=== PATIENT | male | born 1955 | race Caucasian/White ===

== ENCOUNTER → 2019-04-22 14:32 | Outpatient (BNVA) | payer MEDICAID, SELFPAY | PROVIDERS: Family Provider Registered Nurse; PCP Registered Nurse; Visit Provider Nurse Practitioner Family | DX: N40.1 Benign prostatic hyperplasia with lower urinary tract symptoms (principal); R33.9 Retention of urine, unspecified; N48.1 Balanitis; R39.14 Feeling of incomplete bladder emptying | CPT/HCPCS: 81001 ==

== ENCOUNTER → 2019-05-15 13:14 | Outpatient (BNVA) | payer MEDICAID, SELFPAY | PROVIDERS: Family Provider Registered Nurse; PCP Registered Nurse; Visit Provider Urology | DX: R33.9 Retention of urine, unspecified (principal); N48.1 Balanitis; N40.1 Benign prostatic hyperplasia with lower urinary tract symptoms; R39.14 Feeling of incomplete bladder emptying | CPT/HCPCS: 81001 ==

== ENCOUNTER → 2019-06-25 08:12 | Outpatient (BNVA) | payer MEDICAID, SELFPAY | PROVIDERS: Family Provider Registered Nurse; PCP Registered Nurse; Visit Provider Nurse Practitioner Psychiatric/Mental Health | DX: F41.1 Generalized anxiety disorder (principal); F17.210 Nicotine dependence, cigarettes, uncomplicated | CPT/HCPCS: 99213 ==

== ENCOUNTER 2019-07-01 11:21 | Emergency (ER) | payer MEDICAID, SELFPAY ==
[2019-07-01 11:30] VITALS: BP 166/87; PULSE 77; RESP 16; TEMP 36.6; O2SAT 99; BMI 21.7
[2019-07-01 11:40] VITALS: BP 126/86; BP 126/96; BP 154/80; PULSE 73; PULSE 88; PULSE 94
--- NOTE | 2019-07-01 11:41 | ED_ITS ---
HPI - General Adult General: Chief complaint: General Medical Stated complaint: FEELS LIKE HE WILL PASS OUT Time Seen by Provider: 07/01/19 11:31 History of Present Illness: HPI narrative: 63-year-old male comes in complaining of syncopal episodes or near syncopal episodes for the last month is not associated with any full loss of consciousness he denies any fever or respiratory problems he denies any getting any chest pain with these episodes. States they are always associated with change in either posture when he first stands up or begins to stand up sometimes they have occurred while he is walking but when he rests it go away he is never had any that initiated while he was completely at rest. They usually last 30 to 40 seconds of blurry vision and sometimes give him what he calls a brown headache. He denies any GI or symptoms associated with it denies any chest pain does not cause any radiation of discomfort into his neck arm or back. He denies any shortness of breath he states he will get as many as 4 or 5 of these per day he has been evaluated form they have not had any significant findings to this point. Onset (ago): month(s) (1) Location: head Radiation: non-radiation Severity: moderate Pain Consistency: intermittent Relieving factors: rest Exacerbating factors: other (Postural changes particularly when he first stands up) Associated symptoms: Reports headache(s) and weakness; Deny chest pain, confusion, cough, diaphoresis, decreased appetite, dyspnea, fevers/chills, nausea, rash, palpitations, seizures, short of breath, syncope or vomiting Treatments prior to arrival: none Review of Systems Const: Denies: diaphoresis ENMT: Denies: throat pain, ear pain, nasal discharge or nasal congestion Card: Denies: chest pain, palpitations or syncope Resp: Denies: shortness of breath GI: Denies: nausea or vomiting : Denies: flank pain, painful urination, urinary frequency or urinary urgency Skin/Breast: Denies: rash or itching Neuro: Reports: headache; Denies: confusion PFSH ED PFSH: Medical History Balanitis Benign prostatic hyperplasia with incomplete bladder emptying Generalized anxiety disorder Nicotine dependence, cigarettes, uncomplicated Urinary retention Surgical History S/P PTCA (percutaneous transluminal coronary angioplasty) DELETE Family History Mother , AT AGE 64 Renal failure Alzheimer disease Father , AT AGE 48 Lung cancer Social History Smoking and tobacco status: former smoker Alcohol intake: never Marital status: Current occupational status: disabled History of recent travel: No Physical Exam Const: COMMON NORMALS: no apparent distress GENERAL APPEARANCE: cooperative and comfortable ORIENTATION/CONSCIOUSNESS: Yes awake, Yes oriented to person, Yes oriented to place and Yes oriented to time HENMT: COMMON NORMALS: normocephalic, head/scalp atraumatic, hearing grossly normal bilaterally, external ears normal, EAC's normal, TM's normal bilaterally, nasal mucous membranes and turbinates normal, moist oral mucous membranes and oropharynx normal HEAD & SCALP: normocephalic and atraumatic NOSE: nasal mucous membranes and turbinates normal EXTERNAL EAR: Yes external ears normal EXTERNAL AUDITORY CANAL: EAC's normal TYMPANIC MEMBRANE: TM's normal bilaterally Eye: COMMON NORMALS: PERRL, EOMs intact bilaterally, conjunctivae normal and no scleral icterus CONJUNCTIVA: Yes conjunctivae normal PUPIL: Yes PERRL Neck/C-Spine: COMMON NORMALS: full ROM, no lymphadenopathy, supple and no JVD Lymph: LYMPHATIC: no lymphadenopathy noted and no lymphedema noted Resp: COMMON NORMALS: normal respiratory effort, no retractions, no use of accessory muscles and clear to auscultation bilaterally AUSCULTATION: clear to auscultation bilaterally Cardio: COMMON NORMALS: no JVD, regular rate, regular rhythm and no murmurs RATE: regular rate RHYTHM: regular rhythm GI: COMMON NORMALS: soft to palpation and no hepatosplenomegaly AUSCULTATION: Yes normoactive bowel sounds PALPATION: Yes soft, No tender, No guarding and Yes no hepatosplenomegaly Extremity: COMMON NORMALS: normal to inspection, normal capillary refill, no clubbing, cyanosis or edema, no calf tenderness and no pedal edema Neuro: SENSORIUM/ORIENTATION: Yes oriented to person, Yes oriented to place and Yes oriented to time Skin: COMMON NORMALS: no rashes or lesions noted GENERAL SKIN EXAM: no rashes or lesions noted Course Vital Signs: Vital signs: Vital Signs Temperature 97.8 F 07/01/19 11:30 Pulse Rate 68 07/01/19 14:12 Respiratory Rate 16 07/01/19 14:12 Blood Pressure 156/91 07/01/19 14:12 Pulse Oximetry 98 07/01/19 14:12 MDM - General Adult MDM Narrative: Medical decision making narrative: 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 He has had this for quite some time is nothing acute at this point we will go ahead and discharge him home we will get him to follow-up with neurology and get an outpatient MRI of the head as is worsening change symptoms recheck. Lab Data: Labs: Lab Results 07/01/19 07/01/19 07/01/19 Range/Units 12:00 12:00 12:00 WBC 7.6 (4.0-10.0) 10^3/ uL RBC 4.11 (4.1-5.3) 10^6/u L Hgb 13.4 (11.7-16.6) g/dL Hct 40.9 L (42.0-52.0) % MCV 99.5 H (80-94) fL MCH 32.6 (28.0-34.0) pg MCHC 32.8 (30.0-36.0) g/dL RDW 13.0 (12.1-15.1) % Plt Count 181 (130-400) 10^3/c mm MPV 10.6 H (7.4-10.4) fL Neut % (Auto) 64.6 % Lymph % (Auto) 24.2 % Pitkin % (Auto) 6.0 % Eos % (Auto) 3.7 % Baso % (Auto) 1.2 % Neut # (Auto) 4.9 (1.8-7.7) 10^3/u L Lymph # (Auto) 1.9 (0.8-4.8) 10^3/u L Pitkin # (Auto) 0.5 (0.2-0.9) 10^3/u L Eos # (Auto) 0.3 (0.0-0.8) 10^3/u L Baso # (Auto) 0.1 (0.0-0.1) 10^3/u L Nucleated RBC % (a uto) 0 % Nucleated RBCs # 0.0 /100WBC Sodium 140 (136-145) mmol/L Potassium 4.3 (3.5-5.1) mmol/L Chloride 105 (98-107) mmol/L Carbon Dioxide 25 (22-29) mmol/L Anion Gap 14.3 (5-19) BUN 16 (8-23) mg/dL Creatinine 1.7 H (0.7-1.2) mg/dL GFR Calculation 41.2 L (90-130) mL/min Glucose 97 (65-115) mg/dL Calculated Osmolal ity 286 (285-295) mOsm/k g Calcium 9.4 (8.5-10.5) mg/dL Total Bilirubin 0.3 (0.15-1.2) mg/dL AST 15 (0-40) U/L ALT 15 (0-41) U/L Alkaline Phosphata se 115 (40-130) IU/L Total Protein 6.6 (6.6-8.7) g/dL Albumin 4.2 (3.5-5.2) g/dL Globulin 2.4 (1.3-4.6) g/dL Urine Color Yellow (Yellow) Urine Appearance Clear (CLEAR) Urine pH 7 (5-7) Ur Specific Gravit y 1.005 (1.005-1.030) Urine Protein Neg (Negative) Urine Glucose (UA) Norm (Normal) Urine Ketones Negative (Negative) Urine Blood Neg (Negative) Urine Nitrate Negative (Negative) Urine Bilirubin Neg (NEGATIVE) Urine Urobilinogen Norm (Negative) mg/dL Ur Leukocyte Shital ase Negative (Negative) Imaging Data^: CT Head: Radiologist's impression: CT head wo con* [id number] REASON FOR EXAM: Near syncopal episodes, right-sided facial numbness IV CONTRAST ADMINISTERED: None. TOTAL EXAM DLP: 795.[address] scans at [facility] use at least one of these dose optimization techniques: automated exposure control; mA and/or kV adjustment per patient size (includes targeted exams where dose is matched to clinical indication); or iterative reconstruction. FINDINGS: The pineal gland is enlarged measures 9.95 mm from the normal of 5 mm. There appears to be mild dilatation of the third ventricle.. These findings are subtle and we recommend consideration of MRI of the brain be performed with contrast to rule out a Pinealoma. The hahn and white matter interfaces are normal. The 7th and 8th nerve complexes bilaterally appear to be normal. There is no lesions seen in the parotid glands right or left. Posterior fossa was normal terence and cerebellum show no abnormal signal. CT/CT head wo con* [id number] IMPRESSION: The pineal gland appears to be prominent in size suspicious of slight enlarge ment with mild dilatation of the third ventricle. We recommend follow-up with MRI with contrast be made. Dictated By:Lincoln Toribio DO Discharge Plan Discharge Patient Disposition: Home, Self-Care Clinical Impression: Near syncope Condition: Stable Prescriptions: No Action baclofen 10 mg tablet 10 mg PO BID RF: 0 memantine 5 mg tablet 5 mg PO BID RF: 0 finasteride 5 mg tablet 5 mg PO DAILY RF: 0 isosorbide mononitrate 30 mg tablet extended release 24 hr 30 mg PO DAILY RF: 0 simvastatin 40 mg tablet 40 mg PO DAILY RF: 0 levothyroxine 112 mcg capsule 112 mcg PO DAILY RF: 0 tramadol 50 mg tablet 50 mg PO DAILY PRN (Reason: Pain) RF: 0 pantoprazole 40 mg tablet,delayed release (DR/EC) 40 mg PO DAILY RF: 0 nitroglycerin [Nitrostat] 0.4 mg tablet, sublingual 0.4 mg SUBLINGUAL ONCE PRN (Reason: Chest Pain) RF: 0 aspirin 81 mg tablet,delayed release (DR/EC) 81 mg PO DAILY RF: 0 celecoxib 200 mg capsule 200 mg PO BID RF: 0 clopidogrel 75 mg tablet 75 mg PO DAILY RF: 0 trazodone 150 mg tablet 150 mg PO .bedtime Qty: 30 RF: 3 citalopram 20 mg tablet 20 mg PO DAILY RF: 0 gabapentin 300 mg capsule 300 mg PO BEDTIME RF: 0 Discharge Orders: Discharge Order (Routine); Ordered 07/01/19 Ordered By: Jose Vu Referrals: Margarita Elder [Primary Care Provider] - Discharge Diet: Usual diet Discharge Activity: Limit activity as instructed Activity Restrictions/Additional Instructions: Low up with your primary care provider after the MRI of your head. Discharge Date/Time: 07/01/19 14:20 Coding Level of Care Code ED Topline Beading Machine Tender for g Fwd Exam Comprehensive
--- NOTE | 2019-07-01 11:43 | CT_ITS ---
WS: [id number] CT head wo con* [id number] REASON FOR EXAM: Near syncopal episodes, right-sided facial numbness IV CONTRAST ADMINISTERED: None. TOTAL EXAM DLP: 795.[address] scans at [facility] use at least one of these dose optimization techniques: automat ed exposure control; mA and/or kV adjustment per patient size (includes targeted exams where dose is matched to clinical indication); or iterative reconstruction. FINDINGS: The pineal gland is enlarged measures 9.95 mm from the normal of 5 mm. There appears to be mild dilatation of the third ventricle.. These findings are subtle and we recommend consideration of MRI of the brain be performed with contrast to rule out a Pinealoma. The hahn and white matter interfaces are normal. The 7th and 8th nerve complexes bilaterally appear to be normal. There is no lesions seen in the paro tid glands right or left. Posterior fossa was normal terence and cerebellum show no abnormal signal. CT/CT head wo con* [id number] IMPRESSION: The pineal gland appears to be prominent in size suspicious of slight enlargeme nt with mild dilatation of the third ventricle. We recommend follow-up with MRI with contrast be made.
--- NOTE | 2019-07-01 11:43 | ECG_ITS ---
Measurements Intervals [place] Rate: 78 P: 74 MI: 159 QRS: 48 QRSD: 93 T: 77 QT: 356 QTc: 408 SINUS RHYTHM POSSIBLE LEFT ATRIAL ENLARGEMENT [-0.1mV P WAVE IN V1/V2] Compared to ECG 09/22/2018 14:11:31 No significant changes Electronically Signed On 07-01-2019 18:24:20 CDT by Lexi Martin M.D. [id number]
--- NOTE | 2019-07-01 11:44 | XR_ITS ---
WS: [id number] XR chest 1V portable [id number] REASON FOR EXAM: dyspnea/cough FINDINGS: The lung thomas are mildly hyper aerated. Suggest mild emphysema. The heart and mediastinal interfaces are normal. The lung thomas show no pneumonia, pleural effusion, pulmonary edema, or mass effect. The hilum and apices are normal. The chest is similar to September 22, 2018. XR/XR chest 1V portable [id number] IMPRESSION: Mild chronic obstructive pulmonary disease.
[2019-07-01 12:14] LABS: Basophils # 0.1 10^3/uL (0.0-0.1); Basophils % 1.2 %; Eosinophils # 0.3 10^3/uL (0.0-0.8); Eosinophils % 3.7 %; Hematocrit 40.9 % (42.0-52.0); Hemoglobin 13.4 g/dL (11.7-16.6); Lymphocytes # 1.9 10^3/uL (0.8-4.8); Lymphocytes % 24.2 %; Mean Corpuscular HGB Conc 32.8 g/dL (30.0-36.0); Mean Corpuscular Hemoglobin 32.6 pg (28.0-34.0); Mean Corpuscular Volume 99.5 fL (80-94); Mean Platelet Volume 10.6 fL (7.4-10.4); Monocytes # 0.5 10^3/uL (0.2-0.9); Neutrophils # 4.9 10^3/uL (1.8-7.7); Neutrophils % 64.6 %; Nucleated Red Blood Cells % 0 %; Platelet Count 181 10^3/cmm (130-400); Red Blood Count 4.11 10^6/uL (4.1-5.3); White Blood Count 7.6 10^3/uL (4.0-10.0)
[2019-07-01 12:16] LABS: Add Urine Microscopic? NO; Bilirubin Urine Neg (NEGATIVE); Blood Urine Neg (Negative); Glucose Urine UA Norm (Normal); Ketones Urine Negative (Negative); Leukocyte Esterase Urine Negative (Negative); Nitrate Urine Negative (Negative); Protein Urine Neg (Negative); Specific Gravity, Urine 1.005 (1.005-1.030); Urine Appearance Clear (CLEAR); Urine Color Yellow (Yellow); Urobilinogen Urine Norm (Negative); pH Urine 7 (5-7)
[2019-07-01 12:49] LABS: Alanine Aminotransferase 15 U/L (0-41); Albumin Level 4.2 g/dL (3.5-5.2); Alkaline Phosphatase 115 IU/L (40-130); Anion Gap 14.3 (5-19); Aspartate Amino Transferase 15 U/L (0-40); Blood Urea Nitrogen 16 mg/dL (8-23); Calcium 9.4 mg/dL (8.5-10.5); Carbon Dioxide 25 mmol/L (22-29); Chloride 105 mmol/L (98-107); Globulin 2.4 g/dL (1.3-4.6); Glomerular Filtration Rate 41.2 mL/min (90-130); Glucose 97 mg/dL (65-115); Osmolality Calculated 286 mOsm/kg (285-295); Potassium 4.3 mmol/L (3.5-5.1); Sodium 140 mmol/L (136-145); Total Bilirubin 0.3 mg/dL (0.15-1.2); Total Protein 6.6 g/dL (6.6-8.7)
[2019-07-01 14:12] VITALS: BP 156/91; PULSE 68; RESP 16; O2SAT 98
--- NOTE | 2019-07-03 15:26 | DCPLANNER ---
municipal services manager had message to schedule an outpatient MRI for patient. municipal services manager got order signed, faxed order to centralized scheduling. municipal services manager will call for appointment information.
--- NOTE | 2019-07-09 15:07 | DCPLANNER ---
Patient has an MRI scheduled for Wednesday, July 17, 2019 at 8:00. Patient also has a follow up appointment scheduled for Tuesday, September 03, 2019 at 10:[address] Mitchell.
--- NOTE | 2019-07-24 08:10 | DCPLANNER ---
Patients MRI scheduled for 07.17.19 was cancelled.
--- NOTE | 2019-09-06 14:55 | DCPLANNER ---
Patient did attend appointment scheduled for 09.03.19 with .
== END 2019-07-01 14:20 | disposition home or self-care (01) ==
PROVIDERS: Emergency Provider Family Medicine; Family Provider Registered Nurse; PCP Registered Nurse
DX: R55 Syncope and collapse (principal); Z79.82 Long term (current) use of aspirin; Z79.02 Long term (current) use of antithrombotics/antiplatelets; Z87.891 Personal history of nicotine dependence
CPT/HCPCS: 12345; 70450; 71045; 80053; 81003; 85025; 93005; 99283

== ENCOUNTER 2019-08-05 09:01 | Outpatient (CLI) | payer MEDICAID, SELFPAY ==
--- NOTE | 2019-08-05 09:24 | MR_ITS ---
WS: [id number] MRI BRAIN WITH AND WITHOUT CONTRAST HISTORY: NEW DAILY PERSISTENT HEADACHE;DIZZINESS;ABNL CT SCAN OF HEAD COMPARISON: 10/20/[address] head 07/01/2019 TECHNIQUE: Multiplanar imaging performed through the brain with Prohance 17 ml's IV. No acute infarcts are seen. Roche-white matter differentiation is well preserved. Mild chronic microv ascular ischemic changes in the subcortical white matter and around the ventricles. Mild progression since 2015. No susceptibility artifacts or prior lacunar infarcts. Ventricles and extra-axial spaces are normal. Clivus and pituitary gland are normal. Pineal gland is normal. Pineal gland is heavily calcified on p rior CT evaluations with no change. Visualized posterior fossa and brainstem are also normal. Postcontrast images are negative for masses or vascular malformations. Dural venous sinuses are normal. Paranasal sinuses: Mucous retention cyst floor of the LEFT maxillary sinus. Mastoid air cells: Normal. Calvarium and scalp: Normal. MR/MR head wo/w con [id number] IMPRESSION: 1. No acute infarct or mass. 2. Negative pineal gland. 3. Mild chronic microvascular ischemic disease. Slight progression since 2015.
== END 2019-08-05 09:02 | disposition home or self-care (01) ==
LOC: RADSHAW 09:03
PROVIDERS: Family Provider Registered Nurse; PCP Registered Nurse; Visit Provider Registered Nurse
DX: G44.52 New daily persistent headache (NDPH) (principal); R42 Dizziness and giddiness; R93.0 Abnormal findings on diagnostic imaging of skull and head, not elsewhere classified; I51.7 Cardiomegaly
CPT/HCPCS: 70553; A9579

== ENCOUNTER 2019-08-08 14:55 | Emergency (ER) | payer MEDICAID, SELFPAY ==
--- NOTE | 2019-08-08 15:09 | XR_ITS ---
WS: [id number] Portable AP upright chest, 08/08/2019 Clinical Data: chest pain Comparison: Portable chest, 07/01/2019. Findings: No nodules, masses or effusions are seen. The heart is normal. The pulmonary vascularity is not increased. No pneumonia or pneumothorax is seen. Monitor leads are on the chest wall. XR/XR chest 1V portable [id number] Impression: Negative chest.
--- NOTE | 2019-08-08 15:09 | ECG_ITS ---
Measurements Intervals [place] Rate: 96 P: 77 MO: 154 QRS: 49 QRSD: 89 T: 80 QT: 342 QTc: 432 SINUS RHYTHM POSSIBLE LEFT ATRIAL ENLARGEMENT [-0.1mV P WAVE IN V1/V2] NONSPECIFIC T-WAVE ABNORMALITY Compared to ECG 07/01/2019 11:33:50 T-wave abnormality now present Electronically Signed On 08-08-2019 20:56:37 CDT by Jacquelyn Bose M.D. [id number]
[2019-08-08 15:15] VITALS: BP 106/76; PULSE 98; RESP 14; TEMP 36.3; O2SAT 95; BMI 20.9
[2019-08-08 15:48] LABS: Basophils # 0.1 10^3/uL (0.0-0.1); Basophils % 0.8 %; Eosinophils # 0.1 10^3/uL (0.0-0.8); Eosinophils % 1.3 %; Hematocrit 37.6 % (42.0-52.0); Hemoglobin 12.6 g/dL (11.7-16.6); Lymphocytes # 2.1 10^3/uL (0.8-4.8); Mean Corpuscular HGB Conc 33.5 g/dL (30.0-36.0); Mean Corpuscular Hemoglobin 32.7 pg (28.0-34.0); Mean Corpuscular Volume 97.7 fL (80-94); Mean Platelet Volume 10.3 fL (7.4-10.4); Monocytes # 0.5 10^3/uL (0.2-0.9); Neutrophils # 7.5 10^3/uL (1.8-7.7); Neutrophils % 72.6 %; Nucleated Red Blood Cells % 0 %; Platelet Count 172 10^3/cmm (130-400); Red Blood Count 3.85 10^6/uL (4.1-5.3); Red Cell Distribution Width 12.8 % (12.1-15.1); White Blood Count 10.4 10^3/uL (4.0-10.0)
--- NOTE | 2019-08-08 16:12 | ED_ITS ---
Documented by User: aSncho Gonzalez DO 08/08/19 18:00 HPI - Chest Pain General: Chief Complaint: Chest Pain Stated Complaint: cp Time Seen by Provider: 08/08/19 15:49 History of Present Illness: HPI narrative: Patient reports that while at rest earlier today he had a sharp pain started in his left lower abdomen and radiated up into the chest. Pain was present for approximately 1 minute. There were no other associated symptoms. Patient is concerned because he was diagnosed some time ago with a abdominal aortic aneurysm and has not had any follow-up. MD complaint: chest pain Onset (ago): hour(s) Timing of current episode: now resolved Prior episodes: No Onset: during rest Pain location: left chest Quality: sharp and shooting Exacerbating factors: nothing Associated symptoms: Reports diaphoresis, dyspnea and nausea Treatment prior to arrival: none Review of Systems General: Reports: 10 or more systems reviewed and unremarkable except in HPI and below Const: Reports: diaphoresis Resp: Reports: dyspnea GI: Reports: nausea PFSH ED PFSH: Medical History Balanitis Benign prostatic hyperplasia with incomplete bladder emptying Generalized anxiety disorder Nicotine dependence, cigarettes, uncomplicated Urinary retention Surgical History S/P PTCA (percutaneous transluminal coronary angioplasty) DELETE Family History Mother , AT AGE 64 Renal failure Alzheimer disease Father , AT AGE 48 Lung cancer Social History Smoking and tobacco status: current every day smoker Alcohol intake: never Marital status: Current occupational status: disabled History of recent travel: No Physical Exam Const: COMMON NORMALS: patient oriented x3 and alert HENMT: COMMON NORMALS: normocephalic and atraumatic HEAD & SCALP: normocephalic and atraumatic Neck/C-Spine: COMMON NORMALS: no meningeal signs and no JVD Resp: EFFORT & INSPECTION: Yes respiratory distress Cardio: COMMON NORMALS: no JVD, regular rate and regular rhythm RATE: regular rate RHYTHM: regular rhythm GI: COMMON NORMALS: Normal to inspection, nondistended, normoactive bowel sounds present Extremity: COMMON NORMALS: normal to inspection and full ROM Neuro: COMMON NORMALS: patient oriented x3 SENSORIUM/ORIENTATION: Yes alert MENINGEAL SIGNS: Yes no meningeal signs Skin: COMMON NORMALS: no rashes or lesions noted, no jaundice and no mottling GENERAL SKIN EXAM: no rashes or lesions noted Course Vital Signs: Vital signs: Vital Signs Temperature 97.3 F L 08/08/19 15:15 Pulse Rate 98 08/08/19 15:15 Respiratory Rate 14 08/08/19 15:15 Blood Pressure 106/76 08/08/19 15:15 Pulse Oximetry 95 08/08/19 15:15 MDM - Chest Pain Lab Data: Labs: Lab Results 08/08/19 08/08/19 08/08/19 Range/Units 15:39 15:39 15:39 WBC 10.4 H (4.0-10.0) 10^3/ uL RBC 3.85 L (4.1-5.3) 10^6/u L Hgb 12.6 (11.7-16.6) g/dL Hct 37.6 L (42.0-52.0) % MCV 97.7 H (80-94) fL MCH 32.7 (28.0-34.0) pg MCHC 33.5 (30.0-36.0) g/dL RDW 12.8 (12.1-15.1) % Plt Count 172 (130-400) 10^3/c mm MPV 10.3 (7.4-10.4) fL Neut % (Auto) 72.6 % Lymph % (Auto) 20.0 % Tucker % (Auto) 5.0 % Eos % (Auto) 1.3 % Baso % (Auto) 0.8 % Neut # (Auto) 7.5 (1.8-7.7) 10^3/u L Lymph # (Auto) 2.1 (0.8-4.8) 10^3/u L Tucker # (Auto) 0.5 (0.2-0.9) 10^3/u L Eos # (Auto) 0.1 (0.0-0.8) 10^3/u L Baso # (Auto) 0.1 (0.0-0.1) 10^3/u L Nucleated RBC % (a uto) 0 % Nucleated RBCs # 0.0 /100WBC Sodium 138 (136-145) mmol/L Potassium 4.0 (3.5-5.1) mmol/L Chloride 103 (98-107) mmol/L Carbon Dioxide 22 (22-29) mmol/L Anion Gap 17.0 (5-19) BUN 21 (8-23) mg/dL Creatinine 1.4 H (0.7-1.2) mg/dL GFR Calculation 51.5 L (90-130) mL/min Glucose 88 (65-115) mg/dL Calculated Osmolal ity 282 L (285-295) mOsm/k g Calcium 9.6 (8.5-10.5) mg/dL Total Bilirubin 0.6 (0.15-1.2) mg/dL AST 9 (0-40) U/L ALT 10 (0-41) U/L Alkaline Phosphata se 94 (40-130) IU/L Troponin T Baselin e 10 (0-15) ng/L Total Protein 6.5 L (6.6-8.7) g/dL Albumin 4.4 (3.5-5.2) g/dL Globulin 2.1 (1.3-4.6) g/dL Discharge Plan Discharge Patient Disposition: Home, Self-Care Clinical Impression: Atypical chest pain Condition: Stable Prescriptions: No Action baclofen 10 mg tablet 10 mg PO BID RF: 0 memantine 5 mg tablet 5 mg PO BID RF: 0 finasteride 5 mg tablet 5 mg PO DAILY RF: 0 isosorbide mononitrate 30 mg tablet extended release 24 hr 30 mg PO DAILY RF: 0 simvastatin 40 mg tablet 40 mg PO DAILY RF: 0 levothyroxine 112 mcg capsule 112 mcg PO DAILY RF: 0 tramadol 50 mg tablet 50 mg PO DAILY PRN (Reason: Pain) RF: 0 pantoprazole 40 mg tablet,delayed release (DR/EC) 40 mg PO DAILY RF: 0 nitroglycerin [Nitrostat] 0.4 mg tablet, sublingual 0.4 mg SUBLINGUAL ONCE PRN (Reason: Chest Pain) RF: 0 aspirin 81 mg tablet,delayed release (DR/EC) 81 mg PO DAILY RF: 0 celecoxib 200 mg capsule 200 mg PO BID RF: 0 clopidogrel 75 mg tablet 75 mg PO DAILY RF: 0 trazodone 150 mg tablet 150 mg PO .bedtime Qty: 30 RF: 3 citalopram 20 mg tablet 20 mg PO DAILY RF: 0 gabapentin 300 mg capsule 300 mg PO BEDTIME RF: 0 ubegplbgob-ojtpilgxqpblr-qxob 50-325-40 mg tablet 1 tab PO Q4H PRN (Reason: Migraine Headache) RF: 0 Calcium 500 With D 500 mg(1,250mg) -400 unit Tablet 1 tab PO DAILY RF: 0 budesonide-formoterol 160-4.5 mcg/actuation HFA aerosol inhaler See Rx Instructions .ROUTE .COMPLEX RF: 0 Discharge Orders: Discharge Order (Routine); Ordered 08/08/19 Ordered By: Sancho Gonzalez Referrals: Margarita Elder [Primary Care Provider] - Coding Level of Care Code ED Italian Teacher for Chg Fwd Exam Comprehensive Documented by User: Heidi Roca 08/08/19 18:26 HPI - Chest Pain 2 General: Chief Complaint: Chest Pain Stated Complaint: cp Time Seen by Provider: 08/08/19 15:49 PFSH ED PFSH: Medical History Balanitis Benign prostatic hyperplasia with incomplete bladder emptying Generalized anxiety disorder Nicotine dependence, cigarettes, uncomplicated Urinary retention Surgical History S/P PTCA (percutaneous transluminal coronary angioplasty) DELETE Family History Mother , AT AGE 64 Renal failure Alzheimer disease Father , AT AGE 48 Lung cancer Social History Smoking and tobacco status: current every day smoker Alcohol intake: never Marital status: Current occupational status: disabled History of recent travel: No Course Vital Signs: Vital signs: Vital Signs Temperature 97.3 F L 08/08/19 15:15 Pulse Rate 98 08/08/19 15:15 Respiratory Rate 14 08/08/19 15:15 Blood Pressure 106/76 08/08/19 15:15 Pulse Oximetry 95 08/08/19 15:15 MDM - Chest Pain Lab Data: Labs: Lab Results 08/08/19 08/08/19 08/08/19 Range/Units 15:39 15:39 15:39 WBC 10.4 H (4.0-10.0) 10^3/ uL RBC 3.85 L (4.1-5.3) 10^6/u L Hgb 12.6 (11.7-16.6) g/dL Hct 37.6 L (42.0-52.0) % MCV 97.7 H (80-94) fL MCH 32.7 (28.0-34.0) pg MCHC 33.5 (30.0-36.0) g/dL RDW 12.8 (12.1-15.1) % Plt Count 172 (130-400) 10^3/c mm MPV 10.3 (7.4-10.4) fL Neut % (Auto) 72.6 % Lymph % (Auto) 20.0 % Tucker % (Auto) 5.0 % Eos % (Auto) 1.3 % Baso % (Auto) 0.8 % Neut # (Auto) 7.5 (1.8-7.7) 10^3/u L Lymph # (Auto) 2.1 (0.8-4.8) 10^3/u L Tucker # (Auto) 0.5 (0.2-0.9) 10^3/u L Eos # (Auto) 0.1 (0.0-0.8) 10^3/u L Baso # (Auto) 0.1 (0.0-0.1) 10^3/u L Nucleated RBC % (a uto) 0 % Nucleated RBCs # 0.0 /100WBC Sodium 138 (136-145) mmol/L Potassium 4.0 (3.5-5.1) mmol/L Chloride 103 (98-107) mmol/L Carbon Dioxide 22 (22-29) mmol/L Anion Gap 17.0 (5-19) BUN 21 (8-23) mg/dL Creatinine 1.4 H (0.7-1.2) mg/dL GFR Calculation 51.5 L (90-130) mL/min Glucose 88 (65-115) mg/dL Calculated Osmolal ity 282 L (285-295) mOsm/k g Calcium 9.6 (8.5-10.5) mg/dL Total Bilirubin 0.6 (0.15-1.2) mg/dL AST 9 (0-40) U/L ALT 10 (0-41) U/L Alkaline Phosphata se 94 (40-130) IU/L Troponin T Baselin e 10 (0-15) ng/L Total Protein 6.5 L (6.6-8.7) g/dL Albumin 4.4 (3.5-5.2) g/dL Globulin 2.1 (1.3-4.6) g/dL Discharge Plan Discharge Patient Disposition: Home, Self-Care Clinical Impression: Atypical chest pain Condition: Stable Prescriptions: No Action baclofen 10 mg tablet 10 mg PO BID RF: 0 memantine 5 mg tablet 5 mg PO BID RF: 0 finasteride 5 mg tablet 5 mg PO DAILY RF: 0 isosorbide mononitrate 30 mg tablet extended release 24 hr 30 mg PO DAILY RF: 0 simvastatin 40 mg tablet 40 mg PO DAILY RF: 0 levothyroxine 112 mcg capsule 112 mcg PO DAILY RF: 0 tramadol 50 mg tablet 50 mg PO DAILY PRN (Reason: Pain) RF: 0 pantoprazole 40 mg tablet,delayed release (DR/EC) 40 mg PO DAILY RF: 0 nitroglycerin [Nitrostat] 0.4 mg tablet, sublingual 0.4 mg SUBLINGUAL ONCE PRN (Reason: Chest Pain) RF: 0 aspirin 81 mg tablet,delayed release (DR/EC) 81 mg PO DAILY RF: 0 celecoxib 200 mg capsule 200 mg PO BID RF: 0 clopidogrel 75 mg tablet 75 mg PO DAILY RF: 0 trazodone 150 mg tablet 150 mg PO .bedtime Qty: 30 RF: 3 citalopram 20 mg tablet 20 mg PO DAILY RF: 0 gabapentin 300 mg capsule 300 mg PO BEDTIME RF: 0 lfefvxmpce-csbtgiowkccko-ygfh 50-325-40 mg tablet 1 tab PO Q4H PRN (Reason: Migraine Headache) RF: 0 Calcium 500 With D 500 mg(1,250mg) -400 unit Tablet 1 tab PO DAILY RF: 0 budesonide-formoterol 160-4.5 mcg/actuation HFA aerosol inhaler See Rx Instructions .ROUTE .COMPLEX RF: 0 Discharge Orders: Discharge Order (Routine); Ordered 08/08/19 Ordered By: Sancho Gonzalez Referrals: Margarita Elder [Primary Care Provider] - Coding Level of Care Code ED Italian Teacher for Chg Fwd Exam Comprehensive
--- NOTE | 2019-08-08 16:15 | CTR_ITS ---
PROCEDURE INFORMATION: Exam: CT Angiography Chest With Contrast Exam date and time: 08/08/2019 4:32 PM Age: 63 years old Clinical indication: Abdominal pain; Generalized; Patient HX: HX of aaa C/O abd pain radiating to neck/jaw TECHNIQUE: Imaging protocol: Computed tomographic angiography of the chest with intravenous contrast. 3D rendering: MIP and/or 3D reconstructed images were created by the technologist. Radiation optimization: All CT scans at this facility use at least one of these dose optimization techniques: automated exposure control; mA and/or kV adjustment per patient size (includes targeted exams where dose is matched to clinical indication); or iterative reconstruction. Contrast material: VISI 320; Contrast volume: 95 ml; Contrast route: 20G; COMPARISON: No relevant prior studies available. RADIATION DOSE METRICS: Total DLP: 1182.82 mGy-cm FINDINGS: Pulmonary arteries: There is no evidence of filling defects within the pulmonary arterial circulation to suggest pulmonary embolism. Great vessels off aortic arch: There is atherosclerotic disease with severe stenosis of the origin of the left subclavian artery. There is also some atherosclerotic change near the origin of the left vertebral artery and also in the proximal right common carotid artery without stenosis. Aorta: There are mild atherosclerotic changes in the aortic arch and descending thoracic aorta. There is no aneurysm or dissection of the thoracic aorta. Lungs: There is moderate centrilobular and paraseptal emphysema with an apical predominance. There is some dependent atelectasis at the lung bases. There are few scattered peripheral calcified nodules in keeping with old granulomatous disease. No focal infiltrate is identified. Pleural space: Unremarkable. No pneumothorax. No pleural effusion. Heart: There is moderate atherosclerotic calcification of the coronary arteries. Lymph nodes: Unremarkable. No enlarged lymph nodes. Bones/joints: Unremarkable. No acute fracture. Soft tissues: Unremarkable. IMPRESSION: 1. Emphysema and old granulomatous disease. 2. Atherosclerotic disease with severe stenosis of the origin of the left subclavian artery 3. No acute findings in the chest PROCEDURE INFORMATION: Exam: CT Angiography Abdomen and Pelvis With Contrast Exam date and time: 08/08/2019 4:32 PM Age: 63 years old Clinical indication: Abdominal pain; Generalized; Patient HX: HX of aaa C/O abd pain radiating to neck/jaw TECHNIQUE: Imaging protocol: Computed tomographic angiography of the abdomen and pelvis with intravenous contrast material. 3D rendering: MIP and/or 3D reconstructed images were created by the technologist. Radiation optimization: All CT scans at this facility use at least one of these dose optimization techniques: automated exposure control; mA and/or kV adjustment per patient size (includes targeted exams where dose is matched to clinical indication); or iterative reconstruction. Contrast material: VISI 320; Contrast volume: 95 ml; Contrast route: 20G; COMPARISON: No relevant prior studies available. RADIATION DOSE METRICS: Total DLP: 1182.82 mGy-cm FINDINGS: Aorta: There is a 3.8 cm size infrarenal abdominal aortic aneurysm just over 6 cm in length and terminating at the iliac bifurcation. There is mural thrombus within this aneurysm. Aneurysm extends into the right common iliac artery. There is a right common iliac artery stent at the distal end of the aneurysm. Celiac trunk and mesenteric arteries: There is severe stenosis in the origin of the celiac artery which may be as high as 90%. There is 50% stenosis in the proximal portion of the superior mesenteric artery. Renal arteries: There is a single right renal artery. There is severe stenosis in excess of 50% involving the origin and proximal portion of the right renal artery. There is a single left renal artery with severe stenosis in the origin of the left renal artery. Right iliac arteries: The right external iliac artery is patent and supplies a patent right common femoral artery. The right internal iliac artery is occluded from its origin. Left iliac arteries: The left common iliac and external iliac arteries are patent. There is some atherosclerotic plaque in the proximal left common femoral artery but no significant stenosis. Liver: There are 3 small hypodensities in the liver measuring up to 6 mm in size, 2 in the left lobe and 1 in the right most likely representing benign cysts. Gallbladder and bile ducts: The gallbladder is normal. Pancreas: The pancreas is normal. Spleen: The spleen is normal. Adrenals: The adrenal glands are normal. Kidneys and ureters: The kidneys are normal. There is no evidence of hydronephrosis. There is no evidence of renal or ureteral calcifications. Stomach and bowel: Unremarkable. No obstruction. No mucosal thickening. Appendix: Not identified Intraperitoneal space: Unremarkable. No free air. No significant fluid collection. Lymph nodes: Unremarkable. No enlarged lymph nodes. Bladder: Unremarkable. No mass. Reproductive: Unremarkable as visualized. Bones/joints: No acute fracture. No dislocation. Soft tissues: There are changes in the left inguinal region suggesting prior hernia repair. CT/CT angio chest abdomen pelvis IMPRESSION: 1. 3.8 cm sized abdominal aortic aneurysm as described. No evidence for aortic dissection or leakage. 2. 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 3. Bilateral renal artery stenosis Radiation Dose CTDIVOL = (mGy): DLP = 1182.82~1182.82 (mGy-cm)
[2019-08-08 16:34] LABS: Alanine Aminotransferase 10 U/L (0-41); Albumin Level 4.4 g/dL (3.5-5.2); Alkaline Phosphatase 94 IU/L (40-130); Aspartate Amino Transferase 9 U/L (0-40); Blood Urea Nitrogen 21 mg/dL (8-23); Calcium 9.6 mg/dL (8.5-10.5); Carbon Dioxide 22 mmol/L (22-29); Chloride 103 mmol/L (98-107); Globulin 2.1 g/dL (1.3-4.6); Glomerular Filtration Rate 51.5 mL/min (90-130); Glucose 88 mg/dL (65-115); Osmolality Calculated 282 mOsm/kg (285-295); Sodium 138 mmol/L (136-145); Total Bilirubin 0.6 mg/dL (0.15-1.2); Total Protein 6.5 g/dL (6.6-8.7)
[2019-08-08 16:37] LABS: Troponin(5th) Baseline 10 ng/L (0-15)
[2019-08-08] MEDS: iodixanol 320 mg/mL 100mL Btl IV (16:55)
--- NOTE | 2019-08-08 17:09 | ECG_ITS ---
Measurements Intervals [place] Rate: 66 P: 70 [place]: 156 QRS: 42 QRSD: 93 T: 71 QT: 387 QTc: 408 SINUS RHYTHM Compared to ECG 07/01/2019 11:33:50 No significant changes Electronically Signed On 08-08-2019 21:05:10 CDT by Jacquelyn Bose M.D. [id number]
[2019-08-08 18:26] VITALS: BP 141/93; PULSE 95; RESP 16; O2SAT 96
== END 2019-08-08 18:29 | disposition home or self-care (01) ==
PROVIDERS: Physician Assistant; Emergency Provider Family Medicine; PCP Registered Nurse
DX: R07.89 Other chest pain (principal); Z79.82 Long term (current) use of aspirin; Z79.02 Long term (current) use of antithrombotics/antiplatelets; F17.210 Nicotine dependence, cigarettes, uncomplicated
CPT/HCPCS: 12345; 71045; 71275; 74174; 80053; 84484; 85025; 93005; 99283; 99284; Q9967

== ENCOUNTER → 2019-08-20 07:32 | Outpatient (BNVA) | payer MEDICAID, SELFPAY | PROVIDERS: PCP Registered Nurse; Visit Provider Nurse Practitioner Psychiatric/Mental Health | DX: F41.1 Generalized anxiety disorder (principal); F17.210 Nicotine dependence, cigarettes, uncomplicated | CPT/HCPCS: 99213 ==

== ENCOUNTER 2019-08-28 06:00 | Outpatient (RCR) | payer SELFPAY | END 2019-09-27 23:59 | disposition home or self-care (01) | LOC: SPT 06:00 | PROVIDERS: PCP Registered Nurse; Referring Provider Registered Nurse; Visit Provider Registered Nurse | DX: G44.52 New daily persistent headache (NDPH) (principal); R42 Dizziness and giddiness; R93.0 Abnormal findings on diagnostic imaging of skull and head, not elsewhere classified | CPT/HCPCS: 95992; 97112; 97162 ==

== ENCOUNTER → 2019-09-03 10:21 | Outpatient (BNVA) | payer MEDICAID, SELFPAY | PROVIDERS: PCP Registered Nurse; Visit Provider Specialist | DX: G37.9 Demyelinating disease of central nervous system, unspecified (principal); F17.210 Nicotine dependence, cigarettes, uncomplicated; G31.84 Mild cognitive impairment of uncertain or unknown etiology; R56.9 Unspecified convulsions; R41.3 Other amnesia | CPT/HCPCS: 96116; 99204 ==

== ENCOUNTER 2019-09-05 12:57 | Outpatient (CLI) | payer MEDICAID, SELFPAY ==
[2019-09-05 14:48] LABS: Folate Level 5.9 ng/mL (4.5-32.2); Vitamin B12 526 pg/mL (232-1245)
[2019-09-11 14:40] LABS: Methylmalonic Acid 688 nmol/L (87-318)
== END 2019-09-05 12:58 | disposition home or self-care (01) ==
LOC: LAB 12:59
PROVIDERS: PCP Registered Nurse; Visit Provider Specialist
DX: R20.0 Anesthesia of skin (principal)
CPT/HCPCS: 82607; 82746; 83921

== ENCOUNTER 2019-09-19 14:46 | Outpatient (CLI) | payer MEDICAID, SELFPAY ==
--- NOTE | 2019-09-19 15:00 | USCV_ITS ---
Balta Kwan Age: 64 Gender: M : 1955 Exam Date: 09/19/2019 14:53 Ordering Phys: Aster Mitchell MD Technologist: Oriana Menchaca Exam Location: [facility] – [place] Indication: Right Carotid Bruit Risk Factors: Unknown Previous Vascular Surgery: None Right Brachial BP: / Left Brachial BP: / Right Left Velocity (cm/s) Spectral Plaque Velocity (cm/s) Spectral Plaque Syst/Diast Broadening Syst/Diast Broadening 98.10/ 20.90 Prox CCA 95.50 / 21.10 95.90/ 33.10 Mid CCA 91.75 / 27.90 81.60/ 25.40 Distal CCA 73.20 / 21.10 63.60/ 13.40 Prox ICA 40.10 / 14.80 75.00/ 28.20 Mid ICA 50.80 / 17.50 75.00/ 27.40 Distal ICA 60.40 / 25.40 79.80 ECA 71.80 0.78 ICA/CCA 0.62 Antegrade Vertebral Bi- directiona l 42.50/ 16.90 cm/s / cm/s Tri Subclavian Tri 67.40 74.10 FINDINGS Minimal plaques bilaterally at the bifurcations and internal carotid arteries Normal Doppler flow velocities and ratios Antegrade flow in the right vertebral artery with bidirectional flow in the left vertebral artery Delayed peaking Doppler waveforms in the left subclavian artery CONCLUSIONS Minimal plaques bilaterally at the bifurcations and proximal internal carotid arteries, suggestive of less than 15% stenosis. Abnormal Doppler waveform in the left vertebral and subclavian arteries suggestive of high-grade stenosis in the proximal left subclavian artery. Compared to the study from 10/09/2015, the abnormal vertebral artery flow pattern appears to be new. Consider CTA to better evaluate the proximal segments of the aortic arch vessels. Dr Jacquelyn Bose MD [facility] (Electronically Signed) Final Date: 22 September 2019 20:18 S
== END 2019-09-19 14:47 | disposition home or self-care (01) ==
LOC: RAD 14:48
PROVIDERS: PCP Registered Nurse; Visit Provider Specialist
DX: I65.23 Occlusion and stenosis of bilateral carotid arteries (principal)
CPT/HCPCS: 93880

== ENCOUNTER → 2019-10-31 11:19 | Outpatient (BNVA) | payer MEDICAID, SELFPAY | PROVIDERS: PCP Registered Nurse; Visit Provider Specialist | DX: I77.1 Stricture of artery (principal); G31.84 Mild cognitive impairment of uncertain or unknown etiology; G37.9 Demyelinating disease of central nervous system, unspecified; R51 Headache; F17.210 Nicotine dependence, cigarettes, uncomplicated | CPT/HCPCS: 99214 ==

== ENCOUNTER 2019-11-01 08:02 | Outpatient (CLI) | payer MEDICAID, SELFPAY ==
--- NOTE | 2019-11-01 08:30 | CT_ITS ---
WS: [id number] CT ANGIOGRAM CEREBRAL AND CAROTID ARTERIES HISTORY: Subclavian artery stenosis TECHNIQUE: CT angiogram is performed of the carotid and cerebral arteries. During arterial injection imaging is obtained from the skull vertex to the aortic arch in 1.25 mm imaging. Coronal and sagittal reformats are submitted. Additional multi planar reformats of the carotid and cerebral arteries are submitted, MIP imaging also reviewed. NASCET criteria utilized. All CT scans at [facility] use at least one of these dose optimization techniques: automated exposure control; mA and/or kV ad justment per patient size (includes targeted exams where dose is matched to clinical indication); or iterative reconstruction. CONTRAST: Visipaque 320; 95 mL IV. DLP: 2143.16 mGy.cm COMPARISON: 08/08/2019 and carotid ultrasound 09/19/[address] head is first performed. No intracranial hemorrhage. No significant volume loss. There is no sulcal effacement. Mild chronic microvascular ischemic disease. Carotid Angiogram: Right carotid: Common carotid artery: Arises normally from the innominate artery. No significant plaque or stenosis. Internal carotid artery: Small amount of calcified plaque at the bifurcation and intimal thickening. External carotid artery: Patent. Left carotid: Common carotid artery: Small amount of calcified plaque and intimal thickening at the origin of the L EFT common carotid artery with no stenosis. Internal carotid artery: Mild atherosclerosis with no significant stenosis. External carotid artery: Patent. Right vertebral artery: Unremarkable. Left vertebral artery: Small caliber but patent LEFT vertebral artery. Significant collaterals surrou nding the LEFT vertebral artery and also along the posterior cervical spine. Subclavian arteries: Normal caliber of the subclavian artery on the RIGHT. No stenosis. There is a ve ry small amount of intimal thickening and plaque in the mid innominate artery without significant alex nosis. High-grade stenosis at the origin of the LEFT subclavian artery from the arch. Stenosis is javed culated at 87%. Upper thorax: Chronic emphysema. Thyroid gland: Normal. Osseous structures: Unremarkable. CEREBRAL ANGIOGRAM: Intracranial vertebral arteries: Dominant RIGHT vertebral artery. Basilar artery: No significant stenosis or occlusion. No aneurysm. Intracranial Internal carotid arteries: Minimal atherosclerosis bilaterally. No occlusions or aneurys m. Middle cerebral arteries: Normal. Anterior cerebral arteries and ACOM: Normal. Posterior cerebral arteries and PCOM's: Normal. Dural venous sinuses are normally enhancing. Mastoid air cells: Normal. Paranasal sinuses: Normal. Calvarium: Normal. CT/CT angio headneck* [id number] IMPRESSION: 1. Mild atherosclerosis carotid arteries. No stenosis. 2. High-grade stenosis proximal LEFT subclavian artery at 87%. 3. Mild atherosclerosis intracranial carotid arteries with no significant alex noses. 4. Small caliber diffuse LEFT vertebral artery but it is patent. May be congen ital.
[2019-11-01 08:52] LABS: Blood Urea Nitrogen 16 mg/dL (8-23); Glomerular Filtration Rate 47.4 mL/min (90-130)
[2019-11-01] MEDS: iodixanol 320 mg/mL 100mL Btl IV (09:19)
== END 2019-11-01 08:03 | disposition home or self-care (01) ==
LOC: RAD 08:03
PROVIDERS: PCP Registered Nurse; Visit Provider Specialist
DX: I77.1 Stricture of artery (principal); G31.84 Mild cognitive impairment of uncertain or unknown etiology; G37.9 Demyelinating disease of central nervous system, unspecified; I65.23 Occlusion and stenosis of bilateral carotid arteries; I70.8 Atherosclerosis of other arteries
CPT/HCPCS: 70496; 70498; 82565; 84520

== ENCOUNTER 2019-11-07 08:39 | Outpatient (CLI) | payer MEDICAID, SELFPAY ==
--- NOTE | 2019-11-07 09:00 | CT_ITS ---
WS: [id number] CTA THORACIC AORTA WITH CONTRAST. HISTORY: Subclavian and vertebral artery stenosis TECHNIQUE: CT imaging of the thorax is performed with and without contrast. After noncontrast imaging is performed, CT angiogram is performed during injection of Visipaque 320; 95 mL IV.. Sagittal and c oronal reconstructions, sagittal and coronal MIP imaging is submitted. All CT scans at [facility] use at least one of these dose optimization techniques: automated exposure control; mA and/o r kV adjustment per patient size (includes targeted exams where dose is matched to clinical indicatio n); or iterative reconstruction. DLP: 1573.08 mGy-cm. COMPARISON: 08/08/2019 Mild ectasia thoracic aorta. Transverse diameter of 3.5 cm ascending aorta. There is mild atheroscler otic plaque with intimal thickening and calcification through the arch. Mild intimal thickening and c alcification in the descending aorta. No aneurysm or dissection. Small amount of calcified plaque at the origin of the innominate. LEFT subclavian demonstrates high-grade stenosis in the proximal artery . There is adjacent intimal thickening and plaque. Stenosis calculated at 87%. No stenosis LEFT carot id artery. Hyperexpanded lungs with centrilobular emphysema. No pulmonary mass or pneumonia. No nodules. Linear scarring at the lung bases. Pulmonary artery size is normal. Heavy calcification in the coronary jose raul. Significant calcification in the LEFT anterior descending coronary. No cardiomegaly. No pericar dial or pleural effusions or adenopathy. There are small benign-appearing mediastinal and hilar lymph nodes. Mild atrophy and cortical thinning upper pole of each kidney. No adrenal mass. Small cyst in the live r. CT/CT angio chest 09018 IMPRESSION: 1. High-grade stenosis proximal LEFT subclavian artery. Stenosis calculated at 87%. 2. Ectasia but nonaneurysmal dilatation ascending aorta. 3. Chronic centrilobular emphysema. 4. Coronary artery calcifications.
[2019-11-07] MEDS: iodixanol 320 mg/mL 100mL Btl IV (09:35)
== END 2019-11-07 08:40 | disposition home or self-care (01) ==
LOC: RADWPI 08:42
PROVIDERS: PCP Registered Nurse; Visit Provider Specialist
DX: I77.1 Stricture of artery (principal); I77.819 Aortic ectasia, unspecified site; J43.2 Centrilobular emphysema; I25.10 Atherosclerotic heart disease of native coronary artery without angina pectoris
CPT/HCPCS: 71275; Q9967

== ENCOUNTER → 2019-11-12 08:35 | Outpatient (BNVA) | payer MEDICAID, SELFPAY | PROVIDERS: PCP Registered Nurse; Visit Provider Nurse Practitioner Psychiatric/Mental Health | DX: F41.1 Generalized anxiety disorder (principal); F17.210 Nicotine dependence, cigarettes, uncomplicated | CPT/HCPCS: 99213 ==

== ENCOUNTER → 2019-12-02 10:06 | Outpatient (BNVA) | payer MEDICAID, SELFPAY | PROVIDERS: PCP Registered Nurse; Visit Provider Specialist | DX: R51.9 Headache, unspecified (principal); I77.1 Stricture of artery; G31.84 Mild cognitive impairment of uncertain or unknown etiology; F17.210 Nicotine dependence, cigarettes, uncomplicated | CPT/HCPCS: 99214 ==

== ENCOUNTER → 2019-12-24 08:12 | Outpatient (BNVA) | payer MEDICAID, SELFPAY | PROVIDERS: PCP Registered Nurse; Visit Provider Nurse Practitioner Psychiatric/Mental Health | DX: F41.1 Generalized anxiety disorder (principal); F17.210 Nicotine dependence, cigarettes, uncomplicated | CPT/HCPCS: 99213 ==

== ENCOUNTER → 2019-12-27 14:47 | Outpatient (BNVA) | payer MEDICAID, SELFPAY | PROVIDERS: PCP Registered Nurse; Visit Provider Surgery | DX: Z11.59 Encounter for screening for other viral diseases (principal); K40.90 Unilateral inguinal hernia, without obstruction or gangrene, not specified as recurrent | CPT/HCPCS: 87635 ==

== ENCOUNTER 2020-01-01 07:50 | Day surgery (SDC) | payer MEDICAID, SELFPAY ==
[2019-12-31 12:10] VITALS: BMI 20.9
[2020-01-01] VITALS (8 sets, daily range): BP systolic 88–144; BP diastolic 69–95; PULSE 90–120; RESP 16–20; TEMP 36.4–37; O2SAT 92–99
--- NOTE | 2020-01-01 08:18 | ECG_ITS ---
[facility] Test Date: 2020-01-01 Pat Name: Balta Kwan Department: Room: Gender: Male Staff Assistant: : 1955 Requested By: Rosalina Castrejon Order Number: [id number] Hood MD: Yovana Mendenhall M.D. Measurements Intervals [place] Rate: 91 P: 75 CT: 165 QRS: 56 QRSD: 94 T: 80 QT: 350 QTc: 432 Interpretive Statements SINUS RHYTHM POSSIBLE LEFT ATRIAL ENLARGEMENT [-0.1mV P WAVE IN V1/V2] Compared to ECG 08/08/2019 18:04:18 No significant changes Electronically Signed On 01-01-2020 19:31:48 SOFTWARE SYSTEMS ARCHITECT by Yovana Mendenhall M.D. [id number]
[2020-01-01] MEDS: sodium chloride 0.9% 1,000 ML 30 ML IV (08:31)
--- NOTE | 2020-01-01 08:46 | ANES.PREANE2 ---
Pre-Anesthetic Assessment Pre-Anesthetic Assessment: Height/Weight: Height 1.83 m Weight 69.853 kg Temp Pulse Resp BP Pulse Ox 98.5 F 120 H 18 88/69 94 01/01/20 08:20 01/01/20 08:20 01/01/20 08:20 01/01/20 08:20 01/01/20 08:20 Preop Diagnosis: Left inguinal hernia Proposed Procedure: Operation Date: 01/01/20 09:30 Proposed Procedures p Laparoscopic poss Open Inguinal Hernia Repair w/Mesh 46796 K40.90(Left) - Miguel Cheng MD Familial anesthetic complications: None Was Beta Kathryn taken within 24 hours: N/A Last intake: Intake Last Liquid Date 12/31/19 Last Liquid Time 20:00 Last Solid Date 12/31/19 Last Solid Time 20:00 Social: Social History: Tobacco and No alcohol Exam: Pre-Anes Outpt Exam: alert, oriented x 3, clear to auscultation bilaterally and regular rate & rhythm Airway: Cervical ROM: WNL MP: 2 Dentition: Other (edentulous) CV/HEM: CV/HEM: CAD (stent in 2018 - holding plavix), HTN and GA Comments: L subclavian artery stenosis - Will placed BP cuff on R arrm Metabolic: Metabolic: Thyroid Anesthetic Plan: ASA status: 3 Other: BP cuff to be placed on R arm, d/t L Subclavian artery stenosis Risk of > 500 ml blood loss (7ml/kg in children): No Meds/Allergies Current Medications: Current Medications Generic Name Dose Route Start Last Admin Trade Name Freq PRN Reason Stop Dose Admin Sodium Chloride 1,000 mls @ 30 ml s/hr 01/01/20 07:45 01/01/20 08:31 Sodium Chloride 0.9% IV 01/02/20 07:44 30 mls/hr .Q24H KATIE Administration PFSH Anesthesia PFSH: Medical History Balanitis Benign prostatic hyperplasia with incomplete bladder emptying Generalized anxiety disorder GERD (gastroesophageal reflux disease) Hyperlipidemia Hypothyroidism Urinary retention Surgical History H/O heart artery stent History of colonoscopy with polypectomy (~2018) dr. anderson History of esophagogastroduodenoscopy (EGD) (~2018) dr. anderson Family History Mother , AT AGE 64 Renal failure Alzheimer disease Father , AT AGE 48 Lung cancer Social History Smoking and tobacco status: current every day smoker cigarettes Packs smoked per day: 2.5 Alcohol intake: never Marital status: Current occupational status: disabled History of recent travel: No Data Anesthesia CBC & Chem 7: 01/01/20 08:25 01/01/20 08:25 Cardiac Studies: No Data to Display
[2020-01-01 08:57] LABS: Blood Urea Nitrogen 15 mg/dL (8-23); Calcium 9.4 mg/dL (8.5-10.5); Carbon Dioxide 28 mmol/L (22-29); Chloride 102 mmol/L (98-107); Glomerular Filtration Rate 47.4 mL/min (90-130); Glucose 95 mg/dL (65-115); Osmolality Calculated 291 mOsm/kg (285-295); Sodium 140 mmol/L (136-145)
[2020-01-01 08:58] LABS: Anion Gap 13.5 (5-19)
[2020-01-01 08:59] LABS: Potassium 3.5 mmol/L (3.5-5.1)
--- NOTE | 2020-01-01 09:03 | W.PM.OPSUD ---
Surgery/Procedure H&P Update DATE OF PROCEDURE: January 01, 2020 DATE H&P PERFORMED: 12/24/19 H&P UPDATE INFORMATION: I have reviewed H&P completed within last 30 days, I have examined patient prior to procedure and No changes to prior documentation PREOP DIAGNOSIS: Left inguinal hernia PLANNED PROCEDURE: Operation Date: 01/01/20 09:30 Proposed Procedures p Laparoscopic poss Open Inguinal Hernia Repair w/Mesh 07347 K40.90(Left) - Miguel Cheng MD
[2020-01-01 09:16] LABS: Basophils # 0.1 10^3/uL (0.0-0.1); Eosinophils # 0.5 10^3/uL (0.0-0.8); Hematocrit 41.4 % (42.0-52.0); Hemoglobin 13.5 g/dL (11.7-16.6); Lymphocytes # 2.6 10^3/uL (0.8-4.8); Lymphocytes % 23.5 %; Mean Corpuscular HGB Conc 32.6 g/dL (30.0-36.0); Mean Corpuscular Hemoglobin 32.6 pg (28.0-34.0); Mean Platelet Volume 10.6 fL (7.4-10.4); Monocytes # 0.7 10^3/uL (0.2-0.9); Monocytes % 6.2 %; Neutrophils # 6.97 10^3/uL (1.8-7.7); Neutrophils % 63.9 %; Nucleated Red Blood Cells % 0 %; Platelet Count 232 10^3/cmm (130-400); Red Blood Count 4.14 10^6/uL (4.1-5.3); Red Cell Distribution Width 12.6 % (12.1-15.1); Slide Review Slide Review Perform; White Blood Count 10.9 10^3/uL (4.0-10.0)
--- NOTE | 2020-01-01 11:05 | PM.OP ---
Operative Report Date of procedure: January 01, 2020 Pre-op Diagnosis: Left inguinal hernia Post-op Findings: Indirect reducible left inguinal hernia Procedure Done: Laparoscopic total extraperitoneal repair of indirect left inguinal hernia with Surgimax 3D mesh Pathology: none sent Surgeon: Miguel Cheng Anesthesia: General Condition: stable Disposition: PACU Procedure: The patient was taken to the operating room. After IV antibiotic was administered, the abdomen was prepped and draped in a sterile manner. Using a 15 blade, a 1.0 cm transverse incision was made infraumbilically on the left side. Subcutaneous tissue was divided using electrocautery and the anterior rectus sheath divided using an 11 blade. The rectus muscle was retracted laterally and the extraperitoneal space identified. A 11 mm port was placed and 12 mm of pneumoperitoneum was created. A 10 mm 30? scope was introduced and the retrorectus space was opened using the camera up to the pubic symphysis and 5 mm ports were placed in the midline, one 2-fingerbreadths above the pubic symphysis and the other midway between these two ports under direct visualization. Blunt dissection was carried out to open up the tissue in the midline and to the pubic symphysis, which was identified. The dissection was then carried laterally where the iliopubic tract was identified. There was no femoral, obturator or direct hernia noted. The inferior epigastric artery was identified and dissection was carried posterior to it and laterally, the space was opened up to the level of the umbilicus superior to the anterior superior iliac spine. I then proceeded to dissect out the spermatic cord and the indirect hernial sac was reduced . 16 x 11cm Surgimax 3D mesh was rolled and introduced through the 10 mm port and then rolled laterally and apposed well against the abdominal wall to cover the myopectineal orifice completely. 10 Cc of 0.5% Marcaine was infiltrated into the preperitoneal space. The extraperitoneal space was desufflated under direct visualization to ensure no slippage of hernial sac under the mesh. All ports were removed, the anterior rectus fascia at the infraumbilical port closed using figure of eight 0 Vicryl sutures, subcutaneous tissue approximated using 3-0 Vicryl sutures and skin at all three port sites were closed using running subcuticular 4-0 Monocryl sutures and Dermabond. 10 mL of 0.5% Marcaine was infiltrated at the port sites. The patient was stable throughout the procedure.
--- NOTE | 2020-01-01 11:16 | SUR.PHASEI ---
PT SLEEPING ON RT SIDE SNORING RESP PT OPENS EYES TO VERBAL STIMULI, GOOD RESP NOTED DRESSING D/I VSS
[2020-01-01] MEDS: HYDROcodone-acetaminophen 5-325 mg Tablet 1 TAB PO (12:10)
--- NOTE | 2020-01-01 12:20 | ANE.PACU2 ---
Inpatient post-anesthesia follow up: Airway intact: Yes Vital signs: Temperature 97.5 F Pulse Rate 97 Respiratory Rate 18 Blood Pressure 125/77 Pulse Oximetry 95 Oxygen Delivery Me thod Room Air Oxygen Flow Rate 8 Fraction of Inspir ed Oxygen Hydration adequate: Yes Nausea and vomiting: No Pain level: 4 Mental status: Baseline
== END 2020-01-01 12:22 | disposition home or self-care (01) ==
PROVIDERS: Anesthesiology; PCP Registered Nurse; Visit Provider Surgery
PROC: (CPT 49650; principal; 2020-01-01 09:30)
DX: K40.90 Unilateral inguinal hernia, without obstruction or gangrene, not specified as recurrent (principal); I25.10 Atherosclerotic heart disease of native coronary artery without angina pectoris; Z95.5 Presence of coronary angioplasty implant and graft; Z79.02 Long term (current) use of antithrombotics/antiplatelets; I10 Essential (primary) hypertension; I25.2 Old myocardial infarction; N40.1 Benign prostatic hyperplasia with lower urinary tract symptoms; R39.14 Feeling of incomplete bladder emptying; K21.9 Gastro-esophageal reflux disease without esophagitis; E78.5 Hyperlipidemia, unspecified; E03.9 Hypothyroidism, unspecified
CPT/HCPCS: 49505; 12345; 36415; 80048; 85025; 93005; C1781; J0690; J1100; J2405; J2704; J2710; J3010; J3490; J7030

== ENCOUNTER 2020-01-07 14:24 | Outpatient (CLI) | payer MEDICAID, SELFPAY ==
[2020-01-07 15:05] LABS: Basophils # 0.1 10^3/uL (0.0-0.1); Eosinophils # 0.5 10^3/uL (0.0-0.8); Eosinophils % 5.6 %; Hematocrit 41.4 % (42.0-52.0); Hemoglobin 13.5 g/dL (11.7-16.6); Lymphocytes # 2.1 10^3/uL (0.8-4.8); Lymphocytes % 26.6 %; Mean Corpuscular HGB Conc 32.6 g/dL (30.0-36.0); Mean Corpuscular Hemoglobin 32.1 pg (28.0-34.0); Mean Corpuscular Volume 98.3 fL (80-94); Mean Platelet Volume 10.2 fL (7.4-10.4); Monocytes # 0.6 10^3/uL (0.2-0.9); Monocytes % 7.7 %; Neutrophils # 4.67 10^3/uL (1.8-7.7); Neutrophils % 58.6 %; Nucleated Red Blood Cells % 0 %; Platelet Count 210 10^3/cmm (130-400); Red Blood Count 4.21 10^6/uL (4.1-5.3); Red Cell Distribution Width 12.6 % (12.1-15.1)
[2020-01-07 15:17] LABS: Albumin Level 4.1 g/dL (3.5-5.2); Anion Gap 12.9 (5-19); Blood Urea Nitrogen 14 mg/dL (8-23); Calcium 9.3 mg/dL (8.5-10.5); Carbon Dioxide 27 mmol/L (22-29); Chloride 102 mmol/L (98-107); Glomerular Filtration Rate 51.4 mL/min (90-130); Glucose 78 mg/dL (65-115); Phosphorus 3.1 mg/dL (2.5-4.5); Potassium 3.9 mmol/L (3.5-5.1); Sodium 138 mmol/L (136-145)
[2020-01-07 15:22] LABS: Creatinine Urine, Random 50 mg/dL (39-259); Microalbum Creatinine Ratio Ur 20 mg/dL (0-20); Microalbumin Random Urine 1 ug/dL (0-20)
[2020-01-07 18:30] LABS: Calcium 9.4 mg/dL (8.5-10.5); Parathyroid Hormone 52.5 pg/mL (15-65)
== END 2020-01-07 14:25 | disposition home or self-care (01) ==
LOC: LAB 14:29
PROVIDERS: PCP Registered Nurse; Visit Provider Internal Medicine Nephrology
DX: N18.30 Chronic kidney disease, stage 3 unspecified (principal)
CPT/HCPCS: 36415; 80069; 82044; 82310; 83970; 85025

== ENCOUNTER 2020-01-16 12:30 | Outpatient (CLI) | payer MEDICAID, SELFPAY | END 2020-01-16 12:31 | disposition home or self-care (01) | LOC: LAB 11-08 12:37 | PROVIDERS: PCP Registered Nurse; Visit Provider Nurse Practitioner Family | DX: I25.10 Atherosclerotic heart disease of native coronary artery without angina pectoris (principal); Z20.828 Contact with and (suspected) exposure to other viral communicable diseases | CPT/HCPCS: 87635 ==

== ENCOUNTER 2020-01-20 13:39 | Observation (INO) | payer MEDICAID, SELFPAY ==
[2020-01-16 12:16] LABS: Basophils # 0.1 10^3/uL (0.0-0.1); Basophils % 1.2 %; Eosinophils # 0.3 10^3/uL (0.0-0.8); Eosinophils % 4.1 %; Hematocrit 39.2 % (42.0-52.0); Lymphocytes # 1.9 10^3/uL (0.8-4.8); Lymphocytes % 24.2 %; Mean Corpuscular HGB Conc 33.2 g/dL (30.0-36.0); Mean Corpuscular Hemoglobin 32.4 pg (28.0-34.0); Mean Corpuscular Volume 97.8 fL (80-94); Monocytes # 0.4 10^3/uL (0.2-0.9); Monocytes % 5.3 %; Neutrophils # 5.02 10^3/uL (1.8-7.7); Neutrophils % 65.1 %; Nucleated Red Blood Cells % 0 %; Platelet Count 215 10^3/cmm (130-400); Red Blood Count 4.01 10^6/uL (4.1-5.3); Red Cell Distribution Width 12.4 % (12.1-15.1); White Blood Count 7.7 10^3/uL (4.0-10.0)
[2020-01-16 12:37] LABS: Anion Gap 12.4 (5-19); Blood Urea Nitrogen 19 mg/dL (8-23); Calcium 9.2 mg/dL (8.5-10.5); Carbon Dioxide 27 mmol/L (22-29); Chloride 105 mmol/L (98-107); Glomerular Filtration Rate 55.9 mL/min (90-130); Glucose 90 mg/dL (65-115); Osmolality Calculated 292 mOsm/kg (285-295); Potassium 4.4 mmol/L (3.5-5.1); Sodium 140 mmol/L (136-145)
[2020-01-17 13:21] LABS: INR 0.95 (0.9-1.1)
[2020-01-20] VITALS (11 sets, daily range): BP systolic 105–127; BP diastolic 70–90; PULSE 76–98; RESP 13–18; TEMP 36.6; O2SAT 92–97; BMI 20.9
--- NOTE | 2020-01-20 09:38 | XACV_ITS ---
Wt: 70 kg BSA: 1.88 m2 Any Known Allergies: Other Gender: Male : 1955 Exam Type: Invasive Peripheral Vascular Procedure(s): Procedure Description: Peripheral Cath Diagnostic Procedure Procedure Description: Aortic Arch Angiography Exam Priority: Routine Conclusions Indication for aortogram: Claudication of the left arm which is lifestyle limiting and dizziness with possible steal syndromePlease note that image quality is suboptimalAscending aorta is not well visualizedArch of aorta is without significant stenosis or aneurysmRight subclavian innominate vessels appear to have no significant diseaseLeft carotid artery did not show any significant stenosis in the proximal and mid segmentSevere ostial 95 to 99% ostial stenosis of left subclavian vessel followed by poststenotic aneurysmal segment.Abdominal aorta showed right and left renal artery without significant stenosisDistal abdominal aorta before the bifurcation has moderate aneurysm, right common iliac artery is aneurysmal, left common iliac artery has no significant stenosis. Left and right external/internal artery has no significant stenosis. Left and right common iliac artery has no significant stenosisLeft and right SFA has no significant stenosis.. Recommendations Refer to vascular surgery for left subclavian stenosis, patient preferred [facility]. We will refer him to Dr. Godfrey. Hemodynamic Data Phase:Rest AO : 126.0 / 74.0 ( 98.0 ) @ 6:52:00 AM 102.0 / 81.0 ( 91.0 ) @ 6:59:00 AM 125.0 / 80.0 ( 101.0 ) @ 7:11:00 AM Access Site Site: Left Femoral artery Sheath Size: 6 Fr Hemost... Method: Mechanical Compression Hemost... Success: Successful Procedure Details Findings Procedure Consent Obtained. Physician notified. Physician arrived. Lidocaine 1% infiltrated to the right groin. Equipment: 6F - Radial. Tales2Go Manifold Kit Model BT 2000. Cardiac Cath Pack. Heparinized Saline (2 units/mL), 1000 mL bag. Physician scrubbed in. Immediate Pre-Procedure Time Out. Correct Patient: Yes; Correct Procedure: Yes; Correct Site: Yes; Correct Patient Position: Yes; Correct Supplies: Yes; Dried Flammable Prep: Yes; Blood Products Available: No;. Arterial access obtained with micropuncture set. An attempt to gain access to the right femoral artery was unsuccessful. Manual pressure was held as needed to stop the bleeding. Lidocaine 1% infiltrated to the left groin. Arterial access obtained with micropuncture set. Baseline sample Acquired. HR: 72 BPM. 6 cymraes JR 4 guide catheter was inserted over the wire. Guide seated at bifircation. wire out. glidewire inserted. glidewire removed. catheter seated in aortic arch. glidewire inserted. catheter removed over the glidewire. A 5F Angled Pigtail catheter in over wire. Aortic arch arteriogram performed in [place] @ 20 ml/sec for a total of 40 mL. Aortic arch arteriogram performed in [place] @ 10 ml/sec for a total of 30 mL. Aortic arch arteriogram performed in [place] @ 10 ml/sec for a total of 30 mL. Aortic arch arteriogram performed in [place] @ 20 ml/sec for a total of 40 mL. Catheter out. A 6 cymraes Angled Pig catheter in over wire. Aortic arch arteriogram performed in [place] @ 15 ml/sec for a total of 40 mL. Aortic arch arteriogram performed in [place] @ 15 ml/sec for a total of 40 mL. catheter pulled back to bifircation. Abdominal aortogram performed in [place] @ 10 mL/sec for a total of 30 mL. Catheter out. A Mechanical Compression was successful obtaining hemostatsis at the Left Femoral artery insertion site. Sheath(s) removed and manual pressure held until hemostasis was achieved. Sterile 4x4 and Op-site applied to the puncture site. No oozing or hematoma noted. Post sheath removal instructions were given and the patient verbalized understanding. PERRLA. 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 No VTE prophylaxis required. Fluoro: 9:30. Contrast type used: Visipaque 320 mgI/mL, 500 mL bottle. [id number]. Complications: none. Estimated blood loss: 5mL-10mL. Procedure completed. Patient transferred by bed to 1st floor. Medication's Wasted: Heparin = 6000 units. Medication's Wasted: Lidocaine 1% = 5 mL. Medication's Wasted: Other = versed 1 mg. Medication's Wasted: Other = fentanyl 50 mcg. Total IV fluids: 62.1 mL. Post-op diagnosis: severe PAD / severe left subclavian ostial stenosis. Vital chart was stopped. Procedure Medications Start: 12:32 PM Stop: 12:32 PM Medication: Versed Amount: 2 mg Route: I.V. Start: 12:32 PM Stop: 12:32 PM Medication: Fentanyl Amount: 50 mcg Route: I.V. Start: 12:47 PM Stop: 12:47 PM Medication: Versed Amount: 1 mg Route: I.V. I, the attending physician, have reviewed and verified all procedure medications. Yes, all medications given per verbal order History/Risk Factors Dyslipidemia: Yes Tobacco Use: Current/Recent(w/in 1 year) Prior Interventions PCI: Yes Report Signatures Finalized by Lexi Martin MD on 02/02/2020 03:24 PM
[2020-01-20] MEDS: diphenhydrAMINE 50 mg Capsule PO (11:03)
--- NOTE | 2020-01-20 12:28 | W.PM.OPSUD ---
Surgery/Procedure H&P Update DATE OF PROCEDURE: January 20, 2020 DATE H&P PERFORMED: 01/06/20 H&P UPDATE INFORMATION: I have reviewed H&P completed within last 30 days, I have examined patient prior to procedure and No changes to prior documentation PREOP DIAGNOSIS: Lifestyle limiting claudication of the left arm PLANNED PROCEDURE: Operation Date: 01/20/20 10:00 Proposed Procedures p Peripheral Diagnostic Upper Left Extremity Peripheral 98514/23795 for PVD I73.9(Left) - Lexi Martin MD PATIENT REASSESSED PRIOR TO SEDATION, WITH NO CHANGE NOTED: Yes PHYSICAL EXAM: alert, oriented x 3 and clear to auscultation bilaterally AIRWAY EVAL/ANESTHESIA PLAN: ASA II, Risks, benefits & alternatives of sedation and/or procedure discussed and Patient agrees to continue as planned
[2020-01-20] MEDS: docusate sodium 100 mg Capsule PO (17:27)
[2020-01-20] MEDS: gabapentin 300 mg Capsule PO (17:27)
[2020-01-20] MEDS: baclofen 10 mg Tablet PO (17:27)
[2020-01-21 00:24] VITALS: BP 116/82; PULSE 82; RESP 17; TEMP 36.6; O2SAT 95
[2020-01-21 05:00] VITALS: BP 122/82; PULSE 85; RESP 15; TEMP 36.8; O2SAT 94
[2020-01-21 07:42] VITALS: BP 128/78; PULSE 85; RESP 15; TEMP 36.9; O2SAT 96
--- NOTE | 2020-01-21 08:05 | PC.CHAP ---
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 [] Patient/Family/Request visit [] Outpatient visit [] Follow-up visit [] Physician referral [] Code/Alert [x] Routine visit [] Staff referral [] Actively dying [] Patient sleeping [] Family support [] [] Out of room [] Palliative care [] [] Receiving care in room [] Pre-surgical visit [] Trauma [] Long length of stay [] ICU visit [] Other: Relational/Emotional Strength [] Patient feels connected with others/family/visitors/staff [] Distress [] Loneliness/isolation [] Abandonment Spirituality of Patient [] Person of Aracelis [] Attends Hindu of their Aracelis [] Believes in Prayer [] Reads Bible or Adventism materials [] There are Spiritual issues to be addressed Rack Washer Interventions [x] Prayer [x] Active listening [x] Non-anxious presence [x] Spiritual/emotional support [] Crisis/trauma care [] Spiritual counseling [] Bereavement support [] Provided bereavement packet [] Provided Bible/devotional materials [] Provided toy/stuffed animal, coloring book to patient or family member [] Provided Communion [] Anointing/Gaastra [] Salvation [x] Completed spiritual assessment [] Other: Impact on Illness or Injury [] Angry [] Fearful [] Anxious [] Often cries [] Exhaustion [] Unable to work [] Unable to attend yazidi [] Unable to walk/stand [] Unable to read [] Unable to drive [] Unable to eat/drink [] Unable to sleep [] Unable to be with family [] Patient intubated [] Other: Summary patient rested well last evening Time spent with patient 5 min
[2020-01-21] MEDS: pantoprazole DR 40 mg Tablet PO (08:35)
[2020-01-21] MEDS: levothyroxine 112 mcg Tablet PO (08:35)
[2020-01-21] MEDS: docusate sodium 100 mg Capsule PO (08:35)
[2020-01-21] MEDS: atorvastatin 40 mg Tablet 20 MG PO (08:36)
[2020-01-21] MEDS: aspirin 81 mg EC Tablet PO (08:36)
[2020-01-21] MEDS: finasteride 5 mg Tablet PO (08:36)
[2020-01-21] MEDS: gabapentin 300 mg Capsule PO (08:36)
[2020-01-21] MEDS: baclofen 10 mg Tablet PO (08:36)
[2020-01-21] MEDS: clopidogrel 75 mg Tablet PO (08:36)
--- NOTE | 2020-01-21 09:03 | PM.SDS ---
Short Stay Summary Providers Date of Admit/Discharge: 01/21/20 Attending Provider: Lexi Gordillo MD Primary Care Provider: Margarita Elder History of Present Illness Balta Kwan is a 64 year old male past medical history significant for severe peripheral vascular disease hypertension hyperlipidemia coronary artery disease underwent aortogram for left arm claudication and subclavian steal. Severe ostial left subclavian stenosis with aneurysmal segment was noted. It is the reason we are referring the patient to Dr. Bib Godfrey at [facility] for intervention. Post cath patient recovered without any complication. We will send CD films to Dr. Godfrey's office. Further plan will be advised as per progress of the patient. Review of Systems Eyes: Denies: photophobia Home Meds/Allergies Home Medications and Allergies Home Medications Medication Instructions Recorded Confirmed Type aspirin 81 mg tablet,delayed 81 mg PO DAILY 04/22/19 01/20/20 History release celecoxib 200 mg capsule 200 mg PO DAILY 04/22/19 01/20/20 History clopidogrel 75 mg tablet 75 mg PO DAILY 04/22/19 01/20/20 History finasteride 5 mg tablet 5 mg PO DAILY 04/22/19 01/20/20 History levothyroxine 112 mcg capsule 112 mcg PO DAILY 04/22/19 01/20/20 History nitroglycerin 0.4 mg sublingual 0.4 mg SUBLINGUAL ONCE PRN tab 04/22/19 01/20/20 History tablet pantoprazole 40 mg tablet,delayed 40 mg PO DAILY 04/22/19 01/20/20 History release simvastatin 40 mg tablet 40 mg PO DAILY 04/22/19 01/20/20 History tramadol 50 mg tablet 50 mg PO DAILY PRN 04/22/19 01/20/20 History baclofen 10 mg tablet 10 mg PO BID tab 06/03/19 01/20/20 History budesonide-formoterol See Rx Instructions .ROUTE .COMPLEX 08/08/19 01/20/20 History isosorbide mononitrate 30 mg 45 mg PO DIRECTED tab 01/06/20 01/20/20 History tablet,extended release 24 hr Allergies Allergy/AdvReac Type Severity Reaction Status Date / Time tetracycline Allergy Nausea Verified 01/14/20 14:31 PFSH Acute PFSH: Medical History Balanitis Benign prostatic hyperplasia with incomplete bladder emptying CAD (coronary artery disease) Essential hypertension Generalized anxiety disorder GERD (gastroesophageal reflux disease) Hyperlipidemia Hypothyroidism Urinary retention Surgical History H/O heart artery stent History of colonoscopy with polypectomy (~2018) dr. anderson History of esophagogastroduodenoscopy (EGD) (~2018) dr. anderson Status post left inguinal hernia repair (01/01/20) Family History Mother , AT AGE 64 Renal failure Alzheimer disease Father , AT AGE 48 Lung cancer Social History Smoking and tobacco status: current every day smoker cigarettes Packs smoked per day: 2.5 Alcohol intake: never Marital status: Current occupational status: disabled History of recent travel: No Dietary Habits: Current diet type/program: regular Vitals/I&O/Wt Last Vital Signs Temp 98.4 F 01/21/20 07:42 Pulse 85 01/21/20 07:42 Resp 15 01/21/20 07:42 BP 128/78 01/21/20 07:42 Pulse Ox 96 01/21/20 07:42 01/20/20 01/21/20 01/21/20 22:59 06:59 14:59 Intake Total 120 / 120 120 / 120 Output Total 525 / 525 400 / 925 Balance -405 / -405 -400 / -805 120 / 120 Weight last 48 hrs Weight 154 lb Physical Exam Narrative: EXAM NARRATIVE: GENERAL: Patient is alert, awake and oriented x3. NECK: No jugular vein distension. HEENT: No cyanosis. No icterus. No pallor. HEART: Regular S1 and S2. No murmur, rub or gallop. LUNGS: Clear to auscultate bilaterally. ABDOMEN: Soft, nontender and nondistended. Positive bowel sounds. No guarding, rebound or tenderness. CENTRAL NERVOUS SYSTEM: Grossly nonfocal. EXTREMITIES: Lower extremities without edema bilaterally. Const: COMMON NORMALS: alert Resp: COMMON NORMALS: clear to auscultation bilaterally AUSCULTATION: clear to auscultation bilaterally Neuro: SENSORIUM/ORIENTATION: Yes alert Hospital Course Admission Diagnoses Left arm claudication, peripheral vascular disease, coronary artery disease Hospital Course As above Discharge Summary As above SSS Data Data Completed and Pending: Pending at discharge Category Date Time Status [employer] request for service Routin e Exams 01/20/20 09:38 Taken Discharge Plan Discharge Condition: Stable Prescriptions: Continued venlafaxine [Effexor XR] 150 mg capsule,extended release 24hr 150 mg PO DAILY Qty: 30 RF: 5 baclofen 10 mg tablet 10 mg PO BID RF: 0 finasteride 5 mg tablet 5 mg PO DAILY RF: 0 simvastatin 40 mg tablet 40 mg PO DAILY RF: 0 levothyroxine 112 mcg capsule 112 mcg PO DAILY RF: 0 tramadol 50 mg tablet 50 mg PO DAILY PRN (Reason: Pain) RF: 0 pantoprazole 40 mg tablet,delayed release (DR/EC) 40 mg PO DAILY RF: 0 nitroglycerin [Nitrostat] 0.4 mg tablet, sublingual 0.4 mg SUBLINGUAL ONCE PRN (Reason: Chest Pain) RF: 0 aspirin 81 mg tablet,delayed release (DR/EC) 81 mg PO DAILY RF: 0 celecoxib 200 mg capsule 200 mg PO DAILY RF: 0 clopidogrel 75 mg tablet 75 mg PO DAILY RF: 0 Hold Instructions: Resume on 01/03/20. isosorbide mononitrate 30 mg tablet extended release 24 hr 45 mg PO DIRECTED RF: 0 gabapentin 300 mg capsule 300 mg PO BID Qty: 180 RF: 2 trazodone 150 mg tablet 150 mg PO .bedtime Qty: 90 RF: 2 trazodone 50 mg tablet 50 mg PO DIRECTED PRN (Reason: sleep) Qty: 30 RF: 1 budesonide-formoterol 160-4.5 mcg/actuation HFA aerosol inhaler See Rx Instructions .ROUTE .COMPLEX RF: 0 ondansetron HCl [Zofran] 4 mg tablet 4 mg PO Q6H PRN (Reason: nausea and vomiting) Qty: 20 RF: 0 docusate sodium [Colace] 100 mg capsule 100 mg PO BID Qty: 30 RF: 0 Discharge Orders: Discharge Order (Routine); Ordered 01/21/20 Ordered By: Lexi Gordillo Referrals: Lexi Gordillo MD [Physician] - Bib Godfrey MD [Referring] - (Left subclavian ostial high-grade stenosis with steal) Discharge Diet: Cardiac Discharge Activity: Increase activity as tolerated Patient Instructions: Coronary Artery Disease (DC), Hypertension (DC), Peripheral Vascular Angioplasty (DC), Post Angiogram Home Care Instructions Activity Restrictions/Additional Instructions: You will be referred to Dr. Bib Godfrey at [facility] from vascular surgery for left subclavian stenosis. If you do not hear from Dr. Godfrey's office over next couple of weeks please call Dr. Gordillo's office. Follow-up with Dr. Camp in 3 months. Attestations Medical Necessity Statement*: Patient is being discharged. He will follow up with Dr. gordillo in 3-month. He will be referred to vascular surgery in [facility] for left ostial subclavian severe stenosis and lifestyle limiting claudication. 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
[2020-01-21 09:19] VITALS: BP 128/78; PULSE 85; RESP 15; TEMP 36.9; O2SAT 96
--- NOTE | 2020-01-21 14:57 | PC.RESP ---
Smoking Cessation information sent to patient.
== END 2020-01-21 10:15 | disposition home or self-care (01) ==
LOC: CSU 13:41
PROVIDERS: Nurse Practitioner Family; Admitting Provider Internal Medicine Cardiovascular Disease; PCP Registered Nurse; Visit Provider Internal Medicine Cardiovascular Disease
DX: I70.218 Atherosclerosis of native arteries of extremities with intermittent claudication, other extremity (principal); I25.10 Atherosclerotic heart disease of native coronary artery without angina pectoris; Z79.82 Long term (current) use of aspirin; I10 Essential (primary) hypertension; F41.9 Anxiety disorder, unspecified; K21.9 Gastro-esophageal reflux disease without esophagitis; E78.5 Hyperlipidemia, unspecified; E03.9 Hypothyroidism, unspecified; Z95.5 Presence of coronary angioplasty implant and graft; F17.210 Nicotine dependence, cigarettes, uncomplicated
CPT/HCPCS: 12345; 36415; 75605; 75625; 80048; 85025; 85610; 94640; C1769; C1887; C1894; G0378; J1644; J2250; J3010; Q0163; Q9967

== ENCOUNTER → 2020-02-04 07:52 | Outpatient (BNVA) | payer MEDICAID, SELFPAY | PROVIDERS: PCP Registered Nurse; Visit Provider Nurse Practitioner Psychiatric/Mental Health | DX: F41.1 Generalized anxiety disorder (principal); F17.210 Nicotine dependence, cigarettes, uncomplicated | CPT/HCPCS: 99212 ==

== ENCOUNTER → 2020-03-18 11:54 | Outpatient (BNVA) | payer MEDICARE, MEDICAID, SELFPAY | PROVIDERS: PCP Registered Nurse; Visit Provider Thoracic Surgery (Cardiothoracic Vascular Surgery) | DX: Z01.812 Encounter for preprocedural laboratory examination (principal); I77.1 Stricture of artery | CPT/HCPCS: 87635 ==

== ENCOUNTER 2020-03-23 10:58 | Inpatient (IN) | payer MEDICARE, MEDICAID, SELFPAY ==
[2020-03-18 10:14] VITALS: BMI 21.7
--- NOTE | 2020-03-18 10:59 | ANES.PREANE2 ---
Pre-Anesthetic Assessment Pre-Anesthetic Assessment: Height/Weight: Height 1.83 m Weight 72.575 kg Preop Diagnosis: Left subclavian artery stenosis Proposed Procedure: Operation Date: 03/23/20 08:25 Proposed Procedures p Carotid to Subclavian Bypass Endarterectomy(Left) - Sin Richmond MD Familial anesthetic complications: None Social: Social History: Tobacco Exam: Pre-Anes Outpt Exam: alert, oriented x 3, clear to auscultation bilaterally and regular rate & rhythm Airway: MP: 2 Dentition: False Additional comments: patel Pulmonary: Pulmonary: COPD CV/HEM: CV/HEM: CAD (stents a couple of years - still on plavix) and HTN Comments: Coronary artery disease for positive stress test underwent left heart catheterization found to have multivessel coronary artery disease. Patient underwent stent placement due to refusal for CABG. : : Chronic renal Insufficiency Metabolic: Metabolic: Thyroid Neuropsych: Neuropsych: Seizure (patient denies hx of seizure (but its listed in history)) Comments: poor historian Anesthetic Plan: ASA status: 3 Anesthesia: General Risk of > 500 ml blood loss (7ml/kg in children): No PFSH Anesthesia PFSH: Medical History Balanitis Benign prostatic hyperplasia with incomplete bladder emptying CAD (coronary artery disease) Essential hypertension Generalized anxiety disorder GERD (gastroesophageal reflux disease) Hyperlipidemia Hypothyroidism Urinary retention Surgical History H/O heart artery stent History of colonoscopy with polypectomy (~2018) dr. anderson History of esophagogastroduodenoscopy (EGD) (~2018) dr. anderson Status post left inguinal hernia repair (01/01/20) Family History Mother , AT AGE 64 Renal failure Alzheimer disease Father , AT AGE 48 Lung cancer Social History Smoking and tobacco status: current every day smoker cigarettes Packs smoked per day: 2.5 Alcohol intake: never Marital status: Current occupational status: disabled History of recent travel: No Data Anesthesia Cardiac Studies: No Data to Display
[2020-03-18 11:09] LABS: Add Urine Microscopic? NO
[2020-03-18 11:14] LABS: Basophils # 0.1 10^3/uL (0.0-0.1); Basophils % 1.3 %; Eosinophils # 0.3 10^3/uL (0.0-0.8); Eosinophils % 3.8 %; Hematocrit 40.9 % (42.0-52.0); Hemoglobin 13.4 g/dL (11.7-16.6); Lymphocytes % 23.5 %; Mean Corpuscular HGB Conc 32.8 g/dL (30.0-36.0); Mean Corpuscular Hemoglobin 32.2 pg (28.0-34.0); Mean Corpuscular Volume 98.3 fL (80-94); Mean Platelet Volume 10.5 fL (7.4-10.4); Monocytes # 0.5 10^3/uL (0.2-0.9); Neutrophils # 5.44 10^3/uL (1.8-7.7); Nucleated Red Blood Cells % 0 %; Platelet Count 183 10^3/cmm (130-400); Red Blood Count 4.16 10^6/uL (4.1-5.3); Red Cell Distribution Width 12.7 % (12.1-15.1); White Blood Count 8.4 10^3/uL (4.0-10.0)
[2020-03-18 11:22] LABS: Bilirubin Urine Neg (Negative); Blood Urine Neg (Negative); Glucose Urine UA Norm (Normal); Ketones Urine Negative (Negative); Leukocyte Esterase Urine Negative (Negative); Nitrate Urine Negative (Negative); Protein Urine Neg (Negative); Urine Appearance Clear (CLEAR); Urine Color Yellow (Yellow); Urobilinogen Urine Norm (Negative)
[2020-03-18 11:31] LABS: Anion Gap 11.3 (5-19); Blood Urea Nitrogen 16 mg/dL (8-23); Calcium 9.2 mg/dL (8.5-10.5); Carbon Dioxide 29 mmol/L (22-29); Chloride 100 mmol/L (98-107); Glomerular Filtration Rate 51.4 mL/min (90-130); Glucose 93 mg/dL (65-115); Osmolality Calculated 283 mOsm/kg (285-295); Potassium 4.3 mmol/L (3.5-5.1); Sodium 136 mmol/L (136-145)
[2020-03-23] VITALS (46 sets, daily range): BP systolic 113–143; BP diastolic 68–91; PULSE 84–116; RESP 1–26; TEMP 36.6–37.6; O2SAT 93–99
[2020-03-23] MEDS: sodium chloride 0.9% 1,000 ML 30 ML IV (06:17)
--- NOTE | 2020-03-23 06:22 | ECG_ITS ---
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
--- NOTE | 2020-03-23 06:22 | XR_ITS ---
WS: [id number] Exam: XR chest 2V* [id number] Date/Time of Exam: 03/23/2020 6:41 AM Reason For Exam: Preop for carotid to subclavian bypass/heavy tobacco use Comparison 08/08/2019. The lungs are hyperinflated and clear. Normal cardiomediastinal structures and bony elements. No pleu ral effusions. XR/XR chest 2V* [id number] IMPRESSION: 1. No acute cardiopulmonary finding. 2. Pulmonary hyperinflation which may indicate COPD.
--- NOTE | 2020-03-23 07:49 | P.ANESUD_ITS ---
Pre-Anesthetic Update Pre-Anesthetic Assessment: Date of Surgery/Procedure: 03/23/20 Preop Radha gnosis: Left subclavian artery stenosis Proposed Procedure: Operation Date: 03/23/20 08:25 Proposed Procedures p Carotid to Subclavian Bypass Endarterectomy(Left) - Sin Richmond MD Any changes to Pre-Anesthetic Assessment?: No Last Intake: Intake Last Liquid Date 03/22/20 Last Liquid Time 19:30 Last Solid Date 03/22/20 Last Solid Time 19:30 Last Intake: 00:00 Vitals: Temperature 97.8 F 03/23/20 06:57 Temperature Source Temporal Artery S can 03/23/20 06:57 Pulse Rate 116 H 03/23/20 06:57 Pulse Rhythm 03/23/20 07:00 Respiratory Rate 16 03/23/20 06:57 Blood Pressure 120/78 03/23/20 06:57 Blood Pressure Joceline n 92 03/23/20 06:57 Pulse Oximetry 93 03/23/20 06:57 Oxygen Delivery Me thod 03/23/20 07:00 Exam: Pre-Anes Outpt Exam: alert, oriented x 3 and regular rate & rhythm Additional Exam Findings (including area of procedure): rhonchi Cardiac Studies: No Data to Display
--- NOTE | 2020-03-23 08:29 | W.PM.OPSUD ---
Surgery/Procedure H&P Update DATE OF PROCEDURE: March 23, 2020 DATE H&P PERFORMED: 03/06/20 H&P UPDATE INFORMATION: I have reviewed H&P completed within last 30 days, I have examined patient prior to procedure and No changes to prior documentation CHANGES TO PREVIOUS DOCUMENTATION: Unfortunately, Mr. Kwan continues to smoke. I again reviewed the details, conduct, and risk of left carotid artery to left subclavian artery bypass. Specific risk related to acute ischemia to the left arm, major stroke, catastrophic bleeding, persistent pain, early or delayed failure of the graft, or inability to complete the procedure were discussed with him and his . They state understanding wish to proceed. PREOP DIAGNOSIS: Left subclavian artery stenosis/left subclavian artery steal symptoms PRIMARY INDICATION FOR PROCEDURE: Exertional left arm angina and exertional dizziness PLANNED PROCEDURE: Operation Date: 03/23/20 08:25 Proposed Procedures p Carotid to Subclavian Bypass Endarterectomy(Left) - Sin Richmond MD
[2020-03-23] MEDS: heparin, porcine 1,000 unit/mL INJ 10 mL 10000 UNIT IRRIGATION (09:54)
[2020-03-23] MEDS: vancomycin 1,000 MG SDV 1000 MG IRRIGATION (09:54)
--- NOTE | 2020-03-23 10:00 | P.ANES_ITS ---
Anesthesia Procedures Procedure/Date: 03/23/20 Arterial Line: Time Out Performed: Yes Consent: requested by attending/covering physician, risks and benefits reviewed and patient agrees to proceed Size (Gauge): 20 Technique Used: guide wire technique Post- Procedure: dry sterile dressing placed Patient Tolerated Procedure: well C omplications: other (Hematoma right wrist) Site: right and other (dorsalic pedis) Additional Comments: Attempted right radial X3, good pulse unable to thread cath satisfactorily, moved to right DP to avoid left radial site (surgery on left subclavian).
--- NOTE | 2020-03-23 13:51 | PM.OP ---
Operative Report Date of procedure: March 23, 2020 Pre-op Diagnosis: Left subclavian artery stenosis/left subclavian artery steal symptoms Post-op diagnosis: same Procedure Done: Left common carotid artery to left subclavian artery bypass utilizing 8 mm ringed Coinjock-Reji graft Implants: 8 mm Coinjock-Reji graft Pathology: none sent Surgeon: Sin Richmond Anesthesia: General Estimated blood loss (mL): 150 Complications: None Condition: stable Disposition: ICU Brief History: 64-year-old gentleman referred to our service with a very proximal high-grade right subclavian artery stenosis just at the takeoff of the arch. He had originally been referred after developing vertigo type symptoms and left arm weakness and was felt to have subclavian artery steal syndrome as noted by preoperative evaluations including CTA of the chest. Dr. Martin performed angiography the aortic arch confirming this high-grade lesion but felt the patient should not undergo intervention here and he was referred to [place]. Mr. Kwan wished to avoid stenting if possible due to concerns of MRI, though he was reassured this would not be a problem. However, he did not wish to travel and therefore, with the understanding that an open procedure could be offered, wished to proceed with plans for carotid subclavian artery bypass. Details the risk of the procedure were carefully and frankly discussed with Mr. Kwan and his . Proper consents were reviewed and signed. Procedure: Mr. Kwan was taken operating room where he underwent general trach anesthesia. Attempted right radial A-line placement by our anesthesia colleagues was difficult and unsuccessful, therefore a right dorsalis pedis A-line was placed. He was next carefully positioned. Neuro monitoring including bihemispheric oximetry was then placed. Entire neck and chest was sterilely prepped and draped with the head turned to the right. Appropriate timeout was carried out and confirmed. A left supraclavicular incision was made and carried down through the platysma. Dissection was continued medially with subsequent division of the sternocleidomastoid muscle. The common carotid artery was isolated with care to protect the vagus nerve. A tunnel beneath the left internal jugular vein was made and an umbilical tape was placed. Dissection was then carried continued laterally with subsequent division of the left anterior scalene muscle after the scalene fat pad had been dissected free and retracted medially. Phrenic nerve was identified prior to division of the anterior scalene muscle and was protected as the nerve was divided beginning lateral to medial. Once completed, further dissection subclavicular region identified the left subclavian artery. The left subclavian artery was carefully dissected free, lateral to the thyrocervical trunk. It was then elevated after umbilical tape had been passed around it. Vessels were sized and was elected to utilize a millimeter ringed Coinjock-Reji graft. Mr. Kwan was heparinized with 10,000 units. Satinsky clamp was utilized to control the left subclavian artery and provide elevation after appropriate heparinization. Arteriotomy was created and a end-to-side anastomosis with 8 mm ringed Coinjock-Reji graft was created utilizing 5-0 Prolene suture. This graft was then carefully passed beneath the internal jugular vein up to the now elevated common carotid artery. Graft length was determined that the graft was cut. Proximal and distal control of the common carotid artery was obtained utilizing a padded Lona clamp after medically induced elevation of the systolic blood pressure to 160 or greater. Arteriotomy was created and an end-to-side anastomosis was created between the graft and the common carotid artery utilizing running 5-0 Prolene suture. On both the proximal distal anastomoses, areas of extravasation after testing were repaired with interrupted 6-0 Prolene suture. Next, the graft was de-aired. Initially we allowed retrograde flow from the subclavian artery followed by initiation of antegrade flow of the common carotid artery down the graft this separately reopening of the distal left common carotid artery. Medical induced hypertension with a systolic pressure over 160 with allowed to return to normal. Bihemispheric monitoring noted an increase from 63 to 70 after release of the clamp. We next carefully inspected for hemostasis. After 5 minutes, heparin was partially reversed with protamine utilizing 50 mg of protamine. A small SAMI drain was placed and secured. Hemostasis was confirmed. Surgicel was placed at the level of the anastomoses both proximally and distally. Wound was irrigated with antibiotic solution. Hemostasis confirmed. Sponge needle count was correct. Wound was then closed loosely by reapproximating the divided left sternocleidomastoid muscle with 2-0 Vicryl suture. Platysma was then reapproximated with running 2-0 Vicryl suture. Subcuticular closure of the skin was performed utilizing 3-0 Monocryl suture. Sterile dressing was applied. He was awakened from anesthesia moving all extremities spontaneously. An easily palpable left radial pulse was noted. Is been transferred to the ICU in guarded condition. We did student counselor with his at completion of the procedure.
--- NOTE | 2020-03-23 15:19 | ANE.PACU2 ---
Inpatient post-anesthesia follow up: Airway intact: Yes Vital signs: Temperature 98.8 F Pulse Rate 94 Respiratory Rate 10 Blood Pressure 117/75 Pulse Oximetry 97 Oxygen Delivery Me thod [ Nasal Cannula Current Rate & Del jethro] Oxygen Delivery Me thod Aerosol Mask Oxygen Flow Rate [ Current Rate 3 & Delivery] Fraction of Inspir ed Oxygen Hydration adequate: Yes Nausea and vomiting: No Pain level: 2 Additional Comments: Sedated, moves all extremities
[2020-03-23] MEDS: gabapentin 300 mg Capsule PO (18:57)
[2020-03-23] MEDS: isosorbide mononitrate ER 30 mg Tablet 15 MG PO (18:57)
[2020-03-23] MEDS: baclofen 10 mg Tablet PO (18:57)
[2020-03-23] MEDS: ceFAZolin 1,000 MG in sodium chloride 0.9% (plus) 50 ML 100 MG IV (20:27)
[2020-03-23] MEDS: ketorolac 30 mg/mL INJ IVP (22:39)
[2020-03-24] VITALS (22 sets, daily range): BP systolic 102–117; BP diastolic 66–71; PULSE 78–108; RESP 0–26; TEMP 36.9–37.2; O2SAT 93–99
[2020-03-24] MEDS: trazodone 50 mg Tablet PO (00:47)
[2020-03-24] MEDS: ceFAZolin 1,000 MG in sodium chloride 0.9% (plus) 50 ML 100 MG IV (01:11)
[2020-03-24 05:22] LABS: Basophils % 0.2 %; Hematocrit 35.3 % (42.0-52.0); Hemoglobin 11.5 g/dL (11.7-16.6); Lymphocytes # 1.1 10^3/uL (0.8-4.8); Lymphocytes % 8.3 %; Mean Corpuscular HGB Conc 32.6 g/dL (30.0-36.0); Mean Corpuscular Hemoglobin 32.7 pg (28.0-34.0); Mean Corpuscular Volume 100.3 fL (80-94); Mean Platelet Volume 10.5 fL (7.4-10.4); Monocytes # 0.5 10^3/uL (0.2-0.9); Monocytes % 3.6 %; Neutrophils # 11.29 10^3/uL (1.8-7.7); Neutrophils % 87.1 %; Nucleated Red Blood Cells % 0 %; Platelet Count 160 10^3/cmm (130-400); Red Blood Count 3.52 10^6/uL (4.1-5.3); Red Cell Distribution Width 13.2 % (12.1-15.1)
--- NOTE | 2020-03-24 05:52 | PC.NURSE ---
Patient asked to speak with male nurse, Prince RN went to speak to patient and patient hadn't voided all night. Nurse bladder scanned patient and straight cathed with 500mL return of urine. Patient reported having an erection and has had for a few hours that wouldn't go away and was tender. After straight cath erection level did decrease, and male nurse will continue to monitor for any further adverse reactions or complications of patients penis.
--- NOTE | 2020-03-24 05:55 | PC.NURSE ---
Shade RN went and assessed Patient at 0555 and asked if patients erection had decreased and patient reported the pain was gone and erection was decreased. Continue care.
[2020-03-24 06:04] LABS: Anion Gap 12.8 (5-19); Blood Urea Nitrogen 20 mg/dL (8-23); Calcium 8.3 mg/dL (8.5-10.5); Carbon Dioxide 25 mmol/L (22-29); Chloride 107 mmol/L (98-107); Glomerular Filtration Rate 55.9 mL/min (90-130); Glucose 133 mg/dL (65-115); Osmolality Calculated 295 mOsm/kg (285-295); Potassium 4.8 mmol/L (3.5-5.1); Sodium 140 mmol/L (136-145)
--- NOTE | 2020-03-24 06:10 | PC.NURSE ---
Dr. Richmond bedside and removing SAMI drain. Discussing POC to possible discharge today if all safety concerns are met. Continue care.
--- NOTE | 2020-03-24 06:49 | P.PN_ITS ---
Subjective Subjective: Interval history: Postop day #1 status post left common carotid artery to left subclavian artery bypass. No complaints this morning. Modest discomfort. No phonation or swallowing difficulties. SAMI drain output 68 cc since surgery. Nurses report no concerns. Vitals/I&O/Wt Last Vital Signs Temp 988 F H 03/24/20 04:00 Pulse 86 03/24/20 06:00 Resp 15 03/24/20 04:45 BP 105/69 03/24/20 04:45 Pulse Ox 96 03/24/20 04:45 03/23/20 03/23/20 03/24/20 14:59 22:59 06:59 Intake Total 50 185 / 235 Output Total 628 / 628 540 / 1168 Balance 50 -443 / -393 -540 / -933 Physical Exam Neck/C-Spine: OTHER: Neck incision is clean and dry. SAMI drain was removed. Resp: COMMON NORMALS: normal respiratory effort, No retractions, No use of accessory muscles and clear to auscultation bilaterally AUSCULTATION: clear to auscultation bilaterally Cardio: COMMON NORMALS: regular rate, regular rhythm and S1 normal heart sound present RATE: regular rate RHYTHM: regular rhythm HEART SOUNDS: S1 normal heart sound present OTHER: Left radial pulse 2+. Urinary Catheter Management^: Reyes: Cath Placed During This Visit: yes, but has since been removed by the nurse Reason for Continuing Indwelling Catheter: Decision to DC Catheter Urinary Catheter Date of Insertion: 03/23/20 Urinary Catheter Time of Insertion: 10:19 Date Urinary Catheter Removed: 03/23/20 Time Urinary Catheter Discontinued: 18:15 Data : 03/24/20 04:50 03/24/20 04:50 A&P Assessment and plan (1) Subclavian artery stenosis: Postop day #1 status post left common carotid artery to left subclavian artery bypass Recovering well. SAMI drain removed. 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
--- NOTE | 2020-03-24 06:58 | PM.DCS ---
Discharge Providers Date of Admission: 03/23/20 10:58 Date of Discharge: March 24, 2020 Attending Provider at Admission: Sin Richmond MD Attending Provider at Discharge: Sin Richmond MD Primary Care Provider: Margarita Elder Diagnoses at Discharge Discharge Diagnosis (1) Subclavian artery stenosis: Status: Acute Reason for Visit Reason for Visit: Brief History: 64-year-old gentleman with subclavian steal syndrome and documented high-grade very proximal left subclavian artery stenosis. Patient did not wish to be referred to consider endovascular stenting. Open bypass was offered. Hospital Course Hospital Course Mr. Kwan was electively admitted on March 23 underwent left common carotid artery to left subclavian artery bypass utilizing an 8 mm ringed Haddock-Reji graft. Postoperatively he has convalesced in the ICU where he remained neurologically intact. Low SAMI drain output of 68 cc since surgery. Incision clean and dry. 2+ left radial pulse. SAMI drain was removed. Tolerating diet well. Vital signs are stable. Pain under good control. He is eager for discharge to home. He will be discharged in stable condition. He will follow-up in my clinic in 1 week. Physical Exam Neck/C-Spine: OTHER: Left neck incision is healing well. No swelling. No evidence for infection. Resp: COMMON NORMALS: normal respiratory effort, No retractions, No use of accessory muscles and clear to auscultation bilaterally EFFORT & INSPECTION: Yes able to speak in complete sentences and Yes symmetric chest movement AUSCULTATION: clear to auscultation bilaterally Cardio: COMMON NORMALS: regular rate, regular rhythm and S1 normal heart sound present RATE: regular rate RHYTHM: regular rhythm HEART SOUNDS: S1 normal heart sound present OTHER: 2+ left radial pulse Urinary Catheter Management^: Reyes: Cath Placed During This Visit: yes, but has since been removed by the nurse Reason for Continuing Indwelling Catheter: Decision to DC Catheter Urinary Catheter Date of Insertion: 03/23/20 Urinary Catheter Time of Insertion: 10:19 Date Urinary Catheter Removed: 03/23/20 Time Urinary Catheter Discontinued: 18:15 Discharge Data Data Completed and Pending: Completed Studies During Hospitalization Category Date Time Status XR chest 2V* 7104 6 Routine Exams 03/23/20 06:22 Completed Pending at discharge Category Date Time Status CTS [Type and Scr een - Cardiac] Rou jennifer Lab 03/18/20 10:45 Results Leukocyte Reduced RBC Routine Lab 03/18/20 10:45 Results Labs from last 24 hours 03/24/20 03/24/20 03/18/20 04:50 04:50 10:45 WBC 13.0 H RBC 3.52 L Hgb 11.5 L Hct 35.3 L MCV 100.3 H MCH 32.7 MCHC 32.6 RDW 13.2 Plt Count 160 MPV 10.5 H Neut % (Auto) 87.1 Lymph % (Auto) 8.3 Pike % (Auto) 3.6 Eos % (Auto) 0.0 Baso % (Auto) 0.2 Neut # (Auto) 11.29 H Lymph # (Auto) 1.1 Pike # (Auto) 0.5 Eos # (Auto) 0.0 Baso # (Auto) 0.0 Nucleated RBC % (a uto) 0 Nucleated RBCs # 0.0 Sodium 140 Potassium 4.8 Chloride 107 Carbon Dioxide 25 Anion Gap 12.8 BUN 20 Creatinine 1.3 H GFR Calculation 55.9 L Glucose 133 H Calculated Osmolal ity 295 Calcium 8.3 L Blood Type A Positive Rho(D) Type Positive Antibody Screen Negative Crossmatch See Detail Vitals: Last Vital Signs Temp 988 F H 03/24/20 04:00 Pulse 86 03/24/20 06:00 Resp 15 03/24/20 04:45 BP 105/69 03/24/20 04:45 Pulse Ox 96 03/24/20 04:45 Discharge Plan Discharge Patient Disposition: Home Condition: Stable Prescriptions: New hydrocodone-acetaminophen 5-325 mg tablet 1 tab PO Q6H PRN (Reason: pain) Qty: 24 RF: 0 Continued baclofen 10 mg tablet 10 mg PO BID RF: 0 finasteride 5 mg tablet 5 mg PO DAILY RF: 0 simvastatin 40 mg tablet 40 mg PO DAILY RF: 0 levothyroxine 112 mcg capsule 112 mcg PO DAILY RF: 0 tramadol 50 mg tablet 50 mg PO DAILY PRN (Reason: Pain) RF: 0 pantoprazole 40 mg tablet,delayed release (DR/EC) 40 mg PO DAILY RF: 0 nitroglycerin [Nitrostat] 0.4 mg tablet, sublingual 0.4 mg SUBLINGUAL ONCE PRN (Reason: Chest Pain) RF: 0 aspirin 81 mg tablet,delayed release (DR/EC) 81 mg PO DAILY RF: 0 celecoxib 200 mg capsule 200 mg PO DAILY RF: 0 clopidogrel 75 mg tablet 75 mg PO DAILY RF: 0 Hold Instructions: Resume on 01/03/20. isosorbide mononitrate 30 mg tablet extended release 24 hr 15 mg PO BID RF: 0 gabapentin 300 mg capsule 300 mg PO BID Qty: 180 RF: 2 trazodone 150 mg tablet 150 mg PO .bedtime Qty: 90 RF: 2 trazodone 50 mg tablet 50 mg PO DIRECTED PRN (Reason: sleep) Qty: 30 RF: 1 venlafaxine [Effexor XR] 150 mg capsule,extended release 24hr 150 mg PO DAILY Qty: 30 RF: 2 budesonide-formoterol 160-4.5 mcg/actuation HFA aerosol inhaler See Rx Instructions .ROUTE .COMPLEX RF: 0 ondansetron HCl [Zofran] 4 mg tablet 4 mg PO Q6H PRN (Reason: nausea and vomiting) Qty: 20 RF: 0 Discharge Orders: Discharge Order (Routine); Ordered 03/24/20 Ordered By: Sin Richmond Referrals: Sin Richmond MD [Physician] - 1 week Discharge Diet: Usual diet Discharge Activity: Limit activity as instructed Activity Restrictions/Additional Instructions: No heavy lifting or pulling x2 weeks May remove surgical bandage tomorrow or and begin daily showers No swimming or tub baths x2 weeks Report any redness, increasing pain, swelling, or drainage. Discharge Attestations Time Spent in Discharge Care*: less than 30 min Specific Discharge Activities: educating patient, discussing with case management associate/social workers/dc planners, documenting/other paperwork and evaluating patient/reviewing data Time Spent in Smoking Cessation: 3 to 10 minutes Status at Discharge: Cognitive status at discharge: cognitively intact, Behavioral status at discharge: cooperative, Functional status at discharge: uses cane/walker Overall status at discharge: patient is back to baseline Quality Metrics Clinical Quality Measures During this hospital stay, did patient experience: None Coding Level of Care Code Acute 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
[2020-03-24] MEDS: levothyroxine 112 mcg Tablet PO (08:23)
[2020-03-24] MEDS: venlafaxine ER (24HR) 150 mg Capsule PO (08:23)
[2020-03-24] MEDS: clopidogrel 75 mg Tablet PO (08:24)
[2020-03-24] MEDS: gabapentin 300 mg Capsule PO (08:24)
[2020-03-24] MEDS: finasteride 5 mg Tablet PO (08:24)
[2020-03-24] MEDS: isosorbide mononitrate ER 30 mg Tablet 15 MG PO (08:24)
[2020-03-24] MEDS: aspirin 81 mg EC Tablet PO (08:25)
[2020-03-24] MEDS: atorvastatin 40 mg Tablet 20 MG PO (08:25)
[2020-03-24] MEDS: baclofen 10 mg Tablet PO (08:25)
[2020-03-24] MEDS: pantoprazole DR 40 mg Tablet PO (08:25)
--- NOTE | 2020-03-24 09:16 | PC.CHAP ---
Pastoral Care Encounter/Spiritual Assessment Type of Contact [] Declined machining and assembly supervisor visit [] Patient/Family/Request visit [] Outpatient visit [] Follow-up visit [] Physician referral [] Code/Alert [x] Routine visit [] Staff referral [] Actively dying [] Patient sleeping [] Family support [] [] Out of room [] Palliative care [] [] Receiving care in room [] Pre-surgical visit [] Trauma [] Long length of stay [x] ICU visit [] Other: Relational/Emotional Strength [] Patient feels connected with others/family/visitors/staff [] Distress [] Loneliness/isolation [] Abandonment Spirituality of Patient [] Person of Aracelis [] Attends Orthodox of their Aracelis [] Believes in Prayer [] Reads Bible or Mosque materials [] There are Spiritual issues to be addressed Mechanic [employer] Interventions [x] Prayer [] Active listening [] Non-anxious presence [] Spiritual/emotional support [] Crisis/trauma care [] Spiritual counseling [] Bereavement support [] Provided bereavement packet [] Provided Bible/devotional materials [] Provided toy/stuffed animal, coloring book to patient or family member [] Provided Communion [] Anointing/Nemo [] Salvation [x] Completed spiritual assessment [] Other: Impact on Illness or Injury [] Angry [] Fearful [] Anxious [] Often cries [] Exhaustion [] Unable to work [] Unable to attend jew [] Unable to walk/stand [] Unable to read [] Unable to drive [] Unable to eat/drink [] Unable to sleep [] Unable to be with family [] Patient intubated [] Other: Summary patient awake, and received prayer from doorway... 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
--- NOTE | 2020-03-25 16:09 | PC.RESP ---
Smoking Cessation information sent to patient.
== END 2020-03-24 09:32 | disposition home or self-care (01) | DRG 254 ==
LOC: ICU 10:59
PROVIDERS: Admitting Provider Thoracic Surgery (Cardiothoracic Vascular Surgery); PCP Registered Nurse; Visit Provider Thoracic Surgery (Cardiothoracic Vascular Surgery)
PROC: 031 Upper Arteries, Bypass (ICD-10-PCS; CPT 35301; principal; 2020-03-23 07:55)
DX: I77.1 Stricture of artery (principal); F17.210 Nicotine dependence, cigarettes, uncomplicated; J44.9 Chronic obstructive pulmonary disease, unspecified; I25.10 Atherosclerotic heart disease of native coronary artery without angina pectoris; I12.9 Hypertensive chronic kidney disease with stage 1 through stage 4 chronic kidney disease, or unspecified chronic kidney disease; N18.9 Chronic kidney disease, unspecified; N40.1 Benign prostatic hyperplasia with lower urinary tract symptoms; Z79.82 Long term (current) use of aspirin; Z79.02 Long term (current) use of antithrombotics/antiplatelets; Z95.5 Presence of coronary angioplasty implant and graft; R39.14 Feeling of incomplete bladder emptying; F41.1 Generalized anxiety disorder; K21.9 Gastro-esophageal reflux disease without esophagitis; E78.5 Hyperlipidemia, unspecified; E03.9 Hypothyroidism, unspecified
CPT/HCPCS: 12345; 36415; 51702; 71046; 80048; 81003; 85025; 86850; 86900; 86920; 93005; J0690; J1644; J1885; J2704; J3010; J3370; J3490; J7030; P9047

== ENCOUNTER → 2020-04-28 08:03 | Outpatient (BNVA) | payer MEDICARE, MEDICAID, SELFPAY | PROVIDERS: PCP Registered Nurse; Visit Provider Nurse Practitioner Psychiatric/Mental Health | DX: F41.1 Generalized anxiety disorder (principal); F17.210 Nicotine dependence, cigarettes, uncomplicated | CPT/HCPCS: 99213 ==

== ENCOUNTER → 2020-06-17 09:59 | Outpatient (BNVA) | payer MEDICARE, MEDICAID, SELFPAY | PROVIDERS: PCP Registered Nurse; Visit Provider Specialist | DX: G31.84 Mild cognitive impairment of uncertain or unknown etiology (principal); G37.9 Demyelinating disease of central nervous system, unspecified; I73.9 Peripheral vascular disease, unspecified; G43.711 Chronic migraine without aura, intractable, with status migrainosus; Z98.890 Other specified postprocedural states; F17.210 Nicotine dependence, cigarettes, uncomplicated | CPT/HCPCS: 99214 ==

== ENCOUNTER → 2020-08-25 07:41 | Outpatient (BNVA) | payer MEDICARE, MEDICAID, SELFPAY | PROVIDERS: PCP Registered Nurse; Visit Provider Nurse Practitioner Psychiatric/Mental Health | DX: F41.1 Generalized anxiety disorder (principal); F17.210 Nicotine dependence, cigarettes, uncomplicated | CPT/HCPCS: 99214 ==

== ENCOUNTER → 2020-09-21 08:00 | Outpatient (BNVA) | payer MEDICARE, MEDICAID, SELFPAY | PROVIDERS: PCP Registered Nurse; Visit Provider Specialist | DX: G43.711 Chronic migraine without aura, intractable, with status migrainosus (principal); G31.84 Mild cognitive impairment of uncertain or unknown etiology; I25.10 Atherosclerotic heart disease of native coronary artery without angina pectoris; I73.9 Peripheral vascular disease, unspecified; Z98.890 Other specified postprocedural states; G37.9 Demyelinating disease of central nervous system, unspecified; F17.210 Nicotine dependence, cigarettes, uncomplicated | CPT/HCPCS: 96116; 99214 ==

== ENCOUNTER 2020-10-01 06:00 | Outpatient (RCR) | payer MEDICARE, MEDICAID, SELFPAY | END 2020-10-27 23:59 | disposition home or self-care (01) | LOC: SPT 06:00 | PROVIDERS: PCP Registered Nurse; Referring Provider Registered Nurse; Visit Provider Registered Nurse | DX: R42 Dizziness and giddiness (principal) | CPT/HCPCS: 95992; 97161 ==

== ENCOUNTER → 2020-10-06 10:03 | Outpatient (BNVA) | payer MEDICARE, MEDICAID, SELFPAY | PROVIDERS: PCP Registered Nurse; Visit Provider Specialist | DX: R56.9 Unspecified convulsions (principal); G31.84 Mild cognitive impairment of uncertain or unknown etiology; F17.210 Nicotine dependence, cigarettes, uncomplicated | CPT/HCPCS: 95816 ==

== ENCOUNTER 2020-10-19 08:10 | Outpatient (CLI) | payer MEDICARE, MEDICAID, SELFPAY ==
--- NOTE | 2020-10-19 08:30 | CT_ITS ---
WS: [id number] CTA THORACIC AORTA WITH CONTRAST. HISTORY: J44.1 - Chronic obstructive pulmonary disease TECHNIQUE: CT imaging of the thorax is performed with and without contrast. After noncontrast imaging is performed, CT angiogram is performed during injection of Omnipaque 350; 95 mL IV.. Sagittal and c oronal reconstructions, sagittal and coronal MIP imaging is submitted. All CT scans at [facility] use at least one of these dose optimization techniques: automated exposure control; mA and/o r kV adjustment per patient size (includes targeted exams where dose is matched to clinical indicatio n); or iterative reconstruction. DLP: 850.48 mGycm COMPARISON: 08/29/2018 and 11/06/2009 Good opacification of the pulmonary artery. Normal size pulmonary artery. No filling defects or pulmo nary embolism. Partial opacification of the aorta. Mild ectasia ascending aorta 3.6 cm is stable. Ath erosclerotic plaque and intimal thickening throughout the thoracic aorta. Patient has a known proxima l LEFT subclavian artery stenosis. Interval placement of a stent in the LEFT neck. This is nonopacifi ed due to early phase of contrast injection. This study is inadequate to evaluate the great vessels a nd subclavian arteries due to imaging during incorrect phase of injection. Mediastinal and hilar lymph nodes are prominent but stable. Largest lymph node at the RIGHT hilum wit h measurement of 12 mm. Additional prominent lymphoid tissue extends along the lower lobe pulmonary a rteries. Heart size is normal. No pericardial pleural effusions. Hyperinflated lungs from emphysema. No adrenal mass. No change in appearance of the liver. CT/CT angio chest [id number] IMPRESSION: 1. Mild ectasia and atherosclerosis aorta with no aneurysm. 2. No pulmonary embolism. 3. Moderate emphysema. 4. Stable mediastinal and hilar lymph nodes.
[2020-10-19 09:18] LABS: Blood Urea Nitrogen 12 mg/dL (8-23); Glomerular Filtration Rate 47.3 mL/min (90-130)
[2020-10-19] MEDS: iodixanol 320 mg/mL 100mL Btl IV (09:29)
== END 2020-10-19 08:11 | disposition home or self-care (01) ==
PROVIDERS: Radiology Diagnostic Radiology; PCP Registered Nurse; Visit Provider Specialist
DX: J44.1 Chronic obstructive pulmonary disease with (acute) exacerbation (principal); I77.819 Aortic ectasia, unspecified site; I70.0 Atherosclerosis of aorta
CPT/HCPCS: 71275; 82565; 84520; Q9967

== ENCOUNTER → 2020-11-20 07:27 | Outpatient (BNVA) | payer MEDICARE, MEDICAID, SELFPAY | PROVIDERS: PCP Registered Nurse; Visit Provider Nurse Practitioner Psychiatric/Mental Health | DX: F41.1 Generalized anxiety disorder (principal); F17.210 Nicotine dependence, cigarettes, uncomplicated | CPT/HCPCS: 99214 ==

== ENCOUNTER → 2020-12-01 08:07 | Outpatient (BNVA) | payer MEDICARE, MEDICAID, SELFPAY | PROVIDERS: PCP Registered Nurse; Visit Provider Specialist | DX: R56.9 Unspecified convulsions (principal); G43.711 Chronic migraine without aura, intractable, with status migrainosus; R22.2 Localized swelling, mass and lump, trunk; F17.210 Nicotine dependence, cigarettes, uncomplicated | CPT/HCPCS: 99214 ==

== ENCOUNTER 2020-12-14 20:18 | Emergency (ER) | payer MEDICARE, MEDICAID, SELFPAY ==
--- NOTE | 2020-12-14 20:21 | XRR_ITS ---
PROCEDURE INFORMATION: Exam: XR Chest Exam date and time: 12/14/2020 8:21 PM Age: 65 years old Clinical indication: Shortness of breath; Additional info: SOB TECHNIQUE: Imaging protocol: XR of the chest. Views: 1 view. COMPARISON: CT angio chest [id number] 10/19/2020 9:22 AM FINDINGS: Lungs: Mild emphysema. Hazy left basilar opacity which could be secondary to atelectasis or pneumonia. Pleural spaces: Unremarkable. No pleural effusion. No pneumothorax. Heart/Mediastinum: Unremarkable. No cardiomegaly. Bones/joints: Unremarkable. XR/XR chest 1V portable [id number] IMPRESSION: 1. Hazy left basilar opacity which could be secondary to atelectasis or pneumonia. 2. Mild emphysema. Radiation Dose CTDIVOL = (mGy): DLP = (mGy-cm)
--- NOTE | 2020-12-14 20:21 | ECG_ITS ---
[facility] Test Date: 2021-01-04 Pat Name: Balta Kwan Department: Room: Gender: Male Rn Documentation: : 1955 Requested By: Catherine Garcia Order Number: [id number] Sana MD: Satya Myrick M.D. Measurements Intervals [place] Rate: 82 P: 25 NC: 222 QRS: 41 QRSD: 113 T: 58 QT: 395 QTc: 462 Interpretive Statements SINUS RHYTHM WITH FIRST DEGREE AV BLOCK MODERATE INTRAVENTRICULAR CONDUCTION DELAY [110+ ms QRS DURATION] Compared to ECG 12/15/2020 05:40:47 First degree AV block now present Intraventricular conduction delay now present Electronically Signed On 01-04-2021 16:43:57 FEE CLERK by Satya Myrick M.D. [id number]
[2020-12-14 20:45] VITALS: BP 126/80; PULSE 94; RESP 22; TEMP 36.9; O2SAT 98; BMI 21.7
[2020-12-14 21:40] VITALS: BP 137/78; PULSE 86; RESP 24; O2SAT 97
--- NOTE | 2020-12-14 22:21 | ECG_ITS ---
[facility] Test Date: 2020-12-15 Pat Name: Balta Kwan Department: Room: Gender: Male Director Of Employer Services: : 1955 Requested By: Catherine Garcia Order Number: [id number] Reading MD: JESSIE SEALS Measurements Intervals [place] Rate: 78 P: 69 NE: 160 QRS: 75 QRSD: 91 T: 48 QT: 366 QTc: 417 Interpretive Statements SINUS RHYTHM POSSIBLE RIGHT VENTRICULAR CONDUCTION DELAY [RSR (QR) IN V1/V2] Compared to ECG 03/23/2020 07:49:24 No significant changes Electronically Signed On 12-15-2020 22:58:16 CDT by JESSIE SEALS [id number] f
[2020-12-14 22:56] LABS: Basophils # 0.1 10^3/uL (0.0-0.1); Basophils % 0.9 %; Eosinophils # 0.3 10^3/uL (0.0-0.8); Eosinophils % 2.9 %; Hematocrit 43.1 % (42.0-52.0); Hemoglobin 13.8 g/dL (11.7-16.6); Lymphocytes # 1.8 10^3/uL (0.8-4.8); Lymphocytes % 18.4 %; Mean Corpuscular Hemoglobin 32.1 pg (28.0-34.0); Mean Corpuscular Volume 100.2 fl (80-94); Mean Platelet Volume 9.9 fL (7.4-10.4); Monocytes # 0.6 10^3/uL (0.2-0.9); Monocytes % 6.3 %; Neutrophils # 7.01 10^3/uL (1.8-7.7); Neutrophils % 71.1 %; Nucleated Red Blood Cells % 0 %; Platelet Count 197 10^3/cmm (130-400); Red Cell Distribution Width 13.3 % (12.1-15.1); White Blood Count 9.9 10^3/uL (4.0-10.0)
[2020-12-14 23:23] LABS: Troponin(5th) Baseline 11 ng/L (0-15)
[2020-12-14 23:41] LABS: Alanine Aminotransferase 11 U/L (0-41); Albumin Level 4.1 g/dL (3.5-5.2); Alkaline Phosphatase 144 IU/L (40-130); Anion Gap 15.1 (5-19); Aspartate Amino Transferase 9 U/L (0-40); Blood Urea Nitrogen 13 mg/dL (8-23); Calcium 9.2 mg/dL (8.5-10.5); Carbon Dioxide 28 mmol/L (22-29); Chloride 102 mmol/L (98-107); Globulin 2.6 g/dL (1.3-4.6); Glomerular Filtration Rate 55.8 mL/min (90-130); Glucose 85 mg/dL (65-115); NT Pro B Type Natriuretic Pept 111 pg/mL (0-125); Osmolality Calculated 291 mOsm/kg (285-295); Potassium 4.1 mmol/L (3.5-5.1); Sodium 141 mmol/L (136-145); Total Bilirubin 0.2 mg/dL (0.15-1.2); Total Protein 6.7 g/dL (6.6-8.7)
== END 2020-12-15 00:05 | disposition left against medical advice (07) ==
PROVIDERS: Emergency Medicine
DX: Z53.21 Procedure and treatment not carried out due to patient leaving prior to being seen by health care provider (principal)
CPT/HCPCS: 36415; 71045; 80053; 83880; 84484; 85025; 93005

== ENCOUNTER 2020-12-17 07:08 | Outpatient (CLI) | payer MEDICARE, MEDICAID, SELFPAY ==
--- NOTE | 2020-12-17 07:15 | USCV_ITS ---
Balta Kwan Age: 65 Gender: M : 1955 Exam Date: 12/17/2020 07:16 Ordering Phys: Sin Richmond MD (Andy) ([email or web address]) Technologist: Exam Location: [facility] Indication: AAA HISTORY: AAA RT IL STEN OUT OF AORTA Diameter (cm) AP x Transverse x Length Velocity (cm/s) Waveform Prox Aorta: 3.00 x 2.68 x 47.30 Biphasic Mid Aorta: 2.64 x 2.63 x 51.30 Biphasic Distal Aorta: 3.53 x 3.81 x 36.00 Biphasic Right Iliac Prox: 1.02 x 0.74 x 233.20 Biphasic Left Iliac Prox: 0.96 x 0.80 x 118.90 Biphasic Stent Prox Landing x x Aneurysmal Sac Max x x Lt Lat Sac Dim Rt Lat Sac Dim Stent Dist Landing x x Right Iliac Stent x x Left Iliac Stent x x Right Renal Art Left Renal Art FINDINGS: RT IL STENT COMING OUT OF DISTAL AO CONCLUSIONS AAA with mural thrombus. AAA measuring 4.1 x 3.7cm in maximum dimension. Recommend CTA Abdomen Pelvis in further evaluation. This is progressed since 2019 Right Iliac Stent is patent Hay Manley MD (Electronically Signed) Final Date: 18 December 2020 14:45 S
== END 2020-12-17 07:09 | disposition home or self-care (01) ==
PROVIDERS: PCP Family Medicine; Visit Provider Thoracic Surgery (Cardiothoracic Vascular Surgery)
DX: I71.4 Abdominal aortic aneurysm, without rupture (principal)
CPT/HCPCS: 93978

== ENCOUNTER → 2021-02-12 07:44 | Outpatient (BNVA) | payer MEDICARE, MEDICAID, SELFPAY | PROVIDERS: PCP Family Medicine; Visit Provider Nurse Practitioner Psychiatric/Mental Health | DX: F41.1 Generalized anxiety disorder (principal); F17.210 Nicotine dependence, cigarettes, uncomplicated | CPT/HCPCS: 99214 ==

== ENCOUNTER 2021-03-12 13:18 | Outpatient (CLI) | payer MEDICARE, MEDICAID, SELFPAY ==
--- NOTE | 2021-03-12 13:30 | CT_ITS ---
WS: [id number] CT ANGIOGRAPHY abdomen and pelvis HISTORY: I71.4 - Abdominal aortic aneurysm, without rupture TECHNIQUE: CT angiogram is performed during IV injection. Reformation images reviewed. All CT scans a [employer] use at least one of these dose optimization techniques: automated exposure contro l; mA and/or kV adjustment per patient size (includes targeted exams where dose is matched to clinica l indication); or iterative reconstruction. CONTRAST: Visipaque 320; 95 mL IV. DLP: 546.18 mGy.cm COMPARISON: 08/08/2019 CT 8, ultrasound 12/17/2020 Centrilobular emphysema at the lung bases. Visualized heart size is normal. No hiatal hernia. Abdominal aorta: Lower thoracic and abdominal aorta has circumferential plaque and intermittently vis ualized calcification within the wall. Infrarenal aortic aneurysm extends over a length of 7.2 cm. Ma ximum transverse diameter is 4.1 cm. The aneurysm extends into the RIGHT common iliac artery. Maximum diameter of the proximal RIGHT common iliac artery is 3.3 cm. As compared to the prior study no inte rval change. Very short arterial stent bridging between the RIGHT external iliac artery aneurysm and the [place] vessel. The lumen through the stent does appear patent but the diameter is poorly visualiz ed. There is extensive thrombus surrounding the distal aorta and the aneurysm extending into the shahzad c artery. Occluded RIGHT internal iliac artery similar to the prior study. Very high-grade stenosis involving the proximal celiac axis. Stenosis greater than 80%. This was desc ribed on prior examinations. Mild atherosclerotic plaque at the SMA origin. No high-grade stenosis. G reater than 60% stenosis involving the proximal RIGHT renal artery. There is mild cortical thinning a nd atrophy of the kidney which is similar to the prior study. Additional greater than 60% stenosis in volving the origin LEFT renal artery. Cortical atrophy LEFT kidney with no ischemic changes evident. Atherosclerotic changes without aneurysm extending into the proximal LEFT common iliac artery. There is calcified plaque continuing into the internal and external iliac arteries bilaterally. Early arterial enhancement of the liver, spleen, pancreas, adrenals and gallbladder is negative for a cute process. No adenopathy or ascites. Visualized GI tract demonstrates moderate fecal retention and constipation. The appendix is not definitely identified. Urinary bladder is well distended. No prost ate enlargement. Facet joint arthritis and disc space narrowing at L5-S1. CT/CT angio abdomen pelvis 23857 IMPRESSION: 1. Mild progression of the previously described infrarenal abdominal aortic an eurysm that extends into the RIGHT common iliac artery. Maximum transverse diam eter has increased from 3.8 to 4.1 cm involving the infrarenal aorta. This slig ht increase in size has happened since 08/08/2019. 2. Essentially stable proximal RIGHT common iliac artery aneurysm with a maxim um diameter of 3.3 cm. 3. High-grade stenosis involving the origin of the celiac axis and bilateral p roximal renal arteries. Mild stenosis origin of the SMA. 4. Occluded RIGHT internal iliac artery.
[2021-03-12 14:15] LABS: Blood Urea Nitrogen 9 mg/dL (8-23); Glomerular Filtration Rate 55.8 mL/min (90-130)
[2021-03-12] MEDS: iodixanol 320 mg/mL 100mL Btl IV (14:41)
== END 2021-03-12 13:19 | disposition home or self-care (01) ==
LOC: RAD 13:20
PROVIDERS: PCP Family Medicine; Visit Provider Thoracic Surgery (Cardiothoracic Vascular Surgery)
DX: I71.4 Abdominal aortic aneurysm, without rupture (principal); I74.5 Embolism and thrombosis of iliac artery; I70.1 Atherosclerosis of renal artery
CPT/HCPCS: 36415; 74174; 82565; 84520

== ENCOUNTER 2021-04-16 08:45 | Emergency (ER) | payer MEDICARE, MEDICAID, SELFPAY ==
[2021-04-16 09:04] VITALS: BP 104/70; PULSE 110; RESP 18; TEMP 36.6; O2SAT 96; BMI 23.0
--- NOTE | 2021-04-16 09:18 | CT_ITS ---
WS: [id number] CTA ABDOMEN AND PELVIS TECHNIQUE: Contrast enhanced CTA of the chest, abdomen, and pelvis with coronal and sagittal reformat forrest images and additional MIP Images. CLINICAL INFORMATION: rlq pain radiating from back, hx of AAA, r/o stone COMPARISON: March 12, 2021 DLP: 532.[address] scans at [facility] use at least one of these dose optimization techniques: automated e xposure control; mA and/or kV adjustment per patient size (includes targeted exams where dose is matc hed to clinical indication); or iterative reconstruction. FINDINGS: Emphysematous changes in the lung bases. Slight bibasilar atelectasis has progressed. Stable infraren al abdominal aortic aneurysm measuring 3.9 x 4.1 cm AP by transverse with peripheral mural thrombus. Stable RIGHT common iliac artery aneurysm measuring 3.3 cm in maximum dimension. Moderate to severe s tenosis involving the celiac origin some of which is likely due to the median arcuate ligament. This is unchanged. Moderate stenosis bilateral renal artery ostia. Mild stenosis involving the SMA origin. 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 Bibasilar atelectasis. Normal liver. A few incidental hepatic cysts. Normal gallbladder. Normal splee n. Small esophageal hiatal hernia. Adrenal glands are normal. Bilateral renal cortical atrophy. No hy dronephrosis. Normal renal parenchymal enhancement. No obstructing renal or ureteral calculi. Urine d istended bladder. Fat-containing umbilical hernia. Disc space narrowing L5-S1.. CT/CT angio abdomen pelvis [id number] IMPRESSION: 1. Stable infrarenal abdominal aortic aneurysm extending into the RIGHT common iliac artery with peripheral mural thrombus. This measures approximately 3.9 x 4.1 cm AP by transverse. 2. Stable RIGHT common iliac artery aneurysm measuring 3.3 cm. 3. Moderate to severe stenosis at the celiac origin some of which is likely du e to median arcuate ligament impingement unchanged. 4. Moderate stenosis bilateral renal artery origins. SMA origin is patent. 5. Slight atelectasis in the lung bases has progressed slightly compared to [facility] 2019. 6. No obstructing renal or ureteral calculi.
--- NOTE | 2021-04-16 09:19 | ED_ITS ---
HPI - Abdominal Pain General: Chief Complaint: Abdominal Pain Stated Complaint: Right back and flank pain Time Seen by Provider: 04/16/21 08:57 History of Present Illness: Patient presents with 1 month history of right lower back pain radiating to the right abdomen. Seen a month ago and CTA was done showed slight increase in abdominal aortic aneurysm size does have some stenosis also renal arteries. Patient has fever chills nausea or vomiting. Denies any blood in his urine. Has no other complaints problems. Patient decided that after a month of hurting he to get this checked out. Patient also history of chronic back pain and this pain is not aggravated by movements. Onset (ago): week(s) Pain Consistency: intermittent Location: RUQ and R flank Severity: mild Exacerbating factors: nothing Associated Symptoms: Denies chills, fever(s), nausea and vomiting Review of Systems Const: Denies: fever(s), chills or body aches Eyes: Denies: eye discomfort ENMT: Denies: throat pain Card: Denies: chest pain Resp: Denies: dyspnea GI: Denies: abdominal pain, nausea or vomiting : Reports: flank pain Skin/Breast: Denies: rash Neuro: Denies: headache(s) Psych: Denies: depression or suicidal ideation PFSH ED PFSH: Medical History Balanitis Benign prostatic hyperplasia with incomplete bladder emptying CAD (coronary artery disease) COPD with acute exacerbation Essential hypertension Generalized anxiety disorder GERD (gastroesophageal reflux disease) Hyperlipidemia Hypothyroidism Peripheral arterial disease with history of revascularization Psychiatric care Renal artery stenosis Urinary retention Surgical History H/O heart artery stent History of colonoscopy with polypectomy (~2018) dr. anderson History of esophagogastroduodenoscopy (EGD) (~2019) dr. anderson Status post left inguinal hernia repair (01/01/20) Family History Mother , AT AGE 64 Renal failure Alzheimer disease Father , AT AGE 48 Lung cancer Social History Smoking and tobacco status: current every day smoker cigarettes Packs smoked per day: 2.5 Years cigarettes smoked: 45 Alcohol intake: never Marital status: Current occupational status: disabled History of recent travel: No Physical Exam Const: COMMON NORMALS: no acute distress, patient oriented x3 and alert HENMT: COMMON NORMALS: normocephalic HEAD & SCALP: normocephalic Eye: COMMON NORMALS: EOMs intact bilaterally Neck/C-Spine: COMMON NORMALS: no JVD Resp: COMMON NORMALS: normal respiratory effort and No use of accessory muscles AUSCULTATION: diminished lung sounds Cardio: COMMON NORMALS: no JVD GI: INSPECTION: Yes normal to inspection : OTHER: Right flank pain on percussion Extremity: COMMON NORMALS: normal to inspection and full ROM Neuro: COMMON NORMALS: patient oriented x3 SENSORIUM/ORIENTATION: Yes alert Psych: COMMON NORMALS: mental status grossly normal Skin: COMMON NORMALS: no rashes or lesions noted GENERAL SKIN EXAM: no rashes or lesions noted Course Vital Signs: Vital signs: Vital Signs Temperature 97.8 F 04/16/21 09:04 Pulse Rate 93 04/16/21 10:00 Respiratory Rate 13 04/16/21 10:00 Blood Pressure 119/78 04/16/21 10:00 Pulse Oximetry 94 04/16/21 10:00 MDM - Abdominal Pain Medical Decision Making Patient presents with chronic right flank pain that radiates into his abdomen. Laboratory studies which include CBC chemistry and and UA were done which were noncontributory. Repeat CT a was done which showed no change in size of the aneurysm does have peripheral mural thrombus does have severe stenosis at the celiac origin which is consistent with prior exam a month ago. Patient also has a history of chronic back pain. Patient was encouraged to follow-up primary care provider take medication as prescribed and follow-up here if any worsening in those symptoms. Lab Data : 04/16/21 09:33 04/16/21 09:33 Labs/Radiology: Radiology Impressions Abdomen/Pelvis CTA 04/16/21 09:18 IMPRESSION: 1. Stable infrarenal abdominal aortic aneurysm extending into the RIGHT common iliac artery with peripheral mural thrombus. This measures approximately 3.9 x 4.1 cm AP by transverse. 2. Stable RIGHT common iliac artery aneurysm measuring 3.3 cm. 3. Moderate to severe stenosis at the celiac origin some of which is likely due to median arcuate ligament impingement unchanged. 4. Moderate stenosis bilateral renal artery origins. SMA origin is patent. 5. Slight atelectasis in the lung bases has progressed slightly compared to March 12, 2019. 6. No obstructing renal or ureteral calculi. Laboratory Results WBC 9.4 10^3/uL (4.0-10.0) 04/16/21 09: RBC 4.30 10^6/uL (4.1-5.3) 04/16/21: Hgb 13.8 g/dL (11.7-16.6) 04/16/21: Hct 41.7 % (42.0-52.0) L 04/16/21: MCV 97.0 fl (80-94) H 04/16/21: MCH 32.1 pg (28.0-34.0) 04/16/21: MCHC 33.1 g/dL (30.0-36.0) 04/16/21: RDW 12.4 % (12.1-15.1) 04/16/21: Plt Count 221 10^3/cmm (130-400) 04/16/21: MPV 10.1 fL (7.4-10.4) 04/16/21: Neut % (Auto) 72.2 % 04/16/21: Lymph % (Auto) 16.3 % 04/16/21 09: Carlton % (Auto) 5.6 % 04/16/21: Eos % (Auto) 4.3 % 04/16/21: Baso % (Auto) 1.0 % 04/16/21: Neut # (Auto) 6.76 10^3/uL (1.8-7.7) 04/16/21: Lymph # (Auto) 1.5 10^3/uL (0.8-4.8) 04/16/21: Carlton # (Auto) 0.5 10^3/uL (0.2-0.9) 04/16/21 09: Eos # (Auto) 0.4 10^3/uL (0.0-0.8) 04/16/21 09: Baso # (Auto) 0.1 10^3/uL (0.0-0.1) 04/16/21 09:33 Nucleated RBC % (auto) 0 % 04/16/21 09: Nucleated RBCs # 0.0 /100WBC 04/16/21 09:33 PT 12.40 SECONDS (12.1-14.9) 04/16/21 09:33 INR 0.90 (0.8-1.2) 04/16/21 09:33 Sodium 138 mmol/L (136-145) 04/16/21 09:33 Potassium 3.7 mmol/L (3.5-5.1) 04/16/21 09:33 Chloride 103 mmol/L (98-107) 04/16/21 09:33 Carbon Dioxide 25 mmol/L (22-29) 04/16/21 09:33 Anion Gap 13.7 (5-19) 04/16/21 09:33 BUN 10 mg/dL (8-23) 04/16/21 09:33 Creatinine 1.3 mg/dL (0.7-1.2) H 04/16/21 09:33 GFR Calculation 55.8 mL/min (90-130) L 04/16/21 09:33 Glucose 85 mg/dL (65-115) 04/16/21 09:33 Calculated Osmolality 284 mOsm/kg (285-295) L 04/16/21 09:33 Calcium 9.4 mg/dL (8.5-10.5) 04/16/21 09:33 Total Bilirubin 0.2 mg/dL (0.15-1.2) 04/16/21 09:33 AST 9 U/L (0-40) 04/16/21:33 ALT 7 U/L (0-41) 04/16/21 09:33 Alkaline Phosphatase 146 IU/L (40-130) H 04/16/21 09:33 Total Protein 6.9 g/dL (6.6-8.7) 04/16/21 09:33 Albumin 4.2 g/dL (3.5-5.2) 04/16/21 09:33 Globulin 2.7 g/dL (1.3-4.6) 04/16/21 09:33 Urine Color Yellow (Yellow) 04/16/21 09:48 Urine Appearance Clear (CLEAR) 04/16/21 09:48 Urine pH 6 (5-7) 04/16/21 09:48 Ur Specific [place] 1.010 (1.005-1.030) 04/16/21 09:48 Urine Protein Neg (Negative) 04/16/21 09:48 Urine Glucose (UA) Norm (Normal) 04/16/21 09:48 Urine Ketones Negative (Negative) 04/16/21 09:48 Urine Blood Neg (Negative) 04/16/21 09:48 Urine Nitrate Negative (Negative) 04/16/21 09:48 Urine Bilirubin Neg (Negative) 04/16/21 09:48 Urine Urobilinogen Norm mg/dL (Negative) 04/16/21 09:48 Ur Leukocyte Esterase Negative (Negative) 04/16/21 09:48 Discharge Plan Discharge Patient Disposition: Home Clinical Impression: Chronic flank pain, Renal artery stenosis Condition: Stable Prescriptions: New Celebrex 100 mg capsule 100 mg PO BID Qty: 20 0RF No Action finasteride 5 mg tablet 5 mg PO QAM 0RF simvastatin 40 mg tablet 40 mg PO BEDTIME 0RF tramadol 50 mg tablet 50 mg PO Q6H PRN (Reason: Pain) 0RF pantoprazole 40 mg tablet,delayed release (DR/EC) 40 mg PO QAM 0RF aspirin 81 mg tablet,delayed release (DR/EC) 81 mg PO QAM 0RF clopidogrel 75 mg tablet 75 mg PO QAM 0RF Hold Instructions: Resume on 01/03/20. isosorbide mononitrate 30 mg tablet extended release 24 hr 15 mg PO BEDTIME 0RF trazodone 50 mg tablet 50 mg PO DIRECTED PRN (Reason: sleep) Qty: 30 6RF Rx Instructions: May take one tablet as needed for sleep prior to 2 am gabapentin 300 mg capsule 300 mg PO BID Qty: 180 2RF budesonide-formoterol 160-4.5 mcg/actuation HFA aerosol inhaler 2 puff inhalation BID 0RF baclofen 20 mg tablet See Rx Instructions .ROUTE .COMPLEX 0RF Rx Instructions: 10mg po qam and 20mg at bedtime levothyroxine 150 mcg tablet 150 mcg PO QAM 0RF Nitrostat 0.4 mg Tablet, Sublingual 0.4 mg SUBLINGUAL Q5M PRN (Reason: Chest Pain) 0RF Rx Instructions: do not exceed 3 doses per episode meclizine 12.5 mg tablet 12.5 mg PO QAM 0RF diltiazem HCl 90 mg capsule,extended release 12 hr 90 mg PO Q12H 0RF venlafaxine 150 mg capsule,extended release 24hr 150 mg PO QAM 0RF trazodone 150 mg tablet 150 mg PO BEDTIME 0RF Discharge Orders: Discharge ED (Routine); Ordered 04/16/21 Ordered By: Sonido Kim Referrals: Siim Vital DO [Primary Care Provider] - Discharge Diet: Usual diet Discharge Activity: Resume usual activity Activity Restrictions/Additional Instructions: Follow-up with medical provider as directed. Take medications as prescribed. Return to the ER or your medical provider if condition worsens. Please read and understand discharge instructions. If any questions ask please. Keep your appointment with your primary care doctor to have reevaluation of your aneurysm done as scheduled per your primary care provider. Coding Level of Care Code ED Senior Power Plant Operator for Sukhwinder Fwd Exam Comprehensive
[2021-04-16 09:41] LABS: Basophils # 0.1 10^3/uL (0.0-0.1); Eosinophils # 0.4 10^3/uL (0.0-0.8); Eosinophils % 4.3 %; Hematocrit 41.7 % (42.0-52.0); Hemoglobin 13.8 g/dL (11.7-16.6); Lymphocytes # 1.5 10^3/uL (0.8-4.8); Lymphocytes % 16.3 %; Mean Corpuscular HGB Conc 33.1 g/dL (30.0-36.0); Mean Corpuscular Hemoglobin 32.1 pg (28.0-34.0); Mean Platelet Volume 10.1 fL (7.4-10.4); Monocytes # 0.5 10^3/uL (0.2-0.9); Monocytes % 5.6 %; Neutrophils # 6.76 10^3/uL (1.8-7.7); Neutrophils % 72.2 %; Nucleated Red Blood Cells % 0 %; Platelet Count 221 10^3/cmm (130-400); Red Cell Distribution Width 12.4 % (12.1-15.1); White Blood Count 9.4 10^3/uL (4.0-10.0)
[2021-04-16 10:00] VITALS: BP 119/78; PULSE 93; RESP 13; O2SAT 94
[2021-04-16 10:01] LABS: Add Urine Microscopic? NO; Charge for UA Resulting for Rev
[2021-04-16 10:04] LABS: Bilirubin Urine Neg (Negative); Blood Urine Neg (Negative); Glucose Urine UA Norm (Normal); Ketones Urine Negative (Negative); Leukocyte Esterase Urine Negative (Negative); Nitrate Urine Negative (Negative); Protein Urine Neg (Negative); Urine Appearance Clear (CLEAR); Urine Color Yellow (Yellow); Urobilinogen Urine Norm (Negative); pH Urine 6 (5-7)
--- NOTE | 2021-04-16 10:27 | PC.PHAR ---
pt states he takes care of his own medications-pt states he is not taking the metoprolol er 25mg daily filled on 02/06/21 90d/s-notes are made in the pharmacy comments
[2021-04-16 10:35] LABS: Alanine Aminotransferase 7 U/L (0-41); Albumin Level 4.2 g/dL (3.5-5.2); Alkaline Phosphatase 146 IU/L (40-130); Anion Gap 13.7 (5-19); Aspartate Amino Transferase 9 U/L (0-40); Blood Urea Nitrogen 10 mg/dL (8-23); Calcium 9.4 mg/dL (8.5-10.5); Carbon Dioxide 25 mmol/L (22-29); Chloride 103 mmol/L (98-107); Globulin 2.7 g/dL (1.3-4.6); Glomerular Filtration Rate 55.8 mL/min (90-130); Glucose 85 mg/dL (65-115); Osmolality Calculated 284 mOsm/kg (285-295); Potassium 3.7 mmol/L (3.5-5.1); Sodium 138 mmol/L (136-145); Total Bilirubin 0.2 mg/dL (0.15-1.2); Total Protein 6.9 g/dL (6.6-8.7)
[2021-04-16] MEDS: iodixanol 320 mg/mL 100mL Btl IV (11:00)
[2021-04-16 12:43] VITALS: BP 129/72; PULSE 83; RESP 14; O2SAT 95
== END 2021-04-16 12:45 | disposition home or self-care (01) ==
PROVIDERS: Emergency Provider Nurse Practitioner Family; PCP Family Medicine
DX: G89.29 Other chronic pain (principal); R10.9 Unspecified abdominal pain; I70.1 Atherosclerosis of renal artery; Z79.02 Long term (current) use of antithrombotics/antiplatelets; Z79.82 Long term (current) use of aspirin; I25.10 Atherosclerotic heart disease of native coronary artery without angina pectoris; J44.9 Chronic obstructive pulmonary disease, unspecified; I10 Essential (primary) hypertension; E78.5 Hyperlipidemia, unspecified; F17.210 Nicotine dependence, cigarettes, uncomplicated
CPT/HCPCS: 74174; 80053; 81003; 85025; 85610; 99283; Q9967

== ENCOUNTER → 2021-05-13 13:10 | Outpatient (BNVA) | payer MEDICARE, MEDICAID, SELFPAY | PROVIDERS: PCP Family Medicine; Visit Provider Nurse Practitioner Psychiatric/Mental Health | DX: F41.1 Generalized anxiety disorder (principal); F17.210 Nicotine dependence, cigarettes, uncomplicated | CPT/HCPCS: 99213 ==

== ENCOUNTER → 2021-05-18 14:06 | Outpatient (BNVA) | payer MEDICARE, MEDICAID, SELFPAY | PROVIDERS: PCP Family Medicine; Visit Provider Internal Medicine Cardiovascular Disease | DX: R06.02 Shortness of breath (principal); I25.10 Atherosclerotic heart disease of native coronary artery without angina pectoris; I65.23 Occlusion and stenosis of bilateral carotid arteries | CPT/HCPCS: 99214 ==

== ENCOUNTER → 2021-06-01 09:25 | Outpatient (BNVA) | payer MEDICARE, MEDICAID, SELFPAY | PROVIDERS: PCP Family Medicine; Visit Provider Specialist | DX: G43.711 Chronic migraine without aura, intractable, with status migrainosus (principal); R56.9 Unspecified convulsions; G31.84 Mild cognitive impairment of uncertain or unknown etiology; R22.2 Localized swelling, mass and lump, trunk; F17.210 Nicotine dependence, cigarettes, uncomplicated | CPT/HCPCS: 99213; 99214 ==

== ENCOUNTER → 2021-10-11 13:12 | Outpatient (BNVA) | payer MEDICARE, MEDICAID, SELFPAY | PROVIDERS: PCP Family Medicine; Visit Provider Specialist | DX: S62.608A Fracture of unspecified phalanx of other finger, initial encounter for closed fracture (principal); X58.XXXA Exposure to other specified factors, initial encounter; S62.625A Displaced fracture of middle phalanx of left ring finger, initial encounter for closed fracture; W19.XXXA Unspecified fall, initial encounter | CPT/HCPCS: 73130; 99203; 99205 ==

== ENCOUNTER 2021-10-18 11:22 | Outpatient (RCR) | payer MEDICARE, MEDICAID, SELFPAY | END 2021-10-27 23:59 | disposition home or self-care (01) | LOC: SOT 11:22 | PROVIDERS: PCP Family Medicine; Referring Provider Specialist; Visit Provider Specialist | DX: S62.605 Fracture of unspecified phalanx of left ring finger (principal) | CPT/HCPCS: 97110; 97140; 97166 ==

== ENCOUNTER → 2021-10-21 15:09 | Outpatient (BNVA) | payer MEDICARE, MEDICAID, SELFPAY | PROVIDERS: PCP Family Medicine; Visit Provider Physician Assistant | DX: M51.37 Other intervertebral disc degeneration, lumbosacral region (principal); M48.061 Spinal stenosis, lumbar region without neurogenic claudication; M25.78 Osteophyte, vertebrae | CPT/HCPCS: 72110; 99203 ==

== ENCOUNTER → 2021-11-22 14:32 | Outpatient (BNVA) | payer MEDICARE, MEDICAID, SELFPAY | PROVIDERS: PCP Family Medicine; Visit Provider Internal Medicine Cardiovascular Disease | DX: I25.10 Atherosclerotic heart disease of native coronary artery without angina pectoris (principal); E78.5 Hyperlipidemia, unspecified; I10 Essential (primary) hypertension; I77.1 Stricture of artery; F17.210 Nicotine dependence, cigarettes, uncomplicated | CPT/HCPCS: 99214 ==

== ENCOUNTER → 2021-12-01 10:48 | Outpatient (BNVA) | payer MEDICARE, MEDICAID, SELFPAY | PROVIDERS: PCP Family Medicine; Visit Provider Specialist | DX: G43.811 Other migraine, intractable, with status migrainosus (principal); F17.210 Nicotine dependence, cigarettes, uncomplicated; I99.8 Other disorder of circulatory system | CPT/HCPCS: 99213; 99406 ==

== ENCOUNTER 2021-12-20 14:33 | Outpatient (CLI) | payer MEDICARE, MEDICAID, SELFPAY ==
--- NOTE | 2021-12-20 14:30 | USCV_ITS ---
Balta Kwan Age: 66 Gender: M : 1955 Exam Date: 12/20/2021 14:47 Ordering Phys: Sin Richmond MD (Andy) ([email or web address]) Technologist: SAAD Exam Location: [facility] [place] Indication: AAA HISTORY: Diameter (cm) AP x Transverse x Length Velocity (cm/s) Waveform Prox Aorta: 2.47 x 2.54 x 41.30 Triphasic Mid Aorta: 2.71 x 2.46 x 46.30 Triphasic Distal Aorta: 4.73 x 3.94 x 11.22 28.60 Triphasic Right Iliac Prox: 3.45 x 3.90 x 51.90 Triphasic Left Iliac Prox: 1.15 x 1.54 x 204.90 Triphasic Stent Prox Landing x x Aneurysmal Sac Max x x Lt Lat Sac Dim Rt Lat Sac Dim Stent Dist Landing x x Right Iliac Stent x x Left Iliac Stent x x Right Renal Art Left Renal Art FINDINGS: Mild to moderate diffuse plaques on the abdominal aorta. Organized thrombus in the distal abdominal aortic aneurysm The left common iliac artery appears to be tortuous. Doppler flow velocity was found to be increased in the left iliac artery with flow turbulence CONCLUSIONS 1. Distal abdominal aortic aneurysm measuring 4.73 x 3.94 cm in diameter.Mural thrombus was noted in the aneurysmal sac . 2. Diffuse ectasia of the proximal and mid abdominal aorta with a mild to moderate plaques. 3. Large aneurysm in the right proximal common iliac artery measuring 3.45 x 3.90 cm, possibly an extension from the distal aortic aneurysm. 4. Elevated velocity in the left common iliac artery may suggest hemodynamically significant stenosis. Because of the tortuosity, difficult to evaluate the degree of stenosis. Compared to the study from 12/17/2020 the distal abdominal aortic aneurysm has increased from 4.1 x 3.7 to 4.73 x 3.94. Consider CTA, to better evaluate the proximal iliac arteries Dr Jacquelyn Bose MD [facility] (Electronically Signed) Final Date: 21 December 2021 08:01 S
== END 2021-12-20 14:34 | disposition home or self-care (01) ==
LOC: RAD 14:34
PROVIDERS: PCP Family Medicine; Visit Provider Thoracic Surgery (Cardiothoracic Vascular Surgery)
DX: I71.40 Abdominal aortic aneurysm, without rupture, unspecified (principal); I74.09 Other arterial embolism and thrombosis of abdominal aorta
CPT/HCPCS: 93978

== ENCOUNTER → 2021-12-28 14:22 | Outpatient (BNVA) | payer MEDICARE, MEDICAID, SELFPAY | PROVIDERS: PCP Family Medicine; Visit Provider Thoracic Surgery (Cardiothoracic Vascular Surgery) | DX: I71.40 Abdominal aortic aneurysm, without rupture, unspecified (principal) | CPT/HCPCS: 99203 ==

== ENCOUNTER 2022-01-06 08:01 | Outpatient (CLI) | payer MEDICARE, MEDICAID, SELFPAY ==
--- NOTE | 2022-01-06 08:00 | MR_ITS ---
WS: [id number] MRI LUMBAR SPINE NONCONTRAST TECHNIQUE: Sagittal T1, T2 and STIR imaging. Axial T1 and T2 imaging. CLINICAL INFORMATION: pain COMPARISON: None. FINDINGS: Mild lumbar curve. No acute compression. Disc bulging worse L5-S1 with slight retrolisthesi s. No acute compression fractures. Mild central canal stenosis in the cervical spinal telephonic case manager imaging. Aortic endograft with biiliac extension. RIGHT iliac aneurysm measuring 3.7 CM. Aneurysm sac measures approximately 4.3 x 4.5 x 7.1 cm AP by transverse by craniocaudal. Slight retrolisthesis L5 on S1. A drenal glands are normal. L1-L2: Normal. L2-L3: Mild facet arthropathy. Spinal canal and foramen are patent. L3-L4: Mild annular bulging. Moderate facet arthropathy. Spinal canal and foramen are patent. L4-L5: Mild annular bulging with slight impingement RIGHT subarticular recess and traversing RIGHT L5 nerve root. Mild central canal stenosis. RIGHT foraminal protrusion impinges the exiting RIGHT L4 ne rve root. Mild to moderate RIGHT foraminal narrowing. LEFT foramen is patent. Moderate facet arthropa thy with ligament flavum hypertrophy. L5-S1: Mild annular bulging with a small RIGHT pericentral protrusion. Impingement RIGHT S1 nerve nat t. Moderate RIGHT and mild LEFT foraminal narrowing. Moderate facet arthropathy. Visualized pelvic bony structures: Normal. Paravertebral soft tissues: Normal. MR/MR lumbar spine wo con* [id number] IMPRESSION: 1. Mild lumbar curve. No acute compression. No high-grade central canal stenos is. 2. Annular bulging L4-L5 with impingement on the traversing RIGHT L5 nerve nat t in the subarticular recess. Recommend correlation for RIGHT L5 nerve root sym ptoms. 3. RIGHT foraminal protrusion L4-L5 impinges the exiting RIGHT L4 nerve root w ith mild to moderate RIGHT foraminal narrowing. Recommend correlation for RIGHT L4 nerve root symptoms. 4. RIGHT pericentral protrusion L5-S1 impinges the traversing RIGHT S1 nerve r oot in the subarticular recess. Moderate RIGHT L5-S1 foraminal narrowing.\ 5. Moderate facet arthropathy L3-L5. 6. Aortic endograft with biiliac extension. Excluded aneurysm sac appears stab le. RIGHT common iliac artery aneurysm appears stable.
== END 2022-01-06 08:02 | disposition home or self-care (01) ==
LOC: RAD 08:01
PROVIDERS: PCP Family Medicine; Visit Provider Physician Assistant
DX: M51.26 Other intervertebral disc displacement, lumbar region (principal); M51.27 Other intervertebral disc displacement, lumbosacral region; M47.816 Spondylosis without myelopathy or radiculopathy, lumbar region; Z95.828 Presence of other vascular implants and grafts; I72.3 Aneurysm of iliac artery
CPT/HCPCS: 72148

== ENCOUNTER 2022-01-19 07:52 | Outpatient (CLI) | payer MEDICARE, MEDICAID, SELFPAY ==
--- NOTE | 2022-01-19 07:45 | USCV_ITS ---
Balta Kwan Age: 66 Gender: M : 1955 Exam Date: 01/19/2022 08:01 Ordering Phys: Yovana Mendenhall MD ([email or web address]) Technologist: CT Exam Location: [facility] [place] Indication: pvd Risk Factors: Previous Vascular Surgery: RIGHT LEFT BP: 150.0 / 87.00 BP: 145.0/ 84.00 0 0 Waveform Velocity (cm/s) Velocity (cm/s) Waveform Triphasic 83.9 Iliac Prox 91.7 Triphasic Triphasic 92.8 Iliac Mid 92.7 Triphasic Triphasic 117.5 Iliac Distal 108.7 Triphasic Triphasic 85.4 FRETTED INSTRUMENT MAKER HAND 122.0 Triphasic Triphasic 62.3 SFA Prox 82.6 Triphasic Triphasic 77.7 SFA Mid 81.3 Triphasic Triphasic SFA Dist Triphasic 62.8 115.1 Triphasic 46.9 POP 61.1 Triphasic Triphasic 43.6 PULPWOOD CUTTER 48.4 Triphasic Triphasic 64.8 DPA 85.9 Triphasic 1.0 CHIN 1.1 FINDINGS normal us, no stenosis identified Mild diffuse plaque in the iliac and femoral arteries bilaterally. Near normal arterial Doppler waveforms and Doppler flow velocities Resting CHIN of 1.0 on the right side and 1.1 on the left side CONCLUSIONS 1. Normal resting ABIs bilaterally 2. Normal Doppler waveforms and velocities suggesting no significant arterial obstruction. 3. Mild diffuse plaques in the femoral and iliac arteries bilaterally Dr Jacquelyn Bose MD [facility] (Electronically Signed) Final Date: 19 January 2022 19:11 S
== END 2022-01-19 07:53 | disposition home or self-care (01) ==
LOC: RAD 07:54
PROVIDERS: PCP Family Medicine; Visit Provider Internal Medicine Cardiovascular Disease
DX: I73.9 Peripheral vascular disease, unspecified (principal); Z98.890 Other specified postprocedural states
CPT/HCPCS: 93925

== ENCOUNTER 2022-01-28 15:33 | Outpatient (CLI) | payer MEDICARE, MEDICAID, SELFPAY ==
[2022-01-28] MEDS: iohexol 350 mg/mL 500 mL Btl (per mL) IV (15:38)
--- NOTE | 2022-01-28 16:00 | CT_ITS ---
WS: [id number] CT ANGIOGRAPHY abdomen and pelvis. HISTORY: AAA TECHNIQUE: CT angiogram is performed during IV injection. Reformation images reviewed. All CT scans a [employer] use at least one of these dose optimization techniques: automated exposure contro l; mA and/or kV adjustment per patient size (includes targeted exams where dose is matched to clinica l indication); or iterative reconstruction. CONTRAST: Omnipaque 350; 95 mL IV. DLP: 1067.87 mGy.cm COMPARISON: 04/16/2021 Chronic emphysematous changes and mosaic attenuation at the lung bases. No pulmonary mass or nodule. Mild peribronchial thickening at the RIGHT hilum is similar to the study from 08/08/2019. Normal size heart with no RIGHT heart strain. Small hiatal hernia. Abdominal aorta: Infrarenal abdominal aortic aneurysm extends over a length of 8.2 cm and begins belo w the renal arteries. The aneurysm extends to the bifurcation into the proximal to mid common iliac a rtery. Circumferential thrombus within the aneurysm sac measures up to 1.3 cm. Maximum diameter of th e aneurysm is 4.5 cm. The aneurysm has slightly increased in size since the prior study when the maxi mum diameter was 4.1 cm. RIGHT common iliac artery aneurysm with a maximum diameter of 3.6 cm which i s also increased in size from 3.3 cm. RIGHT internal iliac artery is occluded. External iliac arterie s bilaterally are patent. 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 There is at mercedes st moderate SMA stenosis. No ischemic changes in the GI tract. Moderate stenosis involving the renal arteries bilaterally. Several small hepatic cysts. No enlargement of the liver or spleen. Normal early enhancement of the p ortal vein. SMV is not enhancing due to the early arterial phase. No adenopathy or ascites. No GI tra ct obstruction. Advanced degenerative changes at L5-S1. CT/CT angio abdomen pelvis [id number] IMPRESSION: 1. Mild increase in size of the infrarenal abdominal aortic aneurysm which ext ends into the RIGHT common iliac artery. Maximum transverse diameter aorta has increased from 4.1 to 4.5 cm. RIGHT common iliac artery aneurysm has increased from 3.3 to 3.6 cm. 2. Moderate to severe stenosis at the celiac axis from median arcuate ligament syndrome and also moderate stenosis involving the origin of the renal arteries and SMA. 3. Completely occluded RIGHT internal iliac artery. 4. No adenopathy or ascites. 5. No GI tract ischemia.
[2022-01-31 07:06] LABS: Blood Urea Nitrogen 11 mg/dL (8-23)
== END 2022-01-28 15:34 | disposition home or self-care (01) ==
LOC: RAD 15:34
PROVIDERS: PCP Family Medicine; Visit Provider Thoracic Surgery (Cardiothoracic Vascular Surgery)
DX: I71.43 Infrarenal abdominal aortic aneurysm, without rupture (principal); I74.5 Embolism and thrombosis of iliac artery
CPT/HCPCS: 74174; 82565; 84520; Q9967

== ENCOUNTER → 2022-02-03 13:54 | Outpatient (BNVA) | payer MEDICARE, MEDICAID, SELFPAY | PROVIDERS: PCP Family Medicine; Visit Provider Thoracic Surgery (Cardiothoracic Vascular Surgery) | DX: I71.40 Abdominal aortic aneurysm, without rupture, unspecified (principal); F17.210 Nicotine dependence, cigarettes, uncomplicated | CPT/HCPCS: 99213 ==

== ENCOUNTER → 2022-02-10 10:37 | Outpatient (BNVA) | payer MEDICARE, MEDICAID, SELFPAY | PROVIDERS: PCP Family Medicine; Visit Provider Orthopaedic Surgery | DX: M48.061 Spinal stenosis, lumbar region without neurogenic claudication (principal); M48.07 Spinal stenosis, lumbosacral region | CPT/HCPCS: 99214 ==

== ENCOUNTER 2022-03-11 12:20 | Outpatient (CLI) | payer MEDICARE, MEDICAID, SELFPAY | END 2022-03-11 12:21 | disposition home or self-care (01) | LOC: RT 03-14 12:22 | PROVIDERS: PCP Family Medicine; Visit Provider Orthopaedic Surgery | DX: Z13.6 Encounter for screening for cardiovascular disorders (principal) | CPT/HCPCS: 93005 ==

== ENCOUNTER 2022-03-18 09:34 | Day surgery (SDC) | payer MEDICARE, MEDICAID, SELFPAY ==
[2022-03-11 08:05] VITALS: BMI 25.0
--- NOTE | 2022-03-11 08:20 | ECG_ITS ---
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 Measurements Intervals [place] Rate: 95 P: 55 OH: 164 QRS: 16 QRSD: 96 T: 71 QT: 332 QTc: 418 Interpretive Statements SINUS RHYTHM POSSIBLE LEFT ATRIAL ENLARGEMENT [-0.1mV P-WAVE IN V1/V2] Compared to ECG 01/04/2021 15:19:05 First degree AV block no longer present Intraventricular conduction delay no longer present Electronically Signed On 03-11-2022 16:53:33 STEAM SHOVEL OILER by Yovana Mendenhall M.D. [id number]
--- NOTE | 2022-03-11 08:35 | P.ANESASSM_ITS ---
Pre-Anesthetic Assessment Height/Weight: Height 1.83 m Weight 83.915 kg Preop Diagnosis: Left subclavian artery stenosis/left subclavian artery steal symptoms Operation Date: 03/18/22 08:45 Proposed Procedures p Lumbar Spine Decompression L4/5 L5/S1 39518/08398/M54.50/M79.604(Not Applicable) - Ankit Tucker, Familial anesthetic complications: NOne Social Tobacco and No alcohol Exam alert, oriented x 3, clear to auscultation bilaterally and regular rate & rhythm Airway Mallampati: Class III Dentition: false Pulmonary Chronic Obstructive Pulmonary Disease CV/HEM Arrythmia, Coronary Artery Disease, Hypertension and Peripheral Vascular Disease aortic aneurysm renal artery stenosis Hepatic None reported GI None reported Metabolic Thyroid Disease Musc/skel Lower Back Pain Neuropsych None reported Anesthetic Plan ASA status: 4 Anesthesia: General Risk of > 500 ml blood loss (7ml/kg in children): No Medications/Allergies Home Medications Medication Instructions Recorded Confirmed Last Taken Type aspirin 81 mg tablet,delayed 81 mg PO QAM 04/22/19 03/11/22 03/10/22 History release clopidogrel 75 mg tablet 75 mg PO QAM 04/22/19 03/11/22 03/10/22 History finasteride 5 mg tablet 5 mg PO QAM 04/22/19 03/11/22 03/11/22 History pantoprazole 40 mg tablet,delayed 40 mg PO QAM 04/22/19 03/11/22 03/11/22 History release simvastatin 40 mg tablet 40 mg PO BEDTIME 04/22/19 03/11/22 03/11/22 History budesonide-formoterol HFA 160 2 puff inhalation BID 08/08/19 03/11/22 03/11/22 History mcg-4.5 mcg/actuation aerosol inhaler isosorbide mononitrate 30 mg 15 mg PO BEDTIME 10/06/20 03/11/22 03/11/22 History tablet,extended release 24 hr baclofen 20 mg tablet See Rx Instructions .Route .COMPLEX 04/16/21 03/11/22 03/11/22 History celecoxib 100 mg capsule (Celebrex) 100 mg PO BID #20 caps 04/16/21 03/11/22 03/11/22 Rx diltiazem HCl 90 mg 90 mg PO Q12H 04/16/21 03/11/22 03/11/22 History capsule,extended release 12 hr levothyroxine 150 mcg tablet 150 mcg PO QAM 04/16/21 03/11/22 03/11/22 History meclizine 12.5 mg tablet 12.5 mg PO QAM 04/16/21 03/11/22 03/11/22 History nitroglycerin 0.4 mg sublingual 0.4 mg sublingual Q5M PRN Chest 04/16/21 03/11/22 Unknown History tablet (Nitrostat) Pain mirtazapine 30 mg tablet (Remeron) 30 mg PO BEDTIME 05/13/21 03/11/22 03/11/22 History gabapentin 300 mg capsule 300 mg PO BID #180 caps 10/05/21 03/11/22 03/11/22 Rx venlafaxine 150 mg 150 mg PO ONCE 90 days #90 caps 12/01/21 03/11/22 03/11/22 Rx capsule,extended release 24 hr (Effexor XR) Allergies Allergy/AdvReac Type Severity Reaction Status Date / Time tetracycline Allergy Nausea Verified 03/11/22 07:59 [facility] Anesthesia Medical History Aortic aneurysm Balanitis BPH loc w urin obs/LUTS CAD (coronary artery disease) COPD with acute exacerbation Essential hypertension Generalized anxiety disorder GERD (gastroesophageal reflux disease) Hyperlipidemia Hypothyroidism Peripheral arterial disease with history of revascularization Psychiatric care Renal artery stenosis Urinary retention Surgical History H/O heart artery stent History of colonoscopy with polypectomy (~2018) dr. anderson History of esophagogastroduodenoscopy (EGD) (~2018) dr. anderson Status post left inguinal hernia repair (01/01/20) Family History Mother , AT AGE 64 Renal failure Alzheimer disease Father , AT AGE 48 Lung cancer Social History Smoking and tobacco status: current every day smoker cigarettes Packs smoked per day: 2.5 Years cigarettes smoked: 45 Alcohol intake: never Marital status: Current occupational status: disabled History of recent travel: No Data Anesthesia 03/11/22 08:20 03/11/22 08:20 Cardiac Studies: No Data to Display
[2022-03-11 08:37] LABS: Basophils # 0.1 10^3/uL (0.0-0.1); Basophils % 0.9 %; Eosinophils # 0.2 10^3/uL (0.0-0.8); Eosinophils % 2.4 %; Hematocrit 41.5 % (42.0-52.0); Hemoglobin 13.7 g/dL (11.7-16.6); Lymphocytes # 1.6 10^3/uL (0.8-4.8); Lymphocytes % 16.3 %; Mean Corpuscular Hemoglobin 32.1 pg (28.0-34.0); Mean Corpuscular Volume 97.2 fl (80-94); Mean Platelet Volume 9.6 fL (7.4-10.4); Monocytes # 0.6 10^3/uL (0.2-0.9); Monocytes % 6.1 %; Neutrophils # 7.45 10^3/uL (1.8-7.7); Neutrophils % 73.8 %; Nucleated Red Blood Cells % 0 %; Platelet Count 252 10^3/cmm (130-400); Red Blood Count 4.27 10^6/uL (4.1-5.3); Red Cell Distribution Width 13.2 % (12.1-15.1); White Blood Count 10.1 10^3/uL (4.0-10.0)
[2022-03-11 09:01] LABS: Anion Gap 13.8 (5-19); Blood Urea Nitrogen 12 mg/dL (8-23); Carbon Dioxide 25 mmol/L (22-29); Chloride 103 mmol/L (98-107); Glomerular Filtration Rate 67.4 mL/min (90-130); Glucose 88 mg/dL (65-115); Osmolality Calculated 285 mOsm/kg (285-295); Potassium 3.8 mmol/L (3.5-5.1); Sodium 138 mmol/L (136-145)
[2022-03-18] VITALS (8 sets, daily range): BP systolic 122–184; BP diastolic 86–109; PULSE 88–109; RESP 14–20; TEMP 36.7–37.1; O2SAT 92–98
--- NOTE | 2022-03-18 | XR_ITS ---
WS: [id number] XR lumbar spine 1V 07049 REASON FOR EXAM: OR PIC, L4-5, L5-S1 decompression FINDINGS: Surgical instrument overlying the right side of the L4-L5 disc space. Surgical instrument overlying the right side of the L5-S1 disc space. XR/XR lumbar spine 1V 03515 IMPRESSION: Lumbar spine localizations as as above.
[2022-03-18] MEDS: sodium chloride 0.9% 1,000 ML 30 ML IV (10:37)
[2022-03-18] MEDS: HYDROmorphone 1 mg/mL INJ 1 mL 0.5 MG IVP (10:37)
--- NOTE | 2022-03-18 10:37 | P.HP_ITS ---
Providers/Chief Complaint Primary Care Provider: Simi Vital DO Chief Complaint: LUMBAR DECOMPRESSION L4/5 L5/S1 31407/[id number] History of Present Illness Balta Kwan is a 66 year old male Established 66 year old male patient here t daryl for a follow up of back pain. He reports low back pain that radiates into his right lower extremity. He denies any numbness or tingling. He has tried Celebrex and IM injections by his PCP, with no relief. He rates his pain a 7/10 at todays visit. Patient is utilizing a cane in clinic today. Patient is here today to go over recent MRI results and further treatment plan. Review of Systems General: Reports: 10 or more systems reviewed and unremarkable except in HPI and below Const: Denies: fever(s), chills or body aches Card: Denies: chest pain or orthopnea Resp: Denies: dyspnea, productive cough or wheezing GI: Denies: abdominal pain, nausea or vomiting Musc: Reports: back pain and extremity pain Skin/Breast: Denies: changes in skin color or dry skin Neuro: Denies: numbness in extremities or weakness in extremities Psych: Denies: anxiety Felipe/Lymph: Denies: easy bruising or easy bleeding Medications/Allergies Home Medications Medication Instructions Recorded Confirmed Last Taken Type aspirin 81 mg tablet,delayed 81 mg PO QAM 04/22/19 03/11/22 03/10/22 History release clopidogrel 75 mg tablet 75 mg PO QAM 04/22/19 03/11/22 03/10/22 History finasteride 5 mg tablet 5 mg PO QAM 04/22/19 03/11/22 03/17/22 07:00 History pantoprazole 40 mg tablet,delayed 40 mg PO QAM 04/22/19 03/11/22 03/17/22 20:00 History release simvastatin 40 mg tablet 40 mg PO BEDTIME 04/22/19 03/11/22 03/17/22 20:00 History budesonide-formoterol HFA 160 2 puff inhalation BID 08/08/19 03/11/22 03/18/22 07:00 History mcg-4.5 mcg/actuation aerosol inhaler isosorbide mononitrate 30 mg 15 mg PO BEDTIME 10/06/20 03/11/22 03/17/22 20:00 History tablet,extended release 24 hr baclofen 20 mg tablet See Rx Instructions .Route .COMPLEX 04/16/21 03/11/22 03/17/22 20:00 History celecoxib 100 mg capsule (Celebrex) 100 mg PO BID #20 caps 04/16/21 03/11/22 03/17/22 07:00 Rx diltiazem HCl 90 mg 90 mg PO Q12H 04/16/21 03/11/22 03/17/22 07:00 History capsule,extended release 12 hr levothyroxine 150 mcg tablet 150 mcg PO QAM 04/16/21 03/11/22 03/17/22 07:00 History meclizine 12.5 mg tablet 12.5 mg PO QAM 04/16/21 03/11/22 03/17/22 07:00 History nitroglycerin 0.4 mg sublingual 0.4 mg sublingual Q5M PRN Chest 04/16/21 03/11/22 Unknown History tablet (Nitrostat) Pain mirtazapine 30 mg tablet (Remeron) 30 mg PO BEDTIME 05/13/21 03/11/22 03/17/22 20:00 History gabapentin 300 mg capsule 300 mg PO BID #180 caps 10/05/21 03/11/22 03/17/22 07:00 Rx venlafaxine 150 mg 150 mg PO ONCE 90 days #90 caps 12/01/21 03/11/22 03/17/22 0 7:00 Rx capsule,extended release 24 hr (Effexor XR) Allergies Allergy/AdvReac Type Severity Reaction Status Date / Time tetracycline Allergy Nausea Verified 03/11/22 07:59 PFSH Acute PFSH: Medical History Aortic aneurysm Balanitis BPH loc w urin obs/LUTS CAD (coronary artery disease) COPD with acute exacerbation Essential hypertension Generalized anxiety disorder GERD (gastroesophageal reflux disease) Hyperlipidemia Hypothyroidism Peripheral arterial disease with history of revascularization Psychiatric care Renal artery stenosis Urinary retention Surgical History H/O heart artery stent History of colonoscopy with polypectomy (~2018) dr. anderson History of esophagogastroduodenoscopy (EGD) (~2018) dr. anderson Status post left inguinal hernia repair (01/01/20) Family History Mother , AT AGE 64 Renal failure Alzheimer disease Father , AT AGE 48 Lung cancer Social History Smoking and tobacco status: current every day smoker cigarettes Packs smoked per day: 2.5 Years cigarettes smoked: 45 Alcohol intake: never Marital status: Current occupational status: disabled History of recent travel: No Vitals/I&O/Wt Last Vital Signs Temp 98.8 F 03/18/22 10:15 Pulse 94 03/18/22 10:15 Resp 16 03/18/22 10:15 BP 140/101 03/18/22 10:15 Pulse Ox 94 03/18/22 10:15 O2 Del Method 03/18/22 10:15 Physical Exam Narrative: GENERAL: Patient is alert, awake and oriented x3. NECK: No jugular vein distension. HEENT: No cyanosis. No icterus. No pallor. HEART: Regular S1 and S2. No murmur, rub or gallop. LUNGS: Clear to auscultate bilaterally. ABDOMEN: Soft, nontender and nondistended. Positive bowel sounds. No guarding, rebound or tenderness. CENTRAL NERVOUS SYSTEM: Grossly nonfocal. EXTREMITIES: Lower extremities without edema bilaterally. Const: COMMON NORMALS: alert Resp: COMMON NORMALS: normal respiratory effort, No retractions, No use of accessory muscles and clear to auscultation bilaterally EFFORT & INSPECTION: Yes able to speak in complete sentences and Yes symmetric chest movement AUSCULTATION: clear to auscultation bilaterally Cardio: COMMON NORMALS: regular rate, regular rhythm and S1 normal heart sound present RATE: regular rate RHYTHM: regular rhythm HEART SOUNDS: S1 normal heart sound present OTHER: 2+ left radial pulse Neuro: SENSORIUM/ORIENTATION: Yes alert Urinary Catheter Management: Reyes: Cath Placed During This Visit: yes, but has since been removed by the nurse Reason for Continuing Indwelling Catheter: Decision to DC Catheter Urinary Catheter Date of Insertion: 03/23/20 Urinary Catheter Time of Insertion: 10:19 Date Urinary Catheter Removed: 03/23/20 Time Urinary Catheter Discontinued: 18:15 Data 03/11/22 08:20 03/11/22 08:20 A&P Assessment and plan (1) Lumbar stenosis with neurogenic claudication: Lumbar decompression Attestations Medical Necessity Statement*: failed conservative tx Coding Level of Care Code Acute Code for Chg Fwd Diagnoses Lumbar stenosis with neurogenic claudication M48.062
[2022-03-18] MEDS: ceFAZolin 2,000 MG in sodium chloride 0.9% (plus) 50 ML 100 MG IV (11:20)
--- NOTE | 2022-03-18 12:48 | P.OP_ITS ---
Operative Report Date of procedure: March 18, 2022 Pre-op diagnosis: Preop Diagnosis Low back pain with right lower extremity radicular pain Post-op diagnosis: same Procedure done: 1. L4/5 laminectomy with partial facetctomy 2. L5/S1 laminectomy with partial facetectomy Surgeon: Ankit Tucker Medical Equipment Repair Technician: none Estimated blood loss (mL): 5 Procedure: 1. L4/5 laminectomy with partial facetctomy 2. L5/S1 laminectomy with partial facetectomy Patient is brought to the operative suite. After undergoing anesthesia they are placed in the prone position. All areas of impingement are well padded. Patient is then prepped and draped in the normal sterile fashion. A skin incision is made over the L4/5 level. This is confirmed under c-arm guidance. A series of dilators are passed and the tubular retractor is docked on the L4 lamina. A bovie is used to clear the soft tissue off the lamina and the L 4/5 facet joint. A high speed stacey is then used to perform the laminectomy and take down the medial aspect of the L 4/5 facet joint. A kerrison rongeure was then used to take down the remaining lamina and smooth the edge of the laminectomy up to the point where the ligamentum flavum attaches. Attention was then brought to the medial aspect of the facet joint. The remaining medial aspect of the superior and inferior aspect of the facet joint were taken down with the kerrison from the pedicle of L4 to L 5. The facet joint had significant hypertrophy. Attention was then brought to the Ligamentum Flavum. The ligament was taken down from the lamina of L4 to L5 and out medially to the remaining facet joint. The ligament was thick. The dura was then exposed. The dura was in good repair. The L4 nerve was then traced with a curette out the L4/5 foramen and found to be adequately decompressed. The L5 nerve was traced with a curette around the L5 pedicle. The lateral recess was opened with a kerrison helping to further decompress the L5 nerve. Wound is then irrigated copiously with saline and surgiflo is used to stop any bleeding. The tubular retractor is removed and A skin incision is made over the L5/S1 level. This is confirmed under c-arm guidance. A series of dilators are passed and the tubular retractor is docked on the L5 lamina. A bovie is used to clear the soft tissue off the lamina and the L 5/s1 facet joint. A high speed stacey is then used to perform the laminectomy and take down the medial aspect of the L 5/S1 facet joint. A kerrison rongeure was then used to take down the remaining lamina and smooth the edge of the laminectomy up to the point where the ligamentum flavum attaches. Attention was then brought to the medial aspect of the facet joint. The remaining medial aspect of the superior and inferior aspect of the facet joint were taken down with the kerrison from the pedicle of L5 to S1. The facet joint had significant hypertrophy. Attention was then brought to the Ligamentum Flavum. The ligament was taken down from the lamina of L5 to S1 and out medially to the remaining facet joint. The ligament was thickness. The dura was then exposed. The dura was in good repair. The L5 nerve was then traced with a curette out the L5/S1 foramen and found to b e adequately decompressed. The s1 nerve was traced with a curette around the S1 pedicle. The lateral recess was opened with a kerrison helping to further decompress the S1 nerve. Wound is then irrigated copiously with saline and surgiflo is used to stop any bleeding. The tubular retractor is removed and the wound is closed with vicryl and monocryl suture. Glue is then used to protect the wound. A sterile dressing is then placed. Patient was then placed in the supine position and transferred to the PACU in stable condition.
--- NOTE | 2022-03-18 12:50 | P.ANESUD_ITS ---
Pre-Anesthetic Update Pre-Anesthetic Assessment: Date of Surgery/Procedure: 03/18/22 Preop Radha gnosis: Low back pain with right lower extremity radicular pain Proposed Procedure: Operation Date: 03/18/22 11:10 Proposed Procedures p Lumbar Spine Decompression L4/5 L5/S1 86056/37142/M54.50/M79.604(Not Applicable) - Ankit Tucker, DO Any changes to Pre-Anesthetic Assessment?: No Last Intake: Intake Last Liquid Date 03/17/22 Last Liquid Time 22:30 Last Solid Date 03/17/22 Last Solid Time 18:00 Vitals: Temperature 98.0 F 03/18/22 12:30 Temperature Source Temporal Artery S can 03/18/22 12:30 Pulse Rate 98 03/18/22 12:45 Pulse Rhythm 03/18/22 10:02 Pulse Strength 3+ Normal 03/18/22 10:02 Respiratory Rate 18 03/18/22 12:45 Blood Pressure 151/90 03/18/22 12:45 Blood Pressure Joceline n 110 03/18/22 12:45 Pulse Oximetry 94 03/18/22 12:45 Oxygen Delivery Me thod 03/18/22 12:45 Oxygen Flow Rate 6 03/18/22 12:35 Exam: Pre-Anes Outpt Exam: alert, oriented x 3, clear to auscultation bilaterally and regular rate & rhythm Cardiac Studies: No Data to Display
[2022-03-18] MEDS: HYDROcodone-acetaminophen 5-325 mg Tablet 1 TAB PO (13:35)
--- NOTE | 2022-03-18 14:20 | ANE.PACU2 ---
Inpatient post-anesthesia follow up: Airway intact: Yes Vital signs: Temperature 98.1 F Pulse Rate 88 Respiratory Rate 16 Blood Pressure 122/92 Pulse Oximetry 93 Oxygen Delivery Me thod Room Air Oxygen Flow Rate 6 Fraction of Inspir ed Oxygen Hydration adequate: Yes Nausea and vomiting: No Pain level: 3 Mental status: Baseline
== END 2022-03-18 13:50 | disposition home or self-care (01) ==
PROVIDERS: Anesthesiology; PCP Family Medicine; Visit Provider Orthopaedic Surgery
PROC: (CPT 63005; principal; 2022-03-18 11:00)
DX: M48.062 Spinal stenosis, lumbar region with neurogenic claudication (principal); N40.1 Benign prostatic hyperplasia with lower urinary tract symptoms; N13.8 Other obstructive and reflux uropathy; I25.10 Atherosclerotic heart disease of native coronary artery without angina pectoris; J44.9 Chronic obstructive pulmonary disease, unspecified; I10 Essential (primary) hypertension; E78.5 Hyperlipidemia, unspecified; E03.9 Hypothyroidism, unspecified; Z95.5 Presence of coronary angioplasty implant and graft; F17.210 Nicotine dependence, cigarettes, uncomplicated
CPT/HCPCS: 63047; 63048; 36415; 72020; 76000; 80048; 85025; J0690; J1100; J1170; J2405; J2704; J3010; J3490; J7030

== ENCOUNTER → 2022-04-07 13:52 | Outpatient (BNVA) | payer MEDICARE, MEDICAID, SELFPAY | PROVIDERS: PCP Family Medicine; Visit Provider Physician Assistant | DX: Z98.890 Other specified postprocedural states (principal) | CPT/HCPCS: 99024 ==

== ENCOUNTER → 2022-05-19 13:38 | Outpatient (BNVA) | payer MEDICARE, MEDICAID, SELFPAY | PROVIDERS: PCP Family Medicine; Visit Provider Physician Assistant | DX: Z98.890 Other specified postprocedural states (principal); M47.816 Spondylosis without myelopathy or radiculopathy, lumbar region | CPT/HCPCS: 99024 ==

== ENCOUNTER 2022-06-13 06:10 | Emergency (ER) | payer MEDICARE, MEDICAID, SELFPAY ==
[2022-06-13] VITALS (12 sets, daily range): BP systolic 134–186; BP diastolic 11–117; PULSE 86–105; RESP 14–20; TEMP 36.3; O2SAT 92–96; BMI 24.1
--- NOTE | 2022-06-13 06:30 | XRR_ITS ---
PROCEDURE INFORMATION: Exam: XR Chest Exam date and time: 06/13/2022 6:53 AM Age: 66 years old Clinical indication: Cough; Prior surgery; Surgery type: Stents; Additional info: Dyspnea/cough TECHNIQUE: Imaging protocol: Radiologic exam of the chest. Views: 1 view. Total images: 525 COMPARISON: CR (CHEST, ) 12/14/2020 8:52 PM FINDINGS: Lungs: Trace atelectasis or scar noted in the left lung base. Benign granulomatous disease of the lung is noted. Pleural spaces: Unremarkable. No pleural effusion. No pneumothorax. Heart/Mediastinum: Unremarkable. No cardiomegaly. Bones/joints: Unremarkable. XR/XR chest 1V portable [id number] IMPRESSION: Trace atelectasis or scar noted in the left lung base.
--- NOTE | 2022-06-13 06:30 | ECG_ITS ---
[facility] Test Date: 2022-06-13 Pat Name: Balta Kwan Department: Room: Gender: Male Control Supervisor: : [id number] Requested By: Jose Garcia Order Number: [id number] Sana MD: Satya Myrick M.D. Measurements Intervals Harvest Rate: 85 P: 64 UT: 172 QRS: 42 QRSD: 94 T: 75 QT: 393 QTc: 470 Interpretive Statements SINUS RHYTHM Compared to ECG 03/11/2022 08:20:15 No significant changes Electronically Signed On 06-13-2022 17:08:26 CDT by Satya Myrick M.D. [id number]
--- NOTE | 2022-06-13 06:31 | W.ED.URI ---
HPI - URI/Sore Throat General: Chief Complaint: Upper Respiratory Infection Stated Complaint: cough Time Seen by Provider: 06/13/22 06:16 Source: patient Mode of arrival: wheelchair History of Present Illness: 66-year-old male presents emergency room via EMS complaining of vague sense of not feeling well. He has chills feels like he cannot get warm. He was recently seen for an upper respiratory infection started on Augmentin he has had approximately day 5 of 10. He was thought to have a sinus infection at that time. He is 62 feels extremely weak. He denies any dysuria urgency or frequency abdominal or chest pain. Does have a known history of coronary artery disease. Subjective low-grade fever. Patient is a smoker continues to smoke he has a history of COPD interestingly he has not had a change in his baseline cough and is not particularly more short of breath than usual despite the upper respiratory infections. Those symptoms seem to be mostly centered on his maxillary sinuses. Overall he is very vague about his general malaise. MD elicited complaint: nasal congestion Onset (ago): hour(s) Consistency: constant and progressively worsening Severity: severe Description of mucous: watery Able to tolerate fluids by mouth: Yes Exacerbating factors: nothing Relieving factors: nothing Associated symptoms: Reports congestion, cough and nasal congestion; Deny abdominal pain, change in voice, chills, chest pain, diarrhea, epistaxis, ear or mastoid pain, fever(s), headache(s), myalgias, nausea, rash, rhinorrhea, short of breath, sinus pain, stiffness, sore throat or vomiting Review of Systems Const: Denies: fever(s) or chills ENMT: Reports: nasal congestion; Denies: ear or mastoid pain, epistaxis or sinus pain Card: Denies: chest pain, palpitations, edema or swelling of feet/ankles Resp: Denies: dyspnea, productive cough or non-productive cough GI: Denies: abdominal pain, nausea, vomiting or diarrhea : Denies: flank pain, dysuria, urinary frequency or urinary urgency Skin/Breast: Denies: rash or pruritus Neuro: Denies: headache(s) PFSH ED PFSH: Medical History Aortic aneurysm Balanitis BPH loc w urin obs/LUTS CAD (coronary artery disease) COPD with acute exacerbation Essential hypertension Generalized anxiety disorder GERD (gastroesophageal reflux disease) Hyperlipidemia Hypothyroidism Peripheral arterial disease with history of revascularization Psychiatric care Renal artery stenosis Urinary retention Surgical History H/O heart artery stent History of colonoscopy with polypectomy (~2018) dr. anderson History of esophagogastroduodenoscopy (EGD) (~2018) dr. anderson Status post left inguinal hernia repair (01/01/20) Family History Mother , AT AGE 64 Renal failure Alzheimer disease Father , AT AGE 48 Lung cancer Social History Smoking and tobacco status: current every day smoker cigarettes Packs smoked per day: 2.5 Years cigarettes smoked: 45 Alcohol intake: never Marital status: Current occupational status: disabled Physical Exam Const: GENERAL APPEARANCE: cooperative and comfortable ORIENTATION/CONSCIOUSNESS: Yes awake, Yes oriented to person, Yes oriented to place and Yes oriented to time HENMT: COMMON NORMALS: normocephalic, atraumatic and hearing grossly normal bilaterally HEAD & SCALP: normocephalic and atraumatic Resp: COMMON NORMALS: normal respiratory effort, No retractions, No use of accessory muscles and clear to auscultation bilaterally AUSCULTATION: clear to auscultation bilaterally Cardio: COMMON NORMALS: regular rate, regular rhythm and No murmurs present (Cardio) RATE: regular rate RHYTHM: regular rhythm GI: COMMON NORMALS: Soft to palpation and No hepatosplenomegaly present AUSCULTATION: Yes normoactive bowel sounds PALPATION: Yes Soft to palpation, No Tenderness to palpation present (GI), No Guarding due to palpation present (GI) and Yes No hepatosplenomegaly present Extremity: COMMON NORMALS: normal to inspection, capillary refill normal, no clubbing, cyanosis or edema, no calf tenderness and no pedal edema Neuro: SENSORIUM/ORIENTATION: Yes oriented to person, Yes oriented to place and Yes oriented to time Skin: COMMON NORMALS: no rashes or lesions noted GENERAL SKIN EXAM: no rashes or lesions noted Course Vital Signs: Vital signs: Vital Signs Temperature 97.4 F L 06/13/22 06:11 Pulse Rate 98 06/13/22 10:34 Respiratory Rate 14 06/13/22 06:19 Blood Pressure 171/11 06/13/22 10:34 Pulse Oximetry 96 06/13/22 06:19 Oxygen Delivery Me thod Room Air 06/13/22 06:19 MDM - URI/Sore Throat Medical Decision Making Shoulder after arrival patient set up with a bedside urinal and felt very weak and lowered himself to the floor. He did not use his call button his came to the desk the nurses and myself went to the room he was kneeling on the floor throwing up in a trash can. He had no real vomitus mostly dry heaving. Is assisted back to bed. After fluids patient is feeling better up and ambulatory without difficulty no further orthostatic episodes. His blood pressure does decrease from 170 systolic to 130 systolic when standing after fluids but he is asymptomatic. Patient be discharged home continue course of antibiotics increase fluids Medical Records I reviewed the patient's medical records. Lab Data I reviewed the patient's lab results. 06/13/22 06:00 06/13/22 06:00 Radiology Impressions Chest X-Ray 06/13/22 06:30 IMPRESSION: Trace atelectasis or scar noted in the left lung base. Laboratory Results WBC 9.2 10^3/uL (4.0-10.0) 06/13/22 06:00 RBC 4.98 10^6/uL (4.1-5.3) 06/13/22 06:00 Hgb 15.4 g/dL (11.7-16.6) 06/13/22 06:00 Hct 47.3 % (42.0-52.0) 06/13/22 06:00 MCV 95.0 fl (80-94) H 06/13/22 06:00 MCH 30.9 pg (28.0-34.0) 06/13/22 06:00 MCHC 32.6 g/dL (30.0-36.0) 06/13/22 06:00 RDW 13.1 % (12.1-15.1) 06/13/22 06:00 Plt Count 296 10^3/cmm (130-400) 06/13/22 06:00 MPV 10.0 fL (7.4-10.4) 06/13/22 06:00 Neut % (Auto) 71.2 % 06/13/22 06:00 Lymph % (Auto) 19.0 % 06/13/22 06:00 [place] % (Auto) 6.0 % 06/13/22 06:00 Eos % (Auto) 2.2 % 06/13/22 06:00 Baso % (Auto) 1.1 % 06/13/22 06:00 Neut # (Auto) 6.57 10^3/uL (1.8-7.7) 06/13/22 06:00 Lymph # (Auto) 1.8 10^3/uL (0.8-4.8) 06/13/22 06:00 [place] # (Auto) 0.6 10^3/uL (0.2-0.9) 06/13/22 06:00 Eos # (Auto) 0.2 10^3/uL (0.0-0.8) 06/13/22 06:00 Baso # (Auto) 0.1 10^3/uL (0.0-0.1) 06/13/22 06:00 Nucleated RBC % (auto) 0 % 06/13/22 06:00 Nucleated RBCs # 0.0 /100WBC 06/13/22 06:00 Sodium 135 mmol/L (136-145) L 06/13/22 06:00 Potassium 4.1 mmol/L (3.5-5.1) 06/13/22 06:00 Chloride 98 mmol/L (98-107) 06/13/22 06:00 Carbon Dioxide 24 mmol/L (22-29) 06/13/22 06:00 Anion Gap 17.1 (5-19) 06/13/22 06:00 BUN 11 mg/dL (8-23) 06/13/22 06:00 Creatinine 1.2 mg/dL (0.7-1.2) 06/13/22 06:00 GFR Calculation 61.0 mL/min (90-130) L 06/13/22 06:00 Glucose 115 mg/dL (65-115) 06/13/22 06:00 Calculated Osmolality 280 mOsm/kg (285-295) L 06/13/22 06:00 Calcium 9.7 mg/dL (8.5-10.5) 06/13/22 06:00 Total Bilirubin 0.5 mg/dL (0.15-1.2) 06/13/22 06:00 AST 14 U/L (0-40) 06/13/22 06:00 ALT 10 U/L (0-41) 06/13/22 06:00 Alkaline Phosphatase 169 U/L (40-130) H 06/13/22 06:00 Troponin T Baseline 19 ng/L (0-15) H 06/13/22 06:00 Troponin T 120 Minute 16.91 ng/L (0-15) H 06/13/22 08:10 Delta Troponin T -2.09 ABS# (0-10) L 06/13/22 08:10 Total Protein 7.9 g/dL (6.6-8.7) 06/13/22 06:00 Albumin 4.2 g/dL (3.5-5.2) 06/13/22 06:00 Globulin 3.7 g/dL (1.3-4.6) 06/13/22 06:00 Urine Color Yellow (Yellow) 06/13/22 07:37 Urine Appearance Clear (CLEAR) 06/13/22 07:37 Urine pH 8 (5-7) H 06/13/22 07:37 Ur Specific [place] 1.015 (1.005-1.030) 06/13/22 07:37 Urine Protein Neg (Negative) 06/13/22 07:37 Urine Glucose (UA) Norm (Normal) 06/13/22 07:37 Urine Ketones Negative (Negative) 06/13/22 07:37 Urine Blood Neg (Negative) 06/13/22 07:37 Urine Nitrate Negative (Negative) 06/13/22 07:37 Urine Bilirubin Neg (Negative) 06/13/22 07:37 Prot Sulfosalicylic Acd Negative (Negative) 06/13/22 07:37 Urine Urobilinogen Norm mg/dL (Negative) 06/13/22 07:37 Ur Leukocyte Esterase Negative (Negative) 06/13/22 07:37 Coronavirus 229E (PCR) Not detected (NOT DETECT) 06/13/22 07:42 SARS-CoV-2 (PCR) Not detected (NOT DETECT) 06/13/22 07:42 Discharge Plan Discharge Patient Disposition: Home Clinical Impression: Sinusitis, Weakness Condition: Stable Prescriptions: No Action finasteride 5 mg tablet 5 mg PO QAM simvastatin 40 mg tablet 40 mg PO BEDTIME pantoprazole 40 mg tablet,delayed release (DR/EC) 40 mg PO QAM aspirin 81 mg tablet,delayed release (DR/EC) 81 mg PO QAM clopidogrel 75 mg tablet 75 mg PO QAM Hold Instructions: Resume on 01/03/20. isosorbide mononitrate 30 mg tablet extended release 24 hr 15 mg PO BEDTIME mirtazapine [Remeron] 30 mg tablet 30 mg PO BEDTIME gabapentin 300 mg capsule 300 mg PO BID Qty: 180 2RF venlafaxine 150 mg capsule,extended release 24hr See Rx Instructions .ROUTE .COMPLEX Qty: 30 0RF Dose Instruction: Take 1 capsule by mouth in the morning Rx Instructions: Take 1 capsule by mouth in the morning budesonide-formoterol 160-4.5 mcg/actuation HFA aerosol inhaler 2 puff inhalation BID baclofen 20 mg tablet See Rx Instructions .ROUTE .COMPLEX Rx Instructions: 10mg po qam and 20mg at bedtime levothyroxine 150 mcg tablet 150 mcg PO QAM nitroglycerin [Nitrostat] 0.4 mg Tablet, Sublingual 0.4 mg SUBLINGUAL Q5M PRN (Reason: Chest Pain) Rx Instructions: do not exceed 3 doses per episode meclizine 12.5 mg tablet 12.5 mg PO QAM diltiazem HCl 90 mg capsule,extended release 12 hr 90 mg PO Q12H celecoxib [Celebrex] 100 mg capsule 100 mg PO BID Qty: 20 0RF hydrocodone-acetaminophen 5-325 mg tablet 1 - 2 tab PO .Q4-6H Qty: 40 0RF Discharge Orders: Discharge ED (Routine); Ordered 06/13/22 Ordered By: Jose Vu Referrals: Simi Vital DO [Primary Care Provider] - Discharge Diet: Usual diet Discharge Activity: Limit activity as instructed Patient Instructions: Opioid Safety, Pain Management Activity Restrictions/Additional Instructions: You were seen for weakness today. Recommend that you limit exertional activities drink large amounts of fluids recheck with your doctor in the next 1 to 2 days. Continue to on the current antibiotic regimen you were previously prescribed until completed Coding Level of Care Code ED Director Of Architecture for Sukhwinder Sanches
[2022-06-13 06:44] LABS: Basophils # 0.1 10^3/uL (0.0-0.1); Basophils % 1.1 %; Eosinophils # 0.2 10^3/uL (0.0-0.8); Eosinophils % 2.2 %; Hematocrit 47.3 % (42.0-52.0); Hemoglobin 15.4 g/dL (11.7-16.6); Lymphocytes # 1.8 10^3/uL (0.8-4.8); Mean Corpuscular HGB Conc 32.6 g/dL (30.0-36.0); Mean Corpuscular Hemoglobin 30.9 pg (28.0-34.0); Monocytes # 0.6 10^3/uL (0.2-0.9); Neutrophils # 6.57 10^3/uL (1.8-7.7); Neutrophils % 71.2 %; Nucleated Red Blood Cells % 0 %; Platelet Count 296 10^3/cmm (130-400); Red Blood Count 4.98 10^6/uL (4.1-5.3); Red Cell Distribution Width 13.1 % (12.1-15.1); White Blood Count 9.2 10^3/uL (4.0-10.0)
[2022-06-13] MEDS: sodium chloride 0.9% 1,000 ML 999 ML IV (06:44)
[2022-06-13 06:53] LABS: Alanine Aminotransferase 10 U/L (0-41); Albumin Level 4.2 g/dL (3.5-5.2); Alkaline Phosphatase 169 U/L (40-130); Anion Gap 17.1 (5-19); Aspartate Amino Transferase 14 U/L (0-40); Blood Urea Nitrogen 11 mg/dL (8-23); Calcium 9.7 mg/dL (8.5-10.5); Carbon Dioxide 24 mmol/L (22-29); Chloride 98 mmol/L (98-107); Globulin 3.7 g/dL (1.3-4.6); Glucose 115 mg/dL (65-115); Osmolality Calculated 280 mOsm/kg (285-295); Potassium 4.1 mmol/L (3.5-5.1); Sodium 135 mmol/L (136-145); Total Bilirubin 0.5 mg/dL (0.15-1.2); Total Protein 7.9 g/dL (6.6-8.7)
[2022-06-13 06:55] LABS: Troponin(5th) Baseline 19 ng/L (0-15)
[2022-06-13] MEDS: ondansetron 2 mg/ML SDV 2 mL 4 MG IVP (07:02)
[2022-06-13 07:40] LABS: Add Urine Microscopic? NO; Charge for UA Resulting for Rev
[2022-06-13 07:46] LABS: Bilirubin Urine Neg (Negative); Blood Urine Neg (Negative); Glucose Urine UA Norm (Normal); Ketones Urine Negative (Negative); Leukocyte Esterase Urine Negative (Negative); Nitrate Urine Negative (Negative); Protein Urine Neg (Negative); Specific Gravity, Urine 1.015 (1.005-1.030); Sulfosalicylic Acid Urine Negative (Negative); Urine Appearance Clear (CLEAR); Urine Color Yellow (Yellow); Urobilinogen Urine Norm (Negative); pH Urine 8 (5-7)
--- NOTE | 2022-06-13 08:30 | ECG_ITS ---
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 Measurements Intervals [place] Rate: 90 P: 64 MS: 172 QRS: 50 QRSD: 91 T: 77 QT: 364 QTc: 448 Interpretive Statements SINUS RHYTHM POSSIBLE LEFT ATRIAL ENLARGEMENT [-0.1mV P-WAVE IN V1/V2] Compared to ECG 06/13/2022 07:07:52 No significant changes Electronically Signed On 06-13-2022 17:12:18 CDT by Satya Myrick M.D. [email or web address]/store/[id number]
[2022-06-13 08:39] LABS: Troponin 5 2HR 16.91 ng/L (0-15)
[2022-06-13 08:44] LABS: Troponin 5 2HR Delta -2.09 ABS# (0-10)
[2022-06-13 09:36] LABS: Adenovirus Not Detected (NOT DETECT); Chlamydia Pneumoniae Not Detected (NOT DETECT); Coronavirus 229E,HKU1,NL63,OC4 Not Detected (NOT DETECT); Human Metapneumovirus Not Detected (NOT DETECT); Human Rhinovirus/Enterovirus Not Detected (NOT DETECT); Influenza A Not Detected (NOT DETECT); Influenza A H1 Not Detected (NOT DETECT); Influenza A H1-2009 Not Detected (NOT DETECT); Influenza A H3 Not Detected (NOT DETECT); Influenza B Not Detected (NOT DETECT); Mycoplasma Pneumoniae Not Detected (NOT DETECT); Parainfluenza Virus Type 1 Not Detected (NOT DETECT); Parainfluenza Virus Type 2 Not Detected (NOT DETECT); Parainfluenza Virus Type 3 Not Detected (NOT DETECT); Parainfluenza Virus Type 4 Not Detected (NOT DETECT); Respiratory Syncytial Virus A Not Detected (NOT DETECT); Respiratory Syncytial Virus B Not Detected (NOT DETECT); SARS-COV-2 Not Detected (NOT DETECT)
== END 2022-06-13 11:13 | disposition home or self-care (01) ==
PROVIDERS: Emergency Provider Family Medicine; PCP Family Medicine
DX: J32.9 Chronic sinusitis, unspecified (principal); R53.1 Weakness; Z79.82 Long term (current) use of aspirin; Z79.02 Long term (current) use of antithrombotics/antiplatelets; Z20.822 Contact with and (suspected) exposure to COVID-19; I25.10 Atherosclerotic heart disease of native coronary artery without angina pectoris; J44.9 Chronic obstructive pulmonary disease, unspecified; I10 Essential (primary) hypertension; E78.5 Hyperlipidemia, unspecified; F17.210 Nicotine dependence, cigarettes, uncomplicated
CPT/HCPCS: 36415; 71045; 80053; 81003; 84484; 85025; 87635; 93005; 96361; 96374; 99285; J2405; J7030

== ENCOUNTER → 2022-06-23 10:38 | Outpatient (BNVA) | payer MEDICARE, MEDICAID, SELFPAY | PROVIDERS: PCP Family Medicine; Visit Provider Anesthesiology Pain Medicine | DX: M48.062 Spinal stenosis, lumbar region with neurogenic claudication (principal); M47.816 Spondylosis without myelopathy or radiculopathy, lumbar region; Z98.890 Other specified postprocedural states | CPT/HCPCS: 99204 ==

== ENCOUNTER 2022-06-27 06:00 | Outpatient (RCR) | payer MEDICARE, MEDICAID, SELFPAY | END 2022-07-27 23:59 | disposition home or self-care (01) | LOC: SPT 06:00 | PROVIDERS: PCP Family Medicine; Visit Provider Family Medicine | DX: H81.13 Benign paroxysmal vertigo, bilateral (principal) | CPT/HCPCS: 97161 ==

== ENCOUNTER 2022-07-13 08:51 | Outpatient (CLI) | payer MEDICARE, MEDICAID, SELFPAY ==
[2022-07-13 09:27] VITALS: BMI 23.7
--- NOTE | 2022-07-13 09:27 | ECG_ITS ---
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 Interpretive Statements NAME OF STUDY: LEXISCAN SESTAMIBI STRESS TEST INDICATION: [Chest Pain, ] Procedure: At the baseline, the blood pressure was 164/87 mmHg with a heart rate of 89 bpm. The electrocardiogram showed normal sinus rhythm, normal axis with normal ST and T's. The Lexiscan was infused over a period of 20 seconds. A total of 0.4 mg of Lexiscan was infused. The stress phase was continued for a total of 5 minutes. Heart rate was at the end of stress phase was 126 bpm and a blood pressure of 163/107 mmHg. The EKG at the peak infusion revealed normal sinus rhythm with no significant ST-T wave changes. Sestamibi was injected 20 seconds after the Lexiscan infusion. Blood pressure at the end of recovery phase was 152/92 mmHg with a heart rate of 107 bpm. Conclusion: 1. Normal EKG response to Lexiscan infusion 2. No Lexiscan induced chest pain or cardiac arrhythmia. 3. Normal blood pressure and heart rate response. 4. Sestamibi/sestamibi perfusion scan pending; see separate report. Electronically Signed On 07-16-2022 21:25:32 CDT by Satya Myrick M.D. [id number]
--- NOTE | 2022-07-13 09:27 | NMCV_ITS ---
NM amber perf SPECT r/s* [id number] Balta Kwan Age: 66 Gender: M : 1955 Exam Date: 07/13/2022 10:04 Ordering Phys: Beau Morfin MD Technologist: JUAN Marino Exam Location: [facility] Indications: ABDOMINAL AORTIC ANEURYSM STRESS TEST Please see separate stress test report in [facility] for full findings IMAGE PROTOCOL Rest/Stress 1 Lexiscan Day Radiopharmaceutical Dose (mCi) Administration Site Administered by Rest: Tc-99m 10.8 IV JUAN Velez Sestamibi Stress:Tc-99m 32.5 IV JUAN Velez Sestamibi Rest: 13-Jul-2022 60 Discovery 630 Stress: 13-Jul-2022 30 Discovery 630 0.4mg Lexiscan. Supine position only as patient was unable to lay prone. SPECT RESULTS Technical Quality: Excellent Raw Data Analysis: Normal Image Corrections: No attenuation or motion correction applied Summed Stress Score: 1 Summed Rest Score: 7 Summed Difference Score: 0 PERFUSION FINDINGS There is reduced radiotracer uptake in inferior wall that improves on stress imaging. This is consistent with likely attenuation artifact. No evidence of ischemia seen FUNCTIONAL RESULTS (calculated via Gated SPECT) Stress Image LV EF (%): 75 Stress EDV (mL):83 TID: 0.95 Stress ESV (mL):21 FUNCTIONAL FINDINGS: There is normal left ventricular systolic function. IMPRESSIONS 1. Normal myocardial perfusion imaging with no evidence of ischemia. Attenuation artifact in inferior wall is seen. 2. LV systolic function is normal. Satya Myrick MD (Electronically Signed) Final Date: 14 Jul 2022 13:09 S
[2022-07-13] MEDS: ondansetron 2 mg/ML SDV 2 mL 4 MG IVP (10:41)
[2022-07-13] MEDS: regadenoson 0.4 Mg/5 ml Syringe IVP (10:41)
[2022-07-13 10:49] VITALS: BP 155/90; PULSE 103
== END 2022-07-13 08:52 | disposition home or self-care (01) ==
PROVIDERS: PCP Family Medicine; Referring Provider Thoracic Surgery (Cardiothoracic Vascular Surgery); Visit Provider Surgery Vascular Surgery
DX: I71.40 Abdominal aortic aneurysm, without rupture, unspecified (principal); R07.9 Chest pain, unspecified
CPT/HCPCS: 36415; 78452; 93017; 96374; 96375; A9500; J2405; J2785

== ENCOUNTER → 2022-08-08 13:50 | Outpatient (BNVA) | payer MEDICARE, MEDICAID, SELFPAY | PROVIDERS: PCP Family Medicine; Visit Provider Anesthesiology Pain Medicine | DX: M47.816 Spondylosis without myelopathy or radiculopathy, lumbar region (principal); M48.062 Spinal stenosis, lumbar region with neurogenic claudication | CPT/HCPCS: 64493; 64494; 64495; J3490 ==

== ENCOUNTER → 2022-09-06 09:34 | Outpatient (BNVA) | payer MEDICARE, MEDICAID, SELFPAY | PROVIDERS: PCP Family Medicine; Visit Provider Anesthesiology Pain Medicine | DX: M48.062 Spinal stenosis, lumbar region with neurogenic claudication (principal); M47.816 Spondylosis without myelopathy or radiculopathy, lumbar region; Z98.890 Other specified postprocedural states | CPT/HCPCS: 99214 ==

== ENCOUNTER → 2022-09-29 13:50 | Outpatient (BNVA) | payer MEDICARE, MEDICAID, SELFPAY | PROVIDERS: PCP Family Medicine; Visit Provider Anesthesiology Pain Medicine | DX: M47.816 Spondylosis without myelopathy or radiculopathy, lumbar region (principal); M48.062 Spinal stenosis, lumbar region with neurogenic claudication; Z98.890 Other specified postprocedural states | CPT/HCPCS: 64493; 64494; 64495; J3490 ==

== ENCOUNTER → 2022-10-13 12:41 | Outpatient (BNVA) | payer MEDICARE, MEDICAID, SELFPAY | PROVIDERS: PCP Family Medicine; Visit Provider Anesthesiology Pain Medicine | DX: M47.816 Spondylosis without myelopathy or radiculopathy, lumbar region (principal) | CPT/HCPCS: 64493; 64494; 64495; J3490 ==

== ENCOUNTER → 2022-10-26 09:46 | Outpatient (BNVA) | payer MEDICARE, MEDICAID, SELFPAY | PROVIDERS: PCP Family Medicine; Visit Provider Anesthesiology Pain Medicine | DX: M48.062 Spinal stenosis, lumbar region with neurogenic claudication (principal); M47.816 Spondylosis without myelopathy or radiculopathy, lumbar region; Z98.890 Other specified postprocedural states | CPT/HCPCS: 99214 ==

== ENCOUNTER → 2022-11-30 12:50 | Outpatient (BNVA) | payer MEDICARE, MEDICAID, SELFPAY | PROVIDERS: PCP Family Medicine; Visit Provider Specialist | DX: F17.210 Nicotine dependence, cigarettes, uncomplicated (principal); G43.711 Chronic migraine without aura, intractable, with status migrainosus | CPT/HCPCS: 99213 ==

== ENCOUNTER → 2022-12-19 13:27 | Outpatient (BNVA) | payer MEDICARE, MEDICAID, SELFPAY | PROVIDERS: PCP Family Medicine; Visit Provider Anesthesiology Pain Medicine | DX: M47.816 Spondylosis without myelopathy or radiculopathy, lumbar region (principal); M48.062 Spinal stenosis, lumbar region with neurogenic claudication; M54.16 Radiculopathy, lumbar region | CPT/HCPCS: 64635; 64636; J1030 ==

== ENCOUNTER → 2023-01-02 13:36 | Outpatient (BNVA) | payer MEDICARE, MEDICAID, SELFPAY | PROVIDERS: PCP Family Medicine; Visit Provider Anesthesiology Pain Medicine | DX: M47.816 Spondylosis without myelopathy or radiculopathy, lumbar region (principal); M48.062 Spinal stenosis, lumbar region with neurogenic claudication | CPT/HCPCS: 64635; 64636; J1030 ==

== ENCOUNTER 2023-06-04 02:54 | Inpatient (IN) | payer MEDICARE, MEDICAID, SELFPAY ==
[2023-06-04] VITALS (76 sets, daily range): BP systolic 83–150; BP diastolic 55–92; PULSE 67–112; RESP 8–23; TEMP 36.1–36.6; O2SAT 87–100
[2023-06-04 03:22] LABS: Glucose Point of Care 140 mg/dL (70-110)
--- NOTE | 2023-06-04 03:25 | ECG_ITS ---
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 Measurements Intervals [place] Rate: 79 P: 68 WV: 171 QRS: 61 QRSD: 100 T: 73 QT: 372 QTc: 426 Interpretive Statements SINUS RHYTHM Compared to ECG 06/13/2022 08:51:16 No significant changes Electronically Signed On 06-04-2023 11:16:20 CDT by Satya Myrick M.D. [id number]
--- NOTE | 2023-06-04 03:48 | XRR_ITS ---
PROCEDURE INFORMATION: Exam: XR Chest Exam date and time: 06/04/2023 3:53 AM Age: 67 years old Clinical indication: Other: Ams/fall; Prior surgery; Surgery date: 6+ months; Surgery type: Coronary stent; Patient HX: Patient sustained a fall with headstrike on hardwood floor yesterday evening. Patient now acutely lethargic and non verbal. Anticoagulated. TECHNIQUE: Imaging protocol: Radiologic exam of the chest. Views: 1 view. COMPARISON: CR XR chest 1V portable [id number] 06/13/2022 6:53 AM FINDINGS: Lungs: Unremarkable. No consolidation. Pleural spaces: Unremarkable. No pleural effusion. No pneumothorax. Heart/Mediastinum: Unremarkable. No cardiomegaly. Bones/joints: Unremarkable. XR/XR chest 1V portable [id number] IMPRESSION: No acute findings.
--- NOTE | 2023-06-04 03:48 | CTR_ITS ---
PROCEDURE INFORMATION: Exam: CT Head Without Contrast Exam date and time: 06/04/2023 4:06 AM Age: 67 years old Clinical indication: Injury or trauma; Blunt trauma (contusions or hematomas); Altered mental status/memory loss; Patient HX: Patient sustained a fall with headstrike on hardwood floor yesterday evening. Patient now acutely lethargic and non verbal. Anticoagulated. ; Additional info: AMS TECHNIQUE: Imaging protocol: Computed tomography of the head without contrast. Radiation optimization: All CT scans at this facility use at least one of these dose optimization techniques: automated exposure control; mA and/or kV adjustment per patient size (includes targeted exams where dose is matched to clinical indication); or iterative reconstruction. COMPARISON: CT angio headneck* [id number] 11/01/2019 9:09 AM RADIATION DOSE METRICS: Total DLP (mGy-cm): 1071.48 FINDINGS: Brain: There is mild cerebral atrophy. There is mild diffuse heterogeneity of the white matter attenuation, consistent with chronic white matter ischemic changes. Negative for acute intracranial hemorrhage. Negative for mass effect on the brain. Negative for midline shift of brain. Roche matter and white matter interfaces are unremarkable. Negative for intracranial mass. Cerebral ventricles: No ventriculomegaly. Paranasal sinuses: Visualized sinuses are unremarkable. No fluid levels. Mastoid air cells: Right mastoid air cell effusions. Bones/joints: Unremarkable. No acute fracture. Soft tissues: Unremarkable. CT/CT head wo con* [id number] IMPRESSION: Negative for acute intracranial pathology.
--- NOTE | 2023-06-04 03:55 | ED_ITS ---
HPI - Weakness 2 General: Chief complaint: Weakness Stated complaint: confused, weakness in legs and arm Time Seen by Provider: 06/04/23 03:11 History of Present Illness: 67-year-old male coming from home. He w as evidently discharged from [facility] on after having peripheral arterial stents placed. His notes that he has been somewhat lethargic and confused since that time. He is fallen a couple of times tonight, once around 1230 and once right before coming here around 3. The believes he hit his head during one of the falls. He has been lethargic. He has been somewhat confused. She notes that he has been this way since coming home from the hospital. He continues to smoke. Earlier, he woke her from sleep, asking her to call his boss because he is sick. She says that he has not worked in 5 years. She also says that earlier he tried to light and ashtray instead of a cigarette to smoke. On exam he is quite lethargic. Review of Systems 2 General: Reports: ROS unobtainable due to mental status (Patient is a poor historian) PFSH ED 2 PFSH: Medical History BPH loc w urin obs/LUTS Aortic aneurysm COPD with acute exacerbation Renal artery stenosis Peripheral arterial disease with history of revascularization Essential hypertension CAD (coronary artery disease) Hyperlipidemia Hypothyroidism GERD (gastroesophageal reflux disease) Generalized anxiety disorder Urinary retention Balanitis Surgical History Status post left inguinal hernia repair (01/01/20) History of esophagogastroduodenoscopy (EGD) (~2019) dr. anderson History of colonoscopy with polypectomy (~2019) dr. anderson H/O heart artery stent Family History Mother , AT AGE 64 Renal failure Alzheimer disease Father , AT AGE 48 Lung cancer Social History Smoking and tobacco/nicotine status: current every day tobacco/nicotine user cigarettes Packs smoked per day: 2.5 Years cigarettes smoked: 45 Alcohol intake: never Substance/Drug Use: never Marital status: Current occupational status: disabled Physical Exam 2 Const: GENERAL APPEARANCE: lethargic and ill appearing NUTRITIONAL APPEARANCE: thin ORIENTATION/CONSCIOUSNESS: Yes lethargic HENMT: COMMON NORMALS: normocephalic, atraumatic and Normal external nose present HEAD & SCALP: normocephalic and atraumatic FACE & SINUS: normal facial exam and face symmetric NOSE: Normal external nose present Eye: COMMON NORMALS: Equal, round and reactive pupils present and EOMs intact bilaterally PUPIL: Yes Equal, round and reactive pupils present Neck/C-Spine: GENERAL: Yes trachea midline Chest: CHEST: Yes Symmetrical chest wall rise Resp: COMMON NORMALS: normal respiratory effort, No retractions, No use of accessory muscles and clear to auscultation bilaterally AUSCULTATION: clear to auscultation bilaterally Cardio: COMMON NORMALS: regular rate and regular rhythm RATE: regular rate RHYTHM: regular rhythm HEART SOUNDS: Murmur heart sound present GI: COMMON NORMALS: Normal to inspection, nondistended, normoactive bowel sounds present Extremity: COMMON NORMALS: no pedal edema Neuro: JOSE COMA SCALE: document GCS findings Jose coma scale eye opening: To sound [place] coma scale verbal response: Confused [place] coma scale motor response: Obey commands Jose coma scale total score: 13 S ENSORIUM/ORIENTATION: Yes lethargic SENSORY EXAM: Yes extremities (intact) Psych: COMMON NORMALS: speech normal SPEECH: Yes normal speech Skin: COMMON NORMALS: no rashes or lesions noted GENERAL SKIN EXAM: no rashes or lesions noted Course 2 Vital Signs: Vital signs: Vital Signs Temperature 97.8 F 06/04/23 16:00 Pulse Rate 99 06/04/23 16:00 Respiratory Rate 18 06/04/23 16:00 Blood Pressure 148/92 06/04/23 16:00 Pulse Oximetry 95 06/04/23 16:00 Oxygen Delivery Me thod Room Air 06/04/23 16:00 Oxygen Flow Rate 2 06/04/23 15:00 MDM - Weakness Medical Decision Making 67-year-old gentleman who was quite lethargic on presentation. Blood gas did not show CO2 retention. It did show mild hypoxia. He is on an increased amount of oxygen from prior. There was a history of falls with possible head injury. Head CT is negative. Chest x-ray is negative. EKG is normal. Bicarb is 20. Creatinine is bumped to 1.8. Further interview, the patient's has been given him scheduled tramadol. He was given 1 mg of Narcan with improvement in his mental status and oxygenation. He will require admission given his acute kidney injury in the setting of accidental narcotic overdose. Lab Data 06/04/23 03:19 06/04/23 03:19 Radiology Impressions Chest X-Ray 06/04/23 03:48 IMPRESSION: No acute findings. Head CT 06/04/23 03:48 IMPRESSION: Negative for acute intracranial pathology. Carotid Doppler Study 06/04/23 06:30 IMPRESSION: No carotid arterial stenosis. REFERENCES: SRU CRITERIA. The degree of internal carotid artery stenosis is based on criteria defined by the Society of Radiologists in Ultrasound (SRU). Normal is no stenosis. Mild is less than 50% stenosis. Moderate is 50-69% stenosis. Severe is greater than 69% stenosis to near occlusion. Near occlusion is a markedly narrowed lumen. Total occlusion is no detectable patent lumen. Chest/Abdomen/Pelvis CT 06/04/23 07:09 IMPRESSION: There is mild chronic air trapping emphysematous appearance present. No lobar consolidation or cardiac decompensation is appreciated. IMPRESSION: 1. There appears to be some mild hepatic steatosis along with gallbladder sludge. Consider hepatobiliary profile studies. 2. There is interval aortic bifurcation stent graft material present. There appears to be some subtle perivascular stranding at this level as well as some extension to the femoral, iliac margins. Consider if there is history of recent intervention as this could present in this fashion. Some additional processes including vasculitis could also present in this fashion. As it abuts the venous vessels, consider lower extremity venous ultrasound. CTA abdomen could also be performed for further evaluation. THIS REPORT CONTAINS FINDINGS THAT MAY BE CRITICAL TO PATIENT CARE. The case was discussed via telephone conference at 9:31 AM CDT on 06/04/[address] Bacon. The findings were acknowledged and understood. Laboratory Results WBC 14.04 10^3/uL (3.29-11.43) H 06/04/23 03:19 RBC 3.19 10^6/uL (3.85-5.65) L 06/04/23 03:19 Hgb 10.00 g/dL (11.27-16.99) L 06/04/23 03:19 Hct 30.3 % (37-53) L 06/04/23 03:19 MCV 95.0 fl (82-101) 06/04/23 03:19 MCH 31.3 pg (27-33) 06/04/23 03:19 MCHC 33.0 g/dL (30-55) 06/04/23 03:19 RDW 13.4 % (12.1-15.1) 06/04/23 03:19 Plt Count 229 10^3/cmm (157-399) 06/04/23 03:19 MPV 10.3 fL (7.4-10.4) 06/04/23 03:19 Neut % (Auto) 75.6 % 06/04/23 03:19 Lymph % (Auto) 12.7 % 06/04/23 03:19 Weston % (Auto) 7.3 % 06/04/23 03:19 Eos % (Auto) 3.1 % 06/04/23 03:19 Baso % (Auto) 0.4 % 06/04/23 03:19 Neut # (Auto) 10.63 10^3/uL (1.8-7.7) H 06/04/23 03:19 Lymph # (Auto) 1.8 10^3/uL (0.8-4.8) 06/04/23 03:19 Weston # (Auto) 1.0 10^3/uL (0.2-0.9) H 06/04/23 03:19 Eos # (Auto) 0.4 10^3/uL (0.0-0.8) 06/04/23 03:19 Baso # (Auto) 0.1 10^3/uL (0.0-0.1) 06/04/23 03:19 Nucleated RBC % (auto) 0 % 06/04/23 03:19 Nucleated RBCs # 0.0 /100WBC 06/04/23 03:19 ESR 47 mm/hr (0-10) H 06/04/23 03:19 PT 13.50 SECONDS (12.1-14.9) 06/04/23 03:19 INR 1.00 (0.8-1.2) 06/04/23 03:19 APTT 33.4 SECONDS (23.9-36.7) 06/04/23 03:19 Specimen Type Arterial 06/04/23 04:00 Sample Site Brachial, right 06/04/23 04:00 ABG pH 7.35 (7.35-7.45) 06/04/23 04:00 ABG pCO2 44.0 mmHg (35-45) 06/04/23 04:00 ABG pO2 54.0 mmHg (80.0-100.0) L 06/04/23 04:00 ABG PO2/FiO2 Ratio 0 06/04/23 04:00 ABG HCO3 24.3 mmol/L (22-26) 06/04/23 04:00 ABG Base Excess -1.4 mmol/L (-2.0-2.0) 06/04/23 04:00 Jarret Test Pos 06/04/23 04:00 Hematocrit 30.2 % (42-52) L 06/04/23 04:00 O2 Delivery Device None 06/04/23 04:00 FiO2 21.0 % 06/04/23 04:00 Analyzer Sales ID [email or web address] 06/04/23 04:00 Sodium 136 mmol/L (136-145) 06/04/23 03:19 Potassium 3.7 mmol/L (3.5-5.1) 06/04/23 03:19 Chloride 101 mmol/L (98-107) 06/04/23 03:19 Carbon Dioxide 20 mmol/L (22-29) L 06/04/23 03:19 Anion Gap 18.7 (5-19) 06/04/23 03:19 BUN 23 mg/dL (8-23) 06/04/23 03:19 Creatinine 1.8 mg/dL (0.7-1.2) H 06/04/23 03:19 GFR Calculation 38.1 mL/min (90-130) L 06/04/23 03:19 Glucose 133 mg/dL (65-115) H 06/04/23 03:19 POC Glucose 140 mg/dL (70-110) H 06/04/23 03:17 Estimat Average Glucose 111 06/04/23 03:19 Hemoglobin A1c 5.5 % (4.0-6.0) 06/04/23 03:19 Calculated Osmolality 288 mOsm/kg (285-295) 06/04/23 03:19 Lactic Acid 1.3 mmol/L (0.5-2.2) 06/04/23 03:19 Calcium 8.2 mg/dL (8.5-10.5) L 06/04/23 03:19 Total Bilirubin 0.3 mg/dL (0.15-1.2) 06/04/23 03:19 AST 35 U/L (0-40) 06/04/23 03:19 ALT 17 U/L (0-41) 06/04/23 03:19 Alkaline Phosphatase 148 U/L (40-130) H 06/04/23 03:19 Creatine Kinase 224 U/L (39-308) 06/04/23 03:19 Troponin T Baseline 21 ng/L (0-15) H 06/04/23 03:19 Troponin T 120 Minute 20.06 ng/L (0-15) H 06/04/23 05:26 Delta Troponin T -0.94 ABS# (0-10) L 06/04/23 05:26 C-Reactive Protein 112.0 mg/L (0.0-4.9) H 06/04/23 03:19 Total Protein 6.3 g/dL (6.6-8.7) L 06/04/23 03:19 Albumin 3.4 g/dL (3.5-5.2) L 06/04/23 03:19 Globulin 2.9 g/dL (1.3-4.6) 06/04/23 03:19 Triglycerides 79 mg/dL (0-150) 06/04/23 05:26 Cholesterol 98 mg/dL (0-200) 06/04/23 05:26 LDL Cholesterol, Calc 45 mg/dL (50-129) L 06/04/23 05:26 HDL Cholesterol 37 mg/dL (60-100) L 06/04/23 05:26 LDL/HDL Ratio 1.22 RATIO (0.00-3.22) 06/04/23 05:26 Cholesterol/HDL Ratio 2.65 mg/dL (1.0-5.00) 06/04/23 05:26 TSH 1.49 uIU/mL (0.27-4.20) 06/04/23 05:26 Urine Color Dark yellow (Yellow) 06/04/23 04:34 Urine Appearance Clear (CLEAR) 06/04/23 04:34 Urine pH 5 (5-7) 06/04/23 04:34 Ur Specific [place] 1.015 (1.005-1.030) 06/04/23 04:34 Urine Protein Neg (Negative) 06/04/23 04:34 Urine Glucose (UA) Norm (Normal) 06/04/23 04:34 Urine Ketones Negative (Negative) 06/04/23 04:34 Urine Blood 2+ (Negative) H 06/04/23 04:34 Urine Nitrate Negative (Negative) 06/04/23 04:34 Urine Bilirubin Neg (Negative) 06/04/23 04:34 Urine Urobilinogen 1 mg/dL (Negative) H 06/04/23 04:34 Ur Leukocyte Esterase Negative (Negative) 06/04/23 04:34 Urine RBC 5-10 /hpf (0-2) H 06/04/23 04:34 Urine WBC 5-10 /hpf (0-5) H 06/04/23 04:34 Ur Squamous Epith Cells 0-4 /hpf (0-5) H 06/04/23 04:34 Amorphous Sediment Not Reportable 06/04/23 04:34 Urine Bacteria Trace /hpf (NONE) 06/04/23 04:34 Hyaline Casts 5-10 /lpf H 06/04/23 04:34 Coarse Granular Casts 5-10 /lpf H 06/04/23 04:34 Urine Opiates Screen Negative ng/mL (Negative) 06/04/23 04:34 Ur Barbiturates Screen Negative ng/mL (Negative) 06/04/23 04:34 Ur Phencyclidine Scrn Negative ng/mL (Negative) 06/04/23 04:34 Ur Amphetamines Screen Negative ng/mL (Negative) 06/04/23 04:34 U Benzodiazepines Scrn Negative ng/mL (Negative) 06/04/23 04:34 Urine Cocaine Screen Negative ng/mL (Negative) 06/04/23 04:34 U Marijuana (THC) Screen Negative ng/mL (Negative) 06/04/23 04:34 Ethyl Alcohol < 10 mg/dL (0-10) 06/04/23 03:19 All radiology interpretation(s) finalized by discharge Discharge Plan Discharge Patient Disposition: Admitted As Inpatient Admit Provider: Sudhir Borden Clinical Impression: Accidental overdose, Acute hypoxic respiratory failure, NII (acute kidney injury) Condition: Fair Coding Level of Care Code ED 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
[2023-06-04 03:57] LABS: Basophils # 0.1 10^3/uL (0.0-0.1); Basophils % 0.4 %; Eosinophils # 0.4 10^3/uL (0.0-0.8); Eosinophils % 3.1 %; Hematocrit 30.3 % (37-53); Lymphocytes # 1.8 10^3/uL (0.8-4.8); Lymphocytes % 12.7 %; Mean Corpuscular Hemoglobin 31.3 pg (27-33); Mean Platelet Volume 10.3 fL (7.4-10.4); Monocytes % 7.3 %; Neutrophils # 10.63 10^3/uL (1.8-7.7); Neutrophils % 75.6 %; Nucleated Red Blood Cells % 0 %; Platelet Count 229 10^3/cmm (157-399); Red Blood Count 3.19 10^6/uL (3.85-5.65); Red Cell Distribution Width 13.4 % (12.1-15.1); White Blood Count 14.04 10^3/uL (3.29-11.43)
[2023-06-04 04:02] LABS: Partial Thromboplastin Time 33.4 SECONDS (23.9-36.7)
[2023-06-04 04:06] LABS: ABG PH Result 7.35 (7.35-7.45); Arterial Blood Gas Hematocrit 30.2 % (42-52); Base Excess ABG -1.4 mmol/L (-2.0-2.0); Blood Gas Allen Test Pos; Blood Gas Sample Site Brachial, right; Blood Gas Sample Type Arterial; HCO3 ABG 24.3 mmol/L (22-26); PO2 FiO2 Ratio Arterial Blood 0
[2023-06-04 04:10] LABS: Troponin(5th) Baseline 21 ng/L (0-15)
[2023-06-04 04:12] LABS: Lactic Sepsis W/Reflex 1.3 mmol/L (0.5-2.2)
[2023-06-04 04:13] LABS: Alanine Aminotransferase 17 U/L (0-41); Albumin Level 3.4 g/dL (3.5-5.2); Alkaline Phosphatase 148 U/L (40-130); Blood Urea Nitrogen 23 mg/dL (8-23); Calcium 8.2 mg/dL (8.5-10.5); Carbon Dioxide 20 mmol/L (22-29); Chloride 101 mmol/L (98-107); Creatine Phosphokinase 224 U/L (39-308); Creatinine Clr Calc Pharmacy 44.7942; Globulin 2.9 g/dL (1.3-4.6); Glomerular Filtration Rate 38.1 mL/min (90-130); Glucose 133 mg/dL (65-115); Osmolality Calculated 288 mOsm/kg (285-295); Sodium 136 mmol/L (136-145); Total Bilirubin 0.3 mg/dL (0.15-1.2); Total Protein 6.3 g/dL (6.6-8.7)
[2023-06-04 04:14] LABS: Alcohol Level < 10 mg/dL (0-10); Anion Gap 18.7 (5-19); Aspartate Amino Transferase 35 U/L (0-40); Potassium 3.7 mmol/L (3.5-5.1)
--- NOTE | 2023-06-04 04:35 | PC.NURSE ---
Patient desat on room air to 80% for over a min. Pt placed on 2.5L nc and sats improved to 97% Dr Cates notified.
[2023-06-04 04:56] LABS: Add Urine Microscopic? YES; Bacteria Urine TRACE /hpf; Bilirubin Urine Neg (Negative); Blood Urine 2+ (Negative); Glucose Urine UA Norm (Normal); Ketones Urine Negative (Negative); Leukocyte Esterase Urine Negative (Negative); Nitrate Urine Negative (Negative); Protein Urine Neg (Negative); Specific Gravity, Urine 1.015 (1.005-1.030); Squamous Epithelial Cell Urine 0-4 /hpf (0-5); Urine Appearance Clear (CLEAR); Urine Color Dark Yellow (Yellow); Urobilinogen Urine 1 mg/dL (Negative); pH Urine 5 (5-7)
[2023-06-04 05:47] LABS: Troponin 5 2HR 20.06 ng/L (0-15); Troponin 5 2HR Delta -0.94 ABS# (0-10)
--- NOTE | 2023-06-04 05:52 | PC.NURSE ---
@ 0505- went into room with bladder scanner and patients breathing changed. Pt had still on nasal cannula with sats in the upper 90s but pt had noticeable retractions. states that it just started. Dr Parker notified and pt evaluated. Pt still lethargic and hard to arouse. Orders for Narcan placed by Dr PARKER. Change in alertness several minutes post Narcan admin. states that he does not take pain medication but has Tramadol on his med list. states that she did not even know that this medication was for pain. states that she does not believe he was sent with post op pain meds. Pt checked for pain patches with the assistance of Vicky DYER.
[2023-06-04 06:06] LABS: Amphetamines Screen Urine Negative (Negative); Barbiturates Screen Urine Negative (Negative); Benzodiazepines Screen Urine Negative (Negative); Cocaine Screen Urine Negative (Negative); Opiate Screen Urine Negative (Negative); PCP Screen Urine Negative (Negative); THC Screen Urine Negative (Negative)
--- NOTE | 2023-06-04 06:30 | USR_ITS ---
PROCEDURE INFORMATION: Exam: US Duplex Bilateral Extracranial Arteries; Complete; Carotid Arteries Exam date and time: 06/04/2023 10:54 AM Age: 67 years old Clinical indication: Other: Stroke TECHNIQUE: Imaging protocol: Real-time duplex ultrasound scan of the bilateral extracranial arteries combining hahn scale, color Doppler and spectral waveform analysis with image documentation. Complete exam. Exam focused on the carotid arteries. COMPARISON: CT angio headneck* [id number] 11/01/2019 9:09 AM FINDINGS: Right common carotid artery: Unremarkable. No occlusion or stenosis. Waveforms are normal. Right internal carotid artery: Unremarkable. No occlusion or stenosis. Waveforms are normal. Right ICA/CCA ratio: Within normal limits. Right external carotid artery: No stenosis in the origin. Right vertebral artery: Unremarkable. Antegrade flow. Left common carotid artery: Unremarkable. No occlusion or stenosis. Waveforms are normal. Left internal carotid artery: Unremarkable. No occlusion or stenosis. Waveforms are normal. Left ICA/CCA ratio: Within normal limits. Left external carotid artery: No stenosis in the origin. Left vertebral artery: Unremarkable. Antegrade flow. US/CV carotid duplex BI* [id number] IMPRESSION: No carotid arterial stenosis. REFERENCES: SRU CRITERIA. The degree of internal carotid artery stenosis is based on criteria defined by the Society of Radiologists in Ultrasound (SRU). Normal is no stenosis. Mild is less than 50% stenosis. Moderate is 50-69% stenosis. Severe is greater than 69% stenosis to near occlusion. Near occlusion is a markedly narrowed lumen. Total occlusion is no detectable patent lumen.
--- NOTE | 2023-06-04 06:37 | P.HP_ITS ---
Providers/Chief Complaint 2 Admitting Physician: Sudhir Borden MD Primary Care Provider: Simi Vital DO Chief Complaint: confused, weakness in legs and arm History of Present Illness Balta Kwan is a 67 year old male with a past medical history of vasculopathy, history of left subclavian artery stenosis status post bypass, history of CAD status post stenting, history of peripheral arterial disease status post stenting, he was recently at [facility] on and had stent placed in peripheral extremities, and higher up tells me, it was a elective outpatient procedure, aortic aneurysm, BPH, COPD, GERD, hyperlipidemia hypothyroidism, history of renal artery stenosis, who presents [facility] due to increased weakness, unsteadiness on his feet, recurrent falls, slurring of his words, word finding difficulty, episodes of confusion.. Currently patient is alert oriented x 0, he does not awaken to sternal rub, he is already received Narcan, currently in normal sinus rhythm, blood pressure 105/72, pulse 94 respiratory 20, he is 100% on room air, is at bedside, pupils equal round reactive to light no facial droop, certainly he is globally encephalopathic, bilateral arms raised up against gravity fall to the gurney bilateral legs raised up fall against gravity to the gurney, it is difficult to assess his NIH stroke scale, given his global encephalopathy, he does not withdraw from pain, does not awaken to sternal rub, Babinski's upward bilaterally his last known well normal I would say is roughly . Patient's tells me that since he got home from [facility] he has not been normal, he has been stumbling on his feet, he has been falling, he has been more confused he has been talking out of his head, he has been seeing things that are not there, he has had word finding difficulty he tells me that at [facility] he was having word finding difficulty, he did not know the word for blanket, she has not noticed any slurring of his words, at times she tells me he can carry out conversations, they do sound slurred to her, his symptoms have waxed and waned she tells me since he has come home from the hospital, he has not appropriately ambulated since he got home, I asked her patient's currently globally encephalopathic, almost, like he is in a comatose state, how long he has been like this for she is exactly unsure, as he has had episodes of being like this since he got home from [facility] she tells me, they went to bed very early yesterday at about 530, she tells me he is up out of bed usually throughout the night to urinate, this night he did not get out of bed as much but he did fall sometime during the night. Last known well normal is not exactly clear, potentially since he got home from [facility] on . He is out of the window for tPA. Out of the window for any endovascular procedure his creatinine is 1.8. I also confronted her about his narcotics, I went over his medications here we have him listed on the hydrocodone, but she tells me that he has not received it in some time, and is not on his medication list, he has been taking tramadol 50 mg twice daily scheduled, he has been using it more than prescribed all his medications are laid out in the pill pack, he is on Celebrex which she takes regularly, he is on aspirin, Plavix, he is on baclofen and gabapentin, gabapentin 300 mg twice daily, baclofen 10 mg, the concern in the ER for possible polypharmacy certainly this could be playing a role but she is adamant that he does not take more than prescribed, and she tells me the only medication that is new is a tramadol Review of Systems 2 Const: Denies: fever(s) Card: Denies: chest pain Resp: Denies: dyspnea Neuro: Reports: weakness in extremities, frequent falls, dizziness, confusion, Slurred speech present and difficulty communicating thoughts; Denies: headache(s) Medications/Allergies Home Medications Medication Instructions Recorded Confirmed Last Taken Type aspirin 81 mg tablet,delayed 81 mg PO QAM 04/22/19 01/02/23 03/10/22 History release clopidogrel 75 mg tablet 75 mg PO QAM 04/22/19 01/02/23 03/10/22 History finasteride 5 mg tablet 5 mg PO QAM 04/22/19 01/02/23 03/17/22 07:00 History pantoprazole 40 mg tablet,delayed 40 mg PO QAM 04/22/19 01/02/23 03/17/22 20:00 History release simvastatin 40 mg tablet 40 mg PO BEDTIME 04/22/19 01/02/23 03/17/22 20:00 History budesonide-formoterol HFA 160 2 puff inhalation BID 08/08/19 01/02/23 03/18/22 07:00 History mcg-4.5 mcg/actuation aerosol inhaler isosorbide mononitrate 30 mg 15 mg PO BEDTIME 10/06/20 01/02/23 03/17/22 20:00 History tablet,extended release 24 hr baclofen 20 mg tablet See Rx Instructions .Route .COMPLEX 04/16/21 01/02/23 03/17/22 20:00 History celecoxib 100 mg capsule (Celebrex) 100 mg PO BID #20 caps 04/16/21 01/02/23 03/17/22 07:00 Rx diltiazem HCl 90 mg 90 mg PO Q12H 04/16/21 01/02/23 03/17/22 07:00 History capsule,extended release 12 hr levothyroxine 150 mcg tablet 150 mcg PO QAM 04/16/21 01/02/23 03/17/22 07:00 History meclizine 12.5 mg tablet 12.5 mg PO QAM 04/16/21 01/02/23 03/17/22 07:00 History nitroglycerin 0.4 mg sublingual 0.4 mg sublingual Q5M PRN Chest 04/16/21 01/02/23 Unknown History tablet (Nitrostat) Pain mirtazapine 30 mg tablet (Remeron) 30 mg PO BEDTIME 05/13/21 01/02/23 03/17/22 20:00 History gabapentin 300 mg capsule 300 mg PO BID #180 caps 10/05/21 01/02/23 03/17/22 07:00 Rx hydrocodone 5 mg-acetaminophen 325 1 - 2 tab PO .Q4-6H #40 tabs 03/18/22 01/02/23 Unknown Rx mg tablet tizanidine 4 mg tablet 4 mg PO BID PRN muscle spasticity 06/23/22 01/02/23 Unknown Rx #60 tabs tramadol 50 mg tablet 50 mg PO DAILY 06/23/22 01/02/23 Unknown History varenicline 1 mg tablet 1 mg PO BID #60 tabs 11/30/22 01/02/23 Unknown Rx venlafaxine 150 mg See Rx Instructions .Route 04/01/24 Unknown Rx capsule,extended release 24 hr .COMPLEX #30 caps Allergies Allergy/AdvReac Type Severity Reaction Status Date / Time tetracycline Allergy Nausea Verified 06/04/23 03:08 PFSH Acute 2 PFSH: Medical History BPH loc w urin obs/LUTS Aortic aneurysm COPD with acute exacerbation Renal artery stenosis Peripheral arterial disease with history of revascularization Essential hypertension CAD (coronary artery disease) Hyperlipidemia Hypothyroidism GERD (gastroesophageal reflux disease) Generalized anxiety disorder Urinary retention Balanitis Surgical History Status post left inguinal hernia repair (01/01/20) History of esophagogastroduodenoscopy (EGD) (~2018) dr. anderson History of colonoscopy with polypectomy (~2018) dr. anderson H/O heart artery stent Family History Mother , AT AGE 64 Renal failure Alzheimer disease Father , AT AGE 48 Lung cancer Social History Smoking and tobacco/nicotine status: current every day tobacco/nicotine user cigarettes Packs smoked per day: 2.5 Years cigarettes smoked: 45 Alcohol intake: never Substance/Drug Use: never Marital status: Current occupational status: disabled Vitals/I&O/Wt Last Vital Signs Temp 97.7 F 06/04/23 03:00 Pulse 94 06/04/23 05:30 Resp 20 H 06/04/23 05:30 BP 105/72 06/04/23 05:30 Pulse Ox 100 06/04/23 05:30 O2 Del Method Room Air 06/04/23 03:00 Weight last 48 hrs Weight 77.111 kg Physical Exam 2 Const: COMMON NORMALS: no acute distress EXAM LIMITATIONS: altered mental status ORIENTATION/CONSCIOUSNESS: Yes patient obtunded; not awake, not oriented to person, not oriented to place and not oriented to time HENMT: COMMON NORMALS: normocephalic HEAD & SCALP: normocephalic Eye: COMMON NORMALS: Equal, round and reactive pupils present Neck/C-Spine: COMMON NORMALS: no JVD Resp: COMMON NORMALS: normal respiratory effort, No retractions, No use of accessory muscles and clear to auscultation bilaterally AUSCULTATION: c rackles and wheezes Cardio: COMMON NORMALS: regular rate, regular rhythm, S1 normal heart sound present and S2 normal heart sound present RATE: regular rate RHYTHM: r egular rhythm HEART SOUNDS: S1 normal heart sound present and S2 normal heart sound present GI: COMMON NORMALS: Normal to inspection, nondistended, normoactive bowel sounds present, Soft to palpation and non-tender Extremity: COMMON NORMALS: no pedal edema Neuro: OTHER: Pupils equal round reactive to light, does not track, bilateral upper arms, are not held up against gravity, fall to gurney, bilateral legs, are not held up against gravity full to gurney, does not localize pain,, NIH stroke scale difficult to assess, given patient's global encephalopathy, but I calculated his NIH stroke scale based upon 's reported symptomatology 26, although patient is globally encephalopathic Data 06/04/23 03:19 06/04/23 03:19 A&P Assessment and plan (1) Posterior circulation stroke: (2) Acute encephalopathy: (3) Abdominal aortic aneurysm (AAA) greater than 39 mm in diameter: (4) CAD (coronary artery disease): Qualifiers: Coronary Disease-Associated Artery/Lesion type: [place] artery [place] vs. transplanted heart: [place] heart Associated angina: without angina Qualified Code(s): I25.10 - Atherosclerotic heart disease of [place] coronary artery without angina pectoris (5) S/P PTCA (percutaneous transluminal coronary angioplasty): (6) Renal artery stenosis: (7) Essential hypertension: (8) Nicotine dependence, cigarettes, uncomplicated: (9) Hyperlipidemia: (10) Subclavian artery stenosis, left: Plan Acute encephalopathy -Concerning for possible posterior circulation stroke -Patient currently very globally encephalopathic, NIH stroke scale over 20, out of tPA window, out of window for any endovascular procedure, last known well normal possibly -But based upon patient's symptomatology of word finding difficulty, slurring of his words, stumbling, falling, I am very concerned that he had a posterior circulation stroke -Patient is a vasculopath, has a history of multiple cardiac stents peripheral artery stents, he has had some sort of stent recently somewhere in his chest tells me at [facility] will get records, is a smoker has COPD -He does have a history of seizures, but I do not see any seizure-like symptoms, and she has not noticed any seizure-like symptoms -Certainly polypharmacy with tramadol, Effexor, baclofen, gabapentin could be playing a role he is already received 1 dose of Narcan, according to ER physician after receiving Narcan he did wake up a little bit could talk, but I did not see this -CT head within normal limits -UA with no evidence of UTI -Chest x-ray no focal pneumonia ? Urine toxicology screen negative ? His CRP is 112, WBC 14,000, crackles on exam possible aspiration event ? Lactic acid within normal limits Plan -I want patient to be monitored very closely in the ICU, given his global encephalopathy, his current GCS score is 3, however ABG does not show any significant evidence of hypoxia, he is stable on room air, normotensive, will watch closely in ICU, low threshold for intubation -I have ordered a stat MRI, MRA head and neck unfortunately we do not have anybody on-call here at [facility] to perform this today, but it scheduled for tomorrow morning at 7 AM -I can do a CT angiogram of head and neck given his creatinine of 1.8, certainly with IV hydration, we can reassess his creatinine and potentially do a CTA head and neck -Will keep head of bed at 0 degrees, avoid elevation to improve cerebral blood flow, keep legs elevated -IV fluids -Neurochecks, NIH stroke scale, aspiration precautions -Keep n.p.o. -allow for permissive hypertension -Cardiac echo, carotid artery ultrasound ? For possible aspiration event aspiration pneumonia placed him on Rocephin -TSH, ammonia levels ordered ? Continue to hold Effexor, gabapentin, tramadol ? Seizure precautions ? Will await have to request records from [facility] ? Based upon clinical progress will reach out to neurology ? Full code ? Lovenox for DVT prophylaxis Attestations 2 Medical Necessity Statement*: Patient requires hospitalization, inpatient, greater than 2 midnights, for acute encephalopathy, concern for posterior circulation stroke, requires ICU level monitoring, due to low GCS Diagnoses Posterior circulation stroke I63.50 Acute encephalopathy G93.40 Abdominal aortic aneurysm (AAA) greater than 39 mm in diameter I71.40 Coronary artery disease involving [place] coronary artery of [place] heart without angina pectoris I25.10 Coronary Disease-Associated Artery/Lesion type: [place] artery [place] vs. transplanted heart: [place] heart Associated angina: without angina S/P PTCA (percutaneous transluminal coronary angioplasty) Z98.61 Renal artery stenosis I70.1 Essential hypertension I10 Nicotine dependence, cigarettes, uncomplicated F17.210 Hyperlipidemia E78.5 Subclavian artery stenosis, left I77.1
--- NOTE | 2023-06-04 07:09 | CTR_ITS ---
PROCEDURE INFORMATION: Exam: CT Chest Without Contrast; Diagnostic Exam date and time: 06/04/2023 7:31 AM Age: 67 years old Clinical indication: Other: AMS, crackle HX of chest stent peripheral stent; Shortness of breath; Prior surgery; Surgery date: 1-6 months; Patient HX: PT fell yesterday hitting head TECHNIQUE: Imaging protocol: Diagnostic computed tomography of the chest without contrast. Radiation optimization: All CT scans at this facility use at least one of these dose optimization techniques: automated exposure control; mA and/or kV adjustment per patient size (includes targeted exams where dose is matched to clinical indication); or iterative reconstruction. Other technique: Axial images are available with sagittal and coronal reconstruction views. Automated dose exposure control is utilized. The DLP is 678.28. COMPARISON: [place] [id number] 06/04/2023 6:59 AM 2. CR (CHEST, ) 06/04/2023 3:53 AM 3. CR XR chest 1V portable [id number] 06/13/2022 6:[address] angio chest [id number] 10/19/2020 9:22 AM RADIATION DOSE METRICS: Total DLP (mGy-cm): 678.28 FINDINGS: Trachea: The central airways are grossly patent. There is some minimal mucosal stranding. Lungs: No lobar consolidation is appreciated.There is minimal subsegmental atelectasis versus post inflammatory scarring demonstrated. There is chronic air trapping emphysematous and bleb related change present. There is some granulomatous calcific related change similar right upper lobe. There is some slight lung fissure thickening similar. Pleural spaces: No significant pneumothorax or pleural effusion is appreciated. There is some edge artifact similar overall. Heart: No significant effusion or cardiac decompensation is appreciated. No significant pericardial fluid collection is appreciated. Coronary arteries: There is some coronary dense calcific and possible stent related change. Lymph nodes: There are subcentimeter predominant mediastinal and hilar lymph nodes overall present. Vasculature: No interval thoracic aortic saccular aneurysmal dilatation is appreciated with chronic atherosclerotic and branch vessel related change. There is some dense aortic root calcifications present. The ascending aorta measures 3.7 cm along with descending thoracic aorta 3.3 cm on these non contrasted views. No definite wall calcium displacement or thoracic aortic fluid collections are currently appreciated. Intraperitoneal space: The intraperitoneal space abdominal findings correlates with the dedicated CT abdomen description same day. Bones/joints: Osseous alignment is maintained. No interval displaced fracture or dislocation is appreciated.There is slightly decreased bone mineralization overall. Soft tissues: No radiopaque foreign body or subcutaneous emphysema is appreciated. There is some interventional graft type appearance about the left neck, supraclavicular level similar in orientation. Other findings: There is some motion artifact present. COMMENTS: The presence of pulmonary emphysema on CT is an independent risk factor for lung cancer. In the absence of a history or active diagnosis of lung cancer, it is recommended that this patient with emphysema be evaluated for enrollment in a low dose CT lung cancer screening program. PROCEDURE INFORMATION: Exam: CT Abdomen And Pelvis Without Contrast Exam date and time: 06/04/2023 7:31 AM Age: 67 years old Clinical indication: Other: AMS, crackle HX of chest stent peripheral stent; Shortness of breath; Prior surgery; Surgery date: 1-6 months; Patient HX: PT fell yesterday hitting head TECHNIQUE: Imaging protocol: Computed tomography of the abdomen and pelvis without contrast. 570image(s) are provided. Radiation optimization: All CT scans at this facility use at least one of these dose optimization techniques: automated exposure control; mA and/or kV adjustment per patient size (includes targeted exams where dose is matched to clinical indication); or iterative reconstruction. Other technique: Axial images are available with sagittal and coronal reconstruction views. Automated dose exposure control is utilized. The DLP is 678.28. COMPARISON: [place] [id number] 06/04/2023 6:59 AM RADIATION DOSE METRICS: Total DLP (mGy-cm): 678.28 FINDINGS: Liver: There appears to be some mild hepatic steatosis. There is some cystic appearance although too small to characterize otherwise similar. Gallbladder and bile ducts: There appears to be some gallbladder sludge. Pancreas: No pancreatic ductal dilatation or calculus is currently appreciated. Spleen: Unremarkable. Adrenal glands: Unremarkable. Kidneys and ureters: No radiopaque obstructive calculus or hydronephrosis appreciated. Stomach and bowel: Some aspects of the colon are undistended. This may also be peristaltic related.There is abundant stool present limiting mucosal detail evaluation.The bowel gas pattern appears nonobstructive. There is a small sliding-type hiatal hernia demonstrated with slight gastroesophageal fold thickening. Appendix: No evidence of appendicitis. Intraperitoneal space: No free air or large free fluid collections are appreciated. Vasculature: There are extensive atherosclerotic calcified and noncalcified changes present with similar overall orientation distribution on these non contrasted views. There is a history provided aneurysmal dilatation appearing most pronounced of the bifurcation, right iliac origin. Greatest transverse diameter of the bifurcation is around 4.7 cm similar as well as the right nikolski iliac around 4 cm. This correlates with interval distal aortic, bifurcation stent graft material now present. In the interval there is some subtle stranding visualized about the prebifurcation aorta as well as some extension of the bifurcation right slightly more so than left extending to the inguinal, femoral vascular margins. Consider if there is history of recent intervention. Some of the stranding also abuts the adjacent venous structures. There appears to be some corresponding narrowing of the common, bifurcation iliac venous levels. Lymph nodes: There are subcentimeter predominant para-aortic and mesenteric lymph nodes overall present.This can be seen with previous inflammation or adenitis sequela. Urinary bladder: Bladder contours appear unremarkable overall. Reproductive: Unremarkable as visualized. Bones/joints: Osseous alignment is maintained. No interval displaced fracture or dislocation is appreciated.There is slightly decreased bone mineralization overall. There are degenerative changes of the spine demonstrated. There are degenerative appearing changes of the hips demonstrated. Soft tissues: No radiopaque foreign body or subcutaneous emphysema is appreciated. Other findings: There is some motion artifact present. CT/[place] [id number] IMPRESSION: There is mild chronic air trapping emphysematous appearance present. No lobar consolidation or cardiac decompensation is appreciated. IMPRESSION: 1. There appears to be some mild hepatic steatosis along with gallbladder sludge. Consider hepatobiliary profile studies. 2. There is interval aortic bifurcation stent graft material present. There appears to be some subtle perivascular stranding at this level as well as some extension to the femoral, iliac margins. Consider if there is history of recent intervention as this could present in this fashion. Some additional processes including vasculitis could also present in this fashion. As it abuts the venous vessels, consider lower extremity venous ultrasound. CTA abdomen could also be performed for further evaluation. THIS REPORT CONTAINS FINDINGS THAT MAY BE CRITICAL TO PATIENT CARE. The case was discussed via telephone conference at 9:31 AM CDT on 06/04/[address] Bacon. The findings were acknowledged and understood.
--- NOTE | 2023-06-04 07:52 | USCV_ITS ---
Aquiles Balta Age: 67 Gender: M : 1955 Exam Date: 06/04/2023 12:47 Ordering Phys: Sudhir Borden MD Technologist: Nitesh Torres Exam Location: [facility] – [place] Indication: stroke BP: 132 / 83 HR: 88 Rhythm: Sinus Technical Quality: Adequate MEASUREMENTS (Male / Female) Normal Values 2D ECHO LVOT Diameter 2.0 cm LV Ejection Fraction MOD 2C 64.9 % LV Ejection Fraction 2C AL 65.7 % LA Diameter 3.0 cm RA Systolic Volume 4C AL 18.6 ml RA Systolic Volume 4C MOD 18.4 ml Aorta at Sinotubular Diameter 3.0 cm M-MODE LA Ao Ratio MM 0.9 AV Cusp Separation MM 1.2 cm DOPPLER AV Peak Velocity 97.7 cm/s LVOT Peak Velocity 91.0 cm/s AV Area Cont Eq vti 3.7 cm squared AV Area Cont Eq pk 3.0 cm squared MV Peak Velocity 100.0 cm/s MV Area PHT 5.5 cm squared Mitral E to A Ratio 0.8 TR Peak Velocity 104.0 cm/s TR Peak Gradient 4.3 mmHg TR Mean Velocity 74.0 cm/s TR Mean Gradient 2.5 mmHg TR Velocity Time Integral 20.2 cm PV Peak Velocity 132.0 cm/s RV Ejection Time 0.3 s FINDINGS Left Ventricle Left ventricle is normal size. LV systolic function is normal with EF 55 to 60%. No regional wall motion abnormalities are seen Right Ventricle Normal in size and fucntion Right Atrium Normal in size Left Atrium Normal in size Mitral Valve Structurally normal mitral valve. Mild mitral regurgitation. Aortic Valve Aortic valve is thickened. There is a possible structure/mass attached to aortic valve. It can be calcification. However visualization is limited. Tricuspid Valve Insufficient TR jet to calculate RVSP Pulmonic Valve Not well visualized Pericardium Normal Aorta Normal in size IVC Not visualized CONCLUSIONS LV systolic function is normal with EF 55 to 60%. Mild mitral regurgitation Aortic valve is thickened. There is a possible structure/mass attached to aortic valve. However visualization is limited. Recommend further imaging to better assess it with TRENT vs cardiac MR. Satya Myrick MD (Electronically Signed) Final Date: 05 June 2023 14:49 S
[2023-06-04 08:08] LABS: Erythrocyte Sedimentation Rate 47 mm/hr (0-10)
[2023-06-04 08:14] LABS: Estmated Average Glucose 111; Hemoglobin A1C 5.5 % (4.0-6.0)
[2023-06-04 08:22] LABS: Chol HDL Ratio 2.65 mg/dL (1.0-5.00); Cholesterol 98 mg/dL (0-200); HDL Cholesterol 37 mg/dL (60-100); LDL Cholesterol Calculated 45 mg/dL (50-129); LDL HDL Ratio 1.22 RATIO (0.00-3.22); Thyroid Stimulating Hormone 1.49 uIU/mL (0.27-4.20); Triglycerides 79 mg/dL (0-150)
[2023-06-04] MEDS: aspirin 300 mg Supp PR (08:48)
[2023-06-04] MEDS: pantoprazole 40 mg SDV IVP (08:48)
[2023-06-04] MEDS: cefTRIAXone 1,000 MG in sodium chloride 0.9% (plus) 50 ML 100 MG IV (08:48)
[2023-06-04] MEDS: enoxaparin 40 mg/0.4 mL Syringe SUBCUT (08:48)
[2023-06-04] MEDS: sodium chloride 0.9% 1,000 ML 125 ML IV ×2 (08:48→17:42)
[2023-06-04 09:20] LABS: Troponin 5 6HR 21.04 ng/L (0-15); Troponin 5 6HR Delta 0.04 ng/L (0-12)
[2023-06-04 09:22] LABS: Ammonia 21 umol/L (16-60)
--- NOTE | 2023-06-04 09:26 | ECG_ITS ---
[facility] Test Date: 2023-06-04 Pat Name: Balta Kwan Department: Room: [facility] Gender: Male Chief Legal Officer: : 1955 Requested By: Pato Richards Order Number: [id number] Sana MD: Satya Myrick M.D. Measurements Intervals [place] Rate: 83 P: 66 WI: 172 QRS: 56 QRSD: 99 T: 69 QT: 381 QTc: 449 Interpretive Statements SINUS RHYTHM Compared to ECG 06/04/2023 03:25:15 No significant changes Electronically Signed On 06-04-2023 11:12:53 CDT by Satya Myrick M.D. [id number]
--- NOTE | 2023-06-04 14:10 | P.MISC_ITS ---
Miscellaneous Note Purpose of Documentation: Overnight labs and H&P reviewed. At the time of my assessment at 12:30 PM, patient is awake alert and oriented x4. He is able to correctly tell me his name, age, date of . Recognizes the fact that he is in the hospital. Remembers that he recently had surgical intervention at [facility] in [place]. Currently tells me the name of his . He is able to follow all extremities. Strength is 5 out of 5. Patient was ambulating in the room. Using a urinal independently. Given quick improvement in mental status, favor polypharmacy to be the most likely cause of his symptoms. Will obtain MRI on Monday (today is Monday, MRI services not available over the weekend) to evaluate for possibility of stroke versus TIA. This documentation was created by [employer] research contracts supervisor software. Every effort was made to ensure accuracy of research contracts supervisor. Any obvious errors or omissions should be clarified with the author of the document.
[2023-06-04] MEDS: DILTIAZEM HCL 90 MG 90 EACH PO (17:40)
[2023-06-04] MEDS: budesonide 0.5 mg/2 mL Neb INHALATION (20:32)
[2023-06-04] MEDS: albuterol 2.5 mg/3 mL Neb INHALATION (20:32)
[2023-06-04] MEDS: atorvastatin 40 mg Tablet 20 MG PO (21:03)
[2023-06-04] MEDS: mirtazapine 30 mg Tablet PO (23:33)
[2023-06-04] MEDS: nicotine 14 mg Patch 1 PATCH TRANSDERMA (23:33)
[2023-06-05] VITALS (12 sets, daily range): BP systolic 112–136; BP diastolic 72–86; PULSE 77–92; RESP 16–18; TEMP 36.3–36.7; O2SAT 93–97
[2023-06-05] MEDS: DILTIAZEM HCL 90 MG 90 EACH PO ×2 (01:33→14:39)
[2023-06-05] MEDS: acetaminophen 325 mg Tablet 650 MG PO ×4 (01:38→21:40)
[2023-06-05] MEDS: sodium chloride 0.9% 1,000 ML 125 ML IV ×3 (02:28→18:12)
[2023-06-05] MEDS: clopidogrel 75 mg Tablet PO (06:52)
[2023-06-05] MEDS: cefTRIAXone 1,000 MG in sodium chloride 0.9% (plus) 50 ML 100 MG IV (06:52)
[2023-06-05] MEDS: finasteride 5 mg Tablet PO (06:52)
[2023-06-05] MEDS: pantoprazole 40 mg SDV IVP (06:52)
[2023-06-05] MEDS: levothyroxine 150 mcg Tablet PO (06:53)
[2023-06-05] MEDS: aspirin 81 mg EC Tablet PO (06:53)
[2023-06-05] MEDS: enoxaparin 40 mg/0.4 mL Syringe SUBCUT (06:53)
[2023-06-05] MEDS: pantoprazole DR 40 mg Tablet PO (06:53)
[2023-06-05] MEDS: budesonide 0.5 mg/2 mL Neb INHALATION ×2 (08:04→20:35)
[2023-06-05] MEDS: albuterol 2.5 mg/3 mL Neb INHALATION ×4 (08:04→20:35)
[2023-06-05] MEDS: nicotine 14 mg Patch 1 PATCH TRANSDERMA (08:48)
--- NOTE | 2023-06-05 09:30 | MR_ITS ---
WS: [id number] MRA HEAD TECHNIQUE: Axial 3-D TOF images obtained with axial images and axial, sagittal, and coronal 2-D refor matted images. CLINICAL INFORMATION: posterior circulation stroke COMPARISON: None. FINDINGS: RIGHT dominant distal vertebral artery. Basilar artery is patent. 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 Both ICAs are patent at the skull base. Normal vascularity to the [place] and MCA territories bilaterally . No evidence of proximal flow-limiting stenosis or aneurysm. RIGHT mastoid effusion and opacification RIGHT middle ear. IMPRESSION: Unremarkable MRA head
--- NOTE | 2023-06-05 09:30 | MR_ITS ---
WS: [id number] MRI HEAD WITHOUT CONTRAST TECHNIQUE: Sagittal T1, T2 axial, T2 axial FLAIR, axial and coronal T1 images, axial susceptibility w eighted imaging, axial diffusion weighted images, and coronal T2 images were obtained. CLINICAL INFORMATION: posterior circulation stroke COMPARISON: CT 06/04/2023 FINDINGS: No evidence of restricted diffusion to suggest acute ischemia. Ventricular system and basal cisterns are patent. Mild small vessel changes. Minimal parenchymal volume loss. Normal posterior fossa. Gypsy l vascular flow voids at the skull base. No extra-axial fluid collections. No evidence of mass or mas s effect. Paranasal sinuses are well aerated. Opacification RIGHT mastoid air cells and RIGHT middle ear. LEFT mastoid air cells are well aerated. Normal posterior nasopharynx. No hemosiderin on the dane ceptibility weighted images. Normal optic chiasm and pituitary infundibulum. Mild symmetric atrophy temporal lobes and hippocampal formations. No other suspicious findings. IMPRESSION: 1. No evidence of restricted diffusion to suggest acute ischemia. 2. Mild small vessel changes. Minimal parenchymal volume loss. 3. Fluid with opacification of the RIGHT mastoid air cells and RIGHT middle ear. 4. No other acute findings.
--- NOTE | 2023-06-05 13:30 | PM.PN ---
Subjective Subjective: seen at bedside this AM mentation improved. stats he is almost back at baseline. pt has muliple medications that cross react: baclofen, effexor, tramadol, gabapentin, chantix. states he has never had a reaction like this before. this AM denies PERDOMO, CP, palpitaitons, loss of strength/sensation, loss of speech. Vitals/I&O/Wt Last Vital Signs Temp 97.8 F 06/05/23 12:00 Pulse 82 06/05/23 12:00 Resp 18 06/05/23 12:00 BP 136/86 06/05/23 12:00 Pulse Ox 96 06/05/23 12:00 O2 Del Method Room Air 06/05/23 12:00 O2 Flow Rate 2 06/04/23 15:00 06/04/23 06/05/23 06/05/23 22:59 06:59 14:59 Intake Total 2210 / 2210 1220 / 3430 1890 / 1890 Output Total 800 / 800 400 / 1200 350 / 350 Balance 1410 / 1410 820 / 2230 1540 / 1540 Weight last 48 hrs Weight 170 lb 6.4 oz Weight 170 lb Physical Exam Narrative: General: AOx3, no acute distress. thin, cachectic. Head: atraumatic, normocephalic, no mass/lesions Ears: clear external auditory canals, bilat TM w/o bulging/fluid/discharge. TM with visible landmarks, good light reflex. Hearing intact Eyes: conjunctiva clear w/o exudate or hemorrhage. non-icteric, EOM intact, PERRLA. no signs of nystagmus Nose: nasal mucosa pink, septum midline Oropharynx: poor dentition, pink moist mucosa, non-deviated tongue, no buccal nodules/lesions. no pharyngeal exudate Neck: FROM, no lymphadenopathy, no tracheal deviation, non tender, thyroid gland normal w/o mass. supple Chest: atraumatic, symmetrical CVD: RRR, normal S1 and S2, no M/R/G. 2+ pulse x 4 extremities, no JVD, no carotid bruit. Lungs: clear lung sounds in all thomas, no rhonchi, wheezing, rales. Abdomen: NT, ND, soft, NABS. No hepatosplenomegaly, no mass. umbilicus midline w/o herniation Spine: no visible deformities, FROM, 5/5 strength, no lordosis or kyphosis. Extremities: FROM and 5/5 strength in BUE and BLE. no visible joint abnormalities on active and passive ROM. Neuro: CNII-XII grossly intact. No atrophy, weakness, tremors or clonus.? 2+ DTR, no sensory abnormalities. Skin:? no rash, vesicles, lesions. Data 06/04/23 03:19 06/04/23 03:19 A&P Assessment and plan (1) Posterior circulation stroke: (2) Acute encephalopathy: (3) Abdominal aortic aneurysm (AAA) greater than 39 mm in diameter: (4) CAD (coronary artery disease): Qualifiers: Coronary Disease-Associated Artery/Lesion type: [place] artery [place] vs. transplanted heart: comanche heart Associated angina: without angina Qualified Code(s): I25.10 - Atherosclerotic heart disease of [place] coronary artery without angina pectoris (5) S/P PTCA (percutaneous transluminal coronary angioplasty): (6) Renal artery stenosis: (7) Essential hypertension: (8) Nicotine dependence, cigarettes, uncomplicated: (9) Hyperlipidemia: (10) Subclavian artery stenosis, left: Plan Acute encephalopathy -MRI and MRA negative for CVA -on admit [facility], out of tpa window in ED -concern for polypharmacy with tramadol,e ffexor, baclofen, gabapentin. MRI: 1. No evidence of restricted diffusion to suggest acute ischemia. 2. Mild small vessel changes. Minimal parenchymal volume loss. 3. Fluid with opacification of the RIGHT mastoid air cells and RIGHT middle ear. 4. No other acute findings. MRA -unremarkable NII -Cr 1.8 Anemia -h/h 12/26.3 Plan -MRI and MRA negative -moved form ICU yesterday due to improvement in mental status -neurochecks -pending ECHO, carotid US -discontinue rocephin as no concern for rocephin. -holding effexor, gabapentin and tramadol ? Seizure precautions -clinically improving -pending records -push fluids -will likely stop chantix, decrease baclofen dosage ? Full code ? Lovenox for DVT prophylaxis Attestations Medical Necessity Statement*: will require 2 overnight stays for encephalopathy Coding Level of Care Code 35757 Diagnoses Posterior circulation stroke I63.50 Acute encephalopathy G93.40 Abdominal aortic aneurysm (AAA) greater than 39 mm in diameter I71.40 Coronary artery disease involving comanche coronary artery of comanche heart without angina pectoris I25.10 Coronary Disease-Associated Artery/Lesion type: [place] artery [place] vs. transplanted heart: comanche heart Associated angina: without angina S/P PTCA (percutaneous transluminal coronary angioplasty) Z98.61 Renal artery stenosis I70.1 Essential hypertension I10 Nicotine dependence, cigarettes, uncomplicated F17.210 Hyperlipidemia E78.5 Subclavian artery stenosis, left I77.1
[2023-06-05] MEDS: atorvastatin 40 mg Tablet 20 MG PO (20:45)
[2023-06-05] MEDS: mirtazapine 30 mg Tablet PO (20:45)
[2023-06-06] VITALS (8 sets, daily range): BP systolic 126–130; BP diastolic 73–87; PULSE 78–92; RESP 16–18; TEMP 36.5–36.7; O2SAT 95–96
[2023-06-06] MEDS: DILTIAZEM HCL 90 MG 90 EACH PO (02:16)
[2023-06-06] MEDS: sodium chloride 0.9% 1,000 ML 125 ML IV ×2 (02:17→11:02)
[2023-06-06] MEDS: ondansetron 2 mg/ML SDV 2 mL 4 MG IVP (02:38)
[2023-06-06 05:18] LABS: Basophils # 0.1 10^3/uL (0.0-0.1); Basophils % 0.9 %; Eosinophils # 0.2 10^3/uL (0.0-0.8); Eosinophils % 2.4 %; Hematocrit 31.3 % (37-53); Lymphocytes # 1.4 10^3/uL (0.8-4.8); Lymphocytes % 14.5 %; Mean Corpuscular HGB Conc 32.6 g/dL (30-55); Mean Corpuscular Hemoglobin 31.6 pg (27-33); Mean Corpuscular Volume 96.9 fl (82-101); Mean Platelet Volume 9.5 fL (7.4-10.4); Monocytes # 0.6 10^3/uL (0.2-0.9); Monocytes % 6.8 %; Neutrophils % 74.8 %; Nucleated Red Blood Cells % 0 %; Platelet Count 265 10^3/cmm (157-399); Red Blood Count 3.23 10^6/uL (3.85-5.65); Red Cell Distribution Width 13.4 % (12.1-15.1); White Blood Count 9.36 10^3/uL (3.29-11.43)
[2023-06-06] MEDS: clopidogrel 75 mg Tablet PO (05:33)
[2023-06-06] MEDS: aspirin 81 mg EC Tablet PO (05:33)
[2023-06-06] MEDS: pantoprazole DR 40 mg Tablet PO (05:33)
[2023-06-06] MEDS: finasteride 5 mg Tablet PO (05:33)
[2023-06-06] MEDS: levothyroxine 150 mcg Tablet PO (05:33)
[2023-06-06 05:43] LABS: Alanine Aminotransferase 14 U/L (0-41); Albumin Level 3.2 g/dL (3.5-5.2); Alkaline Phosphatase 144 U/L (40-130); Anion Gap 14.4 (5-19); Aspartate Amino Transferase 19 U/L (0-40); Blood Urea Nitrogen 12 mg/dL (8-23); Calcium 8.2 mg/dL (8.5-10.5); Carbon Dioxide 22 mmol/L (22-29); Chloride 106 mmol/L (98-107); Globulin 3.3 g/dL (1.3-4.6); Glomerular Filtration Rate 67.2 mL/min (90-130); Glucose 86 mg/dL (65-115); Osmolality Calculated 287 mOsm/kg (285-295); Potassium 3.4 mmol/L (3.5-5.1); Sodium 139 mmol/L (136-145); Total Bilirubin 0.3 mg/dL (0.15-1.2); Total Protein 6.5 g/dL (6.6-8.7)
[2023-06-06] MEDS: budesonide 0.5 mg/2 mL Neb INHALATION (07:33)
[2023-06-06] MEDS: albuterol 2.5 mg/3 mL Neb INHALATION (07:33)
[2023-06-06] MEDS: pantoprazole 40 mg SDV IVP (08:25)
--- NOTE | 2023-06-06 09:07 | PC.CHAP ---
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 [] Patient/Family/Request visit [] Outpatient visit [] Follow-up visit [] Physician referral [] Code/Alert [x] Routine visit [] Staff referral [] Actively dying [] Patient sleeping [] Family support [] [] Out of room [] Palliative care [] [] Receiving care in room [] Pre-surgical visit [] Trauma [] Long length of stay [] ICU visit [] Other: Relational/Emotional Strength [x] Patient feels connected with others/family/visitors/staff [] Distress [] Loneliness/isolation [] Abandonment Spirituality of Patient [x] Person of Aracelis [] Attends Jehovah'S Witness of their Aracelis [x] Believes in Prayer [] Reads Bible or Latter-Day materials [] There are Spiritual issues to be addressed Floorleader Interventions [x] Prayer [x] Active listening [] Non-anxious presence [x] Spiritual/emotional support [] Crisis/trauma care [] Spiritual counseling [] Bereavement support [] Provided bereavement packet [] Provided Bible/devotional materials [] Provided toy/stuffed animal, coloring book to patient or family member [] Provided Communion [] Anointing/[place] [] Salvation [x] Completed spiritual assessment [] Other: Impact on Illness or Injury [] Angry [] Fearful [] Anxious [] Often cries [] Exhaustion [] Unable to work [] Unable to attend sikhism [] Unable to walk/stand [] Unable to read [] Unable to drive [] Unable to eat/drink [] Unable to sleep [] Unable to be with family [] Patient intubated [] Other: Summary Time spent with patient 5 min
[2023-06-06] MEDS: cefTRIAXone 1,000 MG in sodium chloride 0.9% (plus) 50 ML 100 MG IV (11:02)
--- NOTE | 2023-06-06 11:32 | P.DS_ITS ---
Discharge Providers Date of Admission: 06/04/23 06:04 Date of Discharge: June 06, 2023 Attending Provider at Admission: Sudhir Borden MD Attending Provider at Discharge: Andre Quinteros MD Consults: none Primary Care Provider: Simi Vital DO Diagnoses at Discharge Discharge Diagnosis (1) Posterior circulation stroke: Status: Acute (2) Acute encephalopathy: Status: Acute (3) Abdominal aortic aneurysm (AAA) greater than 39 mm in diameter: Status: Acute (4) CAD (coronary artery disease): Status: Acute Qualifiers: Coronary Disease-Associated Artery/Lesion type: pala artery [place] vs. 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 Presented to our ER on Monday night with acute encephalopathy.? Patient was unable to be awakened when he first came in.? Differentials included stroke versus polypharmacy.? Multiple medications were held including gabapentin and opiates.? Patient was alert awake oriented after about 6 hours of admission.? Given his quick improvement with holding multiple medications, most likely this was related to polypharmacy.? CT head, MRI head, and CTA negative for abnormalities. on day 2 of admission mentation improved. determined to be combination of effexor, baclofen, tramadol, gabapentin which likely caused encephalopathy. ECHO was ordered which showed possible mass on aortic valve. was kept overnight to have TRENT due to incidental finding; however, due to inability to have TRENT done on 06/06/23 and pts staunch AMA desire, we will do this as outpatient. Discussed with Dr. Bose. At time of discharge patient had no signs fo encephalopathy. will order TRENT as outpatient. Physical Exam Narrative: General: AOx3, no acute distress. thin, cachectic. psych: no signs of depression, anxiety, or aggitation Head: atraumatic, normocephalic, no mass/lesions Chest: atraumatic, symmetrical CVD: RRR, normal S1 and S2, no M/R/G. 2+ pulse x 4 extremities, no JVD, no carotid bruit. Lungs: clear lung sounds in all thomas, no rhonchi, wheezing, rales. Abdomen: NT, ND, soft, NABS. No hepatosplenomegaly, no mass. umbilicus midline w/o herniation Extremities: FROM and 5/5 strength in BUE and BLE. no visible joint abnormalities on active and passive ROM. Neuro: CNII-XII grossly intact. No atrophy, weakness, tremors or clonus.? 2+ DTR, no sensory abnormalities. Skin:? no rash, vesicles, lesions. Discharge Data Studies Completed and Pending Completed Studies During Hospitalization Category [place] [id number] Stat Cat Scan 06/04/23 07:[address] head wo con* [id number] Stat Cat Scan 06/04/23 03:48 Completed XR chest 1V portable [id number] Stat Exams 06/04/23 03:48 Completed MR angio head wo con [id number] Stat MRI 06/05/23 09:30 Completed MR head wo con* [id number] Stat MRI 06/05/23 09:30 Completed CV carotid duplex BI* [id number] Stat Ultrasound 06/04/23 06:30 Completed CV. echo complete* [id number] Routine Ultrasound 06/04/23 07:52 Completed Pending at discharge Category Date Time Status CV. echo transesophageal [id number] Routine Ultrasound 06/06/23 10:00 Ordered Radiology Impressions Chest X-Ray 06/04/23 03:48 IMPRESSION: No acute findings. Head CT 06/04/23 03:48 IMPRESSION: Negative for acute intracranial pathology. Carotid Doppler Study 06/04/23 06:30 IMPRESSION: No carotid arterial stenosis. REFERENCES: SRU CRITERIA. The degree of internal carotid artery stenosis is based on criteria defined by the Society of Radiologists in Ultrasound (SRU). Normal is no stenosis. Mild is less than 50% stenosis. Moderate is 50-69% stenosis. Severe is greater than 69% stenosis to near occlusion. Near occlusion is a markedly narrowed lumen. Total occlusion is no detectable patent lumen. Chest/Abdomen/Pelvis CT 06/04/23 07:09 IMPRESSION: There is mild chronic air trapping emphysematous appearance present. No lobar consolidation or cardiac decompensation is appreciated. IMPRESSION: 1. There appears to be some mild hepatic steatosis along with gallbladder sludge. Consider hepatobiliary profile studies. 2. There is interval aortic bifurcation stent graft material present. There appears to be some subtle perivascular stranding at this level as well as some extension to the femoral, iliac margins. Consider if there is history of recent intervention as this could present in this fashion. Some additional processes including vasculitis could also present in this fashion. As it abuts the venous vessels, consider lower extremity venous ultrasound. CTA abdomen could also be performed for further evaluation. THIS REPORT CONTAINS FINDINGS THAT MAY BE CRITICAL TO PATIENT CARE. The case was discussed via telephone conference at 9:31 AM CDT on 06/04/[address] Bacon. The findings were acknowledged and understood. Laboratory Results WBC 9.36 10^3/uL (3.29-11.43) 06/06/23 04:53 RBC 3.23 10^6/uL (3.85-5.65) L 06/06/23 04:53 Hgb 10.20 g/dL (11.27-16.99) L 06/06/23 04:53 Hct 31.3 % (37-53) L 06/06/23 04:53 MCV 96.9 fl (82-101) 06/06/23 04:53 MCH 31.6 pg (27-33) 06/06/23 04:53 MCHC 32.6 g/dL (30-55) 06/06/23 04:53 RDW 13.4 % (12.1-15.1) 06/06/23 04:53 Plt Count 265 10^3/cmm (157-399) 06/06/23 04:53 MPV 9.5 fL (7.4-10.4) 06/06/23 04:53 Neut % (Auto) 74.8 % 06/06/23 04:53 Lymph % (Auto) 14.5 % 06/06/23 04:53 [place] % (Auto) 6.8 % 06/06/23 04:53 Eos % (Auto) 2.4 % 06/06/23 04:53 Baso % (Auto) 0.9 % 06/06/23 04:53 Neut # (Auto) 7.00 10^3/uL (1.8-7.7) 06/06/23 04:53 Lymph # (Auto) 1.4 10^3/uL (0.8-4.8) 06/06/23 04:53 [place] # (Auto) 0.6 10^3/uL (0.2-0.9) 06/06/23 04:53 Eos # (Auto) 0.2 10^3/uL (0.0-0.8) 06/06/23 04:53 Baso # (Auto) 0.1 10^3/uL (0.0-0.1) 06/06/23 04:53 Nucleated RBC % (auto) 0 % 06/06/23 04:53 Nucleated RBCs # 0.0 /100WBC 06/06/23 04:53 ESR 47 mm/hr (0-10) H 06/04/23 03:19 PT 13.50 SECONDS (12.1-14.9) 06/04/23 03:19 INR 1.00 (0.8-1.2) 06/04/23 03:19 APTT 33.4 SECONDS (23.9-36.7) 06/04/23 03:19 Specimen Type Arterial 06/04/23 04:00 Sample Site Brachial, right 06/04/23 04:00 ABG pH 7.35 (7.35-7.45) 06/04/23 04:00 ABG pCO2 44.0 mmHg (35-45) 06/04/23 04:00 ABG pO2 54.0 mmHg (80.0-100.0) L 06/04/23 04:00 ABG PO2/FiO2 Ratio 0 06/04/23 04:00 ABG HCO3 24.3 mmol/L (22-26) 06/04/23 04:00 ABG Base Excess -1.4 mmol/L (-2.0-2.0) 06/04/23 04:00 Jarret Test Pos 06/04/23 04:00 Hematocrit 30.2 % (42-52) L 06/04/23 04:00 O2 Delivery Device None 06/04/23 04:00 FiO2 21.0 % 04/07/24 04:00 Billing Adjudicator ID [email or web address] 06/04/23 04:00 Sodium 139 mmol/L (136-145) 06/06/23 04:53 Potassium 3.4 mmol/L (3.5-5.1) L 06/06/23 04:53 Chloride 106 mmol/L (98-107) 06/06/23 04:53 Carbon Dioxide 22 mmol/L (22-29) 06/06/23 04:53 Anion Gap 14.4 (5-19) 06/06/23 04:53 BUN 12 mg/dL (8-23) 06/06/23 04:53 Creatinine 1.1 mg/dL (0.7-1.2) 06/06/23 04:53 GFR Calculation 67.2 mL/min (90-130) L 06/06/23 04:53 Glucose 86 mg/dL (65-115) 06/06/23 04:53 POC Glucose 140 mg/dL (70-110) H 06/04/23 03:17 Estimat Average Glucose 111 06/04/23 03:19 Hemoglobin A1c 5.5 % (4.0-6.0) 06/04/23 03:19 Calculated Osmolality 287 mOsm/kg (285-295) 06/06/23 04:53 Lactic Acid 1.3 mmol/L (0.5-2.2) 06/04/23 03:19 Calcium 8.2 mg/dL (8.5-10.5) L 06/06/23 04:53 Total Bilirubin 0.3 mg/dL (0.15-1.2) 06/06/23 04:53 AST 19 U/L (0-40) 06/06/23 04:53 ALT 14 U/L (0-41) 06/06/23 04:53 Alkaline Phosphatase 144 U/L (40-130) H 06/06/23 04:53 Ammonia 21 umol/L (16-60) 06/04/23 08:56 Creatine Kinase 224 U/L (39-308) 06/04/23 03:19 Troponin T Baseline 21 ng/L (0-15) H 06/04/23 03:19 Troponin T 120 Minute 20.06 ng/L (0-15) H 06/04/23 05:26 Delta Troponin T -0.94 ABS# (0-10) L 06/04/23 05:26 Troponin T Hi Sens 6Hr 21.04 ng/L (0-15) H 06/04/23 08:56 Troponin T Hi Sens 6Hr Delta 0.04 ng/L (0-12) 06/04/23 08:56 C-Reactive Protein 112.0 mg/L (0.0-4.9) H 06/04/23 03:19 Total Protein 6.5 g/dL (6.6-8.7) L 06/06/23 04:53 Albumin 3.2 g/dL (3.5-5.2) L 06/06/23 04:53 Globulin 3.3 g/dL (1.3-4.6) 06/06/23 04:53 Triglycerides 79 mg/dL (0-150) 06/04/23 05:26 Cholesterol 98 mg/dL (0-200) 06/04/23 05:26 LDL Cholesterol, Calc 45 mg/dL (50-129) L 06/04/23 05:26 HDL Cholesterol 37 mg/dL (60-100) L 06/04/23 05:26 LDL/HDL Ratio 1.22 RATIO (0.00-3.22) 06/04/23 05:26 Cholesterol/HDL Ratio 2.65 mg/dL (1.0-5.00) 06/04/23 05:26 TSH 1.49 uIU/mL (0.27-4.20) 06/04/23 05:26 Urine Color Dark yellow (Yellow) 06/04/23 04:34 Urine Appearance Clear (CLEAR) 06/04/23 04:34 Urine pH 5 (5-7) 06/04/23 04:34 Ur Specific [place] 1.015 (1.005-1.030) 06/04/23 04:34 Urine Protein Neg (Negative) 06/04/23 04:34 Urine Glucose (UA) Norm (Normal) 06/04/23 04:34 Urine Ketones Negative (Negative) 06/04/23 04:34 Urine Blood 2+ (Negative) H 06/04/23 04:34 Urine Nitrate Negative (Negative) 06/04/23 04:34 Urine Bilirubin Neg (Negative) 06/04/23 04:34 Urine Urobilinogen 1 mg/dL (Negative) H 06/04/23 04:34 Ur Leukocyte Esterase Negative (Negative) 06/04/23 04:34 Urine RBC 5-10 /hpf (0-2) H 06/04/23 04:34 Urine WBC 5-10 /hpf (0-5) H 06/04/23 04:34 Ur Squamous Epith Cells 0-4 /hpf (0-5) H 06/04/23 04:34 Amorphous Sediment Not Reportable 06/04/23 04:34 Urine Bacteria Trace /hpf (NONE) 06/04/23 04:34 Hyaline Casts 5-10 /lpf H 06/04/23 04:34 Coarse Granular Casts 5-10 /lpf H 06/04/23 04:34 Urine Opiates Screen Negative ng/mL (Negative) 06/04/23 04:34 Ur Barbiturates Screen Negative ng/mL (Negative) 06/04/23 04:34 Ur Phencyclidine Scrn Negative ng/mL (Negative) 06/04/23 04:34 Ur Amphetamines Screen Negative ng/mL (Negative) 06/04/23 04:34 U Benzodiazepines Scrn Negative ng/mL (Negative) 06/04/23 04:34 Urine Cocaine Screen Negative ng/mL (Negative) 06/04/23 04:34 U Marijuana (THC) Screen Negative ng/mL (Negative) 06/04/23 04:34 Ethyl Alcohol < 10 mg/dL (0-10) 06/04/23 03:19 Vitals Last Vital Signs Temp 97.9 F 06/06/23 10:46 Pulse 90 06/06/23 10:46 Resp 16 06/06/23 10:46 BP 130/87 06/06/23 10:46 Pulse Ox 96 06/06/23 10:46 O2 Del Method Room Air 06/06/23 10:46 O2 Flow Rate 2 06/04/23 15:00 Discharge Plan Discharge Patient Disposition: Home Condition: Fair Prescriptions: New gabapentin 100 mg capsule 100 mg PO BID Qty: 60 0RF Continued finasteride 5 mg tablet 5 mg PO QAM simvastatin 40 mg tablet 40 mg PO BEDTIME pantoprazole 40 mg tablet,delayed release (DR/EC) 40 mg PO QAM aspirin 81 mg tablet,delayed release (DR/EC) 81 mg PO QAM clopidogrel 75 mg tablet 75 mg PO QAM Hold Instructions: Resume on 01/03/20. mirtazapine [Remeron] 30 mg tablet 30 mg PO BEDTIME tramadol 50 mg tablet 50 mg PO DAILY venlafaxine 150 mg capsule,extended release 24hr See Rx Instructions .ROUTE .COMPLEX Qty: 30 0RF Dose Instruction: Take 1 capsule by mouth in the morning Rx Instructions: Take 1 capsule by mouth in the morning budesonide-formoterol 160-4.5 mcg/actuation HFA aerosol inhaler 2 puff inhalation BID baclofen 20 mg tablet See Rx Instructions .ROUTE .COMPLEX Rx Instructions: 10mg po qam and 20mg at bedtime levothyroxine 150 mcg tablet 150 mcg PO QAM nitroglycerin [Nitrostat] 0.4 mg Tablet, Sublingual 0.4 mg SUBLINGUAL Q5M PRN (Reason: Chest Pain) Rx Instructions: do not exceed 3 doses per episode diltiazem HCl 90 mg capsule,extended release 12 hr 90 mg PO Q12H losartan 50 mg tablet 50 mg PO DAILY isosorbide dinitrate 30 mg tablet 15 mg PO BEDTIME albuterol sulfate 90 mcg/actuation HFA aerosol inhaler 2 puff INHALATION Q4H PRN (Reason: Shortness Of Breath Or Wheezing) Discontinued gabapentin 300 mg capsule 300 mg PO BID Qty: 180 2RF Discharge Orders: Discharge Order (Routine); Ordered 06/06/23 Ordered By: Andre Quinteros Other Ambulatory Orders: CV. echo transesophageal [id number] (Routine) Timeframe: 1 Week Location: [facility] Ordered By: Andre Quinteros Referrals: Simi Vital DO [Primary Care Provider] - 06/13/23 10:20 am Andre Quinteros MD [Physician] - Discharge Diet: Cardiac Discharge Activity: Resume usual activity Patient Instructions: Opioid Safety Discharge Attestations Time Spent in Discharge Care*: less than 30 min Status at Discharge: Cognitive status at discharge: cognitively intact , Behavioral status at discharge: cooperative , Quality Metrics Clinical Quality Measures [ No reported AMI, CVA or VTE this stay] Coding Level of Care Code 90333 Diagnoses Posterior circulation stroke I63.50 Acute encephalopathy G93.40 Abdominal aortic aneurysm (AAA) greater than 39 mm in diameter I71.40 Coronary artery disease involving pala coronary artery of pala heart without angina pectoris I25.10 Coronary Disease-Associated Artery/Lesion type: pala artery [place] vs. transplanted heart: pala heart Associated angina: without angina S/P PTCA (percutaneous transluminal coronary angioplasty) Z98.61 Renal artery stenosis I70.1 Essential hypertension I10 Nicotine dependence, cigarettes, uncomplicated F17.210 Hyperlipidemia E78.5 Subclavian artery stenosis, left I77.1 Polypharmacy Z79.899 Aortic valve mass I35.8
== END 2023-06-06 12:24 | disposition home or self-care (01) | DRG 71 ==
LOC: ER 06:03 → MEDSURG 06:11 → ICU 06:48 → MEDSURG 15:15
PROVIDERS: Admitting Provider Family Medicine; Emergency Provider Emergency Medicine; PCP Family Medicine; Visit Provider Family Medicine
DX: G93.40 Encephalopathy, unspecified (principal); N17.9 Acute kidney failure, unspecified; F17.210 Nicotine dependence, cigarettes, uncomplicated; I10 Essential (primary) hypertension; E78.5 Hyperlipidemia, unspecified; E03.9 Hypothyroidism, unspecified; I71.40 Abdominal aortic aneurysm, without rupture, unspecified; I73.9 Peripheral vascular disease, unspecified; I70.90 Unspecified atherosclerosis; D64.9 Anemia, unspecified; J44.9 Chronic obstructive pulmonary disease, unspecified; I51.89 Other ill-defined heart diseases; I70.1 Atherosclerosis of renal artery; Z95.828 Presence of other vascular implants and grafts; I25.10 Atherosclerotic heart disease of native coronary artery without angina pectoris; Z95.5 Presence of coronary angioplasty implant and graft
CPT/HCPCS: 36415; 36416; 36600; 51701; 70450; 70544; 70551; 71045; 71250; 74176; 80053; 80061; 80306; 80307; 81001; 82140; 82550; 82803; 82962; 83036; 83605; 84443; 84484; 85025; 85610; 85651; 85730; 86140; 93005; 93306; 93880; 94640; 96372; 96374; 96376; 99285; C9113; J0696; J1650; J2310; J2405; J7030; J7613; J7626

== ENCOUNTER → 2023-07-10 13:35 | Outpatient (BNVA) | payer MEDICARE, MEDICAID, SELFPAY | PROVIDERS: PCP Family Medicine; Referring Provider Nurse Practitioner Family; Visit Provider Surgery | DX: K21.9 Gastro-esophageal reflux disease without esophagitis (principal); R10.9 Unspecified abdominal pain | CPT/HCPCS: 99204 ==

== ENCOUNTER 2023-07-19 07:39 | Outpatient (CLI) | payer MEDICARE, MEDICAID, SELFPAY ==
--- NOTE | 2023-07-19 08:00 | US_ITS ---
WS: [id number] RIGHT UPPER QUADRANT ULTRASOUND HISTORY: abdominal pain COMPARISON: None available. Liver: 15.9 cm in length. Normal size liver and echogenicity. No bile duct dilatation or mass. Portal Vein: Normal hepatopetal flow with monophasic waveform. Gallbladder: Normally distended gallbladder with no stones or wall thickening. CBD: 0.3 cm Pancreas: Normal size and echogenicity. Right kidney: 9.9 cm in length. Normal size kidney. Cortical cyst from the lower pole measures 7 x 7 x 7 mm. Aorta and IVC: Unremarkable abdominal aorta and IVC. No ascites. US/US gall bladder [id number] IMPRESSION: 1. Normal gallbladder. 2. Cortical cyst lower pole RIGHT kidney measures 7 mm.
== END 2023-07-19 07:40 | disposition home or self-care (01) ==
LOC: RAD 07:39
PROVIDERS: PCP Family Medicine; Visit Provider Surgery
DX: N28.1 Cyst of kidney, acquired (principal); R10.9 Unspecified abdominal pain
CPT/HCPCS: 76705

== ENCOUNTER 2023-08-23 07:43 | Day surgery (SDC) | payer MEDICARE, MEDICAID, SELFPAY ==
[2023-08-23 08:03] VITALS: BP 116/70; PULSE 90; RESP 14; TEMP 37.2; O2SAT 95; BMI 21.7
[2023-08-23] MEDS: sodium chloride 0.9% 1,000 ML 30 ML IV (08:15)
--- NOTE | 2023-08-23 09:01 | PM.MISC ---
Miscellaneous Note Note: Patient had TTE recently showing possible aortic valve mass that was supposed to be further explored via TRENT, however this has yet to be completed. Will postpone for further elucidation after TRENT. patient also stating he has had aortic stent placed in his vein in the last couple months and has stopped his plavix for 5 days. Instructed patient to resume anticoagulation today.
== END 2023-08-23 09:41 | disposition home or self-care (01) ==
LOC: GILAB 07:44
PROVIDERS: PCP Family Medicine; Visit Provider Surgery
PROC: 0DJ08ZZ Inspection of Upper Intestinal Tract, Via Natural or Artificial Opening Endoscopic (ICD-10-PCS; CPT 43235; principal; 2023-08-23 09:00)
DX: I35.8 Other nonrheumatic aortic valve disorders (principal)
CPT/HCPCS: J7030

== ENCOUNTER → 2023-09-18 11:44 | Outpatient (BNVA) | payer MEDICARE, MEDICAID, SELFPAY | PROVIDERS: PCP Family Medicine; Visit Provider Internal Medicine | DX: I25.10 Atherosclerotic heart disease of native coronary artery without angina pectoris (principal); I73.9 Peripheral vascular disease, unspecified; Z98.890 Other specified postprocedural states; E78.5 Hyperlipidemia, unspecified; I10 Essential (primary) hypertension; I71.9 Aortic aneurysm of unspecified site, without rupture; I77.1 Stricture of artery; I70.1 Atherosclerosis of renal artery; I35.8 Other nonrheumatic aortic valve disorders; Z72.0 Tobacco use | CPT/HCPCS: 99214 ==

== ENCOUNTER 2023-11-03 10:49 | Day surgery (SDC) | payer MEDICARE, MEDICAID, SELFPAY ==
--- NOTE | 2023-11-03 07:34 | ANES.PREANE2 ---
Pre-Anesthetic Assessment Height/Weight: Height 6 ft Operation Date: 11/03/23 12:00 Proposed Procedures p TRENT 85540, I35.8(Not Applicable) - Satya Myrick M.D Familial anesthetic complications: none Social Tobacco and No alcohol Exam alert, oriented x 3, clear to auscultation bilaterally (Diminished bilaterally) and regular rate & rhythm Systolic flow murmur heard on auscultation Airway Submandibular: within normal limits Cervical ROM: within normal limits Mallampati: Class I Dentition: false (Edentulous) Anesthetic Plan ASA status: 3 Anesthesia: MAC Other: No prior issues with anesthesia NPO since midnight BPH loc w urin obs/LUTS Aortic aneurysm, status post stent in May 2023 COPD with acute exacerbation Renal artery stenosis Essential hypertension CAD (coronary artery disease) Hypertension on losartan Hypothyroidism on Synthroid GERD (gastroesophageal reflux disease) TTE in May 2023 showing EF 55 to 60% with a possible aortic mass Patient states he is currently asymptomatic Plan for MAC anesthetic Medications/Allergies Home Medications Medication Instructions Recorded Confirmed Last Taken Type aspirin 81 mg tablet,delayed 81 mg PO QAM 04/22/19 11/01/23 11/02/23 History release clopidogrel 75 mg tablet 75 mg PO QAM 04/22/19 11/01/23 11/03/23 06:30 History finasteride 5 mg tablet 5 mg PO QAM 04/22/19 11/01/23 11/03/23 06:30 History pantoprazole 40 mg tablet,delayed 40 mg PO QAM 04/22/19 11/01/23 11/03/23 06:30 History release simvastatin 40 mg tablet 40 mg PO BEDTIME 04/22/19 11/01/23 11/02/23 History baclofen 20 mg tablet See Rx Instructions .Route .COMPLEX 04/16/21 11/01/23 11/03/23 06:30 History diltiazem HCl 90 mg 90 mg PO Q12H 04/16/21 11/01/23 11/03/23 06:30 History capsule,extended release 12 hr levothyroxine 150 mcg tablet 150 mcg PO QAM 04/16/21 11/01/23 11/03/23 06:30 History nitroglycerin 0.4 mg sublingual 0.4 mg sublingual Q5M PRN Chest 04/16/21 11/01/23 Unknown History tablet (Nitrostat) Pain mirtazapine 30 mg tablet (Remeron) 30 mg PO BEDTIME 05/13/21 11/01/23 11/03/23 06:30 History tramadol 50 mg tablet 50 mg PO DAILY 06/23/22 11/01/23 11/03/23 06:30 History albuterol sulfate 90 mcg/actuation 2 puff inhalation Q4H PRN 06/04/23 11/01/23 11/03/23 06:30 History aerosol inhaler Shortness Of Breath Or Wheezing isosorbide dinitrate 30 mg tablet 15 mg PO BEDTIME 06/04/23 11/01/23 11/02/23 History losartan 50 mg tablet 50 mg PO DAILY 06/04/23 11/01/23 11/02/23 History gabapentin 100 mg capsule 100 mg PO BID #60 caps 06/06/23 11/01/23 11/03/23 06:30 Rx venlafaxine 150 mg 150 mg PO QAM 11/01/23 11/01/23 11/03/23 06:30 History capsule,extended release 24 hr Allergies Allergy/AdvReac Type Severity Reaction Status Date / Time tetracycline Allergy Nausea Verified 11/01/23 12:52 PFS Anesthesia Medical History BPH loc w urin obs/LUTS Aortic aneurysm COPD with acute exacerbation Renal artery stenosis Peripheral arterial disease with history of revascularization Essential hypertension CAD (coronary artery disease) Hyperlipidemia Hypothyroidism GERD (gastroesophageal reflux disease) Generalized anxiety disorder Urinary retention Balanitis Surgical History Status post left inguinal hernia repair (01/01/20) History of esophagogastroduodenoscopy (EGD) (~2019) dr. anderson History of colonoscopy with polypectomy (~2019) dr. anderson H/O heart artery stent Family History Mother , AT AGE 64 Renal failure Alzheimer disease Father , AT AGE 48 Lung cancer Social History Smoking and tobacco/nicotine status: current every day tobacco/nicotine user cigarettes Packs smoked per day: 2.5 Years cigarettes smoked: 45 Alcohol intake: never Substance/Drug Use: never Marital status: Current occupational status: disabled Data Anesthesia Cardiac Studies: Echocardiogram 06/04/23 Sestamibi Stress Test (Cardiology) 07/13/22
--- NOTE | 2023-11-03 10:55 | USCV_ITS ---
Balta Kwan Age: 68 Gender: M : 1955 Exam Date: 11/03/2023 12:36 Ordering Phys: Satya Myrick M.D ([email or web address]) Technologist: WHIT [place] [facility] [place]: EVAL FOR AORTIC MASS BP: 6 / 0 HR: Rhythm: Sinus Technical Quality: Adequate MEASUREMENTS (Male / Female) Normal Values Medications Patient given IV sedation by anesthesia service, for details please refer to the anesthesia report. Complications None. Proc. Components The patient was brought to the TRENT examination room in a fasting state after obtaining an informed consent. TRENT was performed at multiple levels. The patient tolerated the procedure well and there were no complications. FINDINGS Left Ventricle Normal left ventricular cavity size. Normal left ventricular systolic function. No regional wall motion abnormalities. Left ventricular ejection fraction is estimated at 60 %. Right Ventricle The right ventricle is normal in size and function. Right Atrium The right atrium is normal in size. Left Atrium Mildly increased left atrial size. LA Appendage Normal left atrial appendage. No thrombus visualized in the left atrial appendage. IA Septum Normal interatrial septum. No patent foramen ovale. No evidence for an atrial septal defect. No noefx-cy-iebb shunt seen at the atrial level with contrast. Mitral Valve Moderately thickened mitral valve. Mild mitral annular calcification. No mitral valve stenosis. Mild mitral valve regurgitation. Aortic Valve Moderate aortic valve calcification. Moderate aortic valve stenosis. Aortic valve area by planimetry is 1.34 cm squared, trace aortic valve regurgitation. There appeared to be no mass attached to aortic valve. Tricuspid Valve Structurally normal tricuspid valve without significant stenosis or regurgitation. Pulmonary artery systolic pressure is normal. Pulmonic Valve Structurally normal pulmonic valve without significant stenosis. There is no pulmonic regurgitation. Pericardium Normal pericardium without effusion. Aorta Normal ascending aorta dimension. CONCLUSIONS 1-Normal left ventricular cavity size. Normal left ventricular systolic function. No regional wall motion abnormalities. Left ventricular ejection fraction is estimated at 60 %. 2-Moderate aortic valve calcification. Moderate aortic valve stenosis. Aortic valve area by planimetry is 1.34 cm squared, trace aortic valve regurgitation. There appeared to be no mass attached to aortic valve. 3-Normal interatrial septum. No patent foramen ovale. No evidence for an atrial septal defect. No qaigg-su-htht shunt seen at the atrial level with contrast. 4-There is no pericardial effusion. 5-No mass noted on the aortic valve Lexi Martin MD (Electronically Signed) Final Date: 03 November 2023 18:17 S
[2023-11-03 11:20] VITALS: BMI 20.3
[2023-11-03] MEDS: sodium chloride 0.9% 1,000 ML 30 ML IV (11:38)
--- NOTE | 2023-11-03 13:01 | PM.HP ---
Providers/Chief Complaint Admitting Physician: Lexi gordillo MD Primary Care Provider: Simi Vital DO Chief Complaint: VM 11/01 History of Present Illness Balta Kwan is a 68 year old male Past medical history significant hypertension hyperlipidemia on the suspicion of aortic mass noted on transthoracic echo he is here for transesophageal echocardiogram today. Patient has been explained all risk benefit and alternative for the procedure. Medications/Allergies Home Medications Medication Instructions Recorded Confirmed Last Taken Type aspirin 81 mg tablet,delayed 81 mg PO QAM 04/22/19 11/01/23 11/02/23 History release clopidogrel 75 mg tablet 75 mg PO QAM 04/22/19 11/01/23 11/03/23 06:30 History finasteride 5 mg tablet 5 mg PO QAM 04/22/19 11/01/23 11/03/23 06:30 History pantoprazole 40 mg tablet,delayed 40 mg PO QAM 04/22/19 11/01/23 11/03/23 06:30 History release simvastatin 40 mg tablet 40 mg PO BEDTIME 04/22/19 11/01/23 11/02/23 History baclofen 20 mg tablet See Rx Instructions .Route .COMPLEX 04/16/21 11/01/23 11/03/23 06:30 History diltiazem HCl 90 mg 90 mg PO Q12H 04/16/21 11/01/23 11/03/23 06:30 History capsule,extended release 12 hr levothyroxine 150 mcg tablet 150 mcg PO QAM 04/16/21 11/01/23 11/03/23 06:30 History nitroglycerin 0.4 mg sublingual 0.4 mg sublingual Q5M PRN Chest 04/16/21 11/01/23 Unknown History tablet (Nitrostat) Pain mirtazapine 30 mg tablet (Remeron) 30 mg PO BEDTIME 05/13/21 11/01/23 11/03/23 06:30 History tramadol 50 mg tablet 50 mg PO DAILY 06/23/22 11/01/23 11/03/23 06:30 History albuterol sulfate 90 mcg/actuation 2 puff inhalation Q4H PRN 06/04/23 11/01/23 11/03/23 06:30 History aerosol inhaler Shortness Of Breath Or Wheezing isosorbide dinitrate 30 mg tablet 15 mg PO BEDTIME 06/04/23 11/01/23 11/02/23 History losartan 50 mg tablet 50 mg PO DAILY 06/04/23 11/01/23 11/02/23 History gabapentin 100 mg capsule 100 mg PO BID #60 caps 06/06/23 11/01/23 11/03/23 06:30 Rx venlafaxine 150 mg 150 mg PO QAM 11/01/23 11/01/23 11/03/23 06:30 History capsule,extended release 24 hr Allergies Allergy/AdvReac Type Severity Reaction Status Date / Time tetracycline Allergy Nausea Verified 11/01/23 12:52 PFSH Acute PFSH: Medical History BPH loc w urin obs/LUTS Aortic aneurysm COPD with acute exacerbation Renal artery stenosis Peripheral arterial disease with history of revascularization Essential hypertension CAD (coronary artery disease) Hyperlipidemia Hypothyroidism GERD (gastroesophageal reflux disease) Generalized anxiety disorder Urinary retention Balanitis Surgical History Status post left inguinal hernia repair (01/01/20) History of esophagogastroduodenoscopy (EGD) (~2018) dr. anderson History of colonoscopy with polypectomy (~2018) dr. anderson H/O heart artery stent Family History Mother , AT AGE 64 Renal failure Alzheimer disease Father , AT AGE 48 Lung cancer Social History Smoking and tobacco/nicotine status: current every day tobacco/nicotine user cigarettes Packs smoked per day: 2.5 Years cigarettes smoked: 45 Alcohol intake: never Substance/Drug Use: never Marital status: Current occupational status: disabled Vitals/I&O/Wt Weight last 48 hrs Weight 150 lb Physical Exam Const: OTHER: GENERAL: Patient is alert, awake and oriented x3. NECK: No jugular vein distension. HEENT: No cyanosis. No icterus. No pallor. HEART: Regular S1 and S2 2/6 murmur LUNGS: Clear to auscultate systolic aterally. ABDOMEN: Soft, nontender nondistended. Positive bowel sounds. No guarding, rebound or tenderness. CENTRAL NERVOUS SYSTEM: Grossly nonfocal. A&P Assessment and plan (1) Aortic valve mass: Patient with aortic stenosis noted to have possible aortic stenotic mass it is the reason transesophageal echocardiogram was ordered. Today he is here for that. Further plan be devised as per progress the patient. (2) CAD (coronary artery disease): Stable. Qualifiers: Coronary Disease-Associated Artery/Lesion type: [place] artery [place] vs. transplanted heart: [place] heart Associated angina: without angina Qualified Code(s): I25.10 - Atherosclerotic heart disease of [place] coronary artery without angina pectoris Attestations Medical Necessity Statement*: Patient will be discharged soon after the procedure. Coding Level of Care Code Acute Code for [facility] Diagnoses Aortic valve mass I35.8 Coronary artery disease involving [place] coronary artery of [place] heart without angina pectoris I25.10 Coronary Disease-Associated Artery/Lesion type: [place] artery [place] vs. transplanted heart: [place] heart Associated angina: without angina
[2023-11-03 13:03] VITALS: BP 112/70; PULSE 82; RESP 16; TEMP 36.5; O2SAT 92
[2023-11-03 13:15] VITALS: BP 101/56; PULSE 83; RESP 16; O2SAT 94
[2023-11-03 13:25] VITALS: BP 98/69; PULSE 82; RESP 16; O2SAT 95
--- NOTE | 2023-11-03 13:37 | ANE.PACU2 ---
Inpatient post-anesthesia follow up: Airway intact: Yes Vital signs: Temperature 97.7 F Pulse Rate 82 Respiratory Rate 16 Blood Pressure 98/69 Pulse Oximetry 95 Oxygen Delivery Me thod Room Air Oxygen Flow Rate 5 Fraction of Inspir ed Oxygen Hydration adequate: Yes Nausea and vomiting: No Pain level: 1 Mental status: Baseline
== END 2023-11-03 13:37 | disposition home or self-care (01) ==
PROVIDERS: Internal Medicine Cardiovascular Disease; PCP Family Medicine; Visit Provider Internal Medicine
PROC: (CPT 93312; principal; 2023-11-03 12:00)
DX: I35.8 Other nonrheumatic aortic valve disorders (principal); I25.10 Atherosclerotic heart disease of native coronary artery without angina pectoris; N40.1 Benign prostatic hyperplasia with lower urinary tract symptoms; N13.8 Other obstructive and reflux uropathy; J44.9 Chronic obstructive pulmonary disease, unspecified; I10 Essential (primary) hypertension; E78.5 Hyperlipidemia, unspecified; E03.9 Hypothyroidism, unspecified; K21.9 Gastro-esophageal reflux disease without esophagitis
CPT/HCPCS: 93312; 93320; 93325; J2704; J7030

== ENCOUNTER → 2023-12-05 11:58 | Outpatient (BNVA) | payer MEDICARE, MEDICAID, SELFPAY | PROVIDERS: PCP Family Medicine; Visit Provider Specialist | DX: G43.711 Chronic migraine without aura, intractable, with status migrainosus (principal); F17.210 Nicotine dependence, cigarettes, uncomplicated; F41.1 Generalized anxiety disorder | CPT/HCPCS: 99214 ==

== ENCOUNTER 2024-01-06 08:58 | Emergency (ER) | payer MEDICARE, MEDICAID, SELFPAY ==
--- NOTE | 2024-01-06 09:01 | W.ED.GENADLT ---
HPI - General Adult General: Chief complaint: Wound/Laceration Stated complaint: left arm wound Time Seen by Provider: 01/06/24 09:00 History of Present Illness: 68-year-old male presents to the emergency room with complaint of left arm wound. He was getting up out of his chair and he slipped sustained a skin tear on the left arm on the dorsal surface of the forearm. No other injuries did not actually fall not strike his head or lose consciousness no pain in the wrist elbow or forearm. He does take aspirin and clopidogrel daily but is not on any anticoagulants. No other precipitating conditions this morning he denies abdominal pain chest pain shortness of breath bowel or bladder issues Associated symptoms: Deny chest pain, dyspnea or rash Related Data Home Medications Medication Instructions Recorded Confirmed aspirin 81 mg tablet,delayed 81 mg PO QAM 04/22/19 12/05/23 release clopidogrel 75 mg tablet 75 mg PO QAM 04/22/19 12/05/23 finasteride 5 mg tablet 5 mg PO QAM 04/22/19 12/05/23 pantoprazole 40 mg tablet,delayed 40 mg PO QAM 04/22/19 12/05/23 release simvastatin 40 mg tablet 40 mg PO BEDTIME 04/22/19 12/05/23 baclofen 20 mg tablet See Rx Instructions .Route .COMPLEX 04/16/21 12/05/23 diltiazem HCl 90 mg 90 mg PO Q12H 04/16/21 12/05/23 capsule,extended release 12 hr levothyroxine 150 mcg tablet 150 mcg PO QAM 04/16/21 12/05/23 nitroglycerin 0.4 mg sublingual 0.4 mg sublingual Q5M PRN Chest 04/16/21 12/05/23 tablet (Nitrostat) Pain mirtazapine 30 mg tablet (Remeron) 30 mg PO BEDTIME 05/13/21 12/05/23 tramadol 50 mg tablet 50 mg PO DAILY 06/23/22 12/05/23 albuterol sulfate 90 mcg/actuation 2 puff inhalation Q4H PRN 06/04/23 12/05/23 aerosol inhaler Shortness Of Breath Or Wheezing isosorbide dinitrate 30 mg tablet 15 mg PO BEDTIME 06/04/23 12/05/23 losartan 50 mg tablet 50 mg PO DAILY 06/04/23 12/05/23 Previous Rx's Medication Instructions Recorded gabapentin 100 mg capsule 100 mg PO BID #60 caps 06/06/23 venlafaxine 150 mg 150 mg PO QAM #90 caps 12/26/23 capsule,extended release 24 hr mupirocin 2 % topical ointment 1 applic topical DAILY #15 grams 01/06/24 Allergies Allergy/AdvReac Type Severity Reaction Status Date / Time tetracycline Allergy Nausea Verified 12/05/23 12:03 Review of Systems Const: Denies: fever(s) or chills Card: Denies: chest pain Resp: Denies: dyspnea GI: Denies: abdominal pain : Denies: dysuria, urinary frequency or urinary urgency Musc: Denies: neck pain or back pain Skin/Breast: Denies: rash PFSH ED PFSH: Medical History BPH loc w urin obs/LUTS Aortic aneurysm COPD with acute exacerbation Renal artery stenosis Peripheral arterial disease with history of revascularization Essential hypertension CAD (coronary artery disease) Hyperlipidemia Hypothyroidism GERD (gastroesophageal reflux disease) Generalized anxiety disorder Urinary retention Balanitis Surgical History Status post left inguinal hernia repair (01/01/20) History of esophagogastroduodenoscopy (EGD) (~2018) dr. anderson History of colonoscopy with polypectomy (~2018) dr. anderson H/O heart artery stent Family History Mother , AT AGE 64 Renal failure Alzheimer disease Father , AT AGE 48 Lung cancer Social History Smoking and tobacco/nicotine status: current every day tobacco/nicotine user cigarettes Packs smoked per day: 2.5 Years cigarettes smoked: 45 Alcohol intake: never Substance/Drug Use: never Marital status: Current occupational status: disabled Physical Exam Const: COMMON NORMALS: no acute distress GENERAL APPEARANCE: cooperative and comfortable ORIENTATION/CONSCIOUSNESS: Yes awake, Yes oriented to person, Yes oriented to place and Yes oriented to time HENMT: COMMON NORMALS: normocephalic, atraumatic and hearing grossly normal bilaterally HEAD & SCALP: normocephalic and atraumatic Resp: COMMON NORMALS: normal respiratory effort, No retractions, No use of accessory muscles and clear to auscultation bilaterally AUSCULTATION: clear to auscultation bilaterally Cardio: COMMON NORMALS: regular rate, regular rhythm and No murmurs present (Cardio) RATE: regular rate RHYTHM: regular rhythm Extremity: COMMON NORMALS: normal to inspection, capillary refill normal, no clubbing, cyanosis or edema, no calf tenderness and no pedal edema OTHER: Large skin tear on the dorsum of the left forearm not amenable to suturing his superficial. Some slight oozing stops quickly with direct pressure. Direct pressure and Telfa bandage applied with Coban Neuro: SENSORIUM/ORIENTATION: Yes oriented to person, Yes oriented to place and Yes oriented to time Skin: COMMON NORMALS: no rashes or lesions noted GENERAL SKIN EXAM: no rashes or lesions noted Course Vital Signs: Vital signs: Vital Signs Temperature 98.2 F 01/06/24 09:03 Pulse Rate 100 01/06/24 09:21 Respiratory Rate 16 01/06/24 09:03 Blood Pressure 126/73 01/06/24 09:21 Pulse Oximetry 96 01/06/24 09:21 Oxygen Delivery Me thod Room Air 01/06/24 09:03 MDM - General Adult Medical Decision Making Leave Coban in place for the next 12 hours can remove this evening apply topical antibiotic ointment once daily change wound rinse with running water. Tetanus updated follow-up as needed No radiology studies performed this visit Discharge Plan Discharge Patient Disposition: Home Clinical Impression: Skin tear Condition: Stable Prescriptions: New mupirocin 2 % ointment 1 applic topical DAILY Qty: 15 0RF No Action finasteride 5 mg tablet 5 mg PO QAM simvastatin 40 mg tablet 40 mg PO BEDTIME pantoprazole 40 mg tablet,delayed release (DR/EC) 40 mg PO QAM aspirin 81 mg tablet,delayed release (DR/EC) 81 mg PO QAM clopidogrel 75 mg tablet 75 mg PO QAM Hold Instructions: Resume on 01/03/20. mirtazapine [Remeron] 30 mg tablet 30 mg PO BEDTIME tramadol 50 mg tablet 50 mg PO DAILY venlafaxine 150 mg capsule,extended release 24hr 150 mg PO QAM Qty: 90 3RF Rx Instructions: Take 1 capsule by mouth in the morning baclofen 20 mg tablet See Rx Instructions .ROUTE .COMPLEX Rx Instructions: 10mg po qam and 20mg at bedtime levothyroxine 150 mcg tablet 150 mcg PO QAM nitroglycerin [Nitrostat] 0.4 mg Tablet, Sublingual 0.4 mg SUBLINGUAL Q5M PRN (Reason: Chest Pain) Rx Instructions: do not exceed 3 doses per episode diltiazem HCl 90 mg capsule,extended release 12 hr 90 mg PO Q12H losartan 50 mg tablet 50 mg PO DAILY isosorbide dinitrate 30 mg tablet 15 mg PO BEDTIME albuterol sulfate 90 mcg/actuation HFA aerosol inhaler 2 puff INHALATION Q4H PRN (Reason: Shortness Of Breath Or Wheezing) gabapentin 100 mg capsule 100 mg PO BID Qty: 60 0RF Discharge Orders: Discharge ED (Routine); Ordered 01/06/24 Ordered By: Jose Vu Referrals: Simi Vital DO [Primary Care Provider] - Discharge Diet: Usual diet Discharge Activity: Increase activity as tolerated Patient Instructions: Skin Tear (ED), Opioid Safety, Pain Management Activity Restrictions/Additional Instructions: Thank you for choosing [facility] for your healthcare needs today. It is very important that you follow up as instructed or that you return to the Emergency Department should you have concerns or if your condition changes or worsens in any way. You were seen emergency room after a fall. He had a skin tear on your left forearm. Recommend that you change the bandage at around 7 or 8:00 this evening. Apply the topical antibiotic ointment you are prescribed and wrapped with a Coban you were given to go home with. You can do that for the next several days. Should take about 7 to 10 days for this to heal follow-up with your primary care doctor as needed if there is signs of infection recheck with your primary care doctor Coding Level of Care Code ED Assistant Passenger Locomotive Engineer for Sukhwinder Sanches
[2024-01-06 09:03] VITALS: BP 126/74; PULSE 98; RESP 16; TEMP 36.8; O2SAT 97
[2024-01-06] MEDS: tetanus-dipt-pertussis 0.5 mL SDV IM (09:10)
[2024-01-06 09:21] VITALS: BP 126/73; PULSE 100; O2SAT 96
== END 2024-01-06 09:22 | disposition home or self-care (01) ==
PROVIDERS: Emergency Provider Family Medicine; PCP Family Medicine
DX: S51.812A Laceration without foreign body of left forearm, initial encounter (principal); W01.0XXA Fall on same level from slipping, tripping and stumbling without subsequent striking against object, initial encounter; J44.1 Chronic obstructive pulmonary disease with (acute) exacerbation; I25.10 Atherosclerotic heart disease of native coronary artery without angina pectoris; I10 Essential (primary) hypertension; F17.210 Nicotine dependence, cigarettes, uncomplicated; Z79.02 Long term (current) use of antithrombotics/antiplatelets; Z79.82 Long term (current) use of aspirin
CPT/HCPCS: 90471; 90715; 99283

== ENCOUNTER → 2024-01-08 07:45 | Outpatient (BNVA) | payer MEDICARE, MEDICAID, SELFPAY | PROVIDERS: PCP Family Medicine; Visit Provider Surgery | DX: K80.50 Calculus of bile duct without cholangitis or cholecystitis without obstruction (principal) | CPT/HCPCS: 99214 ==

== ENCOUNTER 2024-01-18 05:45 | Day surgery (SDC) | payer MEDICARE, MEDICAID, SELFPAY ==
[2024-01-18] VITALS (10 sets, daily range): BP systolic 98–140; BP diastolic 57–89; PULSE 71–97; RESP 16–18; TEMP 36.3–36.9; O2SAT 93–100; BMI 20.9
[2024-01-18] MEDS: sodium chloride 0.9% 1,000 ML 30 ML IV (06:29)
--- NOTE | 2024-01-18 06:57 | ANES.PREANE2 ---
Pre-Anesthetic Assessment Height/Weight: Height 1.83 m Weight 70.307 kg Temp Pulse Resp BP Pulse Ox O2 Del Method 98.5 F 97 18 140/89 94 Room Air 01/18/24 06:12 01/18/24 06:12 01/18/24 06:12 01/18/24 06:12 01/18/24 06:12 01/18/24 06:12 Operation Date: 01/18/24 07:00 Proposed Procedures p Laparoscopic Cholecystectomy - 60826 , K80.50(Not Applicable) - Magan Shin DO Familial anesthetic complications: None Was Beta Kathryn taken within 24 hours: N/A Was Clonidine taken within 24 hours: N/A Last intake: Intake Last Liquid Date 01/17/24 Last Liquid Time 17:00 Last Solid Date 01/17/24 Last Solid Time 17:00 Social No alcohol and No tobacco Exam alert, oriented x 3, clear to auscultation bilaterally and regular rate & rhythm Airway Mallampati: Class II Dentition: false Pulmonary Chronic Obstructive Pulmonary Disease CV/HEM Coronary Artery Disease, Hypertension and Peripheral Vascular Disease Moderate Aortic stent Renal Artery stenosis GI Gastroesophageal Reflux Disease Metabolic Hyperlipidemia Anesthetic Plan ASA status: 3 Anesthesia: General Risk of > 500 ml blood loss (7ml/kg in children): No Medications/Allergies Home Medications Medication Instructions Recorded Confirmed Last Taken Type aspirin 81 mg tablet,delayed 81 mg PO QAM 04/22/19 01/17/24 01/17/24 History release clopidogrel 75 mg tablet 75 mg PO QAM 04/22/19 01/17/24 01/13/24 History finasteride 5 mg tablet 5 mg PO QAM 04/22/19 01/17/24 01/18/24 History pantoprazole 40 mg tablet,delayed 40 mg PO QAM 04/22/19 01/17/24 01/18/24 History release simvastatin 40 mg tablet 40 mg PO BEDTIME 04/22/19 01/17/24 01/17/24 History baclofen 20 mg tablet See Rx Instructions .Route .COMPLEX 04/16/21 01/17/24 01/18/24 History diltiazem HCl 90 mg 90 mg PO Q12H 04/16/21 01/17/24 01/18/24 History capsule,extended release 12 hr levothyroxine 150 mcg tablet 150 mcg PO QAM 04/16/21 01/17/24 01/17/24 History nitroglycerin 0.4 mg sublingual 0.4 mg sublingual Q5M PRN Chest 04/16/21 01/17/24 04/22/23 History tablet (Nitrostat) Pain mirtazapine 30 mg tablet (Remeron) 30 mg PO BEDTIME 05/13/21 01/17/24 01/17/24 History tramadol 50 mg tablet 50 mg PO DAILY 06/23/22 01/17/24 01/18/24 History albuterol sulfate 90 mcg/actuation 2 puff inhalation Q4H PRN 06/04/23 01/17/24 01/18/24 History aerosol inhaler Shortness Of Breath Or Wheezing isosorbide dinitrate 30 mg tablet 15 mg PO BEDTIME 06/04/23 01/17/24 01/18/24 History losartan 50 mg tablet 50 mg PO DAILY 06/04/23 01/17/24 01/17/24 History gabapentin 100 mg capsule 100 mg PO BID #60 caps 06/06/23 01/17/24 01/18/24 Rx venlafaxine 150 mg 150 mg PO QAM #90 caps 12/26/23 01/17/24 01/18/24 Rx capsule,extended release 24 hr mupirocin 2 % topical ointment 1 applic topical DAILY #15 grams 01/06/24 01/17/24 01/10/24 Rx Allergies Allergy/AdvReac Type Severity Reaction Status Date / Time tetracycline Allergy Nausea Verified 01/18/24 06:15 Current Medications Generic Name Dose Route Start Last Admin Trade Name Freq PRN Reason Stop Dose Admin Sodium Chloride 1,000 mls @ 30 mls/hr 01/18/24 06:00 01/18/24 06:29 Sodium Chloride 0.9% IV 01/19/24 05:59 30 mls/hr .Q24H KATIE Administration PFSH Anesthesia Medical History BPH loc w urin obs/LUTS Aortic aneurysm COPD with acute exacerbation Renal artery stenosis Peripheral arterial disease with history of revascularization Essential hypertension CAD (coronary artery disease) Hyperlipidemia Hypothyroidism GERD (gastroesophageal reflux disease) Generalized anxiety disorder Urinary retention Balanitis Surgical History Status post left inguinal hernia repair (01/01/20) History of esophagogastroduodenoscopy (EGD) (~2018) dr. anderson History of colonoscopy with polypectomy (~2018) dr. anderson H/O heart artery stent Family History Mother , AT AGE 64 Renal failure Alzheimer disease Father , AT AGE 48 Lung cancer Social History Smoking and tobacco/nicotine status: current every day tobacco/nicotine user cigarettes Packs smoked per day: 2.5 Years cigarettes smoked: 45 Alcohol intake: never Substance/Drug Use: never Marital status: Current occupational status: disabled Data Anesthesia Cardiac Studies: Echocardiogram 06/04/23 Transesophageal Echocardiogram 11/03/23 Sestamibi Stress Test (Cardiology) 07/13/22
[2024-01-18] MEDS: ceFAZolin 2,000 mg SDV 2000 MG IVP (07:05)
--- NOTE | 2024-01-18 07:05 | P.HPUD_ITS ---
Surgery/Procedure H&P Update DATE OF PROCEDURE: January 18, 2024 DATE H&P PERFORMED: 01/08/24 H&P UPDATE INFORMATION: I have reviewed H&P completed within last 30 days, I have examined patient prior to procedure and No changes to prior documentation PLANNED PROCEDURE: Operation Date: 01/18/24 07:00 Proposed Procedures p Laparoscopic Cholecystectomy - 98123 , K80.50(Not Applicable) - Magan robertson, DO
[2024-01-18] MEDS: tranexamic acid 1,000 mg/10mL SDV 1000 MG IV (07:49)
[2024-01-18] MEDS: lidocaine-epi 2% PF 1:200,000 20 mL SDV XX (07:51)
--- NOTE | 2024-01-18 08:17 | P.OP_ITS ---
Operative Report Date of procedure: January 18, 2024 Surgeon: Magan Shin DO Brief History: This is a very pleasant 68-year-old gentleman who presented to my office with abdominal pain. Previous imaging indicated possible sludge in his gallbladder. He was diagnosed with biliary colic. Laparoscopic cholecystectomy was indicated. The risks and benefits explained and documented. Procedure: Preoperative diagnosis: Biliary colic Postoperative diagnosis: Same Procedure performed: Laparoscopic cholecystectomy Surgeon: Dr. Magan Shin DO Estimated blood loss: 5 mL Specimens: Gallbladder to pathology Complications: None apparent Description of procedure: Patient was wheeled into the operative room and placed on the OR table in a supine position. Abdomen was inspected prepped and draped in usual sterile fashion. Time-out was performed and all present were in agreement. A 15 blade scalp was used to make a stab incision in the left upper quadrant and intra-abd ominal insufflation was achieved using a Veress needle. After localizing the tissue incisions were made and a 5 millimeter trocar was placed into the umbilicus as well as 2 in the right upper quadrant. A 12 millimeter trocar was placed in the epigastrium. Gallbladder was grasped and elevated. The triangle of Calot was carefully dissected using blunt dissection and electrocautery until the triangle of Calot clearly identified. The cystic duct was clipped proximally and double clipped distally. The duct was then ligated proximally. The cystic artery was doubly clipped and ligated. The gallbladder was then removed from the liver bed using electrocautery. The gallbladder was removed from the abdomen using an Endo-Catch bag through the epigastric incision. The liver bed was inspected and no bleeding was seen. The abdomen was irrigated and suctioned. All ports removed. Skin was washed and dried. Incisions were closed with 4-0 Monocryl in a subcuticular interrupted fashion. Skin glue was applied. Patient tolerated the procedure well.
== END 2024-01-18 09:20 | disposition home or self-care (01) ==
PROVIDERS: PCP Family Medicine; Visit Provider Surgery
PROC: 0FT44ZZ Resection of Gallbladder, Percutaneous Endoscopic Approach (ICD-10-PCS; CPT 47562; principal; 2024-01-18 07:00)
DX: K80.50 Calculus of bile duct without cholangitis or cholecystitis without obstruction (principal); J44.9 Chronic obstructive pulmonary disease, unspecified; I25.10 Atherosclerotic heart disease of native coronary artery without angina pectoris; I10 Essential (primary) hypertension; Z95.5 Presence of coronary angioplasty implant and graft; K21.9 Gastro-esophageal reflux disease without esophagitis; E78.5 Hyperlipidemia, unspecified; Z79.82 Long term (current) use of aspirin; N40.1 Benign prostatic hyperplasia with lower urinary tract symptoms; N13.8 Other obstructive and reflux uropathy; F41.9 Anxiety disorder, unspecified; F17.210 Nicotine dependence, cigarettes, uncomplicated
CPT/HCPCS: 47562; 88304; J0131; J0690; J1100; J2371; J2405; J2704; J3010; J3490; J7030

== ENCOUNTER → 2024-01-29 08:48 | Outpatient (BNVA) | payer MEDICARE, MEDICAID, SELFPAY | PROVIDERS: PCP Family Medicine; Visit Provider Surgery | DX: K80.50 Calculus of bile duct without cholangitis or cholecystitis without obstruction (principal); R10.9 Unspecified abdominal pain; R49.0 Dysphonia; R13.10 Dysphagia, unspecified; Z86.0100 Personal history of colon polyps, unspecified; Z90.49 Acquired absence of other specified parts of digestive tract | CPT/HCPCS: 99214 ==

== ENCOUNTER 2024-02-14 05:48 | Day surgery (SDC) | payer MEDICARE, MEDICAID, SELFPAY ==
[2024-02-14 06:06] VITALS: BP 108/72; PULSE 98; RESP 20; TEMP 36.7; O2SAT 96; BMI 20.9
[2024-02-14] MEDS: sodium chloride 0.9% 500 ML 15 ML IV (06:21)
--- NOTE | 2024-02-14 06:28 | ANES.PREANE2 ---
Pre-Anesthetic Assessment Height/Weight: Height 1.83 m Weight 70.307 kg Temp Pulse Resp BP Pulse Ox O2 Del Method 98.1 F 98 20 H 108/72 96 Room Air 02/14/24 06:06 02/14/24 06:06 02/14/24 06:06 02/14/24 06:06 02/14/24 06:06 02/14/24 06:06 Operation Date: 02/14/24 07:00 Proposed Procedures p EGD 29112, 12095,, G0105, K80.50, R10.9, R13.10, Z83.0100(Not Applicable) - Magan Shin DO s Colonoscopy(Not Applicable) - Magan Shin DO Familial anesthetic complications: None Was Beta Kathryn taken within 24 hours: N/A Was Clonidine taken within 24 hours: N/A Last intake: Intake Last Liquid Date 02/13/24 Last Liquid Time 22:00 Last Solid Date 02/12/24 Last Solid Time 17:00 Social Tobacco and No tobacco 3 pack(s) per day 45 pack years Exam alert, oriented x 3, clear to auscultation bilaterally and regular rate & rhythm Airway Submandibular: within normal limits Cervical ROM: within normal limits Mallampati: Class II Dentition: other (Edentulous) History/ROS No significant history except as noted and No significant complaints Pulmonary Chronic Obstructive Pulmonary Disease and Cough CV/HEM Coronary Artery Disease, Deep Vein Thrombosis, Hypertension, Myocardial Infarction (Stent x4, last stent placed May 2023, aortic stent), Murmur and Peripheral Vascular Disease CONCLUSIONS 1-Normal left ventricular cavity size. Normal left ventricular systolic function. No regional wall motion abnormalities. Left ventricular ejection fraction is estimated at 60 %. 2-Moderate aortic valve calcification. Moderate aortic valve stenosis. Aortic valve area by planimetry is 1.34 cm squared, trace aortic valve regurgitation. There appeared to be no mass attached to aortic valve. 3-Normal interatrial septum. No patent foramen ovale. No evidence for an atrial septal defect. No [id number] shunt seen at the atrial level with contrast. 4-There is no pericardial effusion. 5-No mass noted on the aortic valve None reported Hepatic None reported GI Gastroesophageal Reflux Disease (None this morning) Metabolic Hyperlipidemia and Thyroid Disease Musc/skel Lower Back Pain and Osteoarthritis/DJD Neuropsych Transient Ischemic Attack (5-6 years ago, sees neurology) Anesthetic Plan ASA status: 3 Anesthesia: Anesthesia Evaluation, General and MAC Medications/Allergies Home Medications Medication Instructions Recorded Confirmed Last Taken Type aspirin 81 mg tablet,delayed 81 mg PO QAM 04/22/19 02/12/24 02/08/24 History release clopidogrel 75 mg tablet 75 mg PO QAM 04/22/19 02/12/24 02/08/24 History finasteride 5 mg tablet 5 mg PO QAM 04/22/19 02/12/24 02/13/24 History pantoprazole 40 mg tablet,delayed 40 mg PO QAM 04/22/19 02/12/24 02/13/24 History release simvastatin 40 mg tablet 40 mg PO BEDTIME 04/22/19 02/12/24 02/13/24 History baclofen 20 mg tablet 20 mg PO BID 04/16/21 02/12/24 02/13/24 History diltiazem HCl 90 mg 90 mg PO Q12H 04/16/21 02/12/24 02/14/24 05:00 History capsule,extended release 12 hr levothyroxine 150 mcg tablet 150 mcg PO QAM 04/16/21 02/12/24 02/14/24 05:00 History nitroglycerin 0.4 mg sublingual 0.4 mg sublingual Q5M PRN Chest 04/16/21 02/12/24 08/15/23 History tablet (Nitrostat) Pain mirtazapine 30 mg tablet (Remeron) 30 mg PO BEDTIME 05/13/21 02/12/24 02/13/24 History tramadol 50 mg tablet 50 mg PO BID 06/23/22 02/12/24 02/13/24 History albuterol sulfate 90 mcg/actuation 2 puff inhalation Q4H PRN 06/04/23 02/12/24 02/13/24 History aerosol inhaler Shortness Of Breath Or Wheezing isosorbide dinitrate 30 mg tablet 15 mg PO BEDTIME 06/04/23 02/12/24 02/13/24 History losartan 50 mg tablet 50 mg PO DAILY 06/04/23 02/12/24 02/13/24 History gabapentin 100 mg capsule 100 mg PO BID #60 caps 06/06/23 02/12/24 02/13/24 Rx venlafaxine 150 mg 150 mg PO QAM #90 caps 12/26/23 02/12/24 02/13/24 Rx capsule,extended release 24 hr budesonide-formoterol HFA 160 2 puff inhalation BID 02/12/24 02/12/24 02/13/24 History mcg-4.5 mcg/actuation aerosol inhaler fluticasone propionate 50 2 spray intranasal BID 02/12/24 02/12/24 02/13/24 History mcg/actuation nasal spray,suspension mupirocin 2 % topical ointment 1 applic topical DAILY PRN Outbreak 02/12/24 02/12/24 02/13/24 History Allergies Allergy/AdvReac Type Severity Reaction Status Date / Time tetracycline Allergy Nausea Verified 01/29/24 08:50 Current Medications Generic Name Dose Route Start Last Admin Trade Name Freq PRN Reason Stop Dose Admin Sodium Chloride 500 mls @ 15 mls/hr 02/14/24 05:56 02/14/24 06:21 Sodium Chloride 0.9% IV 02/15/24 05:55 15 mls/hr .Q24H PRN Administration COLONOSCOPY FLUIDS PFSH Anesthesia Medical History (Updated 01/29/24 @ 09:34 by Magan Shin DO) History of colon polyps BPH loc w urin obs/LUTS Aortic aneurysm COPD with acute exacerbation Renal artery stenosis Peripheral arterial disease with history of revascularization Essential hypertension CAD (coronary artery disease) Hyperlipidemia Hypothyroidism GERD (gastroesophageal reflux disease) Generalized anxiety disorder Urinary retention Balanitis Surgical History (Updated 01/29/24 @ 09:34 by Magan Shin DO) Hx laparoscopic cholecystectomy 01/18/24 Dr Shin Status post left inguinal hernia repair (01/01/20) History of esophagogastroduodenoscopy (EGD) (~2018) dr. anderson History of colonoscopy with polypectomy (~2018) dr. anderson H/O heart artery stent Family History Mother , AT AGE 64 Renal failure Alzheimer disease Father , AT AGE 48 Lung cancer Social History Smoking and tobacco/nicotine status: current every day tobacco/nicotine user cigarettes Packs smoked per day: 2.5 Years cigarettes smoked: 45 Alcohol intake: never Substance/Drug Use: never Marital status: Current occupational status: disabled Data Anesthesia Cardiac Studies: Echocardiogram 06/04/23 Transesophageal Echocardiogram 11/03/23 Sestamibi Stress Test (Cardiology) 07/13/22
--- NOTE | 2024-02-14 07:04 | P.HPUD_ITS ---
Surgery/Procedure H&P Update DATE OF PROCEDURE: February 14, 2024 DATE H&P PERFORMED: 01/29/24 H&P UPDATE INFORMATION: I have reviewed H&P completed within last 30 days, I have examined patient prior to procedure and No changes to prior documentation PLANNED PROCEDURE: Operation Date: 02/14/24 07:00 Proposed Procedures p EGD 78068, 19773,, G0105, K80.50, R10.9, R13.10, Z83.0100(Not Applicable) - DO alicia Alvarez Colonoscopy(Not Applicable) - Magan Shin DO
[2024-02-14 07:44] VITALS: BP 122/79; PULSE 88; RESP 14; TEMP 36.4; O2SAT 99
[2024-02-14 08:06] VITALS: BP 120/80; PULSE 80; RESP 18; O2SAT 98
--- NOTE | 2024-02-14 08:10 | ANE.PACU2 ---
Inpatient post-anesthesia follow up: Airway intact: Yes Vital signs: Temperature 97.5 F Pulse Rate 80 Respiratory Rate 18 Blood Pressure 120/80 Pulse Oximetry 98 Oxygen Delivery Me thod Room Air Oxygen Flow Rate Fraction of Inspir ed Oxygen Hydration adequate: Yes Nausea and vomiting: No Pain level: 1 Mental status: Baseline
== END 2024-02-14 08:10 | disposition home health service (06) ==
PROVIDERS: PCP Family Medicine; Visit Provider Surgery
PROC: 0DJ08ZZ Inspection of Upper Intestinal Tract, Via Natural or Artificial Opening Endoscopic (ICD-10-PCS; CPT 43235; principal; 2024-02-14 07:00)
PROC: 0DJD8ZZ Inspection of Lower Intestinal Tract, Via Natural or Artificial Opening Endoscopic (ICD-10-PCS; CPT 45378; 2024-02-14 07:00)
DX: Z12.11 Encounter for screening for malignant neoplasm of colon (principal); Z86.0100 Personal history of colon polyps, unspecified; R13.10 Dysphagia, unspecified; K21.00 Gastro-esophageal reflux disease with esophagitis, without bleeding; D12.5 Benign neoplasm of sigmoid colon; F17.200 Nicotine dependence, unspecified, uncomplicated; J44.9 Chronic obstructive pulmonary disease, unspecified; I25.10 Atherosclerotic heart disease of native coronary artery without angina pectoris; Z86.718 Personal history of other venous thrombosis and embolism; I10 Essential (primary) hypertension; I25.2 Old myocardial infarction; Z95.5 Presence of coronary angioplasty implant and graft; Z86.73 Personal history of transient ischemic attack (TIA), and cerebral infarction without residual deficits; N40.1 Benign prostatic hyperplasia with lower urinary tract symptoms; N13.8 Other obstructive and reflux uropathy; E78.5 Hyperlipidemia, unspecified; F41.1 Generalized anxiety disorder
CPT/HCPCS: 43239; 43249; 45385; 88305; J2371; J2704; J3490; J7040

== ENCOUNTER → 2024-03-21 08:24 | Outpatient (BNVA) | payer MEDICARE, MEDICAID, SELFPAY | PROVIDERS: PCP Family Medicine; Visit Provider Surgery | DX: Z09 Encounter for follow-up examination after completed treatment for conditions other than malignant neoplasm (principal); K22.2 Esophageal obstruction; K21.00 Gastro-esophageal reflux disease with esophagitis, without bleeding; D37.4 Neoplasm of uncertain behavior of colon | CPT/HCPCS: 99214 ==

== ENCOUNTER 2024-04-30 16:56 | Emergency (ER) | payer MEDICARE, MEDICAID, SELFPAY ==
[2024-04-30 17:01] VITALS: BP 98/65; PULSE 87; RESP 16; TEMP 36.3; O2SAT 93
--- NOTE | 2024-04-30 17:18 | ECG_ITS ---
[facility] Date: 2024-04-30 Pat Name: Balta Kwan Department: Room: Gender: Male Design Maker: : 1955 Requested By: Joseph Baldwin Order Number: [id number] Hood MD: Satya Myrick M.D. Measurements Intervals [place] Rate: 75 P: 86 OK: 156 QRS: 62 QRSD: 98 T: 79 QT: 388 QTc: 435 Interpretive Statements SINUS RHYTHM MODERATE ST DEPRESSION [0.05+ mV ST DEPRESSION] Compared to ECG 06/04/2023 09:26:11 ST (T wave) deviation now present Electronically Signed On 05-04-2024 19:44:36 WEB SOFTWARE ENGINEER by Satya Myrick M.D. [email or web address]
--- NOTE | 2024-04-30 17:19 | XRR_ITS ---
PROCEDURE INFORMATION: Exam: XR Chest Exam date and time: 04/30/2024 5:41 PM Age: 68 years old Clinical indication: Other: Weakness; Prior surgery; Surgery date: 6+ months; Surgery type: Cardiac stent; Additional info: Weak, nausea TECHNIQUE: Imaging protocol: Radiologic exam of the chest. Views: 1 view. COMPARISON: [place] [id number] 06/04/2023 7:31 AM FINDINGS: Lungs: Good inspiration versus hyperinflation. Tiny calcified granuloma lateral upper right lung. No infiltrate or consolidation. No pulmonary vascular congestion/edema. Minimal left basilar atelectasis or scarring. Pleural spaces: No pleural effusion or pneumothorax. Heart/Mediastinum: No cardiomegaly. Coronary artery stent and/or calcification on the left. Vasculature: Mild calcification thoracic aorta. Bones/joints: Visualized osseous structures show no acute abnormality. Other findings: No significant change with prior exam. XR/XR chest 1V portable [id number] IMPRESSION: No acute findings.
--- NOTE | 2024-04-30 17:21 | W.ED.URI ---
HPI - URI/Sore Throat General: Chief Complaint: Upper Respiratory Infection Stated Complaint: n/v Time Seen by Provider: 04/30/24 17:09 Source: patient and family () Mode of arrival: ambulatory Limitations: no limitations History of Present Illness: Patient is a 68-year-old male with past medical history of COPD, coronary artery disease, hypothyroid, and GERD who presents the emergency department complaining of nausea and weakness for the past greater than 1 week. States he has vomited a couple times, but states it mostly is coughing up phlegm. Does note a history of COPD and states that he has felt more short of breath, worse with exertion. Does not report any significant weight loss that he has noted over the course of the last few months. Denies any fevers. He is not reporting any chest pain. Also is not reporting any abdominal pain, but does state that he feels constipated, no diarrhea. states that patient has had essentially no appetite and has not eaten or drinking anything all day. Patient does state that he feels dehydrated. Blood pressure low but unchanged from vitals obtained 2 months ago. Does not use home O2, states that he has been using his inhaler more recently. Patient has gallbladder removed last December. MD elicited complaint: cough and other (Nausea) Pertinent past history: COPD Onset (ago): week(s) Consistency: constant Severity: moderate Description of mucous: yellow Able to tolerate fluids by mouth: Yes Exacerbating factors: exertion Relieving factors: nothing Associated symptoms: Reports nausea and vomiting; Deny abdominal pain, chills, chest pain, diarrhea, ear or mastoid pain, fever(s) or headache(s) Treatments prior to arrival: other (Inhaler) Related Data Home Medications ?Medication ?Instructions ?Recorded ?Confirmed aspirin 81 mg tablet,delayed 81 mg PO QAM 04/22/19 03/21/24 release clopidogrel 75 mg tablet 75 mg PO QAM 04/22/19 03/21/24 Held on 02/14/24. Instructions: Resume on 02/16/24. finasteride 5 mg tablet 5 mg PO QAM 04/22/19 03/21/24 pantoprazole 40 mg tablet,delayed 40 mg PO QAM 04/22/19 03/21/24 release Held on 02/14/24. Instructions: Resume on 03/27/24. simvastatin 40 mg tablet 40 mg PO BEDTIME 04/22/19 03/21/24 baclofen 20 mg tablet 20 mg PO BID 04/16/21 03/21/24 diltiazem HCl 90 mg 90 mg PO Q12H 04/16/21 03/21/24 capsule,extended release 12 hr levothyroxine 150 mcg tablet 150 mcg PO QAM 04/16/21 03/21/24 nitroglycerin 0.4 mg sublingual 0.4 mg sublingual Q5M PRN Chest 04/16/21 03/21/24 tablet (Nitrostat) Pain mirtazapine 30 mg tablet (Remeron) 30 mg PO BEDTIME 05/13/21 03/21/24 tramadol 50 mg tablet 50 mg PO BID 06/23/22 03/21/24 albuterol sulfate 90 mcg/actuation 2 puff inhalation Q4H PRN 06/04/23 03/21/24 aerosol inhaler Shortness Of Breath Or Wheezing isosorbide dinitrate 30 mg tablet 15 mg PO BEDTIME 06/04/23 03/21/24 losartan 50 mg tablet 50 mg PO DAILY 06/04/23 03/21/24 budesonide-formoterol HFA 160 2 puff inhalation BID 02/12/24 03/21/24 mcg-4.5 mcg/actuation aerosol inhaler fluticasone propionate 50 2 spray intranasal BID 02/12/24 03/21/24 mcg/actuation nasal spray,suspension mupirocin 2 % topical ointment 1 applic topical DAILY PRN Outbreak 02/12/24 03/21/24 Previous Rx's ?Medication ?Instructions ?Recorded gabapentin 100 mg capsule 100 mg PO BID #60 caps 06/06/23 venlafaxine 150 mg 150 mg PO QAM #90 caps 12/26/23 capsule,extended release 24 hr pantoprazole 40 mg tablet,delayed 40 mg PO BID 6 weeks #84 tabs 02/14/24 release ondansetron HCl 4 mg tablet 4 mg PO Q8H #30 tabs 04/30/24 Allergies Allergy/AdvReac Type Severity Reaction Status Date / Time tetracycline Allergy Nausea Verified 04/30/24 17:04 Review of Systems General: Reports: 10 or more systems reviewed and unremarkable except in HPI and below Const: Reports: change in appetite, fatigue and malaise; Denies: fever(s) or chills Eyes: Denies: change in vision ENMT: Denies: throat pain, ear or mastoid pain or nasal discharge Card: Denies: chest pain, palpitations, swelling of feet/ankles or lightheadedness Resp: Reports: dyspnea; Denies: productive cough or wheezing GI: Reports: nausea, vomiting and constipation; Denies: abdominal pain or diarrhea : Denies: flank pain, difficulty urinating, dysuria or urinary frequency Musc: Denies: neck pain, back pain or joint pain Skin/Breast: Denies: rash Neuro: Denies: headache(s), numbness in extremities or weakness in extremities PFSH ED PFSH: Medical History Tubular adenoma of colon History of colon polyps BPH loc w urin obs/LUTS Aortic aneurysm COPD with acute exacerbation Renal artery stenosis Peripheral arterial disease with history of revascularization Essential hypertension CAD (coronary artery disease) Hyperlipidemia Hypothyroidism GERD (gastroesophageal reflux disease) Generalized anxiety disorder Urinary retention Balanitis Surgical History Hx laparoscopic cholecystectomy 01/18/24 Dr Shin Status post left inguinal hernia repair (01/01/20) History of esophagogastroduodenoscopy (EGD) (~2018) dr. anderson History of colonoscopy with polypectomy (~2018) dr. anderson H/O heart artery stent Family History Mother , AT AGE 64 Renal failure Alzheimer disease Father , AT AGE 48 Lung cancer Social History Smoking and tobacco/nicotine status: never used tobacco/nicotine Alcohol intake: never Substance/Drug Use: never Marital status: Current occupational status: disabled Physical Exam Const: COMMON NORMALS: patient oriented x3, no limitations and alert GENERAL APPEARANCE: lethargic NUTRITIONAL APPEARANCE: thin ORIENTATION/CONSCIOUSNESS: Yes awake and Yes lethargic HENMT: COMMON NORMALS: normocephalic, atraumatic, Normal external nose present and Normal nasal mucous membranes and turbinates present HEAD & SCALP: normocephalic and atraumatic NOSE: Normal external nose present and Normal nasal mucous membranes and turbinates present OTHER: Dry oral mucosa Eye: COMMON NORMALS: Equal, round and reactive pupils present, EOMs intact bilaterally and conjunctivae normal CONJUNCTIVA: Yes conjunctivae normal PUPIL: Yes Equal, round and reactive pupils present Neck/C-Spine: COMMON NORMALS: full ROM, no lymphadenopathy and no meningeal signs Chest: COMMONS NORMALS: normal inspection of the chest Resp: COMMON NORMALS: normal respiratory effort, No retractions, No use of accessory muscles and clear to auscultation bilaterally AUSCULTATION: clear to auscultation bilaterally Cardio: COMMON NORMALS: regular rate, regular rhythm, No clicks present (Cardio), No rub (Cardio) and Peripheral pulses 2+ throughout RATE: regular rate RHYTHM: regular rhythm HEART SOUNDS: Murmur heart sound present systolic PERIPHERAL PULSES: Peripheral pulses 2+ throughout GI: COMMON NORMALS: Normal to inspection, nondistended, normoactive bowel sounds present and Soft to palpation PALPATION: Yes Soft to palpation OTHER: Mild diffuse abdominal tenderness to palpation Extremity: COMMON NORMALS: normal to inspection, full ROM, capillary refill normal, no clubbing, cyanosis or edema and no pedal edema Neuro: COMMON NORMALS: patient oriented x3, moves all extremities, no focal motor deficits and no sensory deficits noted SENSORIUM/ORIENTATION: Yes alert and Yes lethargic MENINGEAL SIGNS: Yes no meningeal signs Psych: COMMON NORMALS: mental status grossly normal Skin: COMMON NORMALS: no rashes or lesions noted GENERAL SKIN EXAM: no rashes or lesions noted Course Vital Signs: Vital signs: Vital Signs Temperature 97.3 F L 04/30/24 17:01 Pulse Rate 87 04/30/24 17:01 Respiratory Rate 16 04/30/24 17:01 Blood Pressure 98/65 04/30/24 17:01 Pulse Oximetry 93 04/30/24 17:01 Oxygen Delivery Me thod Room Air 04/30/24 17:01 MDM - URI/Sore Throat Medical Decision Making Patient had presented with a week of weakness and nausea. History of COPD, does not use oxygen at home his oxygen has been normal here. Other than blood pressure being a little low, rest of his vitals within normal limits. His blood pressure has been similar in the past visits here. Did appear dehydrated on exam with dry oral mucosa, overall rest of his exam unremarkable. He does have a history of aortic stenosis there was murmur appreciated on exam as well. No complaints of chest pain. X-ray was unremarkable. EKG showing normal sinus rhythm some minimal ST depression in lead II. Creatinine 1.7, reviewing his prior this seems to be somewhat baseline, potentially little bit higher due to dehydration. His electrolytes were normal, urinalysis was normal. Viral swab normal. Rest of his lab work unremarkable. He was given a liter of fluid and Zofran and upon recheck 2 hours later was noted to be seated up in bed stating that he felt much better. I suspect dehydration and he states he is ready to go home, encouraged him to rehydrate at home still and will treat nausea with Zofran. He is comfortable with this plan discussed return precautions he verbalized understanding. Lab Data 04/30/24 17:26 04/30/24 17:26 Radiology Impressions Chest X-Ray 04/30/24 17:19 IMPRESSION: No acute findings. Laboratory Results WBC 8.25 10^3/uL (3.29-11.43) 04/30/24 17: RBC 3.75 10^6/uL (3.85-5.65) L 04/30/24 17:26 Hgb 11.80 g/dL (11.27-16.99) 04/30/24 17: Hct 34.9 % (37-53) L 04/30/24 17: MCV 93.1 fl (82-101) 04/30/24 17:26 MCH 31.5 pg (27-33) 04/30/24 17: MCHC 33.8 g/dL (30-55) 04/30/24 17: RDW 13.3 % (12.1-15.1) 04/30/24 17:26 Plt Count 221 10^3/cmm (157-399) 04/30/24 17: MPV 10.4 fL (7.4-10.4) 04/30/24 17: Neut % (Auto) 60.1 % 04/30/24 17:26 Lymph % (Auto) 30.4 % 04/30/24 17:26 [place] % (Auto) 6.4 % 04/30/24 17:26 Eos % (Auto) 2.1 % 04/30/24 17:26 Baso % (Auto) 0.6 % 04/30/24 17:26 Neut # (Auto) 4.96 10^3/uL (1.8-7.7) 04/30/24 17:26 Lymph # (Auto) 2.5 10^3/uL (0.8-4.8) 04/30/24 17:26 [place] # (Auto) 0.5 10^3/uL (0.2-0.9) 04/30/24 17:26 Eos # (Auto) 0.2 10^3/uL (0.0-0.8) 04/30/24 17:26 Baso # (Auto) 0.1 10^3/uL (0.0-0.1) 04/30/24 17: Nucleated RBC % (auto) 0 % 04/30/24 17: Nucleated RBCs # 0.0 /100WBC 04/30/24 17:26 Sodium 138 mmol/L (136-145) 04/30/24 17:26 Potassium 3.6 mmol/L (3.5-5.1) 04/30/24 17: Chloride 101 mmol/L (98-107) 04/30/24 17: Carbon Dioxide 22 mmol/L (22-29) 04/30/24 17:26 Anion Gap 18.6 (5-19) 04/30/24 17:26 BUN 23 mg/dL (8-23) 04/30/24 17:26 Creatinine 1.7 mg/dL (0.7-1.2) H 04/30/24 17:26 GFR Calculation 40.5 mL/min (90-130) L 04/30/24 17:26 Glucose 93 mg/dL (65-115) 04/30/24 17:26 Calculated Osmolality 289 mOsm/kg (285-295) 04/30/24 17:26 Calcium 9.2 mg/dL (8.5-10.5) 04/30/24 17:26 Magnesium 2.0 mg/dL (1.7-2.3) 04/30/24 17: Total Bilirubin 0.4 mg/dL (0.15-1.2) 04/30/24 17:26 AST 12 U/L (0-40) 04/30/24 17:26 ALT 6 U/L (0-41) 04/30/24 17:26 Alkaline Phosphatase 189 U/L (40-130) H 04/30/24 17:26 Total Protein 6.6 g/dL (6.6-8.7) 04/30/24 17:26 Albumin 3.9 g/dL (3.5-5.2) 04/30/24 17:26 Globulin 2.7 g/dL (1.3-4.6) 04/30/24 17:26 Lipase 44 U/L (13-60) 04/30/24 17:26 TSH 0.95 uIU/mL (0.27-4.20) 04/30/24 17:26 Urine Color Yellow (Yellow) 04/30/24 18:21 Urine Appearance Clear (CLEAR) 04/30/24 18:21 Urine pH 5.5 (5-7) 04/30/24 18:21 Ur Specific [place] 1.011 (1.005-1.030) 04/30/24 18:21 Urine Protein Negative (Negative) 04/30/24 18:21 Urine Glucose (UA) Negative (Normal) 04/30/24 18:21 Urine Ketones Negative (Negative) 04/30/24 18:21 Urine Blood Negative (Negative) 04/30/24 18:21 Urine Nitrate Negative (Negative) 04/30/24 18:21 Urine Bilirubin Negative (Negative) 04/30/24 18:21 Urine Urobilinogen 0.2 mg/dL (Negative) 04/30/24 18:21 Ur Leukocyte Esterase Trace (Negative) A 04/30/24 18:21 Urine RBC None /hpf (0-2) 04/30/24 18:21 Urine WBC 0-4 /hpf (0-5) H 04/30/24 18:21 Ur Squamous Epith Cells 0-4 /hpf (0-5) H 04/30/24 18:21 Amorphous Sediment Not Reportable 04/30/24 18:21 Urine Bacteria Trace /hpf (NONE) 04/30/24 18:21 Influenza A (PCR) Negative (Negative) 04/30/24 18:12 Influenza Type B (PCR) Negative (Negative) 04/30/24 18:12 RSV (PCR) Negative (Negative) 04/30/24 18:12 SARS-CoV-2 (PCR) Negative (Negative) 04/30/24 18:12 All radiology interpretation(s) finalized by discharge EKG Data EKG 1: I personally reviewed and interpreted this EKG as follows: EKG interpretation date: 04/30/24 EKG interpretation time: 17:41 Prior EKG tracings: available for review Interpretation: Normal sinus rhythm. Rate 75. Minimal ST depression in lead II, this was reviewed with physician. Compared with EKG from 06/04/2023. Discharge Plan Discharge Patient Disposition: Home Clinical Impression: Dehydration Condition: Stable Prescriptions: New ondansetron HCl 4 mg tablet 4 mg PO Q8H Qty: 30 0RF No Action finasteride 5 mg tablet 5 mg PO QAM simvastatin 40 mg tablet 40 mg PO BEDTIME pantoprazole 40 mg tablet,delayed release (DR/EC) 40 mg PO QAM aspirin 81 mg tablet,delayed release (DR/EC) 81 mg PO QAM clopidogrel 75 mg tablet 75 mg PO QAM mirtazapine [Remeron] 30 mg tablet 30 mg PO BEDTIME tramadol 50 mg tablet 50 mg PO BID venlafaxine 150 mg capsule,extended release 24hr 150 mg PO QAM Qty: 90 3RF Rx Instructions: Take 1 capsule by mouth in the morning baclofen 20 mg tablet 20 mg PO BID levothyroxine 150 mcg tablet 150 mcg PO QAM nitroglycerin [Nitrostat] 0.4 mg Tablet, Sublingual 0.4 mg SUBLINGUAL Q5M PRN (Reason: Chest Pain) Rx Instructions: do not exceed 3 doses per episode diltiazem HCl 90 mg capsule,extended release 12 hr 90 mg PO Q12H losartan 50 mg tablet 50 mg PO DAILY isosorbide dinitrate 30 mg tablet 15 mg PO BEDTIME albuterol sulfate 90 mcg/actuation HFA aerosol inhaler 2 puff INHALATION Q4H PRN (Reason: Shortness Of Breath Or Wheezing) gabapentin 100 mg capsule 100 mg PO BID Qty: 60 0RF fluticasone propionate 50 mcg/actuation spray,suspension 2 spray INTRANASAL BID budesonide-formoterol 160-4.5 mcg/actuation HFA aerosol inhaler 2 puff INHALATION BID mupirocin 2 % ointment 1 applic topical DAILY PRN (Reason: Outbreak) pantoprazole 40 mg tablet,delayed release (DR/EC) 40 mg PO BID 42 Days Qty: 84 1RF Discharge Orders: Discharge ED (Routine); Ordered 04/30/24 Ordered By: Joseph Guzman Referrals: Simi Vital DO [Primary Care Provider] - Patient Instructions: Dehydration (ED) Activity Restrictions/Additional Instructions: Make sure to drink plenty of fluids at home. See the attached patient instructions for further education. Zofran for your nausea. If you continue to have symptoms or your condition worsens return to the emergency department as we discussed. Also follow-up with primary care later this week. Print Language: Thai Coding Level of Care Code ED Supervisor [employer] for Sukhwinder Sanches
[2024-04-30] MEDS: ondansetron 2 mg/ML SDV 2 mL 4 MG IVP (17:28)
[2024-04-30] MEDS: sodium chloride 0.9% 1,000 ML 999 ML IV (17:28)
[2024-04-30 17:53] LABS: Basophils # 0.1 10^3/uL (0.0-0.1); Basophils % 0.6 %; Eosinophils # 0.2 10^3/uL (0.0-0.8); Eosinophils % 2.1 %; Hematocrit 34.9 % (37-53); Lymphocytes # 2.5 10^3/uL (0.8-4.8); Lymphocytes % 30.4 %; Mean Corpuscular HGB Conc 33.8 g/dL (30-55); Mean Corpuscular Hemoglobin 31.5 pg (27-33); Mean Corpuscular Volume 93.1 fl (82-101); Mean Platelet Volume 10.4 fL (7.4-10.4); Monocytes # 0.5 10^3/uL (0.2-0.9); Monocytes % 6.4 %; Neutrophils # 4.96 10^3/uL (1.8-7.7); Neutrophils % 60.1 %; Nucleated Red Blood Cells % 0 %; Platelet Count 221 10^3/cmm (157-399); Red Blood Count 3.75 10^6/uL (3.85-5.65); Red Cell Distribution Width 13.3 % (12.1-15.1); White Blood Count 8.25 10^3/uL (3.29-11.43)
[2024-04-30 18:29] LABS: Bilirubin Urine Negative (Negative); Blood Urine Negative (Negative); Glucose Urine UA Negative (Normal); Ketones Urine Negative (Negative); Leukocyte Esterase Urine Trace (Negative); Nitrate Urine Negative (Negative); Protein Urine Negative (Negative); Specific Gravity, Urine 1.011 (1.005-1.030); Urine Appearance Clear (CLEAR); Urine Color Yellow (Yellow); Urobilinogen Urine 0.2 mg/dL (Negative); pH Urine 5.5 (5-7)
[2024-04-30 18:38] LABS: Add Urine Microscopic? YES; Bacteria Urine TRACE /hpf; Squamous Epithelial Cell Urine 0-4 /hpf (0-5); UA Manual Slide Review YES; WBC Urine 0-4 /hpf (0-5)
[2024-04-30 18:38] LABS: Alanine Aminotransferase 6 U/L (0-41); Albumin Level 3.9 g/dL (3.5-5.2); Alkaline Phosphatase 189 U/L (40-130); Anion Gap 18.6 (5-19); Aspartate Amino Transferase 12 U/L (0-40); Blood Urea Nitrogen 23 mg/dL (8-23); Calcium 9.2 mg/dL (8.5-10.5); Carbon Dioxide 22 mmol/L (22-29); Chloride 101 mmol/L (98-107); Creatinine Clr Calc Pharmacy 44.6029; Globulin 2.7 g/dL (1.3-4.6); Glomerular Filtration Rate 40.5 mL/min (90-130); Glucose 93 mg/dL (65-115); Lipase 44 U/L (13-60); Osmolality Calculated 289 mOsm/kg (285-295); Potassium 3.6 mmol/L (3.5-5.1); Sodium 138 mmol/L (136-145); Thyroid Stimulating Hormone 0.95 uIU/mL (0.27-4.20); Total Bilirubin 0.4 mg/dL (0.15-1.2); Total Protein 6.6 g/dL (6.6-8.7)
[2024-04-30 19:02] LABS: Influenza A NEGATIVE (Negative); Influenza B NEGATIVE (Negative); Respiratory Syncytial Virus Ce NEGATIVE (Negative); SARS-CoV-2 PCR NEGATIVE (Negative)
== END 2024-04-30 19:35 | disposition home or self-care (01) ==
PROVIDERS: Emergency Medicine; Emergency Provider Physician Assistant; PCP Family Medicine
DX: E86.0 Dehydration (principal); Z79.02 Long term (current) use of antithrombotics/antiplatelets; Z79.82 Long term (current) use of aspirin; Z11.52 Encounter for screening for COVID-19; I25.10 Atherosclerotic heart disease of native coronary artery without angina pectoris; J44.9 Chronic obstructive pulmonary disease, unspecified; E78.5 Hyperlipidemia, unspecified
CPT/HCPCS: 36415; 71045; 80053; 81001; 83690; 83735; 84443; 85025; 87637; 93005; 96361; 96374; 99285; J2405; J7030

== ENCOUNTER 2024-06-26 23:47 | Inpatient (IN) | payer MEDICARE, MEDICAID, SELFPAY ==
[2024-06-26 23:49] VITALS: BP 127/76; PULSE 92; RESP 18; TEMP 36.7; O2SAT 88; BMI 20.3
--- NOTE | 2024-06-26 23:59 | W.ED.BACK ---
HPI - Back Pain/Injury General: Chief Complaint: Back Pain/Injury Stated Complaint: Rt side Back Pain Time Seen by Provider: 06/26/24 23:50 History of Present Illness: 68-year-old man with a history of BPH, COPD, coronary artery disease on Plavix, peripheral arterial disease, hypertension, hyperlipidemia and hypothyroidism who presents the emergency room after having had a fall on Monday about 3 to 4 days ago. He fell onto his back. He is complaining of right-sided rib and back pain Related Data Home Medications ?Medication ?Instructions ?Recorded ?Confirmed aspirin 81 mg tablet,delayed 81 mg PO QAM 04/22/19 03/21/24 release clopidogrel 75 mg tablet 75 mg PO QAM 04/22/19 03/21/24 Held on 02/14/24. Instructions: Resume on 02/16/24. finasteride 5 mg tablet 5 mg PO QAM 04/22/19 03/21/24 pantoprazole 40 mg tablet,delayed 40 mg PO QAM 04/22/19 03/21/24 release Held on 02/14/24. Instructions: Resume on 03/27/24. simvastatin 40 mg tablet 40 mg PO BEDTIME 04/22/19 03/21/24 baclofen 20 mg tablet 20 mg PO BID 04/16/21 03/21/24 diltiazem HCl 90 mg 90 mg PO Q12H 04/16/21 03/21/24 capsule,extended release 12 hr levothyroxine 150 mcg tablet 150 mcg PO QAM 04/16/21 03/21/24 nitroglycerin 0.4 mg sublingual 0.4 mg sublingual Q5M PRN Chest 04/16/21 03/21/24 tablet (Nitrostat) Pain mirtazapine 30 mg tablet (Remeron) 30 mg PO BEDTIME 05/13/21 03/21/24 tramadol 50 mg tablet 50 mg PO BID 06/23/22 03/21/24 albuterol sulfate 90 mcg/actuation 2 puff inhalation Q4H PRN 06/04/23 03/21/24 aerosol inhaler Shortness Of Breath Or Wheezing isosorbide dinitrate 30 mg tablet 15 mg PO BEDTIME 06/04/23 03/21/24 losartan 50 mg tablet 50 mg PO DAILY 06/04/23 03/21/24 budesonide-formoterol HFA 160 2 puff inhalation BID 02/12/24 03/21/24 mcg-4.5 mcg/actuation aerosol inhaler fluticasone propionate 50 2 spray intranasal BID 02/12/24 03/21/24 mcg/actuation nasal spray,suspension mupirocin 2 % topical ointment 1 applic topical DAILY PRN Outbreak 02/12/24 03/21/24 Previous Rx's ?Medication ?Instructions ?Recorded gabapentin 100 mg capsule 100 mg PO BID #60 caps 06/06/23 venlafaxine 150 mg 150 mg PO QAM #90 caps 12/26/23 capsule,extended release 24 hr pantoprazole 40 mg tablet,delayed 40 mg PO BID 6 weeks #84 tabs 02/14/24 release ondansetron HCl 4 mg tablet 4 mg PO Q8H #30 tabs 04/30/24 Allergies Allergy/AdvReac Type Severity Reaction Status Date / Time tetracycline Allergy Nausea Verified 06/26/24 23:54 PFS ED PFSH: Medical History Tubular adenoma of colon History of colon polyps BPH loc w urin obs/LUTS Aortic aneurysm COPD with acute exacerbation Renal artery stenosis Peripheral arterial disease with history of revascularization Essential hypertension CAD (coronary artery disease) Hyperlipidemia Hypothyroidism GERD (gastroesophageal reflux disease) Generalized anxiety disorder Urinary retention Balanitis Surgical History Hx laparoscopic cholecystectomy 01/18/24 Dr Shin Status post left inguinal hernia repair (01/01/20) History of esophagogastroduodenoscopy (EGD) (~2018) dr. anderson History of colonoscopy with polypectomy (~2018) dr. anderson H/O heart artery stent Family History Mother , AT AGE 64 Renal failure Alzheimer disease Father , AT AGE 48 Lung cancer Social History Smoking and tobacco/nicotine status: never used tobacco/nicotine Alcohol intake: never Substance/Drug Use: never Marital status: Current occupational status: disabled Physical Exam Narrative: EXAM NARRATIVE: General: Alert, no acute distress. Skin: Warm, dry. Multiple large bruises on the low back bilaterally extending up into the lower posterior ribs. Head: Normocephalic, atraumatic. Neck: Supple, trachea midline. Eye: Extraocular movements are intact. Ears, nose, mouth and throat: Oral mucosa moist. Cardiovascular: Regular rate and rhythm, Normal peripheral perfusion. Respiratory: coarse, scattered wheeze, mild increased wob. tachypnea, breath sounds are equal, Symmetrical chest wall expansion. Gastrointestinal: Soft, Nontender, Non distended Musculoskeletal: Normal ROM, no deformity. Neurological: Alert and oriented, No focal neurological deficit observed. Psychiatric: Cooperative, appropriate mood & affect. Course Vital Signs: Vital signs: Vital Signs Temperature 98.0 F 06/26/24 23:49 Pulse Rate 87 06/27/24 01:35 Respiratory Rate 18 06/27/24 01:28 Blood Pressure 131/79 06/27/24 01:21 Pulse Oximetry 95 06/27/24 01:28 Oxygen Delivery Me thod Nasal Cannula 06/27/24 01:28 Oxygen Flow Rate 2 06/27/24 01:28 MDM - Back Pain/Injury Medical Decision Making Differential diagnosis for patient with shortness of breath includes but is not limited to and based on the above HPI, review of systems and physical exam: Pneumonia. Bronchitis. Asthma or COPD with acute exacerbation. Acute coronary syndrome / MA. Pulmonary embolism. Anxiety. Congestive heart failure. Viral infections including influenza and Covid-19. Atrial fibrillation. Anxiety. Pleural effusion. Pneumothorax. Orders placed to evaluate differential diagnosis based on the above differential, HPI and physical exam in this particular patient concern for pneumothorax and rib fractures are concerning. CT was done of the chest abdomen pelvis secondary to the trauma. CT of the chest abdomen pelvis: Patchy areas throughout the lungs likely infectious. Emphysematous changes. No obvious fractures of the ribs. CT of the thoracic spine: No fracture. Good alignment. No step-offs. This was reviewed and interpreted by myself the emergency room physician. CT of the lumbar spine: No fracture. Good alignment. No step-offs. This was reviewed and interpreted by myself the emergency room physician. Lab Review: Laboratory results were reviewed and interpreted by myself the emergency room physician. No leukocytosis. No anemia. Stable chronic renal insufficiency with a BUN and creatinine of 17 and 1.4. AB.4 0/ with an O2 sat of 89% on 2 L. I reviewed the patient's medical record. Reexamination: Patient continues to require 2 to 4 L nasal cannula. While at rest he is not tachypneic and is not working to breathe. No altered mental status. I discussed findings and need for admission. Given that he is requiring oxygen Consultation: I spoke with Dr. Green who is on-call for the hospitalist service who agrees to admission. Assessment and plan: Fall Rib contusion Back contusion Hypoxemia Pneumonia COPD exacerbation ?Solu-Medrol, albuterol, Levaquin in the emergency room. Patient still requiring 2 L nasal cannula -I discussed the patient with the hospitalist on-call who is admitting the patient. - Discussed findings and plan with patient. Answered any questions. - All laboratory values were reviewed and interpreted personally by myself, the ER physician - All imaging was reviewed and interpreted personally by myself, the ER physician. - Evaluation and treatment of this problem were appropriate in the emergency setting Labs 06/27/24 00:10 06/27/24 00:10 Radiology Impressions Chest/Abdomen/Pelvis CT 06/27/24 00:00 IMPRESSION: 1. Patchy areas of tree-in-bud present throughout the lungs likely infectious or inflammatory in etiology related to aspiration. 2. Moderate pulmonary emphysematous changes. 3. Atherosclerosis. Stable descending thoracic aortic aneurysm. IMPRESSION: 1. No acute abnormality. 2. Fecal stasis 3. Endovascular stent graft with stable abdominal aortic aneurysm sac. Lumbar Spine CT 06/27/24 00:13 IMPRESSION: No acute abnormality. Multilevel degenerative changes as detailed. Thoracic Spine CT 06/27/24 00:13 IMPRESSION: No acute abnormality. Mild degenerative changes. Laboratory Results WBC 9.48 10^3/uL (3.29-11.43) 06/27/24 00:10 RBC 3.40 10^6/uL (3.85-5.65) L 06/27/24 00:10 Hgb 10.50 g/dL (11.27-16.99) L 06/27/24 00:10 Hct 32.2 % (37-53) L 06/27/24 00:10 MCV 94.7 fl (82-101) 06/27/24 00:10 MCH 30.9 pg (27-33) 06/27/24 00:10 MCHC 32.6 g/dL (30-55) 06/27/24 00:10 RDW 14.0 % (12.1-15.1) 06/27/24 00:10 Plt Count 320 10^3/cmm (157-399) 06/27/24 00:10 MPV 10.3 fL (7.4-10.4) 06/27/24 00:10 Neut % (Auto) 68.9 % 06/27/24 00:10 Lymph % (Auto) 21.3 % 06/27/24 00:10 [place] % (Auto) 6.1 % 06/27/24 00:10 Eos % (Auto) 2.4 % 06/27/24 00:10 Baso % (Auto) 0.9 % 06/27/24 00:10 Neut # (Auto) 6.52 10^3/uL (1.8-7.7) 06/27/24 00:10 Lymph # (Auto) 2.0 10^3/uL (0.8-4.8) 06/27/24 00:10 [place] # (Auto) 0.6 10^3/uL (0.2-0.9) 06/27/24 00:10 Eos # (Auto) 0.2 10^3/uL (0.0-0.8) 06/27/24 00:10 Baso # (Auto) 0.1 10^3/uL (0.0-0.1) 06/27/24 00:10 Nucleated RBC % (auto) 0 % 06/27/24 00:10 Nucleated RBCs # 0.0 /100WBC 06/27/24 00:10 Specimen Type Arterial 06/27/24 01:28 Sample Site Brachial, right 06/27/24 01:28 ABG pH 7.40 (7.35-7.45) 06/27/24 01:28 ABG pCO2 40.4 mmHg (35-45) 06/27/24:28 ABG pO2 64.3 mmHg (80.0-100.0) L 06/27/24: ABG HCO3 25.2 mmol/L (22-26) 06/27/24:28 ABG O2 Saturation 92.8 06/27/24 01: ABG Base Excess 0.4 mmol/L (-2.0-2.0) 06/27/24 01:28 Jarret Test N/a 06/27/24: A-a O2 Gradient 4.4 mmHg (5-10) L 06/27/24: Hematocrit 33.2 % (42-52) L 06/27/24: Hgb O2 Saturation 89.1 % (95-100) L 06/27/24: Carboxyhemoglobin 3.1 %THgb (0.4-20.1) 06/27/24: Methemoglobin 0.9 % (0.4-1.5) 06/27/24: Total Hemoglobin 10.8 g/dL (14-18) L 06/27/24: Sodium 140.0 mmol/L (131-143) 06/27/24: Potassium 3.7 mmol/L (3.5-5.0) 06/27/24: Glucose 108.0 mg/dL (70-115) 06/27/24: Ionized Calcium 1.2 mmol/L (1.1-1.4) 06/27/24: O2 Delivery Device Nc 06/27/24 01: O2 Liters/Min 2.0 % 06/27/24: Solder Deposit Operator ID [email or web address] 06/27/24: Sodium 139 mmol/L (136-145) 06/27/24 00:10 Potassium 3.7 mmol/L (3.5-5.1) 06/27/24 00: Chloride 103 mmol/L (98-107) 06/27/24 00:10 Carbon Dioxide 25 mmol/L (22-29) 06/27/24 00:10 Anion Gap 14.7 (5-19) 06/27/24 00:10 BUN 17 mg/dL (8-23) 06/27/24 00:10 Creatinine 1.4 mg/dL (0.7-1.2) H 06/27/24 00:10 GFR Calculation 50.7 mL/min (90-130) L 06/27/24 00:10 Glucose 91 mg/dL (65-115) 06/27/24 00:10 Calculated Osmolality 289 mOsm/kg (285-295) 06/27/24 00:10 Lactic Acid 1.0 mmol/L (0.5-2.2) 06/27/24 00:10 Calcium 9.0 mg/dL (8.5-10.5) 06/27/24 00:10 Total Bilirubin 0.4 mg/dL (0.15-1.2) 06/27/24 00:10 AST 7 U/L (0-40) 06/27/24 00:10 ALT 6 U/L (0-41) 06/27/24 00:10 Alkaline Phosphatase 166 U/L (40-130) H 06/27/24 00:10 Total Protein 6.9 g/dL (6.6-8.7) 06/27/24 00:10 Albumin 3.8 g/dL (3.5-5.2) 06/27/24 00:10 Globulin 3.1 g/dL (1.3-4.6) 06/27/24 00:10 All radiology interpretation(s) finalized by discharge Discharge Plan Discharge Patient Disposition: Admitted As Inpatient Clinical Impression: Pneumonia, Hypoxemia, COPD with acute exacerbation, Contusion of back, Traumatic injury of rib Condition: Stable Coding Level of Care Code ED Shadowgraph Scale Operator for Sukhwinder Sanches
[2024-06-27] VITALS (18 sets, daily range): BP systolic 106–135; BP diastolic 56–82; PULSE 79–110; RESP 16–24; TEMP 36.3–36.7; O2SAT 90–99
--- NOTE | 2024-06-27 | CTR_ITS ---
PROCEDURE INFORMATION: Exam: CT Chest Without Contrast; Diagnostic Exam date and time: 06/27/2024 12:10 AM Age: 68 years old Clinical indication: Injury or trauma; Fall; Generalized; Blunt trauma (contusions or hematomas); Prior surgery; Surgery date: 6+ months; Surgery type: Gb, cardiac stents, aorta; Additional info: Fall, low back pain and bruising also rib pain and SOB TECHNIQUE: Imaging protocol: Diagnostic computed tomography of the chest without contrast. Radiation optimization: All CT scans at this facility use at least one of these dose optimization techniques: automated exposure control; mA and/or kV adjustment per patient size (includes targeted exams where dose is matched to clinical indication); or iterative reconstruction. COMPARISON: [place] [id number] 06/04/2023 7:31 AM RADIATION DOSE METRICS: Total DLP (mGy-cm): 465.28 FINDINGS: Lungs: Moderate pulmonary emphysematous changes. There is diffuse bronchial wall thickening. Mucous secretions present in the right mainstem bronchus and bilateral lower lobe bronchi. There are scattered areas of tree-in-bud throughout the lungs. Pleural spaces: Unremarkable. No pneumothorax. No pleural effusion. Heart: Unremarkable. No cardiomegaly. No pericardial effusion. Lymph nodes: Unremarkable. No enlarged lymph nodes. Vasculature: Calcific plaque involves the thoracic aorta and coronary arteries. Stable descending thoracic aortic aneurysm measuring up to 3.8 cm in diameter. Bones/joints: The bone density is decreased. Mild degenerative changes involve the spine. No acute bony abnormality. Soft tissues: Unremarkable. COMMENTS: The presence of pulmonary emphysema on CT is an independent risk factor for lung cancer. In the absence of a history or active diagnosis of lung cancer, it is recommended that this patient with emphysema be evaluated for enrollment in a low dose CT lung cancer screening program. PROCEDURE INFORMATION: Exam: CT Abdomen And Pelvis Without Contrast Exam date and time: 06/27/2024 12:10 AM Age: 68 years old Clinical indication: Injury or trauma; Fall; Generalized; Blunt trauma (contusions or hematomas); Prior surgery; Surgery date: 6+ months; Surgery type: Gb, cardiac stents, aorta; Additional info: Fall, low back pain and bruising also rib pain and SOB TECHNIQUE: Imaging protocol: Computed tomography of the abdomen and pelvis without contrast. Radiation optimization: All CT scans at this facility use at least one of these dose optimization techniques: automated exposure control; mA and/or kV adjustment per patient size (includes targeted exams where dose is matched to clinical indication); or iterative reconstruction. COMPARISON: CT angio abdomen pelvis [id number] 01/28/2022 4:27 PM RADIATION DOSE METRICS: Total DLP (mGy-cm): 465.28 FINDINGS: Tubes, catheters and devices: An endovascular stent graft present. Liver: Normal. No mass. Gallbladder and biliary ducts: The gallbladder is surgically absent. The Pancreas: Normal. No ductal dilation. Spleen: Normal. No splenomegaly. Adrenal glands: Normal. No mass. Kidneys and ureters: Normal. No hydronephrosis. Stomach and bowel: Fecal stasis present. No inflammatory change identified involving the GI tract. No signs of bowel obstruction. Appendix: No evidence of appendicitis. Intraperitoneal space: Unremarkable. No free air. No significant fluid collection. Vasculature: The aneurysm sac measures up to 4.2 cm in diameter, stable to slightly decreased since reference study. Lymph nodes: Unremarkable. No enlarged lymph nodes. Urinary bladder: Unremarkable as visualized. Reproductive: Unremarkable as visualized. Bones/joints: The bone density is decreased. Multilevel degenerative changes involve the spine. No acute bony abnormality. Soft tissues: Unremarkable. CT/[place] [id number] IMPRESSION: 1. Patchy areas of tree-in-bud present throughout the lungs likely infectious or inflammatory in etiology related to aspiration. 2. Moderate pulmonary emphysematous changes. 3. Atherosclerosis. Stable descending thoracic aortic aneurysm. IMPRESSION: 1. No acute abnormality. 2. Fecal stasis 3. Endovascular stent graft with stable abdominal aortic aneurysm sac.
--- NOTE | 2024-06-27 00:13 | CTR_ITS ---
PROCEDURE INFORMATION: Exam: CT Lumbar Spine Without Contrast Exam date and time: 06/27/2024 12:14 AM Age: 68 years old Clinical indication: Injury or trauma; Fall; Blunt trauma (contusions or hematomas); Prior surgery; Surgery date: 6+ months; Surgery type: Aorta; Additional info: Low back pain TECHNIQUE: Imaging protocol: Computed tomography of the lumbar spine without contrast. Radiation optimization: All CT scans at this facility use at least one of these dose optimization techniques: automated exposure control; mA and/or kV adjustment per patient size (includes targeted exams where dose is matched to clinical indication); or iterative reconstruction. COMPARISON: MR lumbar spine wo con* [id number] 01/06/2022 8:17 AM RADIATION DOSE METRICS: Total DLP (mGy-cm): 357 FINDINGS: Bones/joints: There is normal alignment of the lumbar spine without fracture or subluxation. The bone density is decreased. L1-L2: Negative L2-L3: Shallow disc bulge. Facet arthropathy present with thickening of the ligamentum flavum. There is mild canal and bilateral neural foraminal narrowing. The L3-L4: There is a broad disc bulge. Facet arthropathy present with thickening of the ligamentum flavum. There is mild canal narrowing. Mild bilateral neural foraminal narrowing. L4-L5: There is a broad disc bulge. Facet arthropathy present with thickening of the ligamentum flavum. There is moderate canal and bilateral moderate neural foraminal narrowing. L5-S1: There is a broad disc bulge. Facet arthropathy present. Moderate to severe right and moderate left neural foraminal narrowing. Moderate canal narrowing. Soft tissues: Unremarkable. CT/CT lumbar spine wo con* [id number] IMPRESSION: No acute abnormality. Multilevel degenerative changes as detailed.
--- NOTE | 2024-06-27 00:13 | CTR_ITS ---
PROCEDURE INFORMATION: Exam: CT Thoracic Spine Without Contrast Exam date and time: 06/27/2024 12:14 AM Age: 68 years old Clinical indication: Injury or trauma; Fall; Blunt trauma (contusions or hematomas); Prior surgery; Surgery date: 6+ months; Surgery type: Aorta; Additional info: Traumatic upper back pain TECHNIQUE: Imaging protocol: Computed tomography of the thoracic spine without contrast. Radiation optimization: All CT scans at this facility use at least one of these dose optimization techniques: automated exposure control; mA and/or kV adjustment per patient size (includes targeted exams where dose is matched to clinical indication); or iterative reconstruction. COMPARISON: [place] [id number] 06/27/2024 12:10 AM RADIATION DOSE METRICS: Total DLP (mGy-cm): 381.5 FINDINGS: Bones/joints: No acute fracture. Normal alignment. No significant disc bulge or herniation. No severe spinal canal stenosis. No significant neural foraminal narrowing. The bone density is decreased. There is mild anterior and marginal osteophyte formation throughout the thoracic spine. Soft tissues: Unremarkable. CT/CT thoracic spin wo con* [id number] IMPRESSION: No acute abnormality. Mild degenerative changes.
[2024-06-27 00:57] LABS: Basophils # 0.1 10^3/uL (0.0-0.1); Basophils % 0.9 %; Eosinophils # 0.2 10^3/uL (0.0-0.8); Eosinophils % 2.4 %; Hematocrit 32.2 % (37-53); Lymphocytes % 21.3 %; Mean Corpuscular HGB Conc 32.6 g/dL (30-55); Mean Corpuscular Hemoglobin 30.9 pg (27-33); Mean Corpuscular Volume 94.7 fl (82-101); Mean Platelet Volume 10.3 fL (7.4-10.4); Monocytes # 0.6 10^3/uL (0.2-0.9); Monocytes % 6.1 %; Neutrophils # 6.52 10^3/uL (1.8-7.7); Neutrophils % 68.9 %; Nucleated Red Blood Cells % 0 %; Platelet Count 320 10^3/cmm (157-399); White Blood Count 9.48 10^3/uL (3.29-11.43)
[2024-06-27 01:08] LABS: Alanine Aminotransferase 6 U/L (0-41); Albumin Level 3.8 g/dL (3.5-5.2); Alkaline Phosphatase 166 U/L (40-130); Anion Gap 14.7 (5-19); Aspartate Amino Transferase 7 U/L (0-40); Blood Urea Nitrogen 17 mg/dL (8-23); Carbon Dioxide 25 mmol/L (22-29); Chloride 103 mmol/L (98-107); Creatinine Clr Calc Pharmacy 54.1607; Globulin 3.1 g/dL (1.3-4.6); Glomerular Filtration Rate 50.7 mL/min (90-130); Glucose 91 mg/dL (65-115); Osmolality Calculated 289 mOsm/kg (285-295); Potassium 3.7 mmol/L (3.5-5.1); Sodium 139 mmol/L (136-145); Total Bilirubin 0.4 mg/dL (0.15-1.2); Total Protein 6.9 g/dL (6.6-8.7)
[2024-06-27] MEDS: levofloxacin-dextrose 5 % 750 MG/150 ML PREMIX 100 MG IV (01:20)
[2024-06-27] MEDS: methylPREDNISolone sod succ 125 mg/2 mL INJ IVP (01:20)
[2024-06-27] MEDS: albuterol 2.5 mg/3 mL Neb INHALATION (01:28)
[2024-06-27 01:39] LABS: ABG PCO2 40.4 mmHg (35-45); Alveolar-Arterial Oxygen Gradi 4.4 mmHg (5-10); Arterial Blood Gas Hematocrit 33.2 % (42-52); Base Excess ABG 0.4 mmol/L (-2.0-2.0); Blood Gas Sample Site Brachial, right; Blood Gas Sample Type Arterial; Carboxyhemoglobin 3.1 %THgb (0.4-20.1); HCO3 ABG 25.2 mmol/L (22-26); HGB O2 Sat 89.1 % (95-100); Ionized Calcium Level - ABG 1.2 mmol/L (1.1-1.4); Methemoglobin 0.9 % (0.4-1.5); Oxygen Device NC; Oxygen Saturation ABG 92.8; PO2 ABG 64.3 mmHg (80.0-100.0); Potassium Level - ABG 3.7 mmol/L (3.5-5.0); Total Hemoglobin 10.8 g/dL (14-18)
--- NOTE | 2024-06-27 02:40 | PM.HP ---
Providers/Chief Complaint Admitting Physician: Hay Green MD Primary Care Provider: Simi Vital DO Chief Complaint: Rt side Back Pain History of Present Illness Balta Kwan is a 68 year old male with coronary artery disease and COPD who fell on Monday around 2 PM and has had trouble breathing deeply since then. Comes in with worsening shortness of breath still having difficulty to take deep breaths and found to have patchy pneumonia and hypoxemia. Admitted for treatment of pneumonia with Levaquin and steroids Patient states he falls once every 2 to 3 weeks and has poor balance. Patient denies syncope states he lost his balance having to pee after getting up from a 2 PM nap. States he sees a physician but has never had a good explanation for why he is off balance denies history of malignancy. Review of Systems Narrative: General no fevers chills weight gain weight loss Cardiovascular no chest pain palpitations or edema Respiratory positive for cough nonproductive he has been short of breath GI positive for nausea vomiting once due to congestion also has constipation with bowel movements every 5 to 6 days takes tramadol for chronic sciatica back pain no dysuria hematuria Neuro no seizures strokes Skin notable for bruising Medications/Allergies Home Medications ?Medication ?Instructions ?Recorded ?Confirmed ?Last Taken ?Type aspirin 81 mg tablet,delayed 81 mg PO QAM 04/22/19 03/21/24 02/08/24 History release clopidogrel 75 mg tablet 75 mg PO QAM 04/22/19 03/21/24 02/08/24 History Held on 02/14/24. Instructions: Resume on 02/16/24. finasteride 5 mg tablet 5 mg PO QAM 04/22/19 03/21/24 02/13/24 History pantoprazole 40 mg tablet,delayed 40 mg PO QAM 04/22/19 03/21/24 02/13/24 History release Held on 02/14/24. Instructions: Resume on 03/27/24. simvastatin 40 mg tablet 40 mg PO BEDTIME 04/22/19 03/21/24 02/13/24 History baclofen 20 mg tablet 20 mg PO BID 04/16/21 03/21/24 02/13/24 History diltiazem HCl 90 mg 90 mg PO Q12H 04/16/21 03/21/24 02/14/24 05:00 History capsule,extended release 12 hr levothyroxine 150 mcg tablet 150 mcg PO QAM 04/16/21 03/21/24 02/14/24 05:00 History nitroglycerin 0.4 mg sublingual 0.4 mg sublingual Q5M PRN Chest 04/16/21 03/21/24 08/15/23 History tablet (Nitrostat) Pain mirtazapine 30 mg tablet (Remeron) 30 mg PO BEDTIME 05/13/21 03/21/24 02/13/24 History tramadol 50 mg tablet 50 mg PO BID 06/23/22 03/21/24 02/13/24 History albuterol sulfate 90 mcg/actuation 2 puff inhalation Q4H PRN 06/04/23 03/21/24 02/13/24 History aerosol inhaler Shortness Of Breath Or Wheezing isosorbide dinitrate 30 mg tablet 15 mg PO BEDTIME 06/04/23 03/21/24 02/13/24 History losartan 50 mg tablet 50 mg PO DAILY 06/04/23 03/21/24 02/13/24 History gabapentin 100 mg capsule 100 mg PO BID #60 caps 06/06/23 03/21/24 02/13/24 Rx venlafaxine 150 mg 150 mg PO QAM #90 caps 12/26/23 03/21/24 02/13/24 Rx capsule,extended release 24 hr budesonide-formoterol HFA 160 2 puff inhalation BID 02/12/24 03/21/24 02/13/24 History mcg-4.5 mcg/actuation aerosol inhaler fluticasone propionate 50 2 spray intranasal BID 02/12/24 03/21/24 02/13/24 History mcg/actuation nasal spray,suspension mupirocin 2 % topical ointment 1 applic topical DAILY PRN Outbreak 02/12/24 03/21/24 02/13/24 History pantoprazole 40 mg tablet,delayed 40 mg PO BID 6 weeks #84 tabs 02/14/24 03/21/24 Unknown Rx release ondansetron HCl 4 mg tablet 4 mg PO Q8H #30 tabs 04/30/24 Unknown Rx Allergies Allergy/AdvReac Type Severity Reaction Status Date / Time tetracycline Allergy Nausea Verified 06/26/24 23:54 PFSH Acute PFSH: Medical History (Updated 06/27/24 @ 02:53 by Hay Green MD) Fall Tubular adenoma of colon History of colon polyps BPH loc w urin obs/LUTS Aortic aneurysm COPD with acute exacerbation Renal artery stenosis Peripheral arterial disease with history of revascularization Essential hypertension CAD (coronary artery disease) Hyperlipidemia Hypothyroidism GERD (gastroesophageal reflux disease) Generalized anxiety disorder Urinary retention Balanitis Surgical History Hx laparoscopic cholecystectomy 01/18/24 Dr Shin Status post left inguinal hernia repair (01/01/20) History of esophagogastroduodenoscopy (EGD) (~2018) dr. anderson History of colonoscopy with polypectomy (~2018) dr. anderson H/O heart artery stent Family History Mother , AT AGE 64 Renal failure Alzheimer disease Father , AT AGE 48 Lung cancer Social History (Updated 06/27/24 @ 02:50 by Hay Green MD) Smoking and tobacco/nicotine status: heavy tobacco/nicotine user cigarettes Packs smoked per day: 2.5 Years cigarettes smoked: 45 Quit status (tobacco/nicotine): not considering quitting Alcohol intake: never Substance/Drug Use: never Additional social history: Wants full code Marital status: Current occupational status: disabled Vitals/I&O/Wt Last Vital Signs Temp 98.0 F 06/26/24 23:49 Pulse 87 06/27/24 01:35 Resp 18 06/27/24 01:28 BP 131/79 06/27/24 01:21 Pulse Ox 95 06/27/24 01:28 O2 Del Method Nasal Cannula 06/27/24 01:28 O2 Flow Rate 2 06/27/24 01:28 06/26/24 06/26/24 06/27/24 14:59 22:59 06:59 Intake Total 0 / 0 Balance 0 / 0 Weight last 48 hrs Weight 68.039 kg Physical Exam Narrative: General Well-developed thin male mildly tachypneic CV regular rate and rhythm with right upper sternal border murmur 3/6 radiates to both carotids Lungs moderate air movement no crackles Abdomen positive bowel sounds soft nontender Back thin he has ecchymosis across the upper lumbar back moderately tender to palpation Calves no tenderness cords pretrip edema Neuro alert and oriented x 3 moves all extremities symmetrically Psych mood and affect normal Carotid normal upstroke he has radiated murmur of the aortic valve up to both carotids mildly Data 06/27/24 00:10 06/27/24 00:10 Micro: Microbiology 06/27/24 01:06 Blood Culture - Preliminary Blood SPECIMEN COLLECTED 06/27/24 01:00 Blood Culture - Preliminary Blood SPECIMEN COLLECTED A&P Assessment and plan (1) Hypoxemia: Patient will be admitted and treated for pneumonia with Levaquin and steroids. The infiltrates are fairly patchy and mild but patient has emphysema and strong history of smoking. Start incentive spirometry 10 times an hour while awake. If hypoxemia not resolving consider scan for pulmonary embolism. Legs exam no signs of DVT (2) Pneumonia: As above minimal phlegm patient was not coughing (3) COPD with acute exacerbation: Patient is heavy smoker will start nicotine patch 21 mg daily. I counseled him regarding cardiovascular disease and smoking and need to stop smoking (4) Contusion of back: Consistent with this timeframe. Looks okay to start Lovenox 40 mg daily (5) Fall: Patient has been falling recurrently he also is a heavy smoker and has had cardiac stents as well as aorto iliac vascular stents. Will check carotid Dopplers with vertebrals. Start telemetry PDMP PDMP Reviewed: Not Reviewed Attestations Medical Necessity Statement*: Patient will be in the hospital starting on observation for pneumonia and hypoxemia Coding Level of Care Code Acute Code for Chg Fwd Diagnoses Hypoxemia R09.02 Pneumonia J18.9 COPD with acute exacerbation J44.1 Contusion of back S20.229A Fall W19.XXXA Time Spent (min) 70
--- NOTE | 2024-06-27 03:26 | USCV_ITS ---
Balta Kwan Age: 68 Gender: M : 1955 Exam Date: 06/27/2024 03:33 Ordering Phys: Hay Green MD Technologist: [employer]FORT Exam Location: [facility] Indication: recurrent falls c/o dizziness and ataxia, hx PAD, COPD, CAD, HTN, HL. long-term smoker continues smoking, no DM. Risk Factors: recurrent falls c/o dizziness and ataxia, hx PAD, COPD, CAD, HTN, HL. long-term smoker continues smoking, no DM. Previous Vascular Surgery: unknown Right Brachial BP: 106 / 56 Left Brachial BP: / Right Left Velocity (cm/s) Spectral Plaque Velocity (cm/s) Spectral Plaque Syst/Diast Broadening Syst/Diast Broadening 110.00/15.40 Min Homo Prox CCA 164.00/ 13.80 Min Homo 113.90/20.60 Min Hetro Mid CCA 118.30/ 11.90 Min Hetro 119.90/23.50 Min Hetro Distal CCA 68.50 / 12.10 Min Hetro 90.00/ 17.90 Min Hubert Prox ICA 69.70 / 10.90 Min Hubert 82.80/ 17.90 Min Hetro Mid ICA 61.70 / 15.60 None Hetro 86.40/ 23.30 Min Hetro Distal ICA 76.50 / 29.00 Min Hetro 86.70 Mod Hetro ECA 126.10 Mod Hetro 0.80 ICA/CCA 1.10 Antegrade Vertebral Antegrade 62.90/ 19.70 cm/s 34.90/ 7.50 cm/s Tri Subclavian Tri 67.70 90.60 CONCLUSIONS Right ICA stenosis <50%. Mild atheromatous plaque right carotid bulb/ICA. Left ICA stenosis <50%. Mild atheromatous plaque left carotid bulb/ICA. Normal antegrade Doppler flow noted in the right vertebral artery. Normal antegrade Doppler flow noted in the left vertebral artery. Hay Manley MD (Electronically Signed) Final Date: 27 Jun 2024 14:37 S
[2024-06-27] MEDS: levothyroxine 150 mcg Tablet PO (05:42)
[2024-06-27] MEDS: finasteride 5 mg Tablet PO (05:42)
[2024-06-27] MEDS: venlafaxine ER (24HR) 150 mg Capsule PO (05:42)
[2024-06-27] MEDS: aspirin 81 mg EC Tablet PO (05:42)
[2024-06-27] MEDS: clopidogrel 75 mg Tablet PO (05:42)
[2024-06-27] MEDS: pantoprazole DR 40 mg Tablet PO (05:42)
[2024-06-27] MEDS: ipratropium-albuterol 3 mL Neb INHALATION ×3 (05:55→20:28)
[2024-06-27] MEDS: budesonide 0.5 mg/2 mL Neb INHALATION ×2 (07:09→20:28)
[2024-06-27] MEDS: albuterol 2.5 MG/0.5 ML NEB INHALATION (07:13)
[2024-06-27] MEDS: dexamethasone 4 mg/mL INJ PO (07:56)
[2024-06-27] MEDS: enoxaparin 40 mg/0.4 mL Syringe SUBCUT (07:56)
[2024-06-27] MEDS: TRAMadol 50 mg Tablet PO ×2 (07:56→17:24)
[2024-06-27] MEDS: baclofen 10 mg Tablet 20 MG PO ×2 (07:56→17:24)
[2024-06-27] MEDS: losartan 50 mg Tablet PO (07:56)
[2024-06-27] MEDS: gabapentin 100 mg Capsule PO ×2 (07:56→17:24)
[2024-06-27] MEDS: fluticasone nasal spray 16gm Btl 2 SPRAY INTRANASAL ×2 (07:57→17:24)
[2024-06-27 09:36] LABS: D Dimer 0.91 ug/mLFEU (0-0.59)
[2024-06-27 09:49] LABS: Iron 49 ug/dL (59-158); Percent Saturation 19.5 % (20-50); Total Iron Binding Capacity 251 mcg/dl; Unsaturated Iron Binding 202 ug/dL (112-347)
[2024-06-27 09:53] LABS: Estmated Average Glucose 114; Hemoglobin A1C 5.6 % (4.0-6.0)
[2024-06-27 10:04] LABS: Procalcitonin 0.07 ng/mL (0-0.5); Vitamin B12 229 pg/mL (232-1245)
[2024-06-27] MEDS: azithromycin 250 mg Tablet 500 MG PO (11:04)
[2024-06-27] MEDS: cefTRIAXone 1,000 mg SDV 1000 MG IVP (11:04)
[2024-06-27] MEDS: methylPREDNISolone sod succ 40 mg/mL INJ IVP ×2 (11:05→17:24)
[2024-06-27] MEDS: cyanocobalamin 1,000 mcg/mL SDV 1000 MCG IM (11:06)
[2024-06-27 12:45] LABS: MRSA PCR OZH (swab) NOT DETECTED (Negative)
[2024-06-27 18:49] LABS: Bilirubin Urine Negative (Negative); Blood Urine Negative (Negative); Glucose Urine UA Negative (Normal); Ketones Urine Trace (Negative); Leukocyte Esterase Urine Trace (Negative); Nitrate Urine Negative (Negative); Protein Urine Trace (Negative); Specific Gravity, Urine 1.015 (1.005-1.030); Urine Appearance Clear (CLEAR); Urine Color Yellow (Yellow); Urobilinogen Urine 0.2 mg/dL (Negative); pH Urine 5.5 (5-7)
[2024-06-27 18:54] LABS: Add Urine Microscopic? YES; Bacteria Urine None Seen /hpf; Hyaline Casts Urine 1.21 /lpf; RBC Urine 0-2 /hpf (0-2); Squamous Epithelial Cell Urine 0-5 /hpf (0-5); WBC Urine 0-5 /hpf (0-5)
[2024-06-27 18:57] LABS: Amphetamines Screen Urine Negative (Negative); Barbiturates Screen Urine Negative (Negative); Benzodiazepines Screen Urine Negative (Negative); Cocaine Screen Urine Negative (Negative); Opiate Screen Urine Positive (Negative); PCP Screen Urine Negative (Negative); THC Screen Urine Negative (Negative)
[2024-06-27] MEDS: mirtazapine 30 mg Tablet PO (20:23)
[2024-06-27] MEDS: ATORVASTATIN 10 MG TABLET 20 MG PO (20:23)
[2024-06-28] VITALS (14 sets, daily range): BP systolic 101–151; BP diastolic 63–76; PULSE 92–104; RESP 16–18; TEMP 36.6–36.8; O2SAT 93–98
[2024-06-28] MEDS: ipratropium-albuterol 3 mL Neb INHALATION ×4 (01:45→19:37)
[2024-06-28] MEDS: methylPREDNISolone sod succ 40 mg/mL INJ IVP ×2 (02:20→08:28)
[2024-06-28 05:11] LABS: Basophils % 0.1 %; Hematocrit 31.9 % (37-53); Lymphocytes # 0.9 10^3/uL (0.8-4.8); Lymphocytes % 7.2 %; Mean Corpuscular HGB Conc 32.3 g/dL (30-55); Mean Corpuscular Hemoglobin 30.8 pg (27-33); Mean Corpuscular Volume 95.5 fl (82-101); Mean Platelet Volume 10.4 fL (7.4-10.4); Monocytes # 0.2 10^3/uL (0.2-0.9); Monocytes % 1.8 %; Neutrophils % 90.3 %; Nucleated Red Blood Cells % 0 %; Platelet Count 302 10^3/cmm (157-399); Red Blood Count 3.34 10^6/uL (3.85-5.65); Red Cell Distribution Width 14.2 % (12.1-15.1)
[2024-06-28] MEDS: venlafaxine ER (24HR) 150 mg Capsule PO (05:23)
[2024-06-28] MEDS: aspirin 81 mg EC Tablet PO (05:23)
[2024-06-28] MEDS: pantoprazole DR 40 mg Tablet PO (05:23)
[2024-06-28] MEDS: levothyroxine 150 mcg Tablet PO (05:24)
[2024-06-28] MEDS: finasteride 5 mg Tablet PO (05:24)
[2024-06-28] MEDS: clopidogrel 75 mg Tablet PO (05:24)
[2024-06-28 05:30] LABS: Alanine Aminotransferase < 5 U/L (0-41); Albumin Level 3.8 g/dL (3.5-5.2); Alkaline Phosphatase 159 U/L (40-130); Aspartate Amino Transferase 10 U/L (0-40); Blood Urea Nitrogen 26 mg/dL (8-23); Calcium 9.5 mg/dL (8.5-10.5); Carbon Dioxide 24 mmol/L (22-29); Chloride 104 mmol/L (98-107); Creatinine Clr Calc Pharmacy 44.9543; Globulin 2.9 g/dL (1.3-4.6); Glomerular Filtration Rate 50.7 mL/min (90-130); Glucose 133 mg/dL (65-115); Magnesium 2.2 mg/dL (1.7-2.3); Osmolality Calculated 299 mOsm/kg (285-295); Sodium 141 mmol/L (136-145); Total Bilirubin 0.3 mg/dL (0.15-1.2); Total Protein 6.7 g/dL (6.6-8.7)
[2024-06-28] MEDS: azithromycin 250 mg Tablet 500 MG PO (08:27)
[2024-06-28] MEDS: enoxaparin 40 mg/0.4 mL Syringe SUBCUT (08:28)
[2024-06-28] MEDS: baclofen 10 mg Tablet 20 MG PO ×2 (08:28→18:08)
[2024-06-28] MEDS: gabapentin 100 mg Capsule PO ×2 (08:28→18:08)
[2024-06-28] MEDS: cyanocobalamin 1,000 mcg/mL SDV 1000 MCG IM (08:28)
[2024-06-28] MEDS: TRAMadol 50 mg Tablet PO ×2 (08:28→18:08)
[2024-06-28] MEDS: cefTRIAXone 1,000 mg SDV 1000 MG IVP (08:28)
[2024-06-28] MEDS: fluticasone nasal spray 16gm Btl 2 SPRAY INTRANASAL ×2 (08:29→18:11)
[2024-06-28] MEDS: budesonide 0.5 mg/2 mL Neb INHALATION ×2 (09:29→19:37)
--- NOTE | 2024-06-28 11:27 | PC.SOCIAL ---
IMM Updated Updated pt on IMM. No questions voiced. Provided pt a copy. Initialed, dated, & timed a copy & placed in chart.
--- NOTE | 2024-06-28 15:14 | P.PN_ITS ---
Subjective 2 Subjective: No acute events overnight. Patient has remained hemodynamically stable and afebrile. Saturating well. Currently on 1 L. Able to ambulate without nausea or vomiting. Vitals/I&O/Wt Last Vital Signs Temp 98.3 F 06/28/24 11:17 Pulse 95 06/28/24 14:15 Resp 16 06/28/24 14:06 BP 106/70 06/28/24 11:17 Pulse Ox 94 06/28/24 14:06 O2 Del Method Nasal Cannula 06/28/24 14:06 O2 Flow Rate 1 06/28/24 14:06 06/28/24 06/28/24 06/28/24 06:59 14:59 22:59 Intake Total 440 / 1890 360 / 360 Output Total 600 / 600 Balance 440 / 1490 -240 / -240 Weight last 48 hrs Weight 61.235 kg Weight 60.645 kg Weight 68.039 kg Physical Exam 2 Narrative: General Well-developed thin male mildly tachypneic CV regular rate and rhythm with right upper sternal border murmur 3/6 radiates to both carotids Lungs moderate air movement no crackles Abdomen positive bowel sounds soft nontender Back thin he has ecchymosis across the upper lumbar back moderately tender to palpation Calves no tenderness cords pretrip edema Neuro alert and oriented x 3 moves all extremities symmetrically Psych mood and affect normal Carotid normal upstroke he has radiated murmur of the aortic valve up to both carotids mildly Extremity: LEFT UPPER EXTREMITY: Yes hand & digits Data 06/28/24 04:39 06/28/24 04:39 Micro: Microbiology 06/27/24 01:06 Blood Culture - Preliminary Blood NEGATIVE TO DATE 06/27/24 01:00 Blood Culture - Preliminary Blood NEGATIVE TO DATE A&P Assessment and plan (1) Fall: Most likely in setting of hypotension. Patient's blood pressures have remained stable off antihypertensive. Check orthostatic blood pressure. Physical therapy evaluation. Appreciate carotid Dopplers. Also found to have significant vitamin B12 deficiency which could be worsening for perception as well. Continue with vitamin B12 supplementation. Add folic acid supplementation. (2) Hypoxemia: Concern for community-acquired pneumonia post fall because of rib pain. Appreciate Chest imaging from admission. Continue with IV ceftriaxone and oral azithromycin. Nebulization treatment with Pulmicort twice daily, DuoNeb every 6 hour. Continue with oral prednisone 40 mg oral daily. Aggressive pulmonary toilet. (3) Pneumonia: (4) COPD with acute exacerbation: Patient is heavy smoker will start nicotine patch 21 mg daily. I counseled him regarding cardiovascular disease and smoking and need to stop smoking (5) Contusion of back: Consistent with this timeframe. Looks okay to start Lovenox 40 mg daily (6) B12 deficiency: Plan Cardiac diet Protonix for PUD prophylaxis Lovenox for DVT prophylaxis. PDMP PDMP Reviewed: Not Reviewed Attestations 2 Medical Necessity Statement*: Requires further hospitalization for management of recurrent falls in setting of hypotension, hypoxia in setting of pneumonia due to rib contusion Diagnoses Fall W19.XXXA Hypoxemia R09.02 Pneumonia J18.9 COPD with acute exacerbation J44.1 Contusion of back S20.229A B12 deficiency E53.8
[2024-06-28] MEDS: folic acid 1 mg Tablet PO (18:08)
[2024-06-28] MEDS: ATORVASTATIN 10 MG TABLET 20 MG PO (20:57)
[2024-06-28] MEDS: mirtazapine 30 mg Tablet PO (20:57)
[2024-06-29] VITALS (13 sets, daily range): BP systolic 102–160; BP diastolic 65–96; PULSE 83–122; RESP 14–18; TEMP 36.4–37.1; O2SAT 92–98
[2024-06-29] MEDS: ipratropium-albuterol 3 mL Neb INHALATION ×4 (02:11→20:27)
[2024-06-29 03:45] LABS: Basophils % 0.1 %; Hematocrit 35.3 % (37-53); Lymphocytes % 4.4 %; Mean Corpuscular HGB Conc 32.3 g/dL (30-55); Mean Corpuscular Hemoglobin 31.3 pg (27-33); Mean Platelet Volume 10.3 fL (7.4-10.4); Monocytes # 0.8 10^3/uL (0.2-0.9); Monocytes % 3.8 %; Neutrophils # 19.71 10^3/uL (1.8-7.7); Neutrophils % 90.8 %; Nucleated Red Blood Cells % 0 %; Platelet Count 343 10^3/cmm (157-399); Red Blood Count 3.64 10^6/uL (3.85-5.65); Red Cell Distribution Width 14.6 % (12.1-15.1); White Blood Count 21.71 10^3/uL (3.29-11.43)
[2024-06-29 04:03] LABS: Alanine Aminotransferase 8 U/L (0-41); Albumin Level 3.8 g/dL (3.5-5.2); Alkaline Phosphatase 146 U/L (40-130); Aspartate Amino Transferase 15 U/L (0-40); Blood Urea Nitrogen 34 mg/dL (8-23); Calcium 9.4 mg/dL (8.5-10.5); Carbon Dioxide 26 mmol/L (22-29); Chloride 106 mmol/L (98-107); Creatinine Clr Calc Pharmacy 48.4123; Globulin 2.9 g/dL (1.3-4.6); Glomerular Filtration Rate 55.2 mL/min (90-130); Glucose 125 mg/dL (65-115); Osmolality Calculated 305 mOsm/kg (285-295); Sodium 143 mmol/L (136-145); Total Bilirubin 0.2 mg/dL (0.15-1.2); Total Protein 6.7 g/dL (6.6-8.7)
[2024-06-29 04:34] LABS: Magnesium 2.5 mg/dL (1.7-2.3)
[2024-06-29] MEDS: clopidogrel 75 mg Tablet PO (05:09)
[2024-06-29] MEDS: aspirin 81 mg EC Tablet PO (05:09)
[2024-06-29] MEDS: venlafaxine ER (24HR) 150 mg Capsule PO (05:09)
[2024-06-29] MEDS: levothyroxine 150 mcg Tablet PO (05:09)
[2024-06-29] MEDS: pantoprazole DR 40 mg Tablet PO (05:09)
[2024-06-29] MEDS: finasteride 5 mg Tablet PO (05:09)
[2024-06-29] MEDS: folic acid 1 mg Tablet PO ×2 (08:18→18:06)
[2024-06-29] MEDS: baclofen 10 mg Tablet 20 MG PO ×2 (08:18→18:06)
[2024-06-29] MEDS: predniSONE 20 mg Tablet 40 MG PO (08:18)
[2024-06-29] MEDS: TRAMadol 50 mg Tablet PO ×2 (08:18→18:05)
[2024-06-29] MEDS: budesonide 0.5 mg/2 mL Neb INHALATION ×2 (08:18→20:27)
[2024-06-29] MEDS: gabapentin 100 mg Capsule PO ×2 (08:19→18:06)
[2024-06-29] MEDS: cyanocobalamin 1,000 mcg/mL SDV 1000 MCG IM (08:19)
[2024-06-29] MEDS: enoxaparin 40 mg/0.4 mL Syringe SUBCUT (08:19)
[2024-06-29] MEDS: cefTRIAXone 1,000 mg SDV 1000 MG IVP (08:19)
[2024-06-29] MEDS: fluticasone nasal spray 16gm Btl 2 SPRAY INTRANASAL ×2 (08:19→18:06)
[2024-06-29] MEDS: azithromycin 250 mg Tablet 500 MG PO (08:22)
[2024-06-29] MEDS: dilTIAZem 60 mg Tablet PO (10:53)
--- NOTE | 2024-06-29 12:59 | P.PN_ITS ---
Subjective 2 Subjective: Overnight patient's heart rate went up to 120s. Today morning he was given 10 mg of IV Cardizem after which his heart rate settled down to low 100s at rest. He states he is feeling better. Denies any nausea vomiting, headache. Saturating well on room air. Seen with family at bedside. Vitals/I&O/Wt Last Vital Signs Temp 97.8 F 06/29/24 12:00 Pulse 102 H 06/29/24 12:00 Resp 16 06/29/24 12:00 BP 126/78 06/29/24 12:00 Pulse Ox 97 06/29/24 12:00 O2 Del Method Nasal Cannula 06/29/24 12:00 O2 Flow Rate 1 06/29/24 08:00 FiO2 1 06/28/24 19:46 06/28/24 06/29/24 06/29/24 22:59 06:59 14:59 Intake Total 558 / 918 0 / 918 120 / 120 Output Total 420 / 1020 Balance 558 / 318 -420 / -102 120 / 120 Weight last 48 hrs Weight 62.505 kg Weight 61.235 kg Physical Exam 2 Narrative: General Well-developed thin male mildly tachypneic CV regular rate and rhythm with right upper sternal border murmur 3/6 radiates to both carotids Lungs moderate air movement no crackles Abdomen positive bowel sounds soft nontender Back thin he has ecchymosis across the upper lumbar back moderately tender to palpation Calves no tenderness cords pretrip edema Neuro alert and oriented x 3 moves all extremities symmetrically Psych mood and affect normal Carotid normal upstroke he has radiated murmur of the aortic valve up to both carotids mildly Data 06/29/24 03:20 06/29/24 03:20 A&P Assessment and plan (1) Fall: Most likely in setting of hypotension. Patient's blood pressures have remained stable off antihypertensive. Orthostatic blood pressure negative. Appreciate physical therapy evaluation. Carotid Dopplers found to within normal limits. Blood pressure stable off antihypertensive but patient developing A-fib with RVR today. Will restart Cardizem at 30 mg every 6 hourly and uptitrate depending on the blood pressures keeping mean over 65, heart rate below 100. Also found to have significant vitamin B12 deficiency which could be the reason for worsening proprioception as well. Continue with vitamin B12 supplementation. Add folic acid supplementation. (2) Hypoxemia: Concern for community-acquired pneumonia post fall because of rib pain. Appreciate Chest imaging from admission. Continue with IV ceftriaxone and oral azithromycin. Nebulization treatment with Pulmicort twice daily, DuoNeb every 6 hour. Patient is on room air now. Will discontinue prednisone. Aggressive pulmonary toilet. (3) Pneumonia: (4) COPD with acute exacerbation: Patient is heavy smoker will start nicotine patch 21 mg daily. I counseled him regarding cardiovascular disease and smoking and need to stop smoking (5) Contusion of back: Consistent with this timeframe. Looks okay to start Lovenox 40 mg daily (6) B12 deficiency: Plan Cardiac diet Protonix for PUD prophylaxis Lovenox for DVT prophylaxis. PDMP PDMP Reviewed: Not Reviewed Attestations 2 Medical Necessity Statement*: Requested hospitalization for management of recurrent falls in setting of hypotension, severe vitamin B12 deficiency, pneumonia, A-fib with RVR Diagnoses Fall W19.XXXA Hypoxemia R09.02 Pneumonia J18.9 COPD with acute exacerbation J44.1 Contusion of back S20.229A B12 deficiency E53.8
--- NOTE | 2024-06-29 13:05 | ECG_ITS ---
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 Measurements Intervals [place] Rate: 88 P: 77 NH: 160 QRS: 43 QRSD: 96 T: 74 QT: 348 QTc: 422 Interpretive Statements SINUS RHYTHM Compared to ECG 04/30/2024 17:31:28 ST (T wave) deviation no longer present Electronically Signed On 07-01-2024 09:18:58 CDT by Satya Myrick M.D. [email or web address]
[2024-06-29] MEDS: oxybutynin 5 mg Tablet PO (15:28)
[2024-06-29] MEDS: dilTIAZem 30 mg Tablet PO ×2 (18:06→23:54)
[2024-06-29] MEDS: mirtazapine 30 mg Tablet PO (21:20)
[2024-06-29] MEDS: ATORVASTATIN 10 MG TABLET 20 MG PO (21:20)
[2024-06-30] VITALS (9 sets, daily range): BP systolic 115–134; BP diastolic 74–81; PULSE 84–107; RESP 15–18; TEMP 36.4–36.6; O2SAT 92–97
[2024-06-30] MEDS: ipratropium-albuterol 3 mL Neb INHALATION ×2 (02:05→08:53)
[2024-06-30 04:21] LABS: Basophils % 0.1 %; Hematocrit 33.9 % (37-53); Lymphocytes # 1.6 10^3/uL (0.8-4.8); Lymphocytes % 9.8 %; Mean Corpuscular HGB Conc 31.6 g/dL (30-55); Mean Corpuscular Hemoglobin 30.7 pg (27-33); Mean Corpuscular Volume 97.4 fl (82-101); Mean Platelet Volume 10.4 fL (7.4-10.4); Monocytes # 0.7 10^3/uL (0.2-0.9); Monocytes % 4.2 %; Neutrophils # 13.91 10^3/uL (1.8-7.7); Neutrophils % 85.3 %; Nucleated Red Blood Cells % 0 %; Platelet Count 296 10^3/cmm (157-399); Red Blood Count 3.48 10^6/uL (3.85-5.65); Red Cell Distribution Width 14.8 % (12.1-15.1); White Blood Count 16.31 10^3/uL (3.29-11.43)
[2024-06-30 04:43] LABS: Alanine Aminotransferase 13 U/L (0-41); Albumin Level 3.5 g/dL (3.5-5.2); Alkaline Phosphatase 127 U/L (40-130); Anion Gap 13.9 (5-19); Aspartate Amino Transferase 17 U/L (0-40); Blood Urea Nitrogen 37 mg/dL (8-23); Carbon Dioxide 27 mmol/L (22-29); Chloride 107 mmol/L (98-107); Creatinine Clr Calc Pharmacy 53.5344; Globulin 2.8 g/dL (1.3-4.6); Glomerular Filtration Rate 60.6 mL/min (90-130); Glucose 112 mg/dL (65-115); Osmolality Calculated 307 mOsm/kg (285-295); Potassium 3.9 mmol/L (3.5-5.1); Sodium 144 mmol/L (136-145); Total Bilirubin 0.2 mg/dL (0.15-1.2); Total Protein 6.3 g/dL (6.6-8.7)
[2024-06-30 04:45] LABS: Magnesium 2.4 mg/dL (1.7-2.3)
[2024-06-30] MEDS: aspirin 81 mg EC Tablet PO (05:57)
[2024-06-30] MEDS: venlafaxine ER (24HR) 150 mg Capsule PO (05:57)
[2024-06-30] MEDS: finasteride 5 mg Tablet PO (05:57)
[2024-06-30] MEDS: dilTIAZem 30 mg Tablet PO ×2 (05:57→11:12)
[2024-06-30] MEDS: levothyroxine 150 mcg Tablet PO (05:57)
[2024-06-30] MEDS: clopidogrel 75 mg Tablet PO (05:57)
[2024-06-30] MEDS: gabapentin 100 mg Capsule PO (08:50)
[2024-06-30] MEDS: cefTRIAXone 1,000 mg SDV 1000 MG IVP (08:50)
[2024-06-30] MEDS: cyanocobalamin 1,000 mcg/mL SDV 1000 MCG IM (08:50)
[2024-06-30] MEDS: azithromycin 250 mg Tablet 500 MG PO (08:50)
[2024-06-30] MEDS: TRAMadol 50 mg Tablet PO (08:50)
[2024-06-30] MEDS: baclofen 10 mg Tablet 20 MG PO (08:50)
[2024-06-30] MEDS: folic acid 1 mg Tablet PO (08:50)
[2024-06-30] MEDS: enoxaparin 40 mg/0.4 mL Syringe SUBCUT (08:51)
[2024-06-30] MEDS: budesonide 0.5 mg/2 mL Neb INHALATION (08:53)
[2024-06-30] MEDS: fluticasone nasal spray 16gm Btl 2 SPRAY INTRANASAL (09:07)
[2024-06-30] MEDS: oxybutynin 5 mg Tablet PO (11:12)
--- NOTE | 2024-06-30 12:42 | PM.DCS ---
Discharge Providers Date of Admission: 06/27/24 01:47 Date of Discharge: June 30, 2024 Attending Provider at Admission: Hay Green MD Attending Provider at Discharge: Dillon Alonso MD Primary Care Provider: Simi Vital DO Diagnoses at Discharge Discharge Diagnosis (1) Fall: Status: Acute (2) Hypoxemia: Status: Acute (3) Pneumonia: Status: Acute (4) COPD with acute exacerbation: Status: Acute (5) Contusion of back: Status: Acute (6) B12 deficiency: Status: Acute Reason for Visit Reason for Visit: Rt side Back Pain Brief History: Balta Kwan is a 68 year old male with coronary artery disease and COPD who fell on Monday around 2 PM and has had trouble breathing deeply since then. Comes in with worsening shortness of breath still having difficulty to take deep breaths and found to have patchy pneumonia and hypoxemia. Admitted for treatment of pneumonia with Levaquin and steroids Patient states he falls once every 2 to 3 weeks and has poor balance. Patient denies syncope states he lost his balance having to pee after getting up from a 2 PM nap. States he sees a physician but has never had a good explanation for why he is off balance denies history of malignancy. Hospital Course Hospital Course He was hospitalized for further evaluation and management of recurrent falls, hypoxia in setting of pneumonia. He was started on broad-spectrum antibiotics. During hospitalization he was found to have soft to normal blood pressures while holding his antihypertensive. His blood pressures remained stable off antihypertensive with a negative orthostatic. He worked well with physical therapy. He did develop episode of tachycardia both at rest and on exertion for which he was started back on his oral Cardizem and his blood pressure has remained stable. He has been off supplemental oxygen for more than 24 hours. Is been discharged in medically stable condition with advised to check his blood pressure daily at home maintain blood pressure diary. He is to not take his home dose of losartan and isosorbide while continuing his home dose of Cardizem. He will be on Augmentin and Levaquin to the antibiotics for 3 more days. Physical Exam Narrative: General Well-developed thin male mildly tachypneic CV regular rate and rhythm with right upper sternal border murmur 3/6 radiates to both carotids Lungs moderate air movement no crackles Abdomen positive bowel sounds soft nontender Back thin he has ecchymosis across the upper lumbar back moderately tender to palpation Calves no tenderness cords pretrip edema Neuro alert and oriented x 3 moves all extremities symmetrically Psych mood and affect normal Carotid normal upstroke he has radiated murmur of the aortic valve up to both carotids mildly Discharge Data Studies Completed and Pending Completed Studies During Hospitalization Category Date Time Status CT chest abdomen pelvis [[place] [id number] Cat Scan 06/27/24 00:00 Completed ] Stat CT lumbar spine wo con* [id number] Stat Cat Scan 06/27/24 00:[address] thoracic spin wo con* [id number] Stat Cat Scan 06/27/24 00:13 Completed US carotid duplex bilateral [CV carotid duplex BI* Ultrasound 06/27/24 03:26 Completed [id number]] Routine Pending at discharge Category Date Time Status Blood Culture Stat Lab 06/27/24 01:06 Results Sputum Culture and Gram Stain Stat Lab 06/29/24 08:41 Results Radiology Impressions Chest/Abdomen/Pelvis CT 06/27/24 00:00 IMPRESSION: 1. Patchy areas of tree-in-bud present throughout the lungs likely infectious or inflammatory in etiology related to aspiration. 2. Moderate pulmonary emphysematous changes. 3. Atherosclerosis. Stable descending thoracic aortic aneurysm. IMPRESSION: 1. No acute abnormality. 2. Fecal stasis 3. Endovascular stent graft with stable abdominal aortic aneurysm sac. Lumbar Spine CT 06/27/24 00:13 IMPRESSION: No acute abnormality. Multilevel degenerative changes as detailed. Thoracic Spine CT 06/27/24 00:13 IMPRESSION: No acute abnormality. Mild degenerative changes. Microbiology 06/29/24 08:41 Sputum - Expectorated Sputum Gram Stain - Final 06/27/24 01:06 Blood Blood Culture - Preliminary NEGATIVE TO DATE 06/27/24 01:00 Blood Blood Culture - Preliminary NEGATIVE TO DATE Laboratory Results WBC 16.31 10^3/uL (3.29-11.43) H 06/30/24 03:56 RBC 3.48 10^6/uL (3.85-5.65) L 06/30/24 03:56 Hgb 10.70 g/dL (11.27-16.99) L 06/30/24 03:56 Hct 33.9 % (37-53) L 06/30/24 03:56 MCV 97.4 fl (82-101) 06/30/24 03:56 MCH 30.7 pg (27-33) 06/30/24 03:56 MCHC 31.6 g/dL (30-55) 06/30/24 03:56 RDW 14.8 % (12.1-15.1) 06/30/24 03:56 Plt Count 296 10^3/cmm (157-399) 06/30/24 03:56 MPV 10.4 fL (7.4-10.4) 06/30/24 03:56 Neut % (Auto) 85.3 % 06/30/24 03:56 Lymph % (Auto) 9.8 % 06/30/24 03:56 [place] % (Auto) 4.2 % 06/30/24 03:56 Eos % (Auto) 0.0 % 06/30/24 03:56 Baso % (Auto) 0.1 % 06/30/24 03:56 Neut # (Auto) 13.91 10^3/uL (1.8-7.7) H 06/30/24 03:56 Lymph # (Auto) 1.6 10^3/uL (0.8-4.8) 06/30/24 03:56 [place] # (Auto) 0.7 10^3/uL (0.2-0.9) 06/30/24 03:56 Eos # (Auto) 0.0 10^3/uL (0.0-0.8) 06/30/24 03:56 Baso # (Auto) 0.0 10^3/uL (0.0-0.1) 06/30/24 03:56 Nucleated RBC % (auto) 0 % 06/30/24 03:56 Nucleated RBCs # 0.0 /100WBC 06/30/24 03:56 D-Dimer 0.91 ug/mLFEU (0-0.59) H 06/27/24 00:10 Specimen Type Arterial 06/27/24 01:28 Sample Site Brachial, right 06/27/24 01:28 ABG pH 7.40 (7.35-7.45) 06/27/24 01:28 ABG pCO2 40.4 mmHg (35-45) 06/27/24 01:28 ABG pO2 64.3 mmHg (80.0-100.0) L 06/27/24 01:28 ABG HCO3 25.2 mmol/L (22-26) 06/27/24 01:28 ABG O2 Saturation 92.8 06/27/24 01:28 ABG Base Excess 0.4 mmol/L (-2.0-2.0) 06/27/24 01:28 Jarret Test N/a 06/27/24 01:28 A-a O2 Gradient 4.4 mmHg (5-10) L 06/27/24 01:28 Hematocrit 33.2 % (42-52) L 06/27/24 01:28 Hgb O2 Saturation 89.1 % (95-100) L 06/27/24 01:28 Carboxyhemoglobin 3.1 %THgb (0.4-20.1) 06/27/24 01: Methemoglobin 0.9 % (0.4-1.5) 06/27/24 01:28 Total Hemoglobin 10.8 g/dL (14-18) L 06/27/24 01:28 Sodium 140.0 mmol/L (131-143) 06/27/24 01:28 Potassium 3.7 mmol/L (3.5-5.0) 06/27/24 01:28 Glucose 108.0 mg/dL (70-115) 06/27/24 01:28 Ionized Calcium 1.2 mmol/L (1.1-1.4) 06/27/24 01:28 O2 Delivery Device Nc 06/27/24 01:28 O2 Liters/Min 2.0 % 06/27/24 01:28 Powerhouse Helper ID [email or web address] 06/27/24 01:28 Sodium 144 mmol/L (136-145) 06/30/24 03:56 Potassium 3.9 mmol/L (3.5-5.1) 06/30/24 03:56 Chloride 107 mmol/L (98-107) 06/30/24 03:56 Carbon Dioxide 27 mmol/L (22-29) 06/30/24 03:56 Anion Gap 13.9 (5-19) 06/30/24 03:56 BUN 37 mg/dL (8-23) H 06/30/24 03:56 Creatinine 1.2 mg/dL (0.7-1.2) 06/30/24 03:56 GFR Calculation 60.6 mL/min (90-130) L 06/30/24 03:56 Glucose 112 mg/dL (65-115) 06/30/24 03:56 Estimat Average Glucose 114 06/27/24 00:10 Hemoglobin A1c 5.6 % (4.0-6.0) 06/27/24 00:10 Calculated Osmolality 307 mOsm/kg (285-295) H 06/30/24 03:56 Lactic Acid 1.0 mmol/L (0.5-2.2) 06/27/24 00:10 Calcium 9.0 mg/dL (8.5-10.5) 06/30/24 03:56 Magnesium 2.4 mg/dL (1.7-2.3) H 06/30/24 03:56 Iron 49 ug/dL (59-158) L 06/27/24 00:10 TIBC 251 mcg/dl 06/27/24 00:10 % Saturation 19.5 % (20-50) L 06/27/24 00:10 Unsat Iron Binding 202 ug/dL (112-347) 06/27/24 00:10 Total Bilirubin 0.2 mg/dL (0.15-1.2) 06/30/24 03:56 AST 17 U/L (0-40) 06/30/24 03:56 ALT 13 U/L (0-41) 06/30/24 03:56 Alkaline Phosphatase 127 U/L (40-130) 06/30/24 03:56 Total Protein 6.3 g/dL (6.6-8.7) L 06/30/24 03:56 Albumin 3.5 g/dL (3.5-5.2) 06/30/24 03:56 Globulin 2.8 g/dL (1.3-4.6) 06/30/24 03:56 Vitamin B12 229 pg/mL (232-1245) L 06/27/24 00:10 Folate 4.0 ng/mL (4.5-32.2) L 06/28/24 04:39 Procalcitonin 0.07 ng/mL (0-0.5) 06/27/24 00:10 Urine Color Yellow (Yellow) 06/27/24 18:35 Urine Appearance Clear (CLEAR) 06/27/24 18:35 Urine pH 5.5 (5-7) 06/27/24 18:35 Ur Specific [place] 1.015 (1.005-1.030) 06/27/24 18:35 Urine Protein Trace (Negative) A 06/27/24 18:35 Urine Glucose (UA) Negative (Normal) 06/27/24 18:35 Urine Ketones Trace (Negative) 06/27/24 18:35 Urine Blood Negative (Negative) 06/27/24 18:35 Urine Nitrate Negative (Negative) 06/27/24 18:35 Urine Bilirubin Negative (Negative) 06/27/24 18:35 Urine Urobilinogen 0.2 mg/dL (Negative) 06/27/24 18:35 Ur Leukocyte Esterase Trace (Negative) A 06/27/24 18:35 Urine RBC 0-2 /hpf (0-2) 06/27/24 18:35 Urine WBC 0-5 /hpf (0-5) 06/27/24 18:35 Ur Squamous Epith Cells 0-5 /hpf (0-5) 06/27/24 18:35 Amorphous Sediment Not Reportable 06/27/24 18:35 Urine Bacteria None seen /hpf (NONE) 06/27/24 18:35 Hyaline Casts 1.21 /lpf 06/27/24 18:35 Nasal MRSA (PCR) Not detected (Negative) 06/27/24 11:03 Urine Opiates Screen Positive ng/mL (Negative) H 06/27/24 18:35 Ur Barbiturates Screen Negative ng/mL (Negative) 06/27/24 18:35 Ur Phencyclidine Scrn Negative ng/mL (Negative) 06/27/24 18:35 Ur Amphetamines Screen Negative ng/mL (Negative) 06/27/24 18:35 U Benzodiazepines Scrn Negative ng/mL (Negative) 06/27/24 18:35 Urine Cocaine Screen Negative ng/mL (Negative) 06/27/24 18:35 U Marijuana (THC) Screen Negative ng/mL (Negative) 06/27/24 18:35 Vitals Last Vital Signs Temp 97.8 F 06/30/24 11:23 Pulse 107 H 06/30/24 11:23 Resp 17 06/30/24 11:23 BP 115/74 06/30/24 11:23 Pulse Ox 96 06/30/24 11:23 O2 Del Method Room Air 06/30/24 11:23 O2 Flow Rate 98 06/29/24 20:00 FiO2 1 06/28/24 19:46 Discharge Plan Discharge Patient Disposition: Home Condition: Stable Prescriptions: New levofloxacin 750 mg tablet 750 mg PO Q24H 3 Days Qty: 3 0RF amoxicillin-pot clavulanate 875-125 mg tablet 1 tab PO BID Qty: 6 0RF Continued finasteride 5 mg tablet 5 mg PO QAM simvastatin 40 mg tablet 40 mg PO QPM aspirin 81 mg tablet,delayed release (DR/EC) 81 mg PO QAM clopidogrel 75 mg tablet 75 mg PO QAM mirtazapine [Remeron] 30 mg tablet 30 mg PO BEDTIME tramadol 50 mg tablet 50 mg PO Q6H PRN (Reason: Pain) venlafaxine 150 mg capsule,extended release 24hr 150 mg PO QAM Qty: 90 3RF baclofen 20 mg tablet 10 mg PO BID nitroglycerin [Nitrostat] 0.4 mg Tablet, Sublingual 0.4 mg SUBLINGUAL Q5M PRN (Reason: Chest Pain) Rx Instructions: do not exceed 3 doses per episode diltiazem HCl 90 mg capsule,extended release 12 hr 90 mg PO Q12H albuterol sulfate 90 mcg/actuation HFA aerosol inhaler 2 puff INHALATION Q4H PRN (Reason: Shortness Of Breath Or Wheezing) gabapentin 100 mg capsule 100 mg PO BID Qty: 60 0RF fluticasone propionate 50 mcg/actuation spray,suspension 2 spray INTRANASAL BID budesonide-formoterol 160-4.5 mcg/actuation HFA aerosol inhaler 2 puff INHALATION BID mupirocin 2 % ointment 1 applic topical DAILY PRN (Reason: Outbreak) pantoprazole 40 mg tablet,delayed release (DR/EC) 40 mg PO BID 42 Days Qty: 84 1RF ondansetron HCl 4 mg tablet 4 mg PO Q8H Qty: 30 0RF ofloxacin 0.3 % drops 10 drp otic (ear) DAILY levothyroxine 125 mcg tablet 125 mcg PO QAM oxybutynin chloride 5 mg tablet 5 mg PO .BEFORE LUNCH Discontinued losartan 50 mg tablet 50 mg PO DAILY isosorbide dinitrate 30 mg tablet 15 mg PO BEDTIME PRN (Reason: Sleep) Discharge Orders: Discharge Order (Routine); Ordered 06/30/24 Ordered By: Dillon Alonso Other Ambulatory Orders: Physical Therapy Eval and Treat Outpatient (Order) Timeframe: 3 Days Facility: [facility] - Location: Physical Therapy Ordered By: Dillon Alonso Referrals: [facility] Outpatient Therapy [Outside] Simi Vital DO [Primary Care Provider, [facility]] - 2 weeks Discharge Diet: Cardiac Discharge Activity: Resume usual activity and Increase activity as tolerated Patient Instructions: Opioid Safety Activity Restrictions/Additional Instructions: Check your blood pressure daily at home maintain blood pressure diary. Goal blood pressure is between 100?140 mmhg systolic. Follow-up with a primary care provider within next 2 weeks for further adjustment of antihypertensive. Continue taking your Cardizem as before. Your home dose of losartan and Imdur has been discontinued. Discharge Attestations Time Spent in Discharge Care*: greater than 30 min Specific Discharge Activities: educating patient, educating and/or supporting family/caregiver, discussing with pcp/other providers, discussing with transplant case manager/social workers/dc planners, documenting/other paperwork and evaluating patient/reviewing data Status at Discharge: Cognitive status at discharge: cognitively intact, Behavioral status at discharge: cooperative, Functional status at discharge: independent ambulation, Overall status at discharge: patient is back to baseline Quality Metrics Clinical Quality Measures [ No reported AMI, CVA or VTE this stay] Coding Level of Care Code 87936 Total time (in minutes) for Discharge: 65 Diagnoses Fall W19.XXXA Hypoxemia R09.02 Pneumonia J18.9 COPD with acute exacerbation J44.1 Contusion of back S20.229A B12 deficiency E53.8
--- NOTE | 2024-06-30 13:11 | PC.NURSE ---
Discharge Note Patient discharged to home via private vehicle accompanied by . Discharge instructions reviewed with patient and/or personal banking representative. Mobile pharmacy medications and/or prescriptions provided. Belongings/home medications returned.
== END 2024-06-30 13:25 | disposition home or self-care (01) | DRG 190 ==
LOC: ER 06-27 01:51 → MEDSURG 06-27 03:03
PROVIDERS: Admitting Provider Internal Medicine; Emergency Provider Emergency Medicine; PCP Family Medicine; Visit Provider Student in an Organized Health Care Education/Training Program
DX: J44.1 Chronic obstructive pulmonary disease with (acute) exacerbation (principal); J18.9 Pneumonia, unspecified organism; J44.0 Chronic obstructive pulmonary disease with (acute) lower respiratory infection; I25.10 Atherosclerotic heart disease of native coronary artery without angina pectoris; E53.8 Deficiency of other specified B group vitamins; S20.229A Contusion of unspecified back wall of thorax, initial encounter; W19.XXXA Unspecified fall, initial encounter; I10 Essential (primary) hypertension; E78.5 Hyperlipidemia, unspecified; E03.9 Hypothyroidism, unspecified; I73.9 Peripheral vascular disease, unspecified; N40.1 Benign prostatic hyperplasia with lower urinary tract symptoms; R33.8 Other retention of urine; F41.1 Generalized anxiety disorder; F17.210 Nicotine dependence, cigarettes, uncomplicated; I95.9 Hypotension, unspecified; I48.91 Unspecified atrial fibrillation; R09.02 Hypoxemia; Z91.81 History of falling; Z79.02 Long term (current) use of antithrombotics/antiplatelets; Z79.82 Long term (current) use of aspirin; Z79.890 Hormone replacement therapy; Z79.899 Other long term (current) drug therapy; Z88.1 Allergy status to other antibiotic agents
CPT/HCPCS: 36415; 36600; 71250; 72128; 72131; 74176; 80051; 80053; 80306; 81001; 82330; 82607; 82746; 82805; 83036; 83540; 83550; 83605; 83735; 84145; 85025; 85378; 87040; 87070; 87205; 93005; 93880; 94640; 96365; 96372; 96375; 97110; 97116; 97161; 99285; J0696; J1100; J1650; J1956; J2919; J3420; J7512; J7611; J7613; J7626; J9999; Q0144

== ENCOUNTER 2024-08-25 23:16 | Emergency (ER) | payer MEDICARE, MEDICAID, SELFPAY ==
[2024-08-25 23:18] VITALS: BP 101/62; PULSE 93; RESP 16; TEMP 36.6; O2SAT 100; BMI 18.3
--- OUTSIDE RECORDS SUMMARY | 2024-08-25 23:23 | XMS_ITS | Encounter Summary ---
Author Organization [facility] Address [address] [place] [address] Care Team Providers Care Malt House Kiln Operator Name Role Phone Simi Vital DO Primary Care Provider Reason for Visit * Reason Comments Provider Call Encounter Details Date Type Department Care Team (Late st Contact Info) Description 07/17/2024 Telephone [facility] [place] [address] [place] [address] Simi Vital DO [address] [place] [address] Provider Call Social History Tobacco Use Types Packs/Day Years Used Date Smoking Tobacco: Every Day Cigarettes Passive Smoke Exposure: Current Smokeless Tobacco: Never Alcohol Use Standard Drinks/Week Comments No 0 (1 standard drink = 0.6 oz pur e alcohol) Financial Resource Strain Answer Date R ecorded How hard is it for you to pa y for the very basics like food, housing, medical care, and heating? Patient declined 08/04/2022 Food Insecurity Answer Date Recorded In the past 12 months, have you worried that your food would run out before you had money to buy more? Patient declined 2022 In the past 12 months, did y ou run out of food and didn't have money to buy more? Patient declined 08/04/2022 Transportation Needs Answer Date Record ed In the past 12 months, has l ack of transportation kept you from medical appointments or from getting medications? No 08/04/2022 Lack of Transportation (Non-Medical) Not on file 08/04/2022 Sex and Gender Information Value Date Recorded Sex Assigned at Not on file Legal Sex Male 1:20 PM GLOBAL LOGISTICS MANAGER Gender Identity Not on file Sexual Orientation Not on file documented as of this encounter Miscellaneous Notes * Telephone Encounter - Byron Keita - 07/17/2024 1:40 PM CDT Copied from [facility] #[id number]. Topic: [id number] Call >> July 17, 2024 1:39 PM Byron Scott wrote: Caller is requesting to speak with Clinical Care Team. Caller Name: Shi lucy/ Tyra GRULLON (Other) Callback Number: [phone] Clinician Type: Other healthcare professional not listed above Call Notes: Shi was calling to verify that patient was receiving active care and to verify office fax number. Is this addressing an immediate patient care need? No documented in this encounter Plan of Treatment Upcoming Encounters Date Type Department Care Team (Late st Contact Info) Description 10/03/2024 2:40 PM CDT Office Visit [facility] [address] [place] [phone] Simi Vital DO [address] [place] [phone] 01/01/2025 2:40 PM GLOBAL LOGISTICS MANAGER Office Visit [facility] [address] [place] [phone] Simi Vital DO [address] [place] [phone] documented as of this encounter Visit Diagnoses Not on filedocumented in this encounter Care Teams Malt House Kiln Operator Relationship Specialty Start Date End Date Simi Vital DO [address] [place] [phone] PCP - General Family Practice 03/23/17 documented as of this encounter
--- OUTSIDE RECORDS SUMMARY | 2024-08-25 23:23 | XMS_ITS | Encounter Summary ---
Author Organization [facility] Address [address] [place] [address] Care Team Providers Care Medical Case Manager Name Role Phone Simi Vital DO Primary Care Provider Encounter Details Date Type Department Care Team (Latest Contact Info) Description 10/24/2002 Outpatient Historical [facility] Family Medicine [place] [address] [phone] Annette Baldwin, SUGAR REPROCESS OPERATOR HEAD [address] [place] [phone] SKIN SENSATION DISTURB (Primary Dx) Social History Tobacco Use Types Packs/Day Years Used Date Smoking Tobacco: Never Assessed Sex and Gender Information Value Date Recorded Sex Assigned at Not on file Legal Sex Male 6:01 AM PERIOPERATIVE MANAGER Gender Identity Not on file Sexual Orientation Not on file documented as of this encounter Plan of Treatment Not on file documented as of this encounter Visit Diagnoses Diagnosis Disturbance of skin sensation- Primary documented in this encounter Care Teams Medical Case Manager Relationship Specialty Start Date End Date Simi Vital DO [address] [place] [address] PCP - General Family Practice 03/23/17 documented as of this encounter
--- OUTSIDE RECORDS SUMMARY | 2024-08-25 23:23 | XMS_ITS | Encounter Summary ---
Author Organization [employer] [facility] Address [address] [place] [address] Care Team Providers Care Manager User Experience Name Role Phone Simi Vital DO Primary Care Provider [phone]- [phone] Encounter Details Date Type Department Care Team (Late st Contact Info) Description 05/25/2015 Lab Requisition [facility] [address] [phone] Gerson Torres DO NO ADDRESS ON FILE Illness Social History Tobacco Use Types Packs/Day Years Used Date Smoking Tobacco: Never Assessed Sex and Gender Information Value Date Recorded Sex Assigned at Not on file Legal Sex Male 6:01 AM VETERANS' COORDINATOR Gender Identity Not on file Sexual Orientation Not on file documented as of this encounter Plan of Treatment Not on file documented as of this encounter Procedures Procedure Name Priority Date/Time Associated Diagnosis Comments TSH Routine 05/25/2015 8:54 PM CDT Illness documented in this encounter Results * (ABNORMAL) TSH (05/25/2015 8:54 PM CDT) TSH 4.65(H) 0.27 - 4.20 uIU/mL 05/25/2015 10:13 PM CDT [facility] Blood Collection / Unknown 05/25/2015 8:54 PM CDT 05/25/2015 8:54 PM CDT us Gerson Torres DO CHEMISTRY ORDERABLES Final Resu lt [facility] [employer] [facility] CLIA # [id number] [address] [address] documented in this encounter Visit Diagnoses Diagnosis Illness Other unknown and unspecified cause of morbidity or mortality documented in this encounter Care Teams Manager User Experience Relationship Specialty Start Date End Date Simi Vital DO [address] [place] [address] PCP - General Family Practice 03/23/17 documented as of this encounter
--- OUTSIDE RECORDS SUMMARY | 2024-08-25 23:23 | XMS_ITS | Encounter Summary ---
Author Organization [facility] Address [address] [place] [address] Care Team Providers Care Connie Scratcher Name Role Phone Simi Vital Primary Care Provider [phone]- [phone] Encounter Details Date Type Department Care Team (Late st Contact Info) Description 01/02/2017 Lab Requisition [facility] [place] [address] [phone] Prosper Hunter MD [address] [facility] [address] [place] [phone] Social History Tobacco Use Types Packs/Day Years Used Date Smoking Tobacco: Never Assessed Sex and Gender Information Value Date Recorded Sex Assigned at Not on file Legal Sex Male 6:01 AM RADIATION CONTROL WORKER Gender Identity Not on file Sexual Orientation Not on file documented as of this encounter Plan of Treatment Not on file documented as of this encounter Procedures Procedure Name Priority Date/Time Associated Diagnosis Comments TSH Routine 01/02/2017 8:53 PM RADIATION CONTROL WORKER T4 FREE Routine 01/02/2017 8:53 PM RADIATION CONTROL WORKER LIPID PANEL Routine 01/02/2017 8:53 PM RADIATION CONTROL WORKER documented in this encounter Results * (ABNORMAL) LIPID PANEL (01/02/2017 8:53 PM RADIATION CONTROL WORKER) CHOLESTEROL 197 <200 mg/dL 01/02/2017 10:38 PM RADIATION CONTROL WORKER [facility] TRIGLYCERIDE 240(H) <150 mg/dL 01/02/2017 10:38 PM RADIATION CONTROL WORKER [facility] HDL 34(L) 40 - 59 mg/dL 01/02/2017 10:38 PM RADIATION CONTROL WORKER [facility] LDL CALCULATED 115(H) <100 mg/dL 01/02/2017 10:38 PM [facility] NON-HDL CHOLESTEROL 163(H) <130 mg/dL 01/02/2017 10:38 PM [facility] Blood 01/02/2017 8:53 PM RADIATION CONTROL WORKER 01/02/2017 8:53 PM RADIATION CONTROL WORKER Narrative [facility] - 01/02/2017 10:38 PM RADIATION CONTROL WORKER TOTAL CHOLESTEROL mg/dL Desirable <200 Borderline high 200-239 High >=240 TRIGLYCERIDES mg/dL Normal <150 Borderline high 150-199 High 200-499 Very high >=500 HDL CHOLESTEROL mg/dL Low <40 Normal 40-59 Desirable >=60 NON HDL CHOLESTEROL mg/dL Optimal <130 Near Optimal 130-159 Borderline High 160-189 Very High >=190 Calculated LDL mg/dL Optimal <100 Near Optimal 100-129 Borderline High 130-159 High 160-189 Very High >=190 ATPIII Guidelines Reference Ranges for Lipid Panels (NCEP/AMA) us Prosper Hunter MD CHEMISTRY ORDERABLES Ameena l Result Performing Organization Address City/[facility]/ZIP Co de Phone Number [facility] [id number] [address] [place] [phone] * T4 FREE (01/02/2017 8:53 PM RADIATION CONTROL WORKER) T4 FREE 1.52 0.93 - 1.70 ng/dL 01/02/2017 10:38 PM RADIATION CONTROL WORKER [facility] Blood 01/02/2017 8:53 PM RADIATION CONTROL WORKER 01/02/2017 8:53 PM RADIATION CONTROL WORKER Prosper Hunter MD CHEMISTRY ORDERABLES Ameena l Result [facility] CLIA # [id number] [address] [place] [phone] * TSH (01/02/2017 8:53 PM RADIATION CONTROL WORKER) TSH 2.08 0.27 - 4.20 uIU/mL 01/02/2017 10:38 PM RADIATION CONTROL WORKER [facility] Blood 01/02/2017 8:53 PM RADIATION CONTROL WORKER 01/02/2017 8:53 PM RADIATION CONTROL WORKER us Prosper Hunter MD CHEMISTRY ORDERABLES Ameena levine Result [facility] CLIA # [id number] [address] [place] [phone] documented in this encounter Visit Diagnoses Not on filedocumented in this encounter Care Teams Connie Scratcher Relationship Specialty Start Date End Date Simi Vital DO [address] [place] [phone] PCP - General Family Practice 03/23/17 documented as of this encounter
--- OUTSIDE RECORDS SUMMARY | 2024-08-25 23:23 | XMS_ITS | Encounter Summary ---
Author Organization [facility] Address [address] [place] [address] Care Team Providers Care Mammalogy Teacher Name Role Phone Simi Vital Primary Care Provider [phone] Encounter Details Date Type Department Care Team (Late st Contact Info) Description 04/02/2012 Ancillary Orders [facility] [place] [address] [phone] Sick Social History Tobacco Use Types Packs/Day Years Used Date Smoking Tobacco: Never Assessed Sex and Gender Information Value Date Recorded Sex Assigned at Not on file Legal Sex Male 6:01 AM INSTRUMENT TECH Gender Identity Not on file Sexual Orientation Not on file documented as of this encounter Plan of Treatment Not on file documented as of this encounter Procedures Procedure Name Priority Date/Time Associated Diagnosis Comments TSH Routine 04/02/2012 7:51 PM INSTRUMENT TECH Sick [ICD-9-CM] documented in this encounter Results * (ABNORMAL) TSH (04/02/2012 7:51 PM INSTRUMENT TECH) TSH 27.02(H) 0.30 - 4.80 uIU/mL 04/02/2012 10:02 PM INSTRUMENT TECH [facility] Blood specimen (specimen) 04/02/2012 7:51 PM INSTRUMENT TECH 04/02/2012 9:10 PM INSTRUMENT TECH Saul Sood DO CHEMISTRY ORDERABLES Fin al Result [facility] [employer] [facility] CLIA # [id number] [address] [place] [id number] documented in this encounter Visit Diagnoses Diagnosis Sick Other unknown and unspecified cause of morbidity or mortality documented in this encounter Care Teams Mammalogy Teacher Relationship Specialty Start Date End Date Siim Vital DO [address] [place] [facility] [phone] PCP - General Family Practice 03/23/17 documented as of this encounter
--- OUTSIDE RECORDS SUMMARY | 2024-08-25 23:23 | XMS_ITS | Encounter Summary ---
Author Organization [facility] Address [address] [place] [address] Care Team Providers Care Manager Orange Name Role Phone Simi Vital DO Primary Care Provider [phone] Encounter Details Date Type Department Care Team (Latest Contact Info) Description 05/21/2002 Outpatient Historical [facility] Medicine [place] [address] [phone] JOINT PAIN-UNSPEC (Primary Dx); FX PHALANX, HAND NOS-CLOSE Social History Tobacco Use Types Packs/Day Years Used Date Smoking Tobacco: Never Assessed Sex and Gender Information Value Date Recorded Sex Assigned at Not on file 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
--- OUTSIDE RECORDS SUMMARY | 2024-08-25 23:23 | XMS_ITS | Clinical Summary ---
Author Organization [facility] Address [address] [facility] [address] [place] [address] Care Team Providers Care Polysomnography Technician Name Role Phone Simi Vital Primary Care Provider Allergies Active Allergy Reactions Criticality Noted Date Comments Tetracycline Nausea and Vomiting Low 08/03/2021 Tizanidine Hallucination Low 02/07/2023 Medications venlafaxine (EFFEXOR XR) 150 mg Extended Release 24 hour capsule Take 150 mg by mouth daily. Active aspirin 81 mg tablet,delayed release Take 81 mg by mouth daily. Active triamcinolone acetonide (KENALOG) 0.1 % Cream Apply to affected area 2 times daily. 60 Gram 6 023 Active fluticasone propionate (FLONASE) 50 mcg/spray Wells, Suspension nasal inhaler Administer 1 Wells in each nostril 2 times daily. 023 Active ipratropium bromide (ATROVENT) 21 mcg (0.03 %) Wells, Non-Aerosol Administer 1 Wells in each nostril 2 times daily. 023 Active nitroglycerin (NITROSTAT) 0.4 mg Tablet, SublingualIndicat ions:Atherosclero sis of knik coronary artery of knik heart with stable angina pectoris Place 1 Tablet (0.4 mg) under tongue every 5 minutes as needed for Chest Pain. 30 Tablet 6 023 Active Additional Information Patient not taking.Reported on 08/13/2024 isosorbide dinitrate (ISORDIL) 30 mg Tablet Take 0.5 Tablets (15 mg) by mouth daily at bedtime. 90 Tablet 2 023 Active meclizine (ANTIVERT) 12.5 mg tabletIndications :Benign paroxysmal positional vertigo due to bilateral vestibular disorder take 1 tablet by mouth three times daily as needed for dizziness 60 Tablet 2 023 Active albuterol (PROVENTIL,VENTOL IN) 2.5 mg /3 mL (0.083 %) Solution for Nebulization USE 1 VIAL IN NEBULIZER EVERY 6 HOURS NEEDED FOR SHORTNESS OF BREATH 300 mL 023 Active varenicline (CHANTIX) 0.5 mg (11)- 1 mg (42) tablets STARTER dose packIndications:C igarette nicotine dependence, uncomplicated,Cig arette smoker motivated to quit Take as directed on package. 53 Tablet 023 Active Additional Information Patient not taking.Reported on 08/13/2024 albuterol sulfate HFA 90 mcg/actuation aerosol inhalerIndication s:Mixed simple and mucopurulent chronic bronchitis (CMS/HCC) Take 2 Puffs by inhalation every 6 hours as needed for Shortness of Breath. 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 100 Tablet 3 024 Active Additional Information Patient not taking.Reported on 08/13/2024 dilTIAZem (CARDIZEM SR) 90 mg Extended Release 12 hour capsule TAKE 1 CAPSULE BY MOUTH EVERY 12 HOURS 180 Capsule 3 025 Active simvastatin (ZOCOR) 40 mg tabletIndications :Aortic atherosclerosis,O cclusion of right iliac artery (CMS/HCC),Aneurys m of iliac artery Take 1 Tablet (40 mg) by mouth daily with supper. 100 Tablet 2 025 Active pantoprazole (PROTONIX) 40 mg Tablet, Delayed Release (E.C.)Indications :Gastroesophageal reflux disease with esophagitis without hemorrhage Take 1 Tablet (40 mg) by mouth 2 times daily. 180 Tablet 3 025 Active clopidogreL (PLAVIX) 75 mg TabletIndications :Occlusion of right iliac artery (CMS/HCC),Aneurys m of iliac artery,Personal history of DVT (deep vein thrombosis) Take 1 tablet by mouth once daily 100 Tablet 1 025 Active finasteride (PROSCAR) 5 mg tablet Take 1 tablet by mouth once daily 100 Tablet 1 025 Active levothyroxine 125 mcg tabletIndications :Acquired hypothyroidism TAKE 1 TABLET BY MOUTH ONCE DAILY IN THE MORNING 90 Tablet 4 025 Active gabapentin (NEURONTIN) 100 mg capsuleIndication s:Chronic midline low back pain without sciatica Take 1 capsule by mouth twice daily 180 Capsule 2 025 Active traMADol (ULTRAM) 50 mg tabletIndications :Chronic right-sided low back pain with right-sided sciatica TAKE 1 TABLET BY MOUTH EVERY 6 HOURS NEEDED FOR MODERATE PAIN 120 Tablet 025 Active amoxicillin-clavu lanate (AUGMENTIN) 875-125 mg tablet Take 1 Tablet by mouth every 12 hours. Active levoFLOXacin (LEVAQUIN) 750 mg tablet Take 750 mg by mouth daily. Active ferrous sulfate 325 mg (65 mg iron) tabletIndications :Iron deficiency anemia, unspecified iron deficiency anemia type Take 1 Tablet (325 mg) by mouth daily. 30 Tablet 4 025 Active budesonide-formot Ortega (SYMBICORT) 160-4.5 mcg/actuation HFA Aerosol InhalerIndication s:Mixed simple and mucopurulent chronic bronchitis (CMS/HCC) INHALE 2 PUFFS TWICE DAILY 11 Gram 025 Active oxyBUTYnin (DITROPAN) 5 mg tablet TAKE 1 TABLET BY MOUTH ONCE DAILY BEFORE LUNCH 30 Tablet 025 Active baclofen (LIORESAL) 20 mg tabletIndications :Muscle spasm of back TAKE 1 TABLET BY MOUTH THREE TIMES DAILY NEEDED FOR PAIN 270 Tablet 025 Active cholecalciferol 1,250 mcg (50,000 unit) CapsuleIndication s:Vitamin D deficiency Take 1 Capsule (50,000 Units) by mouth every 7 days. 4 Capsule 3 025 Active baclofen (LIORESAL) 20 mg tabletIndications :Muscle spasm of back Take 1 Tablet (20 mg) by mouth 3 times daily as needed for Pain. 270 Tablet 3 023 2024 Discontinued Active Problems Problem Noted Date Diagnosed Date Gastroesophageal reflux dise ase with esophagitis without hemorrhage 04/30/2024 Frail elderly 12/11/2023 Benign prostatic hyperplasia with urinary freque ncy 11/07/2021 Benign paroxysmal positional vertigo due to bilateral vestibular disorder 11/04/2020 Chronic obstructive pulmonary disease 11/04/2020 Aortic atherosclerosis 11/04/2020 Chronic midline low back pain without sciatica 0 08/12/2020 Cigarette dependence 05/04/2020 Chronic constipation 05/04/2020 Benign prostatic hyperplasia with urinary hesita ncy 05/04/2020 Atherosclerosis of knik co ronary artery of knik heart with stable angina pectoris 05/04/2020 Gastroesophageal reflux disease without esophagi tis 05/04/2020 Primary osteoarthritis involving multiple joints 05/04/2020 CKD (chronic kidney disease) stage 3, GFR 30-59 ml/min 07/24/2019 Personal history of DVT (deep vein thrombosis) 0 07/24/2019 Abdominal aortic aneurysm (A AA) 3.0 cm to 5.5 cm in diameter in male 02/14/2018 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 02/14/2018 Acquired hypothyroidism 03/23/2017 Mixed hyperlipidemia 03/23/2017 Resolved Problems Problem Noted Date Diagnosed Date Resolved Date Occlusion of right iliac artery 02/14/2018 05/04/2020 Encounters Date Type Department Care Team Description 08/14/2024 Results Follow-Up [facility] [address] [place] [address] Gaffneymay, DIET KITCHEN COOK VITAMIN D 25 HYDROXY, IRON, TIBC, AND PERCENT SATURATION, CBC WITH DIFFERENTIAL 08/13/2024 12:20 PM CDT Office Visit [facility] [address] [place] [address] May, DIET KITCHEN COOK Iron deficiency anemia, unspecified iron deficiency anemia type (Primary Dx); Other fatigue; Chronic obstructive pulmonary disease, unspecified COPD type ([facility]) 08/13/2024 External Device Data STL ABSTRACTION Provider, Abstract 08/04/2024 Refill [facility] [address] [place] [facility] [place] [phone] Michael Green, FIGUEROA Muscle spasm of back 07/19/2024 Refill [facility] [address] [place] [facility] [place] [address] Simi Vital DO 07/17/2024 Telephone [facility] [address] [place] [address] Simi Vital DO Provider Call 07/13/2024 Refill [facility] [address] [place] [facility] [place] [address] Michael Green Stone, DIET KITCHEN COOK Mixed simple and mucopurulent chronic bronchitis ([facility]/HCC) 07/09/2024 Results Follow-Up [facility] [address] [place] [address] Gaffney, May, DIET KITCHEN COOK CBC WITH DIFFERENTIAL 07/08/2024 10:30 AM CDT Clinical Support [facility] [address] [place] [address] Anemia, unspecified type 07/04/2024 Orders Only [facility] [address] [place] [address] Gaffney, May, DIET KITCHEN COOK Iron deficiency anemia, unspecified iron deficiency anemia type (Primary Dx) 07/03/2024 Orders Only [facility] [address] [place] [address] Gaffney, May, DIET KITCHEN COOK Anemia, unspecified type (Primary Dx) 07/03/2024 Results Follow-Up [facility] [address] [place] [address] Gaffney, May, DIET KITCHEN COOK VITAMIN B12 AND FOLATE, CBC WITH DIFFERENTIAL, COMPREHENSIVE METABOLIC PANEL, Additional followed-up results: 2 07/02/2024 11:40 AM CDT Office Visit [facility] [address] [place] [address] Gaffney, May, DIET KITCHEN COOK Hospital discharge follow-up (Primary Dx); Community acquired pneumonia, unspecified laterality; Acquired hypothyroidism; Declined influenza vaccine 07/01/2024 Orders Only [facility] [address] [place] [address] Provider, Abstract 06/30/2024 [facility] [address] [place] [phone] Simi Vital, Chronic right-sided low back pain with right-sided sciatica 06/30/2024 [facility] [address] [place] [address] NormaMichael Den, DIET KITCHEN COOK Chronic midline low back pain without sciatica 06/05/2024 [facility] [address] [place] [phone] Simi Vital, DO Acquired hypothyroidism from Last 3 Months Family History Medical History Relation Name Comments Lung Cancer Father Kidney Disease Mother Relation Name Status Comments Father Mother Social History Tobacco Use Types Packs/Day Years Used Date Smoking Tobacco: Every Day Cigarettes Passive Smoke Exposure: Current Smokeless Tobacco: Never Tobacco Cessation:Ready to Q uit: No; Counseling Given: Yes Alcohol Use Standard Drinks/Week Comments No 0 [...] on file 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 Gender Identity Not on file Sexual Orientation Not on file Last Filed Vital Signs Vital Sign Reading Time Taken Comments Blood Pressure 96/54 08/13/2024 12:09 PM CDT Pulse 81 08/13/2024 12:09 PM CDT Temperature 36.7 C (98.1 F) 08/13/2024 12:09 PM CDT Respiratory Rate 18 08/13/2024 12:09 PM CDT Oxygen Saturation 90% 08/13/2024 12:09 PM CDT Inhaled Oxygen Concentration - - Weight 60.3 kg (133 lb) 08/13/2024 12:09 PM CDT Height 182.9 cm (6') 08/13/2024 12:09 PM CDT Body Mass Index 18.04 08/13/2024 12:09 PM CDT Plan of Treatment Upcoming Encounters Date Type Department Care Team (Late st Contact Info) Description 10/03/2024 2:40 PM CDT Office Visit [facility] [address] [place] [address] Simi Vital, DO [address] [place] [address] 01/01/2025 2:40 PM SENIOR SAS PROGRAMMER Office Visit [facility] [address] [place] [address] Simi Vital, DO [address] [place] [address] Health Maintenance Due Date Last Done Comments FIT/ DNA Q 3 YEARS (AUTO ORDER) 09/16/1975 FIT/FOBT Q 1 YEAR (AUTO ORDER) 09/16/1975 FLEX SIG/CT COLONOGRAPHY Q 5 YEARS (AUTO ORDER) 09/16/1975 DTAP/TDAP/TD VACCINES (1 - Tdap) 1976 PNEUMOCOCCAL VACCINE 50+ YEA RS (1 of 2 - PCV) 1976 FIT-DNA Q 3 years 2002 FIT/FOBT Q 1 year 2002 Flex Sig/CT Colonography Q 5 years 2002 ZOSTER VACCINE (1 of 2) 09/16/2007 RSV VACCINE (60+ or ) (1 - Risk 60-74 years 1-dose series) 2017 Medicare Advantage ([place]) Preventative Visit/Annual Wellness Visit 02/28/2024 11/30/2023, 08/04/2022, 05/03/2021, Additional history exists COLORECTAL CANCER SCREENING (AUTO ORDER) 02/13/2034 02/14/2024, 10/25/2018, 10/25/2018 COLORECTAL SCREENING 02/13/2034 02/14/2024, 10/25/2018, 10/25/2018 Colorectal Cancer Screening (AUTO ORDER) 02/13/2034 Colorectal Cancer Screening 02/13/2034 Abdominal Aortic Aneurysm (A AA) Screening Completed 12/14/2023, 11/12/2020, 11/12/2020, Additional history exists INFLUENZA VACCINE Completed 07/02/2024, , 11/03/2020, Additional history exists Procedures Procedure Name Priority Date/Time Associated Diagnosis Comments CBC WITH DIFFERENTIAL Routine 08/13/2024 12:47 PM CDT Iron deficiency anemia, unspecified iron deficiency anemia type IRON, TIBC, AND PERCENT SATURATION Routine 08/13/2024 12:47 PM CDT Iron deficiency anemia, unspecified iron deficiency anemia type VITAMIN D 25 HYDROXY Routine 08/13/2024 12:47 PM CDT Other fatigue CBC WITH DIFFERENTIAL Routine 07/08/2024 10:29 AM CDT Anemia, unspecified type TSH Routine 07/02/2024 12:35 PM CDT Acquired hypothyroidism COMPREHENSIVE METABOLIC PANEL Routine 07/02/2024 12:35 PM CDT CBC WITH DIFFERENTIAL Routine 07/02/2024 12:35 PM CDT VITAMIN B12 AND FOLATE Routine 07/02/2024 12:35 PM CDT Acquired hypothyroidism IRON, TIBC, AND PERCENT SATURATION Routine 07/02/2024 12:00 AM CDT Anemia, unspecified type COMPREHENSIVE METABOLIC PANEL Routine 06/27/2024 10:30 AM CDT ENDOSCOPY, COLON, SCREENING Routine 02/14/2024 8:28 AM SENIOR SAS PROGRAMMER US ABDOMEN COMPLETE Routine 12/14/2023 9 :47 AM CDT Upper abdominal pain, unspecified from Last 3 Months or Most Recently Relevant to Health Maintenance Results * (ABNORMAL) IRON, TIBC, AND PERCENT SATURATION (08/13/2024 12:47 PM CDT) Only the most recent of2 resultswithin the time period is included. IRON 50 50 - 180 mcg/dL [facility] TIBC 246(L) 250 - 425 mcg/dL (calc) [facility] IRON % SATURATION 20 20 - 48 % (calc) [facility] Comment: Test Performed at: [email or web address] [address] [place] [address] Jason Stiles MD Blood 08/13/2024 12:4 7 PM CDT 08/14/2024 3:53 AM CDT May DIET KITCHEN COOK CHEMISTRY ORDERABLES Final Resul t [facility] [phone] [facility] [address] [place] [address] * (ABNORMAL) CBC WITH DIFFERENTIAL (08/13/2024 12:47 PM CDT) Only the most recent of3 resultswithin the time period is included. WBC 7.9 3.8 - 10.8 Thousand/u L [facility] RBC 3.24(L) 4.20 - 5.80 Million/uL [facility] HEMOGLOBIN 10.0(L) 13.2 - 17.1 g/dL [facility] HEMATOCRIT 31.1(L) 38.5 - 50.0 % [facility] MCV 96.0 80.0 - 100.0 fL [facility] MCH 30.9 27.0 - 33.0 pg [facility] MCHC 32.2 32.0 - 36.0 g/dL [facility] Comment: For adults, a slight decrease in the calculated MCHC value (in the range of 30 to 32 g/dL) is most likely not clinically significant; however, it should be interpreted with caution in correlation with other red cell parameters and the patient's clinical condition. RDW 13.2 11.0 - 15.0 % [facility] PLATELETS 284 140 - 400 Thousand/u L [facility] MPV 10.4 7.5 - 12.5 fL [facility] NEUTROPHIL ABSOLUTE 5,491 1,500 - 7,800 cells/uL [facility] LYMPHOCYTE ABSOLUTE 1,620 850 - 3,900 cells/uL [facility] MONOCYTE ABSOLUTE 371 200 - 950 cells/uL [facility] EOSINOPHIL ABSOLUTE 379 15 - 500 cells/uL [facility] BASOPHILS ABSOLUTE 40 0 - 200 cells/uL [facility] NEUTROPHIL 69.5 % [facility] LYMPHOCYTES 20.5 % [facility] MONOCYTE 4.7 % [facility] EOSINOPHILS 4.8 % [facility] BASOPHILS 0.5 % [facility] Comment: Test Performed at: [email or web address] [address] Jason Stiles MD Blood 08/13/2024 12:4 7 PM CDT 08/14/2024 3:53 AM CDT May DIET KITCHEN COOK HEMATOLOGY ORDERABLES Final Resu lt [facility] [phone] [facility] [id number] [place] [address] * (ABNORMAL) VITAMIN D 25 HYDROXY (08/13/2024 12:47 PM CDT) VITAMIN D, 25 OH, TOTAL 10(L) 30 - 100 ng/mL [facility] Comment: Vitamin D Status 25-OH Vitamin D: Deficiency: <20 ng/mL Insufficiency: 20 - 29 ng/mL Optimal: > or = 30 ng/mL For 25-OH Vitamin D testing on patients on D2-supplementation and patients for whom quantitation of D2 and D3 fractions is required, the [facility] 25-OH VIT D, (D2,D3), LC/MS/MS is recommended: order code 02896 (patients >2yrs). See Note 1 Note 1 For additional information, please refer to http://education.[employer]/faq/POD201 (This link is being provided for informational/ educational purposes only.) Test Performed at: [facility] [address] [address] [address] Jason Stiles MD Blood 08/13/2024 12:4 7 PM CDT 08/14/2024 3:53 AM [facility] Final Resul t Performing Organization Address City/[facility] de Phone Number [facility] [phone] [facility] [address] [place] [address] * (ABNORMAL) VITAMIN B12 AND FOLATE (07/02/2024 12:35 PM CDT) VITAMIN B12 >2000(H) 200 - 1100 pg/mL [facility] FOLATE, SERUM 4.3(L) ng/mL [facility] Comment: Reference Range Low: <3.4 Borderline: 3.4-5.4 Normal: >5.4 Test Performed at: [facility] [address] [place] [address] Jason Stiles MD Blood 07/02/2024 12:3 5 PM CDT 07/03/2024 2:56 AM CDT [facility] CHEMISTRY ORDERABLES Final Resul t Performing Organization Address City/[facility] Co de Phone Number [facility] [phone] [facility] [address] * TSH (07/02/2024 12:35 PM CDT) Pathologist [facility] TSH 1.69 0.40 - 4.50 mIU/L [facility] Comment: Test Performed at: [facility] [address] Jason Stiles MD Blood 07/02/2024 12:3 5 PM CDT 07/03/2024 2:56 AM CDT May [facility] CHEMISTRY ORDERABLES Final Resul t Performing Organization Address [facility] de Phone Number [facility] [phone] [facility] [address] * (ABNORMAL) COMPREHENSIVE METABOLIC PANEL (07/02/2024 12:35 PM CDT) Only the most recent of2 resultswithin the time period is included. [facility] GLUCOSE 84 65 - 99 mg/dL [facility] Comment: Fasting reference interval BUN 29(H) 7 - 25 mg/dL [facility] CREATININE 1.27 0.70 - 1.35 mg/dL [facility] GFR 62 > OR = 60 mL/min/1.7 3m2 [facility] BUN/CREAT RATIO 23(H) 6 - 22 (calc) [facility] SODIUM 138 135 - 146 mmol/L [facility] POTASSIUM 4.1 3.5 - 5.3 mmol/L [facility] CHLORIDE 101 98 - 110 mmol/L [facility] CO2 29 20 - 32 mmol/L [facility] CALCIUM 8.5(L) 8.6 - 10.3 mg/dL [facility] TOTAL PROTEIN 5.7(L) 6.1 - 8.1 g/dL [facility] ALBUMIN 3.5(L) 3.6 - 5.1 g/dL [facility] GLOBULIN 2.2 1.9 - 3.7 g/dL (calc) [facility] ALBUMIN/GLOBULIN RATIO 1.6 1.0 - 2.5 (calc) [facility] BILIRUBIN TOTAL 0.5 0.2 - 1.2 mg/dL [facility] ALKALINE PHOSPHATASE 120 35 - 144 U/L [facility] AST 11 10 - 35 U/L [facility] ALT 17 9 - 46 U/L [facility] Comment: Test Performed at: [facility] [address] [address] Jason Stiles MD Blood 07/02/2024 12:3 5 PM CDT 07/03/2024 2:56 AM CDT May Gaffney [facility] CHEMISTRY ORDERABLES Final Resul t [facility] [phone] [facility] [address] [address] * ENDOSCOPY, COLON, SCREENING (02/14/2024 8:28 AM SENIOR SAS PROGRAMMER) us Abstract Provider GI PROCEDURE ORDERABLES Final Result * US ABDOMEN COMPLETE (12/14/2023 9:47 AM CDT) Anatomical Region Laterality Modality Abdomen Ultrasound 12/14/2023 9:47 AM CDT Impressions 12/14/2023 2:51 PM CDT IMPRESSION: Please see below. US ABDOMEN COMPLETE, 12/14/2023 9:47 AM . Reason For Exam: See Diagnosis. Diagnosis: Upper abdominal pain, unspecified. COMPARISON: None . TECHNIQUE: Multiplanar real-time ultrasonography of the abdomen using hahn-scale imaging, supplemented by color and spectral Doppler as needed. . FINDINGS: . Liver: Hepatic echogenicity is mildly heterogeneous without discrete lesion. Antegrade flow is present in the main portal vein. . Gallbladder: Normal. No stones, wall thickening or pericholecystic fluid collections. No sonographic Toribio's sign. . Biliary: No intra- or extra-hepatic ductal dilatation. Common bile duct measures 3 mm. . Spleen: Not well seen due to bowel gas. No focal lesion noted. Maximal dimension = 8.7 cm. . Pancreas: Incompletely visualized; unremarkable . Kidneys: The renal contours are lobulated suggesting scarring. No mass or hydronephrosis. Right kidney measures 10.1 cm. Left kidney measures 9.9 cm. . Peritoneum: No ascites. . Vascular: The visualized aorta and IVC are within normal limits. . ++++++++++++++++++++ IMPRESSION: Normal gallbladder without biliary ductal dilatation. Hepatic steatosis. Mild bilateral renal cortical scarring. Narrative Procedure Note Kofi Cunningham MD - 12/14/2023 IMPRESSION: Please see below. US ABDOMEN COMPLETE, 12/14/2023 9:47 AM . Reason For Exam: See Diagnosis. Diagnosis: Upper abdominal pain, unspecified. COMPARISON: None . TECHNIQUE: Multiplanar real-time ultrasonography of the abdomen using hahn-scale imaging, supplemented by color and spectral Doppler as needed. . FINDINGS: . Liver: Hepatic echogenicity is mildly heterogeneous without discrete lesion. Antegrade flow is present in the main portal vein. . Gallbladder: Normal. No stones, wall thickening or pericholecystic fluid collections. No sonographic Toribio's sign. . Biliary: No intra- or extra-hepatic ductal dilatation. Common bile duct measures 3 mm. . Spleen: Not well seen due to bowel gas. No focal lesion noted. Maximal dimension = 8.7 cm. . Pancreas: Incompletely visualized; unremarkable . Kidneys: The renal contours are lobulated suggesting scarring. No mass or hydronephrosis. Right kidney measures 10.1 cm. Left kidney measures 9.9 cm. . Peritoneum: No ascites. . Vascular: The visualized aorta and IVC are within normal limits. . ++++++++++++++++++++ IMPRESSION: Normal gallbladder without biliary ductal dilatation. Hepatic steatosis. Mild bilateral renal cortical scarring. us Simi Vital DO US ORDERABLES Final Resul t from Last 3 Months or Most Recently Relevant to Health Maintenance Insurance MEDICAID [facility] DUAL ADVANTAGE O [facility] Care Teams Polysomnography Technician Relationship Specialty Start Date End Date Simi Vital DO [address] [place] [address] PCP - General Family Practice 03/23/17
--- OUTSIDE RECORDS SUMMARY | 2024-08-25 23:23 | XMS_ITS | Encounter Summary ---
Author Organization [id number] Address [address] [place] [address] Care Team Providers Care Grinder Operator Tool Name Role Phone Simi Vital Primary Care Provider +1- [phone] Encounter Details Date Type Department Care Team (Late st Contact Info) Description 12/01/2014 Lab Requisition [facility] Laboratory Services [place] [address] [phone] Gerson Torres DO NO ADDRESS ON FILE Sick Social History Tobacco Use Types Packs/Day Years Used Date Smoking Tobacco: Never Assessed Sex and Gender Information Value Date Recorded Sex Assigned at Not on file 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 Gender Identity Not on file Sexual Orientation Not on file documented as of this encounter Plan of Treatment Not on file documented as of this encounter Procedures Procedure Name Priority Date/Time Associated Diagnosis Comments TSH Routine 12/01/2014 9:50 PM CDT Sick [ICD-10-CM] documented in this encounter Results * TSH (12/01/2014 9:50 PM CDT) TSH 3.54 0.27 - 4.20 uIU/mL 12/01/2014 10:56 PM CDT [facility] LABORATORY [facility] Blood Collection / Unknown 12/01/2014 9:50 PM CDT 12/01/2014 9:50 PM CDT us Gerson Torres DO CHEMISTRY ORDERABLES Final Resu lt [facility] [employer] [facility] CLIA # [id number] [address] [address] documented in this encounter Visit Diagnoses Diagnosis Sick Other unknown and unspecified cause of morbidity or mortality documented in this encounter Care Teams Grinder Operator Tool Relationship Specialty Start Date End Date Simi Vital DO [address] [place] [address] PCP - General Family Practice 03/23/17 documented as of this encounter
--- OUTSIDE RECORDS SUMMARY | 2024-08-25 23:23 | XMS_ITS | Encounter Summary ---
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
--- OUTSIDE RECORDS SUMMARY | 2024-08-25 23:23 | XMS_ITS | Encounter Summary ---
Author Organization [employer] [facility] Address [address] [place] [address] Care Team Providers Care Cloth Hauler Name Role Phone Simi Vital Primary Care Provider +1- [phone] Encounter Details Date Type Department Care Team (Late st Contact Info) Description 08/25/2014 Lab Requisition [facility] Laboratory Services [place] [address] [place] [phone] eGrson Torres DO NO ADDRESS ON FILE Sick Social History Tobacco Use Types Packs/Day Years Used Date Smoking Tobacco: Never Assessed Sex and Gender Information Value Date Recorded Sex Assigned at Not on file 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 Gender Identity Not on file Sexual Orientation Not on file documented as of this encounter Plan of Treatment Not on file documented as of this encounter Procedures Procedure Name Priority Date/Time Associated Diagnosis Comments CBC WITH DIFFERENTIAL Routine 08/25/2014 9:44 PM CDT Sick [ICD-9-CM] TSH Routine 08/25/2014 9:44 PM CDT Sick [ICD-9-CM] BASIC METABOLIC PANEL Routine 08/25/2014 9:44 PM CDT Sick [ICD-9-CM] documented in this encounter Results * (ABNORMAL) TSH (08/25/2014 9:44 PM CDT) TSH 17.87(H) 0.30 - 4.80 uIU/mL 08/25/2014 10:30 PM CDT [facility] [place] Blood Collection / Unknown 08/25/2014 9:44 PM CDT 08/25/2014 9:44 PM CDT us Gerson Torres DO CHEMISTRY ORDERABLES Final Resu lt [facility] [place] CLIA # [id number] [address] [place] [address], [place] [address] * (ABNORMAL) CBC WITH DIFFERENTIAL (08/25/2014 9:44 PM CDT) WBC 7.5 4.2 - 9.1 K/uL 08/25/2014 10:09 PM CDT [facility] [place] RBC 4.39(L) 4.63 - 6.08 M/uL 08/25/2014 10:09 PM CDT [facility] [place] HEMOGLOBIN 14.1 13.7 - 17.5 g/dL 08/25/2014 10:09 PM CDT [facility] LABOR[facility] HEMATOCRIT 41.8 40.1 - 51.0 % 08/25/2014 10:09 PM CDT [facility] [place] MCV 95.2(H) 79.0 - 92.2 fL 08/25/2014 10:09 PM CDT [facility] [place] MCH 32.1 25.7 - 32.2 pg 08/25/2014 10:09 PM CDT [facility] [place] MCHC 33.7 32.3 - 36.5 g/dL 08/25/2014 10:09 PM CDT [facility] [place] RDW 12.8 11.0 - 14.5 % 08/25/2014 10:09 PM CDT [facility] [place] RDW-STDEV 43.1 36.9 - 56.9 fL 08/25/2014 10:09 PM CDT [facility] [place] PLATELETS 198 130 - 400 K/uL 08/25/2014 10:09 PM CDT [facility] [place] MPV 11.0 10.0 - 14.8 fL 08/25/2014 10:09 PM CDT [facility] [place] NEUTROPHILS 56 34 - 68 % 08/25/2014 10:09 PM CDT [facility] [place] LYMPHOCYTES 32 22 - 53 % 08/25/2014 10:09 PM CDT [facility] [place] MONOCYTES 7 5 - 12 % 08/25/2014 10:09 PM CDT [employer] [facility] [place] EOSINOPHILS 5 1 - 7 % 08/25/2014 10:09 PM CDT [facility] [place] BASOPHILS 1 0 - 1 % 08/25/2014 10:09 PM CDT [facility] [place] NEUTROPHIL ABSOLUTE 4.18 1.78 - 5.38 K/uL 08/25/2014 10:09 PM CDT [facility] [place] LYMPHOCYTE ABSOLUTE 2.40 1.20 - 3.40 K/uL 08/25/2014 10:09 PM CDT [facility] [place] MONOCYTE ABSOLUTE 0.51 0.30 - 0.82 K/uL 08/25/2014 10:09 PM CDT [facility] [place] EOSINOPHIL ABSOLUTE 0.35 0.04 - 0.54 K/uL 08/25/2014 10:09 PM CDT [facility] [place] BASOPHILS ABSOLUTE 0.07 0.01 - 0.08 K/uL 08/25/2014 10:09 PM CDT [employer] [facility] [place] IMMATURE GRANULOCYTES 0 % 08/25/2014 10:09 PM CDT [employer] [facility] [place] IMMATURE GRANULOCYTES ABSOLUTE 0.02 K/uL 08/25/2014 10:09 PM CDT [employer] [facility] [place] Blood Collection / Unknown 08/25/2014 9:44 PM CDT 08/25/2014 9:44 PM CDT us Gerson Torres DO HEMATOLOGY ORDERABLES Final Res ult [facility] [place] CLIA # [id number] [address] [place] [address] * (ABNORMAL) BASIC METABOLIC PANEL (08/25/2014 9:44 PM CDT) SODIUM 139 136 - 145 mmol/L 08/25/2014 10:30 PM CDT [employer] [facility] [place] POTASSIUM 4.0 3.5 - 5.1 mmol/L 08/25/2014 10:30 PM CDT [employer] [facility] [place] CHLORIDE 103 98 - 107 mmol/L 08/25/2014 10:30 PM CDT [employer] [facility] CO2 30 21 - 32 mmol/L 08/25/2014 10:30 PM CDT [facility] [employer] [facility] CALCIUM 9.0 8.5 - 10.1 mg/dL 08/25/2014 10:30 PM CDT [employer] [facility] BUN 12 7 - 18 mg/dL 08/25/2014 10:30 PM CDT [facility] [employer] [facility] CREATININE 1.23 0.60 - 1.30 mg/dL 08/25/2014 10:30 PM CDT [employer] [facility] GLUCOSE 90 74 - 106 mg/dL 08/25/2014 10:30 PM CDT [employer] [facility] GFR >60 >=60 mL/min/1.7 3 sq meter 08/25/2014 10:30 PM T [employer] [facility] Comment: eGFR has not been validated for use in the elderly (> 70 years of age), women, patients with serious co-morbid conditions, or persons with extremes of body size or muscle mass and should also be interpreted with caution in patients with acute kidney failure, dialysis dependent patients, patients reporting exceptional dietary intake (e.g. vegetarian diet, high protein diets, creatine supplementation), and patients with severe liver disease. Based on National Kidney Disease Education Program If patient is , please refer to the GFR result. GFR, >60 >=60 mL/min/1.7 3 sq meter 08/25/2014 10:30 PM CDT [employer] [facility] ANION GAP 6(L) 12 - 20 mmol/L 08/25/2014 10:30 PM CDT [facility] [employer] [facility] Blood Collection / Unknown 08/25/2014 9:44 PM CDT 08/25/2014 9:44 PM CDT us Gerson Torres DO CHEMISTRY ORDERABLES Final Resu lt [facility] CLIA # [id number] [address] [place] [address] documented in this encounter Visit Diagnoses Diagnosis Sick Other unknown and unspecified cause of morbidity or mortality documented in this encounter Care Teams Cloth Hauler Relationship Specialty Start Date End Date Simi Vital DO [address] [place] [address] PCP - General Family Practice 03/23/17 documented as of this encounter
--- OUTSIDE RECORDS SUMMARY | 2024-08-25 23:23 | XMS_ITS | Encounter Summary ---
Author Organization [facility] Address [address] [place] [address] Care Team Providers Care Bridal Sales Consultant Name Role Phone Simi Vital Primary Care Provider Encounter Details Date Type Department Care Team (Latest Contact Info) Description 07/09/2024 Results Follow-Up [facility] Family Medicine [place] [address] [place] [address] [place], 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 [address] [place] [address] Simi Vital, DO [address] [place] [address] 01/01/2025 2:40 PM BATTERY WRECKER OPERATOR Office Visit [facility] [address] [place] [address] Simi Vital DO [address] [place] [address] documented as of this encounter Visit Diagnoses Not on filedocumented in this encounter Care Teams Bridal Sales Consultant Relationship Specialty Start Date End Date Simi Vital DO [address] [place] [address] PCP - General Family Practice 03/23/17 documented as of this encounter
--- OUTSIDE RECORDS SUMMARY | 2024-08-25 23:23 | XMS_ITS | Encounter Summary ---
Author Organization [facility] Address [address] [place] [address] Care Team Providers Care Lang Interpreter Name Role Phone Simi Vital DO Primary Care Provider +1- [phone] Encounter Details Date Type Department Care Team (Latest Contact Info) Description 08/10/2004 Outpatient Historical [facility] Medicine [place] [address] [facility] [address] [place] [phone] HYPOTHYROIDISM NOS (Primary Dx); EXAM AFTR OTHR HI-RISK COMPL RX NEC Social History Tobacco Use Types Packs/Day Years Used Date Smoking Tobacco: Never Assessed Sex and Gender Information Value Date Recorded Sex Assigned at Not on file 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
--- OUTSIDE RECORDS SUMMARY | 2024-08-25 23:23 | XMS_ITS | Encounter Summary ---
Author Organization [facility] Address [address] [place] [address] Care Team Providers Care Machine Operator Picker Name Role Phone Simi Vital DO Primary Care Provider +1- [phone] Encounter Details Date Type Department Care Team (Latest Contact Info) Description 06/02/2005 Outpatient Historical [facility] Medicine [address] [phone] Unspecified Hypothyroidism (Primary Dx) Social History Tobacco Use Types Packs/Day Years Used Date Smoking Tobacco: Never Assessed Sex and Gender Information Value Date Recorded Sex Assigned at Not on file 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
--- OUTSIDE RECORDS SUMMARY | 2024-08-25 23:23 | XMS_ITS | Encounter Summary ---
Author Organization [facility] Address [address] [place] [address] Care Team Providers Care Trust Clerk Name Role Phone Simi Vital DO Primary Care Provider Encounter Details Date Type Department Care Team (Latest Contact Info) Description 10/08/2002 Outpatient Historical [facility] Family Medicine [place] [address] [phone] Annette Baldwin, CARDROOM HAND [address] [place] [phone] HYPOTHYROIDISM NOS (Primary Dx) Social History Tobacco Use Types Packs/Day Years Used Date Smoking Tobacco: Never Assessed Sex and Gender Information Value Date Recorded Sex Assigned at Not on file 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
--- OUTSIDE RECORDS SUMMARY | 2024-08-25 23:23 | XMS_ITS | Encounter Summary ---
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 Gender Identity Not on file Sexual Orientation Not on file documented as of this encounter Plan of Treatment Not on file documented as of this encounter Procedures Procedure Name Priority Date/Time Associated Diagnosis Comments CBC WITH DIFFERENTIAL Routine 11/21/2011 9:23 PM CDT SICK [ICD-9-CM] TSH Routine 11/21/2011 9:23 PM CDT SICK [ICD-9-CM] BASIC METABOLIC PANEL Routine 11/21/2011 9:23 PM CDT SICK [ICD-9-CM] documented in this encounter Results * (ABNORMAL) TSH (11/21/2011 9:23 PM CDT) TSH 39.97(H) 0.30 - 4.80 uIU/mL 11/21/2011 11:53 PM CDT [facility] Blood specimen (specimen) 11/21/2011 9:23 PM CDT 11/21/2011 11:12 PM CDT Annette Garcia Denny FINE PATCHER CHEMISTRY ORDERABLES Final Result [facility] [place] TAL # [id number] [address] [place] [address] * (ABNORMAL) CBC WITH DIFFERENTIAL (11/21/2011 9:23 PM CDT) WBC 8.2 4.2 - 9.1 K/uL 11/21/2011 11:20 PM CDT [employer] [place] RBC 4.31(L) 4.63 - 6.08 M/uL 11/21/2011 11:20 PM CDT [employer] [facility] [place] HEMOGLOBIN 14.0 13.7 - 17.5 g/dL 11/21/2011 11:20 PM CDT [facility] [place] HEMATOCRIT 39.9(L) 40.1 - 51.0 % 11/21/2011 11:20 PM CDT [employer] [facility] [place] MCV 92.6(H) 79.0 - 92.2 fL 11/21/2011 11:20 PM CDT [employer] [facility] [place] MCH 32.5(H) 25.7 - 32.2 pg 11/21/2011 11:20 PM CDT [employer] [facility] [place] MCHC 35.1 32.3 - 36.5 g/dL 11/21/2011 11:20 PM CDT [employer] [place] RDW 12.3 11.0 - 14.5 % 11/21/2011 11:20 PM CDT [employer] [facility] [place] RDW-STDEV 40.5 fL 11/21/2011 11:20 PM CDT [employer] [facility] [place] PLATELETS 195 130 - 400 K/uL 11/21/2011 11:20 PM CDT [employer] [place] MPV 12.0 10.0 - 14.8 fL 11/21/2011 11:20 PM CDT [employer] [place] NEUTROPHILS 49 34 - 68 % 11/21/2011 11:20 PM CDT [employer] [place] LYMPHOCYTES 38 22 - 53 % 11/21/2011 11:20 PM CDT [facility] [place] MONOCYTES 8 5 - 12 % 11/21/2011 11:20 PM CDT [facility] [place] EOSINOPHILS 5 1 - 7 % 11/21/2011 11:20 PM CDT [facility] [place] BASOPHILS 1 0 - 1 % 11/21/2011 11:20 PM CDT [facility] [place] NEUTROPHIL ABSOLUTE 3.97 1.78 - 5.38 K/uL 11/21/2011 11:20 PM CDT [facility] [place] LYMPHOCYTE ABSOLUTE 3.08 1.20 - 3.40 K/uL 11/21/2011 11:20 PM CDT [facility] [place] MONOCYTE ABSOLUTE 0.65 0.30 - 0.82 K/uL 11/21/2011 11:20 PM CDT [facility] [place] EOSINOPHIL ABSOLUTE 0.42 0.04 - 0.54 K/uL 11/21/2011 11:20 PM CDT [facility] [place] BASOPHILS ABSOLUTE 0.05 0.01 - 0.08 K/uL 11/21/2011 11:20 PM CDT [facility] [place] Blood specimen (specimen) 11/21/2011 9:23 PM CDT 11/21/2011 11:12 PM CDT Annette Baldwin FINE PATCHER HEMATOLOGY ORDERABLES Final Result [facility] [place] CLIA # [id number] [address] [place] [address] * (ABNORMAL) BASIC METABOLIC PANEL (11/21/2011 9:23 PM CDT) SODIUM 139 136 - 145 mmol/L 11/21/2011 11:53 PM CDT [facility] [place] POTASSIUM 3.9 3.5 - 5.1 mmol/L 11/21/2011 11:53 PM CDT [facility] [place] CHLORIDE 103 98 - 107 mmol/L 11/21/2011 11:53 PM CDT [facility] [place] CO2 29 21 - 32 mmol/L 11/21/2011 11:53 PM CDT [facility] LABORAT[facility] [place] CALCIUM 9.3 8.5 - 10.1 mg/dL 11/21/2011 11:53 PM CDT [facility] [employer] [facility] BUN 15 7 - 18 mg/dL 11/21/2011 11:53 PM CDT [facility] CREATININE 1.30 0.60 - 1.30 mg/dL 11/21/2011 11:53 PM CDT [facility] GLUCOSE 93 74 - 106 mg/dL 11/21/2011 11:53 PM CDT [facility] GFR 58(L) >=60 mL/min/1.7 3 sq meter 11/21/2011 11:53 PM CDT [facility] GFR, 70 >=60 mL/min/1.7 3 sq meter 11/21/2011 11:53 PM T [facility] Blood specimen (specimen) 11/21/2011 9:23 PM CDT 11/21/2011 11:12 PM CDT Narrative [facility] [employer] [facility] - 11/21/2011 11:53 PM CDT eGFR has not been validated for use in the elderly (> 70 years of age), women, patients with serious co-morbid conditions, or persons with extremes of body size or muscle mass and should also be interpreted with caution in patients with acute kidney failure, dialysis dependant patients, patients reporting exceptional dietary intake (e.g. vegetarian diet, high protein diets, creatine supplementation), and patients with severe liver disease. Based on National Kidney Disease Education Program Annette Baldwin FINE PATCHER CHEMISTRY ORDERABLES Final Result [facility] [employer] [facility] CLIA # [id number] [address] [place] [address] documented in this encounter Visit Diagnoses Diagnosis Sick Other unknown and unspecified cause of morbidity or mortality documented in this encounter Care Teams Plastic Surgery Nurse Relationship Specialty Start Date End Date Simi Vital DO [address] [place] [address] PCP - General Family Practice 03/23/17 documented as of this encounter
--- OUTSIDE RECORDS SUMMARY | 2024-08-25 23:23 | XMS_ITS | Encounter Summary ---
Author Organization [facility] Address [address] [place] [address] Care Team Providers Care Hotel Sales Manager Name Role Phone Simi Vital DO Primary Care Provider Encounter Details Date Type Department Care Team (Latest Contact Info) Description 02/14/2002 Outpatient Historical [facility] Family Medicine [place] [address] [phone] Annette Baldwin, MACHINE WELT BUTTER [address] [place] [phone] HYPOTHYROIDISM NOS (Primary Dx) Social History Tobacco Use Types Packs/Day Years Used Date Smoking Tobacco: Never Assessed Sex and Gender Information Value Date Recorded Sex Assigned at Not on file 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
--- OUTSIDE RECORDS SUMMARY | 2024-08-25 23:23 | XMS_ITS | Encounter Summary ---
Author Organization [facility] Address [address] [place] [address] Care Team Providers Care Spreading Machine Operator Name Role Phone Simi Vital DO Primary Care Provider +1- [phone] Encounter Details Date Type Department Care Team (Latest Contact Info) Description 12/27/2001 Outpatient Historical [facility] [address] [phone] ABNORMAL CLINICAL FINDING NEC (Primary Dx) Social History Tobacco Use Types Packs/Day Years Used Date Smoking Tobacco: Never Assessed Sex and Gender Information Value Date Recorded Sex Assigned at Not on file Legal Sex Male 6:01 AM ACCT EXEC Gender Identity Not on file Sexual Orientation Not on file documented as of this encounter Plan of Treatment Not on file documented as of this encounter Visit Diagnoses Diagnosis Other abnormal clinical finding- Primary documented in this encounter Care Teams Spreading Machine Operator Relationship Specialty Start Date End Date Simi Vital DO [address] [place] [address] PCP - General Family Practice 03/23/17 documented as of this encounter
--- OUTSIDE RECORDS SUMMARY | 2024-08-25 23:23 | XMS_ITS | Encounter Summary ---
Author Organization [facility] Address [address] [place] [address] Care Team Providers Care Police Shift Commander Name Role Phone Simi Vital Primary Care Provider +1- [phone] Encounter Details Date Type Department Care Team (Latest Contact Info) Description 07/01/2013 Ancillary Orders [facility] [place] [address] [place] [phone] Unspecified essential hypertension Social History Tobacco Use Types Packs/Day Years Used Date Smoking Tobacco: Never Assessed Sex and Gender Information Value Date Recorded Sex Assigned at Not on file 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 Gender Identity Not on file Sexual Orientation Not on file documented as of this encounter Plan of Treatment Not on file documented as of this encounter Procedures Procedure Name Priority Date/Time Associated Diagnosis Comments CBC WITH DIFFERENTIAL Routine 07/01/2013 9:17 PM CDT Unspecified essential hypertension [ICD-9-CM] TSH Routine 07/01/2013 9:17 PM CDT Unspecified essential hypertension [ICD-9-CM] documented in this encounter Results * (ABNORMAL) TSH (07/01/2013 9:17 PM CDT) TSH 9.60(H) 0.30 - 4.80 uIU/mL 07/01/2013 11:07 PM CDT [facility] Blood specimen (specimen) Collection / Unknown 07/01/2013 9:17 PM CDT 07/01/2013 9:21 PM CDT Gerson Torres DO CHEMISTRY ORDERABLES Final Resu lt [facility] CLIA # [id number] [address] [place] [id number] * (ABNORMAL) CBC WITH DIFFERENTIAL (07/01/2013 9:17 PM CDT) WBC 7.9 4.2 - 9.1 K/uL 07/01/2013 9:35 PM CDT [facility] RBC 4.42(L) 4.63 - 6.08 M/uL 07/01/2013 9:35 PM CDT [facility] HEMOGLOBIN 14.2 13.7 - 17.5 g/dL 07/01/2013 9:35 PM CDT [facility] HEMATOCRIT 40.9 40.1 - 51.0 % 07/01/2013 9:35 PM CDT [facility] MCV 92.5(H) 79.0 - 92.2 fL 07/01/2013 9:35 PM CDT [facility] MCH 32.1 25.7 - 32.2 pg 07/01/2013 9:35 PM CDT [facility] MCHC 34.7 32.3 - 36.5 g/dL 07/01/2013 9:35 PM CDT [facility] RDW 12.3 11.0 - 14.5 % 07/01/2013 9:35 PM CDT [facility] RDW-STDEV 40.7 36.9 - 56.9 fL 07/01/2013 9:35 PM CDT [facility] PLATELETS 196 130 - 400 K/uL 07/01/2013 9:35 PM CDT [facility] MPV 11.3 10.0 - 14.8 fL 07/01/2013 9:35 PM CDT [facility] NEUTROPHILS 51 34 - 68 % 07/01/2013 9:35 PM CDT [facility] LYMPHOCYTES 35 22 - 53 % 07/01/2013 9:35 PM CDT [facility] MONOCYTES 8 5 - 12 % 07/01/2013 9:35 PM CDT [facility] EOSINOPHILS 5 1 - 7 % 07/01/2013 9:35 PM CDT [facility] [place] BASOPHILS 1 0 - 1 % 07/01/2013 9:35 PM CDT [facility] NEUTROPHIL ABSOLUTE 4.04 1.78 - 5.38 K/uL 07/01/2013 9:35 PM CDT [facility] LYMPHOCYTE ABSOLUTE 2.79 1.20 - 3.40 K/uL 07/01/2013 9:35 PM CDT [facility] MONOCYTE ABSOLUTE 0.64 0.30 - 0.82 K/uL 07/01/2013 9:35 PM CDT [facility] EOSINOPHIL ABSOLUTE 0.38 0.04 - 0.54 K/uL 07/01/2013 9:35 PM CDT [facility] BASOPHILS ABSOLUTE 0.07 0.01 - 0.08 K/uL 07/01/2013 9:35 PM CDT [facility] IMMATURE GRANULOCYTES 0 % 07/01/2013 9:35 PM CDT [facility] IMMATURE GRANULOCYTES ABSOLUTE 0.01 K/uL 07/01/2013 9:35 PM CDT [facility] Blood specimen (specimen) Collection / Unknown 07/01/2013 9:17 PM CDT 07/01/2013 9:21 PM CDT us Gerson Torres DO HEMATOLOGY ORDERABLES Final Res ult [facility] CLIA # [id number] [address] [place] [address] [address] [place] [address] documented in this encounter Visit Diagnoses Diagnosis Unspecified essential hypertension documented in this encounter Care Teams Police Shift Commander Relationship Specialty Start Date End Date Simi Vital DO [address] [place] [address] PCP - General Family Practice 03/23/17 documented as of this encounter
--- OUTSIDE RECORDS SUMMARY | 2024-08-25 23:23 | XMS_ITS | Encounter Summary ---
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 Gender Identity Not on file Sexual Orientation Not on file documented as of this encounter Plan of Treatment Not on file documented as of this encounter Procedures Procedure Name Priority Date/Time Associated Diagnosis Comments TSH Routine 12/30/2013 11:30 PM EMPLOYMENT AND CLAIMS AIDE documented in this encounter Results * (ABNORMAL) TSH (12/30/2013 11:30 PM EMPLOYMENT AND CLAIMS AIDE) TSH 0.04(L) 0.30 - 4.80 uIU/mL 12/31/2013 2:04 AM EMPLOYMENT AND CLAIMS AIDE [facility] Blood 12/30/2013 11:3 0 PM EMPLOYMENT AND CLAIMS AIDE 12/31/2013 12:03 AM EMPLOYMENT AND CLAIMS AIDE Beena Francisco NURSERY ATTENDANT CHEMISTRY ORDERABLE S Final Result [facility] [employer] [facility] CLIA # [id number] [address] [facility] [address] [place] [address] documented in this encounter Visit Diagnoses Not on filedocumented in this encounter Care Teams Director Of Culture Relationship Specialty Start Date End Date Simi Vital DO [address] [place] [phone] PCP - General Family Practice 03/23/17 documented as of this encounter
--- OUTSIDE RECORDS SUMMARY | 2024-08-25 23:23 | XMS_ITS | Encounter Summary ---
Author Organization [facility] Address [address] [place] [address] Care Team Providers Care Hospital Cna Name Role Phone Simi Vital DO Primary Care Provider Encounter Details Date Type Department Care Team (Latest Contact Info) Description 06/20/2002 Outpatient Historical [facility] Family Medicine [place] [address] [phone] Annette Baldwin, VP AD SALES [place]ST [address] [place] [phone] HYPOTHYROIDISM NOS (Primary Dx) Social History Tobacco Use Types Packs/Day Years Used Date Smoking Tobacco: Never Assessed Sex and Gender Information Value Date Recorded Sex Assigned at Not on file 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
--- OUTSIDE RECORDS SUMMARY | 2024-08-25 23:23 | XMS_ITS | Encounter Summary ---
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
--- OUTSIDE RECORDS SUMMARY | 2024-08-25 23:23 | XMS_ITS | Encounter Summary ---
Author Organization [facility] Address [address] [place] [address] Care Team Providers Care Computer Training Specialist Name Role Phone Simi Vital DO Primary Care Provider +1- [phone] Encounter Details Date Type Department Care Team (Late st Contact Info) Description 10/07/2013 Ancillary Orders [facility] [place] [address] [phone] Sick Social History Tobacco Use Types Packs/Day Years Used Date Smoking Tobacco: Never Assessed Sex and Gender Information Value Date Recorded Sex Assigned at Not on file 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 Gender Identity Not on file Sexual Orientation Not on file documented as of this encounter Plan of Treatment Not on file documented as of this encounter Procedures Procedure Name Priority Date/Time Associated Diagnosis Comments TSH Routine 10/07/2013 9:58 PM CDT Sick [ICD-9-CM] documented in this encounter Results * (ABNORMAL) TSH (10/07/2013 9:58 PM CDT) TSH 0.04(L) 0.30 - 4.80 uIU/mL 10/07/2013 11:32 PM CDT [facility] Blood 10/07/2013 9:58 PM CDT 10/07/2013 9:58 PM CDT us Adriano Lawson NP CHEMISTRY ORDERABLES Final R esult [facility] [employer] [facility] CLIA # [id number] [address] [place] [address] documented in this encounter Visit Diagnoses Diagnosis Sick Other unknown and unspecified cause of morbidity or mortality documented in this encounter Care Teams Computer Training Specialist Relationship Specialty Start Date End Date Simi Vital DO [address] [place] [facility] [place] [address] PCP - General Family Practice 03/23/17 documented as of this encounter
--- OUTSIDE RECORDS SUMMARY | 2024-08-25 23:23 | XMS_ITS | Encounter Summary ---
Author Organization [facility] Address [address] [place] [address] Care Team Providers Care Sedimentationist Name Role Phone Simi Vital DO Primary Care Provider Encounter Details Date Type Department Care Team (Latest Contact Info) Description 04/30/2002 Outpatient Historical [facility] Family Medicine [place] [address] [phone] Annette Baldwin, MEDICAL OFFICE REP [address] [place] [phone] HYPOTHYROIDISM NOS (Primary Dx) Social History Tobacco Use Types Packs/Day Years Used Date Smoking Tobacco: Never Assessed Sex and Gender Information Value Date Recorded Sex Assigned at Not on file 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
--- OUTSIDE RECORDS SUMMARY | 2024-08-25 23:23 | XMS_ITS | Encounter Summary ---
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
--- OUTSIDE RECORDS SUMMARY | 2024-08-25 23:23 | XMS_ITS | Clinical Summary ---
Author Organization [facility] Address [address] [facility] [address] [place] [address] Care Team Providers Care Agricultural Produce Sorter Name Role Phone Simi Vital Primary Care Provider Allergies No known active allergies Medications aspirin (ECOTRIN EC) 81 mg Tablet, Delayed Release (E.C.) Take 81 mg by mouth daily. Active walker with wheels and seatIndications:Hy potension, unspecified hypotension type,Dizziness,Chr onic bilateral low back pain with right-sided sciatica,Gait instability Face to Face completed within 6 months: yes Length of Need: 99 months 1 Each 01/17/20 19 Active memantine (NAMENDA) 5 mg Tablet Take 1 Tablet (5 mg) by mouth 2 times daily. 60 Tablet 5 04/29/19 20 Active ergocalciferol (Vitamin D2) 50,000 unit capsuleIndications :Vitamin D deficiency Take 1 Capsule (50,000 Units) by mouth see administration instructions. Take 1 tab weekly x 8 weeks then take twice monthly after that. 16 Capsule 2 07/25/19 20 Active pantoprazole (PROTONIX) 40 mg Tablet, Delayed Release (E.C.)Indications: Gastroesophageal reflux disease, esophagitis presence not specified Take 1 tablet by mouth once daily 90 Tablet 4 09/22/19 20 Active simvastatin (ZOCOR) 40 mg tabletIndications: Aortic atherosclerosis,Oc clusion of right iliac artery (CMS/HCC),Aneurysm of iliac artery TAKE 1 TABLET BY MOUTH ONCE DAILY WITH SUPPER 90 Tablet 3 10/07/19 20 Active mupirocin (BACTROBAN) 2 % OintmentIndication s:Impetigo Apply to affected area daily. 30 Gram 10/24/19 20 Active clopidogreL (PLAVIX) 75 mg TabletIndications: Occlusion of right iliac artery (CMS/HCC),Aneurysm of iliac artery,Personal history of DVT (deep vein thrombosis) Take 1 tablet by mouth once daily 90 Tablet 10/26/19 20 Active finasteride (PROSCAR) 5 mg tablet Take 1 Tablet (5 mg) by mouth daily. 30 Tablet 12 11/19/19 20 Active lactulose (ENULOSE) 10 gram/15 mL 10 gram/15 mL solutionIndication s:Constipation due to opioid therapy Take 30 mL by mouth daily. 200 mL 3 01/27/20 20 Active budesonide-formote roL (Symbicort) 160-4.5 mcg/actuation HFA Aerosol InhalerIndications :Pulmonary emphysema, unspecified emphysema type (CMS/HCC),Chronic obstructive pulmonary disease, unspecified COPD type (CMS/HCC) Take 2 Puffs by inhalation 2 times daily. 1 Gram 01/27/20 20 Active baclofen (LIORESAL) 10 mg tabletIndications: Sciatica of right side TAKE 1 TABLET BY MOUTH THREE TIMES DAILY NEEDED FOR PAIN 90 Tablet 04/12/19 21 Active nitroglycerin (NITROSTAT) 0.4 mg Tablet, Sublingual Place 1 Tablet (0.4 mg) under tongue every 5 minutes as needed for Chest Pain. 30 Tablet 04/28/19 21 Active albuterol (PROVENTIL,VENTOLI N) 2.5 mg /3 mL (0.083 %) Solution for Nebulization Take 3 mL (2.5 mg) by inhalation every 6 hours as needed for Shortness of Breath. 300 mL 04/28/19 21 Active guaiFENesin (MUCINEX) 600 mg Extended Release Biphasic tablet Take 1 Tablet (600 mg) by mouth 2 times daily. 60 Tablet 04/28/19 21 Active nystatin (MYCOSTATIN) 100,000 unit/gram Cream Apply to affected area 2 times daily. 30 Gram 3 04/28/19 21 Active diclofenac sodium (VOLTAREN) 1 % gel Apply 4 Grams to affected area 4 times daily. 100 Gram 05/08/19 21 Active traMADoL (ULTRAM) 50 mg tabletIndications: Chronic right-sided low back pain with right-sided sciatica Take 1 Tablet (50 mg) by mouth every 6 hours as needed for Pain. 120 Tablet 5 06/05/19 21 Active Euthyrox 112 mcg tabletIndications: Acquired hypothyroidism TAKE 1 TABLET BY MOUTH ONCE DAILY IN THE MORNING 90 Tablet 4 07/07/19 21 Active isosorbide dinitrate (ISORDIL) 10 mg tabletIndications: Aortic atherosclerosis TAKE 1 TABLET BY MOUTH IN THE MORNING AND 1/2 (ONE-HALF) IN THE EVENING 135 Tablet 4 07/28/19 21 Active Hospital, Clinic, or Other Facility Administered Medication Ordered Dose Route Frequency Start Date End Date Status sodium chloride flush injection 10 mLIndications:Weak,C KD (chronic kidney disease) stage 3, GFR 30-59 ml/min (CMS/[facility]) 10 mL IV SEE ADMIN INSTRUCTIONS 09/24/2018 Active Active Problems Problem Noted Date Diagnosed Date Chronic midline low back pain without sciatica 0 08/12/2020 Cigarette dependence 05/04/2020 Atherosclerosis of [place] co ronary artery of [place] heart with stable angina pectoris 05/04/2020 Chronic constipation 05/04/2020 Primary osteoarthritis involving multiple joints 05/04/2020 Benign prostatic hyperplasia with urinary hesita ncy 05/04/2020 Gastroesophageal reflux disease without esophagi tis 05/04/2020 Personal history of DVT (deep vein thrombosis) 0 07/24/2019 CKD (chronic kidney disease) stage 3, GFR 30-59 ml/min 07/24/2019 Abdominal aortic aneurysm (A AA) 3.0 cm to 5.5 cm in diameter in male 02/14/2018 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.0 cm 02/14/2018 Mixed hyperlipidemia 03/23/2017 Acquired hypothyroidism 03/23/2017 Resolved Problems Problem Noted Date Diagnosed Date Resolved Date Occlusion of right iliac artery 02/14/2018 05/04/2020 Family History Medical History Relation Name Comments Lung Cancer Father Kidney Disease Mother Relation Name Status Comments Father Mother Social History Tobacco Use Types Packs/Day Years Used Date Smoking Tobacco: Every Day Cigarettes Smokeless Tobacco: Never Tobacco Cessation:Ready to Q uit: No; Counseling Given: Yes Alcohol Use Standard Drinks/Week Comments No 0 (1 standard drink = 0.6 oz pur e alcohol) Sex and Gender Information Value Date Recorded Sex Assigned at Not on file 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 Gender Identity Not on file Sexual Orientation Not on file Last Filed Vital Signs Vital Sign Reading Time Taken Comments Blood Pressure 108/68 07/31/2020 11:11 AM CDT Pulse 102 07/31/2020 11:11 AM CDT Temperature 37 C (98.6 F) 07/31/2020 11:11 AM CDT Respiratory Rate 18 07/31/2020 11:11 AM CDT Oxygen Saturation 96% 07/31/2020 11:11 AM CDT Inhaled Oxygen Concentration - - Weight 69.9 kg (154 lb) 07/31/2020 11:11 AM CDT Height 182.9 cm (6') 07/31/2020 11:11 AM CDT Body Mass Index 20.89 07/31/2020 11:11 AM CDT Plan of Treatment Health Maintenance Due Date Last Done Comments DTAP/TDAP/TD VACCINES (1 - Tdap) 1976 PNEUMOCOCCAL VACCINE 50+ YEA RS (1 of 2 - PCV) 1976 FIT-DNA Q 3 years 2002 FIT/FOBT Q 1 year 2002 Flex Sig/CT Colonography Q 5 years 2002 ZOSTER VACCINE (1 of 2) 09/16/2007 RSV VACCINE (60+ or ) (1 - Risk 60-74 years 1-dose series) 2017 INFLUENZA VACCINE (#1) 2023 9, 11/14/2017, 11/14/2017 Preventative Visit- Commercial 02/28/2024 COLORECTAL SCREENING 02/13/2034 02/14/2024, 10/26/19 19 Colorectal Cancer Screening 02/13/2034 Procedures Procedure Name Priority Date/Time Associated Diagnosis Comments ENDOSCOPY, COLON, SCREENING Routine 10/25/2018 Screening for colon cancer from Last 3 Months or Most Recently Relevant to Health Maintenance Results * ENDOSCOPY, COLON, SCREENING (10/25/2018) Margarita FULLERP GI PROCEDURE ORDERABLES Final Result from Last 3 Months or Most Recently Relevant to Health Maintenance Insurance [place]ICAID [place] [facility] EPO Care Teams Agricultural Produce Sorter Relationship Specialty Start Date End Date Simi Vital DO [address] [place] [phone] PCP - General Family Practice 03/23/17
--- OUTSIDE RECORDS SUMMARY | 2024-08-25 23:23 | XMS_ITS | Encounter Summary ---
Author Organization [facility] Address [address] [facility] Attn: Epic Prelude [place] [address] Care Team Providers Care Dietetic Technician Registered Name Role Phone Simi Vital DO Primary Care Provider +1- [phone] Encounter Details Date Type Department Care Team (Late st Contact Info) Description 12/25/2001 Outpatient Historical Ras Mcgovern MD [address] [phone] Social History Tobacco Use Types Packs/Day Years Used Date Smoking Tobacco: Never Assessed Sex and Gender Information Value Date Recorded Sex Assigned at Not on file 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
--- OUTSIDE RECORDS SUMMARY | 2024-08-25 23:23 | XMS_ITS | Encounter Summary ---
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 Gender Identity Not on file Sexual Orientation Not on file documented as of this encounter Plan of Treatment Not on file documented as of this encounter Procedures Procedure Name Priority Date/Time Associated Diagnosis Comments TSH Routine 07/02/2012 7:35 PM CDT Sick [ICD-9-CM] documented in this encounter Results * (ABNORMAL) TSH (07/02/2012 7:35 PM CDT) TSH 7.27(H) 0.30 - 4.80 uIU/mL 07/02/2012 9:27 PM CDT [facility] Blood specimen (specimen) 07/02/2012 7:35 PM CDT 07/02/2012 8:47 PM CDT us Adriano Lawson NP CHEMISTRY ORDERABLES Final R esult [facility] P21 [facility] CLIA # [id number] 100 [facility] [address] [place] [address] documented in this encounter Visit Diagnoses Diagnosis Sick Other unknown and unspecified cause of morbidity or mortality documented in this encounter Care Teams Trash Collector Supervisor Relationship Specialty Start Date End Date Simi Vital DO [address] [place] [address] PCP - General Family Practice 03/23/17 documented as of this encounter
--- OUTSIDE RECORDS SUMMARY | 2024-08-25 23:23 | XMS_ITS | Encounter Summary ---
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 Gender Identity Not on file Sexual Orientation Not on file documented as of this encounter Plan of Treatment Not on file documented as of this encounter Procedures Procedure Name Priority Date/Time Associated Diagnosis Comments TSH Routine 02/17/2014 9:57 PM OPTICAL LENS MANUFACTURING TECH documented in this encounter Results * (ABNORMAL) TSH (02/17/2014 9:57 PM OPTICAL LENS MANUFACTURING TECH) TSH 0.08(L) 0.30 - 4.80 uIU/mL 02/17/2014 10:56 PM OPTICAL LENS MANUFACTURING TECH [facility]ORATORY [facility] Blood 02/17/2014 9:57 PM OPTICAL LENS MANUFACTURING TECH 02/17/2014 9:57 PM OPTICAL LENS MANUFACTURING TECH Frankie DUKE CHEMISTRY ORDERABLES Final R esult [facility] Shidonni [facility] CLIA # [id number] 100 [facility] [address] [place] [address] documented in this encounter Visit Diagnoses Not on filedocumented in this encounter Care Teams Product Engineer Relationship Specialty Start Date End Date Simi Vital DO [address] [place] [address] PCP - General Family Practice 03/23/17 documented as of this encounter
--- OUTSIDE RECORDS SUMMARY | 2024-08-25 23:23 | XMS_ITS | Encounter Summary ---
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
--- OUTSIDE RECORDS SUMMARY | 2024-08-25 23:23 | XMS_ITS | Encounter Summary ---
Author Organization [facility] Address [address] [place] [address] Care Team Providers Care Service Attendant Name Role Phone Simi Vital Primary Care Provider +1- [phone] Encounter Details Date Type Department Care Team (Late st Contact Info) Description 07/18/2016 Lab Requisition [facility] General Laboratory Services [place] [address] [place] [phone] Gerson Torres DO NO ADDRESS ON FILE Social History Tobacco Use Types Packs/Day Years Used Date Smoking Tobacco: Never Assessed Sex and Gender Information Value Date Recorded Sex Assigned at Not on file 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 Gender Identity Not on file Sexual Orientation Not on file documented as of this encounter Plan of Treatment Not on file documented as of this encounter Procedures Procedure Name Priority Date/Time Associated Diagnosis Comments TSH Routine 07/18/2016 9:16 PM CDT LIPID PANEL Routine 07/18/2016 9:16 PM CDT COMPREHENSIVE METABOLIC PANEL Routine 07/18/2016 9:16 PM CDT documented in this encounter Results * (ABNORMAL) TSH (07/18/2016 9:16 PM CDT) TSH 5.01(H) 0.27 - 4.20 uIU/mL 07/18/2016 11:10 PM CDT [facility] Blood 07/18/2016 9:16 PM CDT 07/18/2016 10:03 PM CDT us Gerson Torres DO CHEMISTRY ORDERABLES Final Resu lt Performing Organization Address City/[facility]/ZIP Co de Phone Number [facility] CLIA # [id number] [address] [address] * (ABNORMAL) LIPID PANEL (07/18/2016 9:16 PM CDT) CHOLESTEROL 200(H) <200 mg/dL 07/18/2016 11:10 PM CDT [facility] TRIGLYCERIDE 131 <150 mg/dL 07/18/2016 11:10 PM CDT [facility] HDL 34(L) 40 - 59 mg/dL 07/18/2016 11:10 PM CDT [facility] LDL CALCULATED 140(H) <100 mg/dL 07/18/2016 11:10 PM CDT [facility] NON-HDL CHOLESTEROL 166(H) <130 mg/dL 07/18/2016 11:10 PM CDT [facility] Blood 07/18/2016 9:16 PM CDT 07/18/2016 10:03 PM CDT Narrative [facility] - 07/18/2016 11:10 PM CDT TOTAL CHOLESTEROL mg/dL Desirable <200 Borderline high [...] Reference Ranges for Lipid Panels (NCEP/AMA) us Gerson Torres DO CHEMISTRY ORDERABLES Final Resu lt [facility] CLIA # [id number] [address] [place] [address] * (ABNORMAL) COMPREHENSIVE METABOLIC PANEL (07/18/2016 9:16 PM CDT) SODIUM 141 136 - 145 mmol/L 07/18/2016 11:10 PM [facility] POTASSIUM 4.4 3.5 - 5.1 mmol/L 07/18/2016 11:10 PM [facility] CHLORIDE 102 98 - 107 mmol/L 07/18/2016 11:10 PM [facility] CO2 26 22 - 29 mmol/L 07/18/2016 11:10 PM [facility] CALCIUM 9.8 8.6 - 10.0 mg/dL 07/18/2016 11:10 PM [facility] BUN 19 6 - 20 mg/dL 07/18/2016 11:10 PM [facility] CREATININE 1.18(H) 0.67 - 1.17 mg/dL 07/18/2016 11:10 PM [facility] GLUCOSE 88 74 - 106 mg/dL 07/18/2016 11:10 PM [facility] TOTAL PROTEIN 7.8 6.6 - 8.7 g/dL 07/18/2016 11:10 PM [facility] ALBUMIN 4.4 3.5 - 5.2 g/dL 07/18/2016 11:10 PM [facility] BILIRUBIN TOTAL 0.2 0.0 - 1.2 mg/dL 07/18/2016 11:10 PM [facility] ALKALINE PHOSPHATASE 86 40 - 129 U/L 07/18/2016 11:10 PM [facility] AST 14 10 - 50 U/L 07/18/2016 11:10 PM [facility] ALT 9(L) 10 - 50 U/L 07/18/2016 11:10 PM [facility] GFR >60 >=60 mL/min/1.7 3 sq meter 07/18/2016 11:10 PM [facility] Comment: eGFR has not been validated for [...] GFR, >60 >=60 mL/min/1.7 3 sq meter 07/18/2016 11:10 PM CDT [facility] ANION GAP 13 12 - 20 mmol/L 07/18/2016 11:10 PM CDT [facility] Blood 07/18/2016 9:16 PM CDT 07/18/2016 10:03 PM CDT us Gerson Torres DO CHEMISTRY ORDERABLES Final Resu lt [facility] CLIA # [id number] [address] [place] [address] documented in this encounter Visit Diagnoses Not on filedocumented in this encounter Care Teams Service Attendant Relationship Specialty Start Date End Date Simi Vital DO [address] [place] [address] PCP - General Family Practice 03/23/17 documented as of this encounter
--- OUTSIDE RECORDS SUMMARY | 2024-08-25 23:23 | XMS_ITS | Encounter Summary ---
Author Organization [facility] Address [address] [place] [address] Care Team Providers Care Plumbing And Heating Contractor Name Role Phone Simi Vital DO Primary Care Provider +1- [phone] Encounter Details Date Type Department Care Team (Latest Contact Info) Description 01/08/2002 Outpatient Historical [facility] Family Medicine [address] [phone] ABNORMAL CLINICAL FINDING NEC (Primary Dx) Social History Tobacco Use Types Packs/Day Years Used Date Smoking Tobacco: Never Assessed Sex and Gender Information Value Date Recorded Sex Assigned at Not on file 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
--- OUTSIDE RECORDS SUMMARY | 2024-08-25 23:23 | XMS_ITS | Encounter Summary ---
Author Organization [facility] Address [address] [place] [address] Care Team Providers Care Recovery Operator Name Role Phone Simi Vital DO Primary Care Provider +1- [phone] Encounter Details Date Type Department Care Team (Latest Contact Info) Description 06/20/2002 Outpatient Historical [facility] Medicine [address] [phone] FX PHALANX, HAND NOS-CLOSE (Primary Dx); HYPOTHYROIDISM NOS Social History Tobacco Use Types Packs/Day Years Used Date Smoking Tobacco: Never Assessed Sex and Gender Information Value Date Recorded Sex Assigned at Not on file 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
--- OUTSIDE RECORDS SUMMARY | 2024-08-25 23:23 | XMS_ITS | Encounter Summary ---
Author Organization [facility] Address [address] [place] [address] Care Team Providers Care Ship Worker Name Role Phone Simi Vital DO Primary Care Provider +1- [phone] Encounter Details Date Type Department Care Team (Latest Contact Info) Description 12/26/[address] [facility] Rheumatology- [place] [address] [place] [phone] IMMUNOLOGICAL FIND OTHR OR UNSPEC (Primary Dx) Social History Tobacco Use Types Packs/Day Years Used Date Smoking Tobacco: Never Assessed Sex and Gender Information Value Date Recorded Sex Assigned at Not on file Legal Sex Male 6:[address] CLERK Gender Identity Not on file Sexual Orientation Not on file documented as of this encounter Plan of Treatment Not on file documented as of this encounter Visit Diagnoses Diagnosis Other and unspecified nonspecific immunological findings- Primary documented in this encounter Care Teams Ship Worker Relationship Specialty Start Date End Date Simi Vital DO [address] [place] [address] PCP - General Family Practice 03/23/17 documented as of this encounter
--- OUTSIDE RECORDS SUMMARY | 2024-08-25 23:23 | XMS_ITS | Encounter Summary ---
Author Organization [facility] Address [address] [place] [address] Care Team Providers Care City Engineer Name Role Phone Simi Vitla Primary Care Provider Reason for Visit * Reason Onset Date Comments Results 08/14/2024 Patient Communication Encounter Details Date Type Department Care Team (Latest Contact Info) Description 08/14/2024 Results Follow-Up [facility] Medicine [place] [address] [place] [address] Gaffneymay, SOLE TACKER [address] [place] [address] VITAMIN D 25 HYDROXY, IRON, TIBC, AND PERCENT SATURATION, CBC WITH DIFFERENTIAL Social History Tobacco Use [...] on file Legal Sex Male 1:20 PM DIRECTOR OF PLACEMENT Gender Identity Not on file Sexual Orientation Not on file documented as of this encounter Miscellaneous Notes * Telephone Encounter - Ginger Carrington LPN - 08/22/2024 2:46 PM CDT Attempted to contact pt multiple times to discuss colonoscopy referral. Pt has not returned call. Letter printed to be mailed. Ginger Carrington LPN, 08/22/2024 2:47 PM * Telephone Encounter - Ginger Carrington LPN - 08/22/2024 2:46 PM CDT ----- Message from Reyna Gaffney sent at 08/22/2024 1:18 PM CDT ----- Yes, please do that. ----- Message ----- From: Ginger Carrington LPN Sent: 08/22/2024 12:47 PM CDT To: FIGUEROA Feliciano Do you want me to send him a letter asking him to call us back to discuss the colonoscopy referral? ----- Message ----- From: Reyna Gaffney FNP Sent: 08/22/2024 11:42 AM CDT To: Ginger Carrington LPN Hopefully he will call us back. If not he does have a follow up with Dr. Vital in September. ----- Message ----- From: Ginger Carrington LPN Sent: 08/21/2024 10:36 AM CDT To: FIGUEROA Feliciano I'm having a hard time getting a call back from this pt. I'm leaving messages and the spouse is suppose to have him call me and let me know about the colonoscopy. How would you like me to proceed? You can see I have called multiple times. ----- Message ----- From: Reyna Gaffney FNP Sent: 08/16/2024 4:23 PM CDT To: Ginger Carrington LPN He is having blood in his stool and his blood count is going down so we need to find out where he is bleeding from. ----- Message ----- From: Ginger Carrington LPN Sent: 08/16/2024 3:44 PM CDT To: Reyna Gaffney FIGUEROA ----- Message ----- From: Day Lopez Sent: 08/16/2024 2:47 PM CDT To: [facility] Family Medicine [place] Nurse * Telephone Encounter - Ginger Carrington LPN - 08/20/2024 10:16 AM CDT 08/20/2024 10:16 AM I attempted to contact pt to discuss colonoscopy, no answer, LVM for a call back. Ginger CONNOR * Telephone Encounter - Ginger Carrington LPN - 08/19/2024 2:39 PM CDT 08/19/2024 2:39 PM I spoke with pt's spouse on PHI, I advised her of message from May and spouse is going to let pt know and call clinic back after talking to pt. She is not with pt at this time. Ginger CONNOR * Telephone Encounter - Ginger Carrington LPN - 08/16/2024 5:10 PM CDT Images from the original note were not included. 08/16/2024 5:10 PM Returned call. No answer. Left voice mail/message to return our call. If patient/caregiver calls back, contact center please inform caller to expect a return call from the clinic. Need to know if pt would be ok with having another colonoscopy even though he had one back in January. Ginger CONNOR * Telephone Encounter - Day Lopez - 08/16/2024 2:47 PM CDT Copied from [facility] #[id number]. Topic: CPA Information Request >> Aug 16, 2024 2:46 PM Day Huang wrote: Caller is returning phone call from clinic. Caller Name: Balta Kwan Patient/Caregiver Callback Number: Telephone Information: Clinic Left Note In Chart Is there a note from the clinic requesting the caller be transferred when they call back? No Are the credentials of the caregiver who called the patient lawn care worker? Yes Call Notes: Communicated information that is documented in the note. Caller wants a call back from clinic. The patient states he had a colonoscopy about 3 months ago. * Telephone Encounter - Ginger Carrington LPN - 08/16/2024 1:20 PM CDT 08/16/2024 1:20 PM Call answered, pt not available, left message for pt to call clinic. Ginger CONNOR * Telephone Encounter - Ginger Carrington LPN - 08/15/2024 4:51 PM CDT 08/15/2024 4:51 PM Attempted to contact pt to see if he would be ok with getting a colonoscopy, no answer, LVM for a call back. Ginger CONNOR * Telephone Encounter - Ginger Carrington LPN - 08/15/2024 4:51 PM CDT ----- Message from May Yeimy sent at 08/15/2024 4:35 PM CDT ----- Is he okay with getting a colonoscopy? ----- Message ----- From: Ginger Carrington LPN Sent: 08/15/2024 4:03 PM CDT To: FIGUEROA Feliciano * Telephone Encounter - Ginger Carrington LPN - 08/15/2024 4:00 PM CDT 08/15/2024 4:00 PM Per pt he has the bleeding in his stool for about a week or less. Ginger CONNOR * Telephone Encounter - Ginger Carrington LPN - 08/15/2024 4:00 PM CDT ----- Message from Reyna Yeimy sent at 08/15/2024 11:48 AM CDT ----- Find out how long he's had this for. Is he okay getting a colonoscopy? ----- Message ----- From: Ginger Carrington LPN Sent: 08/15/2024 11:17 AM CDT To: FIGUEROA Feliciano 08/15/2024 11:14 AM Called and notified patient of results and advised him of message from provider. Voiced understanding. Pt said he is having some blood in stool, small amount, normal red color, not every BM. No dark tarry stools reported. Ginger CONNOR documented in this encounter Plan of Treatment Upcoming Encounters Date Type Department Care Team (Late st Contact Info) Description 10/03/2024 2:40 PM CDT Office Visit [facility] [address] [facility] [phone] Simi Vital, DO [address] [facility] [place] [phone] 01/01/2025 2:40 PM DIRECTOR OF PLACEMENT Office Visit [facility] [address] [facility] [address] Simi Vital DO [address] [place] [phone] documented as of this encounter Visit Diagnoses Diagnosis Vitamin D deficiency- Primary Unspecified vitamin D deficiency documented in this encounter Care Teams City Engineer Relationship Specialty Start Date End Date Simi Vital DO [address] [facility] [place] [address] PCP - General Family Practice 03/23/17 documented as of this encounter
--- OUTSIDE RECORDS SUMMARY | 2024-08-25 23:23 | XMS_ITS | Encounter Summary ---
Author Organization [employer] [facility] Address [address] [place] [address] Care Team Providers Care Bi Specialist Name Role Phone Simi Vital DO Primary Care Provider Encounter Details Date Type Department Care Team (Late st Contact Info) Description 08/10/2015 Lab Requisition [facility] Laboratory Services [place] [address] [place] [address] Cata Haynes FNP [address] [place] [address] Social History Tobacco Use Types Packs/Day Years Used Date Smoking Tobacco: Never Assessed Sex and Gender Information Value Date Recorded Sex Assigned at Not on file 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 Blood 08/10/2015 7:11 PM CDT 08/10/2015 7:11 PM CDT Cata Lavee Ivy NDT INSPECTOR CHEMISTRY ORDERABLES Fi nal Result [facility] CLIA # [id number] 100 [facility] [address] [place] [address] documented in this encounter Visit Diagnoses Not on filedocumented in this encounter Care Teams Bi Specialist Relationship Specialty Start Date End Date Simi Vital DO [address] [place] [phone] PCP - General Family Practice 03/23/17 documented as of this encounter
--- OUTSIDE RECORDS SUMMARY | 2024-08-25 23:23 | XMS_ITS | Encounter Summary ---
Author Organization [facility] Address [address] [place] [address] Care Team Providers Care Mica Builder Name Role Phone Simi Vital DO Primary Care Provider +1- [phone] Encounter Details Date Type Department Care Team (Latest Contact Info) Description 03/28/2006 Outpatient Historical [facility] Medicine [address] [phone] Impacted Cerumen (Primary Dx); Unspecified Hypothyroidism Social History Tobacco Use Types Packs/Day Years Used Date Smoking Tobacco: Never Assessed Sex and Gender Information Value Date Recorded Sex Assigned at Not on file 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
--- OUTSIDE RECORDS SUMMARY | 2024-08-25 23:23 | XMS_ITS | Encounter Summary ---
Author Organization [facility] Address [address] [place] [address] Care Team Providers Care Motor Vehicle Dispatcher Name Role Phone Simi Vital Primary Care Provider +1- [phone] Encounter Details Date Type Department Care Team (Late st Contact Info) Description 12/21/2015 Lab Requisition [facility] General Laboratory Services [place] [address] [address] Gerson Torres DO NO ADDRESS ON FILE Social History Tobacco Use Types Packs/Day Years Used Date Smoking Tobacco: Never Assessed Sex and Gender Information Value Date Recorded Sex Assigned at Not on file 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 Gender Identity Not on file Sexual Orientation Not on file documented as of this encounter Plan of Treatment Not on file documented as of this encounter Procedures Procedure Name Priority Date/Time Associated Diagnosis Comments TSH Routine 12/21/2015 7:05 PM CDT documented in this encounter Results * TSH (12/21/2015 7:05 PM CDT) TSH 2.44 0.27 - 4.20 uIU/mL 12/21/2015 10:51 PM CDT [facility] Blood 12/21/2015 7:05 PM CDT 12/21/2015 7:36 PM CDT us Gerson Torres DO CHEMISTRY ORDERABLES Final Resu lt [facility] CLIA # [id number] [address] [place] [address] [address] [place] [address] documented in this encounter Visit Diagnoses Not on filedocumented in this encounter Care Teams Motor Vehicle Dispatcher Relationship Specialty Start Date End Date Simi Vital DO [address] [place] [address] PCP - General Family Practice 03/23/17 documented as of this encounter
--- OUTSIDE RECORDS SUMMARY | 2024-08-25 23:23 | XMS_ITS | Encounter Summary ---
Author Organization [facility] Address [address] [place] [address] Care Team Providers Care Specialized Language Instructor Name Role Phone Amanuel Simi L DO Primary Care Provider [phone]- [phone] Reason for Referral * CT Scan (Routine) - Closed Specialty Diagnoses / Procedures Referred By Mark garcia Referred To Contact Radiology Diagnoses Abdominal aortic aneurysm without rupture Procedures CT ABDOMEN PELVIS W CONTRAST CT ABDOMEN W CONTRAST Margarita Elder FNP Phone: tel: fax: [facility] CT Scan [place] [address] [address] Phone: tel: fax: Referral ID Status Reason Start Date Expiration Date V isits Requested Visits Authorized [id number] Closed MTN View CTS to Schedule (SGF) 02/13/2018 03/15/2018 1 1 RVISOR STITCHING DEPARTMENT Encounter Details Date Type Department Care Team (Late st Contact Info) Description 02/13/2018 Ancillary Orders [facility] [address] [place] [address] Margarita Elder FNP [address] [facility] [address] [place] [address] Abdominal aortic aneurysm without rupture Social History Tobacco Use Types Packs/Day Years Used Date Smoking Tobacco: Every Day Cigarettes Smokeless Tobacco: Never Alcohol Use Standard Drinks/Week Comments No 0 (1 standard drink = 0.6 oz pur e alcohol) Sex and Gender Information Value Date Recorded Sex Assigned at Not on file Legal Sex Male 6:01 AM SUPERVISOR STITCHING DEPARTMENT Gender Identity Not on file Sexual Orientation Not on file documented as of this encounter Plan of Treatment Not on file documented as of this encounter Results * CT ABDOMEN PELVIS W CONTRAST (02/13/2018 11:36 AM SUPERVISOR STITCHING DEPARTMENT) Anatomical Region Laterality Modality Abdomen Computed Tomogra phy 02/13/2018 11:3 7 AM SUPERVISOR STITCHING DEPARTMENT Impressions 02/13/2018 3:54 PM SUPERVISOR STITCHING DEPARTMENT IMPRESSION: 1. 3.5 x 3.2 cm distal infrarenal bone aortic aneurysm that extends to the bifurcation. The right common iliac artery is also aneurysmal measuring up to 3 cm in diameter. There is either likely occlusion or severe hemodynamically significant stenosis at the origin the right internal iliac artery there is reconstitution of the distal right internal iliac artery via pelvic collaterals. 2. Incidental findings as above. Narrative 02/13/2018 3:54 [address]OR STITCHING DEPARTMENT CT ABDOMEN PELVIS W CONTRAST Reason For Exam: Abdominal aortic aneurysm (AAA), known, follow up; . Diagnosis: Abdominal aortic aneurysm without rupture. TECHNIQUE: CT of the abdomen and pelvis was performed following the administration of IV contrast. CONTRAST: This exam was aided by the intravenous administration of 100 mL of nonionic contrast. COMPARISON: None. FINDINGS: LIVER AND BILIARY: Liver demonstrates normal attenuation. Multiple minute hypoattenuating hepatic lesions noted that are too small to characterize by CT but statistically likely represent cysts in the absence of known malignancy. No evidence of intrahepatic biliary dilatation. PANCREAS: The pancreas enhances normally and is otherwise unremarkable. SPLEEN: The spleen is not enlarged and is otherwise unremarkable. KIDNEYS: The kidneys enhance symmetrically and do not show evidence of hydronephrosis. ADRENALS: The adrenal glands are unremarkable. LYMPH NODES: No enlarged retroperitoneal lymph nodes are seen. BOWEL: Bowel caliber is within normal limits without evidence of surrounding stranding/inflammation. PERITONEUM: No free air or pneumatosis is seen. No free fluid is seen. URINARY BLADDER/PROSTATE: Urinary bladder is grossly unremarkable. Prostate is mildly enlarged. AORTA/VASCULAR: Infrarenal abdominal aortic aneurysm is noted measuring 3.5 x 3.2 cm that extends through the bifurcation and involves predominantly the right common iliac artery that shows aneurysmal dilatation of 3 cm solid before terminating just prior to its bifurcation. Severe atherosclerosis at the origin of the right internal iliac artery is suspected. BONES: Review of bone windows does not reveal a suspicious osseous lesion. INCLUDED LUNG BASES: Moderate edematous changes are noted. Procedure Note Magan English MD - 02/13/2018 CT ABDOMEN PELVIS W CONTRAST Reason For Exam: Abdominal aortic aneurysm (AAA), known, follow up; . Diagnosis: Abdominal aortic aneurysm without rupture. TECHNIQUE: CT of the abdomen and pelvis was performed following the administration of IV contrast. CONTRAST: This exam was aided by the intravenous administration of 100 mL of nonionic contrast. COMPARISON: None. FINDINGS: LIVER AND BILIARY: Liver demonstrates normal attenuation. Multiple minute hypoattenuating hepatic lesions noted that are too small to characterize by CT but statistically likely represent cysts in the absence of known malignancy. No evidence of intrahepatic biliary dilatation. PANCREAS: The pancreas enhances normally and is otherwise unremarkable. SPLEEN: The spleen is not enlarged and is otherwise unremarkable. KIDNEYS: The kidneys enhance symmetrically and do not show evidence of hydronephrosis. ADRENALS: The adrenal glands are unremarkable. LYMPH NODES: No enlarged retroperitoneal lymph nodes are seen. BOWEL: Bowel caliber is within normal limits without evidence of surrounding stranding/inflammation. PERITONEUM: No free air or pneumatosis is seen. No free fluid is seen. URINARY BLADDER/PROSTATE: Urinary bladder is grossly unremarkable. Prostate is mildly enlarged. AORTA/VASCULAR: Infrarenal abdominal aortic aneurysm is noted measuring 3.5 x 3.2 cm that extends through the bifurcation and involves predominantly the right common iliac artery that shows aneurysmal dilatation of 3 cm solid before terminating just prior to its bifurcation. Severe atherosclerosis at the origin of the right internal iliac artery is suspected. BONES: Review of bone windows does not reveal a suspicious osseous lesion. INCLUDED LUNG BASES: Moderate edematous changes are noted. IMPRESSION: 1. 3.5 x 3.2 cm distal infrarenal bone aortic aneurysm that extends to the bifurcation. The right common iliac artery is also aneurysmal measuring up to 3 cm in diameter. There is either likely occlusion or severe hemodynamically significant stenosis at the origin the right internal iliac artery there is reconstitution of the distal right internal iliac artery via pelvic collaterals. 2. Incidental findings as above. Margarita Stefani Jerrod MORTGAGE CONSULTANT CT ORDERABLES Final Re sult documented in this encounter Visit Diagnoses Diagnosis Abdominal aortic aneurysm without rupture Abdominal aneurysm without mention of rupture Abdominal aortic aneurysm without rupture Abdominal aneurysm without mention of rupture documented in this encounter Care Teams Specialized Language Instructor Relationship Specialty Start Date End Date Simi Vital DO [address] [place] [address] PCP - General Family Practice 03/23/17 documented as of this encounter
--- OUTSIDE RECORDS SUMMARY | 2024-08-25 23:23 | XMS_ITS | Encounter Summary ---
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
--- OUTSIDE RECORDS SUMMARY | 2024-08-25 23:23 | XMS_ITS | Encounter Summary ---
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
--- OUTSIDE RECORDS SUMMARY | 2024-08-25 23:23 | XMS_ITS | Encounter Summary ---
Author Organization [facility] Address [address] [place] [address] Care Team Providers Care Mail Caller Name Role Phone Simi Vital DO Primary Care Provider +1- [phone] Encounter Details Date Type Department Care Team (Latest Contact Info) Description 05/21/2002 Outpatient Historical [facility] [place] [address] [phone] Annette Baldwin, BEAMER HAND [address] [place] [phone] JOINT PAIN-UNSPEC (Primary Dx) Social History Tobacco Use Types Packs/Day Years Used Date Smoking Tobacco: Never Assessed Sex and Gender Information Value Date Recorded Sex Assigned at Not on file 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
--- OUTSIDE RECORDS SUMMARY | 2024-08-25 23:23 | XMS_ITS | Encounter Summary ---
Author Organization [facility] Address [address] [place] [address] Care Team Providers Care Vegetable Picker Name Role Phone Simi Vital DO Primary Care Provider +1- [phone] Encounter Details Date Type Department Care Team (Late st Contact Info) Description 06/06/2016 Lab Requisition [facility] General Laboratory Services [place] [address] [place] [phone] Saul Arroyo, [place] NO ADDRESS ON FILE Social History Tobacco Use Types Packs/Day Years Used Date Smoking Tobacco: Never Assessed Sex and Gender Information Value Date Recorded Sex Assigned at Not on file 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 Gender Identity Not on file Sexual Orientation Not on file documented as of this encounter Plan of Treatment Not on file documented as of this encounter Procedures Procedure Name Priority Date/Time Associated Diagnosis Comments TSH Routine 06/06/2016 8:34 PM CDT documented in this encounter Results * (ABNORMAL) TSH (06/06/2016 8:34 PM CDT) TSH 14.72(H) 0.27 - 4.20 uIU/mL 06/06/2016 11:47 PM CDT [facility] Comment:Repeated and confirm ed Blood Venipuncture / Unknown 06/06/2016 8:34 PM CDT 06/06/2016 10:28 PM CDT Saul [facility] CHEMISTRY ORDERABLES Final Re sult [facility] CLIA # [id number] [address] [place] [address] documented in this encounter Visit Diagnoses Not on filedocumented in this encounter Care Teams Vegetable Picker Relationship Specialty Start Date End Date Simi Vital DO [address] [place] [address] PCP - General Family Practice 03/23/17 documented as of this encounter
--- OUTSIDE RECORDS SUMMARY | 2024-08-25 23:23 | XMS_ITS | Encounter Summary ---
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 Gender Identity Not on file Sexual Orientation Not on file documented as of this encounter Plan of Treatment Not on file documented as of this encounter Procedures Procedure Name Priority Date/Time Associated Diagnosis Comments CBC WITH DIFFERENTIAL Routine 11/19/2012 8:37 PM CDT Sick [ICD-9-CM] TSH Routine 11/19/2012 8:37 PM CDT Sick [ICD-9-CM] COMPREHENSIVE METABOLIC PANEL Routine 11/19/2012 8:37 PM CDT Sick [ICD-9-CM] documented in this encounter Results * (ABNORMAL) TSH (11/19/2012 8:37 PM CDT) TSH 45.14(H) 0.30 - 4.80 uIU/mL 11/19/2012 9:57 PM CDT [facility] Blood specimen (specimen) Venipuncture - Lab Collect / Unknown 11/19/2012 8:37 PM CDT 11/19/2012 9:21 PM CDT us Adriano Lawson NP CHEMISTRY ORDERABLES Final R esult [facility] [place] CLNAE # [id number] [address] [facility] [address] [place] [address] * (ABNORMAL) COMPREHENSIVE METABOLIC PANEL (11/19/2012 8:37 PM CDT) SODIUM 140 136 - 145 mmol/L 11/19/2012 9:57 PM CDT [facility] [place] POTASSIUM 4.1 3.5 - 5.1 mmol/L 11/19/2012 9:57 PM CDT [facility] [place] CHLORIDE 103 98 - 107 mmol/L 11/19/2012 9:57 PM CDT [facility] [place] CO2 30 21 - 32 mmol/L 11/19/2012 9:57 PM CDT [facility] [place] CALCIUM 9.2 8.5 - 10.1 mg/dL 11/19/2012 9:57 PM CDT [facility] [place] BUN 15 7 - 18 mg/dL 11/19/2012 9:57 PM CDT [facility] [place] CREATININE 1.10 0.60 - 1.30 mg/dL 11/19/2012 9:57 PM CDT [facility] [place] GLUCOSE 89 74 - 106 mg/dL 11/19/2012 9:57 PM CDT [facility] [place] TOTAL PROTEIN 7.2 6.4 - 8.2 g/dL 11/19/2012 9:57 PM CDT [facility] [place] ALBUMIN 3.9 3.4 - 5.0 g/dL 11/19/2012 9:57 PM CDT [facility] [place] BILIRUBIN TOTAL 0.4 0.2 - 1.0 mg/dL 11/19/2012 9:57 PM CDT [facility] [place] ALKALINE PHOSPHATASE 106 50 - 136 U/L 11/19/2012 9:57 PM CDT [facility] [place] AST 15 15 - 37 U/L 11/19/2012 9:57 PM CDT [facility] [place] ALT 21(L) 30 - 65 U/L 11/19/2012 9:57 PM CDT [facility] GFR 69 >=60 mL/min/1.7 3 sq meter 11/19/2012 9:57 PM CDT [facility] Comment: eGFR has not been validated for [...] Based on National Kidney Disease Education Program GFR, 84 >=60 mL/min/1.7 3 sq meter 11/19/2012 9:57 PM CDT [facility] Comment: eGFR has not been validated for [...] Based on National Kidney Disease Education Program Blood specimen (specimen) Venipuncture - Lab Collect / Unknown 11/19/2012 8:37 PM CDT 11/19/2012 9:21 PM CDT us Adriano Lawson NP CHEMISTRY ORDERABLES Final R esult [facility] [id number] [address] [place] [address] * (ABNORMAL) CBC WITH DIFFERENTIAL (11/19/2012 8:37 PM CDT) WBC 8.0 4.2 - 9.1 K/uL 11/19/2012 9:41 PM CDT [facility] RBC 4.46(L) 4.63 - 6.08 M/uL 11/19/2012 9:41 PM CDT [facility] HEMOGLOBIN 14.3 13.7 - 17.5 g/dL 11/19/2012 9:41 PM CDT [facility] [place] HEMATOCRIT 41.1 40.1 - 51.0 % 11/19/2012 9:41 PM CDT [facility] [place] MCV 92.2 79.0 - 92.2 fL 11/19/2012 9:41 PM CDT [facility] MCH 32.1 25.7 - 32.2 pg 11/19/2012 9:41 PM CDT [facility] [place] MCHC 34.8 32.3 - 36.5 g/dL 11/19/2012 9:41 PM CDT [facility] [place] RDW 12.4 11.0 - 14.5 % 11/19/2012 9:41 PM CDT [facility] [place] RDW-STDEV 40.9 37.0 - 54.0 fL 11/19/2012 9:41 PM CDT [facility] [place] PLATELETS 202 130 - 400 K/uL 11/19/2012 9:41 PM CDT [facility] [place] MPV 11.2 10.0 - 14.8 fL 11/19/2012 9:41 PM CDT [facility] [place] NEUTROPHILS 47 34 - 68 % 11/19/2012 9:41 PM CDT [facility] [place] LYMPHOCYTES 39 22 - 53 % 11/19/2012 9:41 PM CDT [facility] [place] MONOCYTES 8 5 - 12 % 11/19/2012 9:41 PM CDT [facility] [place] EOSINOPHILS 5 1 - 7 % 11/19/2012 9:41 PM CDT [facility] [place] BASOPHILS 1 0 - 1 % 11/19/2012 9:41 PM CDT [facility] [place] [place] NEUTROPHIL ABSOLUTE 3.77 1.78 - 5.38 K/uL 11/19/2012 9:41 PM CDT [facility] [place] LYMPHOCYTE ABSOLUTE 3.09 1.20 - 3.40 K/uL 11/19/2012 9:41 PM CDT [facility] [place] MONOCYTE ABSOLUTE 0.67 0.30 - 0.82 K/uL 11/19/2012 9:41 PM CDT [facility] [place] EOSINOPHIL ABSOLUTE 0.43 0.04 - 0.54 K/uL 11/19/2012 9:41 PM CDT [facility] [place] BASOPHILS ABSOLUTE 0.06 0.01 - 0.08 K/uL 11/19/2012 9:41 PM CDT [facility] [place] Blood specimen (specimen) Venipuncture - Lab Collect / Unknown 11/19/2012 8:37 PM CDT 11/19/2012 9:21 PM CDT Adriano Lawson NP HEMATOLOGY ORDERABLES Final Result [facility] [place] CLIA # [id number] [address] [place] [address] documented in this encounter Visit Diagnoses Diagnosis Sick Other unknown and unspecified cause of morbidity or mortality documented in this encounter Care Teams Administrative Underwriter Relationship Specialty Start Date End Date Simi Vital DO [address] [place] [address] PCP - General Family Practice 03/23/17 documented as of this encounter
--- OUTSIDE RECORDS SUMMARY | 2024-08-25 23:23 | XMS_ITS | Encounter Summary ---
Author Organization [facility] Address [address] [place] [address] Care Team Providers Care Manager Global Name Role Phone Simi Vital DO Primary Care Provider +1- [phone] Encounter Details Date Type Department Care Team (Latest Contact Info) Description 04/30/2002 Outpatient Historical [facility] Medicine [address] [phone] FX PHALANX, HAND NOS-CLOSE (Primary Dx); HYPOTHYROIDISM NOS Social History Tobacco Use Types Packs/Day Years Used Date Smoking Tobacco: Never Assessed Sex and Gender Information Value Date Recorded Sex Assigned at Not on file 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
--- OUTSIDE RECORDS SUMMARY | 2024-08-25 23:23 | XMS_ITS | Encounter Summary ---
Author Organization [facility] Address [address] [place] [address] Care Team Providers Care Underground Production Foreperson Name Role Phone Simi Vital DO Primary Care Provider +1- [phone] Encounter Details Date Type Department Care Team (Latest Contact Info) Description 08/20/2002 Outpatient Historical [facility] Medicine [address] [phone] Sprain sacroiliac (Primary Dx); SPASM OF MUSCLE Social History Tobacco Use Types Packs/Day Years Used Date Smoking Tobacco: Never Assessed Sex and Gender Information Value Date Recorded Sex Assigned at Not on file 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
--- OUTSIDE RECORDS SUMMARY | 2024-08-25 23:23 | XMS_ITS | Encounter Summary ---
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
--- OUTSIDE RECORDS SUMMARY | 2024-08-25 23:23 | XMS_ITS | Encounter Summary ---
Author Organization [facility] Address [address] [place] [address] Care Team Providers Care [employer] Name Role Phone Simi Vital DO Primary Care Provider [phone] Encounter Details Date Type Department Care Team (Latest Contact Info) Description 10/24/2002 Outpatient Historical [facility] Medicine [address] [phone] Skin sensation disturb (Primary Dx); [place] NOS Social History Tobacco Use Types Packs/Day Years Used Date Smoking Tobacco: Never Assessed Sex and Gender Information Value Date Recorded Sex Assigned at Not on file Legal Sex Male 6:01 AM [employer] Gender Identity Not on file Sexual Orientation Not on file documented as of this encounter Plan of Treatment Not on file documented as of this encounter Visit Diagnoses Diagnosis Skin sensation disturb- Primary Disturbance of skin sensation Alopecia, unspecified documented in this encounter Care Teams [employer] Relationship Specialty Start Date End Date Simi Vital DO [address] [place] [address] PCP - General Family Practice 03/23/17 documented as of this encounter
--- NOTE | 2024-08-25 23:25 | ECG_ITS ---
[email or web address] Test Date: 2024-08-25 Pat Name: Balta Kwan Department: Room: Gender: Male Consulting Services Associate: : [id number] Requested By: Pato Richards Order Number: [id number] Hood MD: Satya Myrick M.D. Measurements Intervals [place] Rate: 90 P: 83 PA: 154 QRS: 70 QRSD: 95 T: 80 QT: 365 QTc: 448 Interpretive Statements SINUS RHYTHM POSSIBLE LEFT ATRIAL ENLARGEMENT [-0.1mV P-WAVE IN V1/V2] Compared to ECG 06/29/2024 13:53:57 No significant changes Electronically Signed On 08-29-2024 09:35:47 CDT by Satya Myrick M.D. [id number]
== END 2024-08-26 00:50 | disposition left against medical advice (07) ==
PROVIDERS: Emergency Provider Family Medicine; PCP Family Medicine
DX: Z01.89 Encounter for other specified special examinations (principal); Z53.21 Procedure and treatment not carried out due to patient leaving prior to being seen by health care provider
CPT/HCPCS: 93005